=== PATIENT | female | born 1980 | race Caucasian/White ===

== ENCOUNTER → 2021-03-24 13:28 | Outpatient (BNVA) | payer OTHER, SELFPAY | PROVIDERS: PCP Hospitalist; Visit Provider Physician Assistant ==

== ENCOUNTER 2021-04-01 08:24 | Outpatient (REF) | payer OTHER, SELFPAY ==
--- NOTE | ~2021-04-01 | XR_ITS ---
EXAMINATION: XR CHEST 2 VIEWS CLINICAL INFORMATION: Obesity. COMPARISON: Prior chest radiographs as remote as 11/16/2009. TECHNIQUE: Frontal and lateral views of the chest were obtained. FINDINGS: The heart, great vessels, pulmonary vasculature and mediastinum are normal. The lungs show no focal infiltrate, effusion or pneumothorax. There is no acute osseous abnormality. There are upper abdominal surgical clips. XR/XR chest 2V IMPRESSION: No active cardiopulmonary disease.
--- NOTE | 2021-04-01 13:07 | ECG_ITS ---
Test Reason : E66.9 Blood Pressure : / mmHG Vent. Rate : 071 BPM Atrial Rate : 071 BPM P-R Int : 136 ms QRS Dur : 100 ms QT Int : 412 ms P-R-T Axes : 039 070 037 degrees QTc Int : 447 ms Normal sinus rhythm Normal ECG When compared with ECG of 22-JAN-2018 18:08, No significant change was found Referred By: Dirk Llamas Electronically Signed By:NIKKI DWYER
[2021-04-01 13:26] LABS: MANUAL DIFF FLAG NO
[2021-04-01 13:39] LABS: Estimated Average Glucose 217 mg/dL; Hemoglobin A1c % 9.2 %
[2021-04-01 13:40] LABS: Basophils Percent Auto 0.2 % (0-2); Eosinophils Absolute Auto 0.1 X10*3/uL (0.0-0.4); Eosinophils Percent Auto 1.6 % (0-4); Hematocrit 41.6 % (37-47); Hemoglobin 13.7 g/dl (12.0-16.0); Imm Gran Abs Auto 0.02 X10*3/uL (0.00-0.03); Imm Gran Pct Auto 0.2 % (0.0-0.4); Lymphocytes Absolute Auto 2.2 X10*3/uL (1.2-4.9); Lymphocytes Percent Auto 25.7 % (20-40); Mean Corpuscular HGB Conc 32.9 g/dl (31.0-35.0); Mean Corpuscular Hemoglobin 29.1 pg (27.0-33.0); Mean Corpuscular Volume 88.5 fL (80-98); Mean Platelet Volume 12.2 fL (9.4-12.3); Monocytes Absolute Auto 0.5 X10*3/uL (0.1-1.2); Monocytes Percent Auto 5.6 % (2-11); Neutrophils Absolute Auto 5.8 X10*3/uL (2.0-8.3); Neutrophils Percent Auto 66.7 % (45-73); Platelet Count 189 X10*3/uL (160-400); Red Cell Distribution Width 11.9 % (11.0-16.0); White Blood Count 8.6 X10*3/uL (4.8-10.8)
[2021-04-01 13:51] LABS: Alanine Aminotransferase 12 U/L (0-31); Albumin Level 4.2 g/dL (3.5-5.0); Alkaline Phosphatase 84 U/L (39-117); Anion Gap 11 (12-20); Aspartate Amino Transferase 11 U/L (5-31); Bilirubin Total 0.5 mg/dL (0.0-1.0); Blood Urea Nitrogen 12 mg/dL (9-16); C Reactive Protein 3.46 mg/dL (< or = 0.50); Calcium 9.1 mg/dL (8.4-10.2); Carbon Dioxide 26 mmol/L (22-29); Chloride 108 mmol/L (96-108); Cholesterol 238 mg/dL; Estimated Glomerular Filt Rate > 60; Glucose Random 165 mg/dL (60-115); HDL Cholesterol 62 mg/dL; Iron 42 mcg/dL (30-160); LDL Cholesterol Calculated 160 mg/dl; Percent Iron Saturation 14 % (15-50); Potassium 3.5 mmol/L (3.3-5.1); Sodium 141 mmol/L (135-145); Total Iron Binding Capacity 292 mcg/dL (228-428); Triglycerides 81 mg/dL; Unsaturated Iron Binding 250 ug/dL
[2021-04-01 14:14] LABS: Ferritin 128 ng/mL (10-250); Vitamin D 25-OH Total 35.2 ng/mL (>30)
[2021-04-01 14:34] LABS: Folate 13.3 ng/mL (> or = 4.0); Vitamin B12 486 pg/mL (200-900)
[2021-04-02 09:25] LABS: Insulin Level Total 4.4 uIU/mL
[2021-04-05 13:33] LABS: Calcium (PTHI) 9.1 mg/dL (8.6-10.2); PTHI 86 pg/mL (14-64)
[2021-04-05 20:47] LABS: Zinc 71 mcg/dL (60-130)
[2021-04-06 16:07] LABS: Vitamin B1 17 nmol/L (8-30)
[2021-04-06 19:17] LABS: Vitamin A 35 mcg/dL (38-98)
== END 2021-04-01 08:25 | disposition home or self-care (01) ==
LOC: HO.LAB 08:24
PROVIDERS: PCP Hospitalist; Visit Provider Surgery
DX: E66.9 Obesity, unspecified (principal); Z68.33 Body mass index [BMI] 33.0-33.9, adult; J45.909 Unspecified asthma, uncomplicated; E78.5 Hyperlipidemia, unspecified; I10 Essential (primary) hypertension
CPT/HCPCS: 36415; 71046; 80053; 80061; 82306; 82607; 82728; 82746; 83036; 83525; 83540; 83970; 84425; 84443; 84590; 84630; 85025; 86140; 93005

== ENCOUNTER 2021-04-14 09:02 | Day surgery (SDC) | payer OTHER, SELFPAY ==
[2021-04-08 14:13] VITALS: BMI 34.0
--- NOTE | 2021-04-13 10:27 | P.CONAN_ITS ---
Documented by User: Mihaela Melissa 04/13/21 10:28 HPI - Anesthesia Eval Consult details Narrative: 41yo F for Upper Endoscopy PMFSH Active Problems Active Problems: All Active Problems (Updated 04/01/21 @ 10:36 by Dirk Llamas MD) BMI 33.0-33.9,adult (Acute) DJD (degenerative joint disease) (Acute) Asthma (Acute) Hyperlipidemia (Acute) Hypertension (Acute) Depression (Acute) Insulin dependent diabetes mellitus (Acute) Obesity (Acute) Past Medical History Medical History Asthma Depression DJD (degenerative joint disease) Hyperlipidemia Hypertension Insulin dependent diabetes mellitus Kidney stones Obesity Family History Family History Mother Hypertension Tumor Eczema Heart murmur Father Hypertension Hyperlipidemia Heart attack Brother Eczema Asthma Migraine Brother Lung tumor Diabetes Sister Asthma Son No problems noted. Daughter No problems noted. Surgical History Surgical History Hx of breast surgery Hx of cholecystectomy Hx of laparoscopy Hx of tubal ligation Social History Social History (Updated 04/14/21 @ 10:06 by Samreen Lopez) Alcohol intake: never Patient Tobacco Use Status: Former Tobacco user Quit Date: December 2020 Smoked in Last 30 Days: No Use of substances other than those prescribed or required for medical reasons: No Are you DNR?: No Advance Directives: No Advance Directives Information Provided: Yes Patient : No FDLMP: 11/2002 Meds Allergies Allergy/AdvReac Type Severity Reaction Status Date / Time varicella virus vaccine live Allergy Severe difficulty Verified 04/14/21 09:43 [VARICELLA VIRUS VACCINE breathing/swelling/redness/itching LIVE] Home Medications Medication Instructions Recorded Confirmed Last Taken Type atorvastatin 40 mg tablet 40 mg PO DAILY 03/24/21 04/08/21 Unknown History blood sugar diagnostic #10 ea 03/24/21 04/01/21 Unknown History epinephrine 0.3 mg/0.3 mL IM 03/24/21 04/01/21 Unknown History injection, auto-injector insulin glargine 100 unit/mL (3 20 unit SUBCUT QAM 03/24/21 04/08/21 Unknown History mL) subcutaneous pen insulin glargine 100 unit/mL (3 unit SUBCUT 03/24/21 04/01/21 Unknown History mL) subcutaneous pen insulin lispro 100 unit/mL 5.5 unit SUBCUT BEDTIME 03/24/21 04/01/21 Unknown History subcutaneous half-unit pen insulin lispro 100 unit/mL unit SUBCUT DAILY 03/24/21 04/01/21 Unknown History subcutaneous pen lancets 28 gauge #100 ea 03/24/21 04/01/21 Unknown History lisinopril 40 mg tablet 40 mg PO DAILY 03/24/21 04/08/21 Unknown History metformin 1,000 mg tablet 1,000 mg PO BID 03/24/21 04/08/21 Unknown History omeprazole 40 mg capsule,delayed 40 mg PO DAILY 03/24/21 04/08/21 Unknown History release pen needle, diabetic 31 gauge x #50 03/24/21 04/01/21 Unknown History / sumatriptan succinate 50 mg tablet 50 mg PO 03/24/21 04/01/21 Unknown History albuterol sulfate 90 mcg/actuation 2 puff INHALATION Q6H PRN 04/01/21 04/01/21 Unknown History aerosol inhaler albuterol sulfate 90 mcg/actuation 2 puff INHALATION Q6H PRN 04/01/21 04/08/21 Unknown History aerosol inhaler Exam Exam Date and Time: April 13, 2021 1027 Height,Weight and Vital Signs: Height 4 ft 11.5 in Weight 77.564 kg Pertinent Lab Results Pertinent Lab Results: Laboratory Tests 04/01/21 04/01/21 12:52 12:52 WBC 8.6 Hgb 13.7 Hct 41.6 Plt Count 189 Sodium 141 Potassium 3.5 Chloride 108 Carbon Dioxide 26 BUN 12 Creatinine 0.73 Narrative Narrative: EKG 03/2021 Vent. Rate : 071 BPM Atrial Rate : 071 BPM P-R Int : 136 ms QRS Dur : 100 ms QT Int : 412 ms P-R-T Axes : 039 070 037 degrees QTc Int : 447 ms Normal sinus rhythm Normal ECG When compared with ECG of 22-JAN-2018 18:08, No significant change was found Assessment and Plan Assessment Anesthesia Assessment: Chart Reviewed Documented by User: Samreen Lopez 04/14/21 10:13 [facility] Past Medical History Medical History Asthma Depression DJD (degenerative joint disease) Hyperlipidemia Hypertension Insulin dependent diabetes mellitus Kidney stones Obesity Family History Family History Mother Hypertension Tumor Eczema Heart murmur Father Hypertension Hyperlipidemia Heart attack Brother Eczema Asthma Migraine Brother Lung tumor Diabetes Sister Asthma Son No problems noted. Daughter No problems noted. Family history of problems with anesthesia: No Surgical History Surgical History Hx of breast surgery Hx of cholecystectomy Hx of laparoscopy Hx of tubal ligation History of Problems with Anesthesia: No Social History Social History (Updated 04/14/21 @ 10:06 by Samreen Lopez) Alcohol intake: never Patient Tobacco Use Status: Former Tobacco user Quit Date: December 2020 Smoked in Last 30 Days: No Use of substances other than those prescribed or required for medical reasons: No Are you DNR?: No Advance Directives: No Advance Directives Information Provided: Yes Patient : No FDLMP: 11/2002 Meds Allergies Allergy/AdvReac Type Severity Reaction Status Date / Time varicella virus vaccine live Allergy Severe difficulty Verified 04/14/21 09:43 [VARICELLA VIRUS VACCINE breathing/swelling/redness/itching LIVE] Home Medications Medication Instructions Recorded Confirmed Last Taken Type atorvastatin 40 mg tablet 40 mg PO DAILY 03/24/21 04/08/21 Unknown History blood sugar diagnostic #10 ea 03/24/21 04/01/21 Unknown History epinephrine 0.3 mg/0.3 mL IM 03/24/21 04/01/21 Unknown History injection, auto-injector insulin glargine 100 unit/mL (3 20 unit SUBCUT QAM 03/24/21 04/08/21 Unknown History mL) subcutaneous pen insulin glargine 100 unit/mL (3 unit SUBCUT 03/24/21 04/01/21 Unknown History mL) subcutaneous pen insulin lispro 100 unit/mL 5.5 unit SUBCUT BEDTIME 03/24/21 04/01/21 Unknown History subcutaneous half-unit pen insulin lispro 100 unit/mL unit SUBCUT DAILY 03/24/21 04/01/21 Unknown History subcutaneous pen lancets 28 gauge #100 ea 03/24/21 04/01/21 Unknown History lisinopril 40 mg tablet 40 mg PO DAILY 03/24/21 04/08/21 Unknown History metformin 1,000 mg tablet 1,000 mg PO BID 03/24/21 04/08/21 Unknown History omeprazole 40 mg capsule,delayed 40 mg PO DAILY 03/24/21 04/08/21 Unknown History release pen needle, diabetic 31 gauge x #50 ea 03/24/21 04/01/21 Unknown History /16 sumatriptan succinate 50 mg tablet 50 mg PO 03/24/21 04/01/21 Unknown History albuterol sulfate 90 mcg/actuation 2 puff INHALATION Q6H PRN 04/01/21 04/01/21 Unknown History aerosol inhaler albuterol sulfate 90 mcg/actuation 2 puff INHALATION Q6H PRN 04/01/21 04/08/21 Unknown History aerosol inhaler Exam Height,Weight and Vital Signs: Vital Signs Temp Pulse Resp BP Pulse Ox 04/14/21 10:07 98.5 F 80 16 130/87 98 Pertinent Lab Results Pertinent Lab Results: Lab Results 04/14/21 04/14/21 Range/Units 09:10 09:45 POC Glucose 252 H (60-115) mg/dL COVID-19 ([facility]) Negative (Negative) COVID-19 Clin Com See Note Airway Mallampati Class: II TM Dist: >3cm Neck ROM: Full (But tense muscles) Loose/Missing/Broken Teeth: Yes (Extractions) Heart: RRR Lungs: CTAB Assessment and Plan Assessment Anesthesia Assessment: Anesthesia Plan Discussed and Chart Reviewed Final Anesthetic Review NPO: Yes ASA Class: II Final Preanesthetic Review: No Changes in Pt Med Stat, Meds/Allgs Chart Reviewed, Consent Obtained/Reviewed and Anes Risks/Benef Reviewed Patient Risk: Low Procedure Risk: Low Assessment/Block/Sedation in SS: Assess/Block/Sedation-SS Anesthetic Plan Anesthetic Plan: MAC: Disposition: Standard PACU
--- NOTE | 2021-04-13 16:37 | MHC.SHP ---
Pre-Procedural Eval Section A The patient is an INPATIENT: No The History & Physical has been completed within 30 days and I have reviewed it.: Yes Section B Chief Complaint: Hx of Peptic Ulcer Disease Details of Present Illness: GERD Relevant Family History (Specify if Yes): No Relevant Social History: None Present Medications: see Short Stay Collaborative assessment Medical History: No relevant PMH History of Previous Operations: No relevant previous surgery Allergies: Allergies Allergy/AdvReac Type Severity Reaction Status Date / Time varicella virus vaccine live Allergy Severe difficulty Unverified 04/08/21 14:04 [VARICELLA VIRUS VACCINE breathing/swelling/redness/itching LIVE] Review of Systems Sugical H&P ROS: Negative: Constitution, Cardiovascular, Respiratory, Neurological, Psychiatric, Hem-Onc, Allergic/Immunologic, Gastrointestinal, Genitourinary, Musculoskeletal, Integumentary, Endocrine and Eyes/Ears/Nose/Throat Exam Surgical H&P Exam: Normal: HEENT, Normal: Heart, Normal: Lungs, Normal: Extremities, Normal: Abdomen, Normal: Skin and Normal: Neurological Plan Diagnosis/Plan: Unchanged I have reviewed the history and physical and performed a pertinent physical examination on my patient. No changes have occurred unless specified.
[2021-04-14 09:16] VITALS: BMI 34.2
[2021-04-14] MEDS: Lactated Ringers 1,000 ML 100 ML IVCONT (09:43)
[2021-04-14 09:45] LABS: COVID-19 Test Negative (Negative)
[2021-04-14 09:50] LABS: Glucose, Whole Blood 252 mg/dL (60-115)
[2021-04-14 10:07] VITALS: BP 130/87; PULSE 80; RESP 16; TEMP 36.9; O2SAT 98
--- NOTE | 2021-04-14 10:25 | P.BOP_ITS ---
Brief Operative Note Date of Service: 04/14/21 Procedure: PROCEDURE DATE: 04/14/2021 PREOPERATIVE DIAGNOSIS: Peptic ulcer disease and obesity POSTOPERATIVE DIAGNOSIS: Same as above. 1) small hiatal hernia PROCEDURE: [id number] with biopsies Surgeon: Cesar Llamas M.D.. Ph.D. Turkish Line Attendant: None Anesthesia: IV sedation Estimated blood loss: Minimal FINDINGS AND PROCEDURE: OPERATIVE INDICATIONS: The patient is a 41 year old female known to dc who is evaluated for morbid obesity and bariatric surgery. She has a history of endoscopy-proven peptic ulcer disease. She presents for an endoscopy and a biopsy. Risks and complications of the surgery were discussed with the patient in advance particularly the possibility of perforation or bleeding that may require surgical intervention. The patient understood the risks and was in agreement with the plan. PROCEDURE: After informed consent was obtained by the patient, the patient was transferred to the Operating Room and was placed in the supine position. After successful induction of IV sedation, a mouth block was inserted and the patient was placed in the left lateral decubitus position. An upper endoscopy was performed next, the oropharynx and esophagus appeared within the normal limits. There was a small hiatal hernia. The z-line was smooth. Two biopsies were obtained from the distal esohagus 2-3 cm proximal to the GE junction and two additional biopsies from the GE junction. The stomach was entered and it appeared to be of normal size. There was no stricture or ulcer. Biopsies were obtained from the stomach. No significant bleeding was noted from any of the biopsy sites. Retroflexion of the scope showed no evidence of ulcers in the GEJ or fundus of the stomach. The scope was then advanced into the duodenum which appeared to be normal as well. At that point the duodenum and the stomach were decompressed and the scope was withdrawn from the patient's mouth. The patient extubated and was transferred in stable condition to the Recovery Room for further care. I was present and performed all steps of the procedure. There were no residents to assist with this case. Cesar Llamas M.D., Ph.D. Surgeon: Dirk Llamas MD Was an Turkish Line Attendant used for this Procedure?: No Estimated blood loss (mL): 0
[2021-04-14 10:49] VITALS: BP 115/73; PULSE 88; RESP 16; TEMP 36.7; O2SAT 93
[2021-04-14 11:04] VITALS: BP 128/81; PULSE 89; RESP 18; O2SAT 98
== END 2021-04-14 11:34 | disposition home or self-care (01) ==
PROVIDERS: PCP Hospitalist; Visit Provider Surgery
PROC: 0DJ08ZZ Inspection of Upper Intestinal Tract, Via Natural or Artificial Opening Endoscopic (ICD-10-PCS; CPT 43235; principal; 2021-04-14 10:10)
DX: K27.9 Peptic ulcer, site unspecified, unspecified as acute or chronic, without hemorrhage or perforation (principal); E66.9 Obesity, unspecified; Z68.33 Body mass index [BMI] 33.0-33.9, adult; K44.9 Diaphragmatic hernia without obstruction or gangrene; J45.909 Unspecified asthma, uncomplicated; E11.9 Type 2 diabetes mellitus without complications; I10 Essential (primary) hypertension; E78.5 Hyperlipidemia, unspecified; Z79.4 Long term (current) use of insulin; Z79.899 Other long term (current) drug therapy; Z87.891 Personal history of nicotine dependence
CPT/HCPCS: 43239; 36415; 82947; 87635; 88305; 88342

== ENCOUNTER 2021-04-19 10:10 | Outpatient (REF) | payer OTHER, SELFPAY ==
--- NOTE | ~2021-04-19 | FL_ITS ---
EXAMINATION: XR GI SERIES CLINICAL INFORMATION: Obesity COMPARISON: None TECHNIQUE: Upper GI was performed using thin and thick barium and effervescent granules. FINDINGS: Esophageal motility is normal. No hernia or reflux is seen. The stomach and duodenum are normal-appearing. No fold thickening, mass, ulcer or stricture is seen. FLUOROSCOPY TIME: 1.3 DOSE AREA PRODUCT: 13 wolf per centimeter squared. Total dose 36 mgy. 24 saved fluoroscopic images. FL/FL upper GI series IMPRESSION: Unremarkable examination.
== END 2021-04-19 10:11 | disposition home or self-care (01) ==
LOC: HO.US 10:10
PROVIDERS: PCP Hospitalist; Visit Provider Surgery
DX: Z01.818 Encounter for other preprocedural examination (principal); I10 Essential (primary) hypertension; E78.5 Hyperlipidemia, unspecified; J45.909 Unspecified asthma, uncomplicated; E66.01 Morbid (severe) obesity due to excess calories; K21.9 Gastro-esophageal reflux disease without esophagitis; Z68.33 Body mass index [BMI] 33.0-33.9, adult
CPT/HCPCS: 74240

== ENCOUNTER → 2021-04-22 06:46 | Outpatient (BNVA) | payer OTHER, SELFPAY | PROVIDERS: PCP Hospitalist; Visit Provider Surgery ==

== ENCOUNTER 2021-05-03 14:59 | Outpatient (REF) | payer OTHER, SELFPAY ==
--- NOTE | ~2021-05-03 | US_ITS ---
EXAMINATION: US COMPLETE ABDOMEN WITH LIVER ELASTOGRAPHY CLINICAL INFORMATION: Obesity COMPARISON: Previous CT of the abdomen and pelvis February 2016 TECHNIQUE: Real-time imaging of the abdominal viscera. Noninvasive ultrasound liver fibrosis assessment is performed using Kim ElastPQ point quantification shear wave elastography (pSWE) with a C5-2 MHz transducer. Multiple elastography samples are obtained. FINDINGS: PANCREAS: The visualized pancreatic head and body are normal in appearance. The remainder of the pancreas is obscured from visualization by the overlying bowel gas. ABDOMINAL AORTA: The proximal, middle, and distal aortic segments are normal in caliber. INFERIOR VENA CAVA: Visualized portions are normal. LIVER: Liver echotexture is increased. The liver demonstrates normal size and contour. No focal lesion or intrahepatic biliary duct dilatation. The right lobe measures 15.2 cm in length. The left lobe measures 9.7 cm in length. Portal flow is normal/hepatopedal Shear wave liver elastography median stiffness is 1.4 m/s (reference: normal median stiffness is 1.3 m/s or less). IQR/median stiffness to assess sampling precision is 0.04 (reference: good quality data set is IQR/median stiffness of 0.15 or less). GALLBLADDER: Surgically removed COMMON BILE DUCT: Normal in caliber measuring 0.3 cm in diameter. RIGHT KIDNEY: There is a 4 mm stone in the upper pole. No hydronephrosis. No focal parenchymal lesions. The kidney measures 11.6 cm in maximum dimension. LEFT KIDNEY: Normal. No hydronephrosis. No renal calculi or focal parenchymal lesions. The kidney measures 11 cm in maximum dimension. SPLEEN: Normal. The spleen measures 11 cm in maximum dimension. FREE FLUID: None. US/US abdomen comp w elastography IMPRESSION: 1. Impression: Echogenic liver probably representing fatty infiltration. Right renal stone. Limited visualization of the tail of the pancreas. 2. Liver elastography: Adequate liver sampling. In the absence of other known clinical signs, rules out compensated advanced chronic liver disease. REFERENCE: Society of Radiologists in Ultrasound Liver Stiffness Thresholds (2020): LIVER STIFFNESS THRESHOLDS: *Liver Stiffness equal or less than 1.3 m/s: High probability of being normal. *Liver Stiffness less than 1.7 m/s: In the absence of other known clinical signs, rules out compensated advanced chronic liver disease. *Liver Stiffness 1.7-2.1 m/s: Suggestive of compensated advanced chronic liver disease but need further test for confirmation. *Liver Stiffness over 2.1 m/s: Rules in compensated advanced chronic liver disease. *Liver Stiffness over 2.4 m/s: Suggestive of clinically significant portal hypertension. QUALITY OF DATA SET: *IQR/Median value equal or less than 0.15 implies a quality data set. *IQR/Median value over 0.15 implies a poor quality data set. SIGNIFICANT CHANGE FROM PRIOR EXAM: Significant change if liver stiffness measurement is 10% or greater from prior exam. OTHER CONSIDERATIONS: The stage of liver fibrosis may be overestimated in the setting of acute hepatitis, liver inflammation, elevated liver function tests, hepatic vascular congestion, obstructive cholestasis, non-fasting state, and infiltrative diseases such as amyloidosis and lymphoma. In some patients with NAFLD, the liver stiffness thresholds for compensated advanced chronic liver disease may be lower. In causes other than viral hepatitis and NAFLD, liver stiffness thresholds are not well established.
== END 2021-05-03 15:00 | disposition home or self-care (01) ==
LOC: HO.US 14:59
PROVIDERS: Visit Provider Surgery
DX: E66.9 Obesity, unspecified (principal); Z68.33 Body mass index [BMI] 33.0-33.9, adult; E78.5 Hyperlipidemia, unspecified; I10 Essential (primary) hypertension; J45.909 Unspecified asthma, uncomplicated
CPT/HCPCS: 76705; 76981

== ENCOUNTER → 2021-05-05 08:08 | Outpatient (BNVA) | payer OTHER, SELFPAY | PROVIDERS: PCP Hospitalist; Visit Provider Dietitian, Registered | DX: E66.9 Obesity, unspecified (principal); Z68.34 Body mass index [BMI] 34.0-34.9, adult | CPT/HCPCS: 97802 ==

== ENCOUNTER 2021-09-02 10:24 | Emergency (ER) | payer OTHER, MEDICAID, SELFPAY ==
--- NOTE | ~2021-09-02 | XR_ITS ---
EXAMINATION: XR CHEST CLINICAL INFORMATION: Hypertension COMPARISON: Previous chest x-ray March 2021 TECHNIQUE: 2 views of the chest were obtained. FINDINGS: The cardiac and mediastinal contours are stable. There is a new 6 mm nodular density projecting over the left upper lobe. This may be related to a chest lead. The lungs are otherwise clear. There is no pleural effusion or pneumothorax. Bony structures are unremarkable. XR/XR chest 2V IMPRESSION: New 6 mm nodular density projecting over the left upper lobe, question related to a left chest bleed. Otherwise unremarkable exam.
--- NOTE | ~2021-09-02 | CT_ITS ---
EXAMINATION: CT HEAD WITHOUT CONTRAST CLINICAL INFORMATION: Asymptomatic hypertension COMPARISON: None TECHNIQUE: Contiguous axial imaging was performed from the skull base to vertex without intravenous administration of contrast. This CT examination was performed using dose optimization techniques as appropriate, variously including the following: *Automated exposure control *Adjustment of mA and/or kV according to patient size (this includes techniques or standardized protocols for targeted exams where dose is matched to indication/reason for exam; i.e. extremities or head) *Use of iterative reconstruction technique DLP: 657 mGy-cm FINDINGS: There is no evidence of acute intracranial hemorrhage or territorial infarction. No abnormal mass effect or midline shift is seen. Powers to white matter differentiation is well preserved. No extra-axial fluid collections are identified. The ventricles are normal in size. There is no abnormal attenuation within the brain parenchyma. The osseous structures and soft tissues are normal. The mastoid air cells and visualized portions of the paranasal sinuses are well aerated. CT/CT head/brain wo con IMPRESSION: No acute intracranial pathology.
[2021-09-02 10:45] VITALS: BP 199/116; PULSE 104; RESP 18; TEMP 36.8; O2SAT 100; BMI 34.0
--- NOTE | 2021-09-02 11:05 | ECG_ITS ---
Test Reason : HIGH BP Blood Pressure : / mmHG Vent. Rate : 077 BPM Atrial Rate : 077 BPM P-R Int : 140 ms QRS Dur : 100 ms QT Int : 394 ms P-R-T Axes : 050 064 040 degrees QTc Int : 445 ms Normal sinus rhythm Normal ECG When compared with ECG of 01-APR-2021 13:10, No significant change was found Referred By: Georgette Dumont Electronically Signed By:CANDIE LINO MD
--- NOTE | 2021-09-02 11:07 | ED.HA ---
HPI - Headache General Chief Complaint: Dizziness Stated Complaint: hbp Time Seen by Provider: 09/02/21 10:52 Source: patient Mode of arrival: ambulatory Limitations: no limitations History of Present Illness HPI Narrative: 41-year-old female with a past medical history of asthma, high cholesterol, hypertension, depression, obesity, insulin-dependent diabetes here with complaints of generalized headache, blurry vision and numbness around her mouth for the last 2 days. Patient tells me that she has history of hypertension for greater than 4 years. She had been taking lisinopril but discontinued this this summer due to a change in primary care doctor. She restarted in July and has been checking her blood pressure daily since then. She tells me that she has been running high 180s over 100s consistently every day. Today she had a slight headache with some blurry vision and so she went to the school nurse and was told her blood pressure was 180/100. This concerned her and brought her into the emergency department today. She did notify her primary care doctor and they have added Norvasc 10 mg to her regimen. She is currently taking lisinopril 40 mg as well. No weakness, numbness, tingling, chest pain, shortness of breath, leg swelling or pain. Related Data Home Medications Medication Instructions Recorded Confirmed atorvastatin 40 mg tablet 40 mg PO DAILY 03/24/21 04/08/21 blood sugar diagnostic #10 ea 03/24/21 04/01/21 epinephrine 0.3 mg/0.3 mL IM 03/24/21 04/01/21 injection, auto-injector insulin glargine 100 unit/mL (3 unit SUBCUT 03/24/21 04/01/21 mL) subcutaneous pen insulin glargine 100 unit/mL (3 20 unit SUBCUT QAM 03/24/21 04/08/21 mL) subcutaneous pen (Basaglar KwikPen U-100 Insulin) insulin lispro 100 unit/mL 5.5 unit SUBCUT BEDTIME 03/24/21 04/01/21 subcutaneous half-unit pen (Humalog Emerson KwikPen (U-100)) insulin lispro 100 unit/mL unit SUBCUT DAILY 03/24/21 04/01/21 subcutaneous pen lancets 28 gauge #100 ea 03/24/21 04/01/21 lisinopril 40 mg tablet 40 mg PO DAILY 03/24/21 04/08/21 metformin 1,000 mg tablet 1,000 mg PO BID 03/24/21 04/08/21 omeprazole 40 mg capsule,delayed 40 mg PO DAILY 03/24/21 04/08/21 release pen needle, diabetic 31 gauge x #50 ea 03/24/21 04/01/2101/18 sumatriptan succinate 50 mg tablet 50 mg PO 03/24/21 04/01/21 albuterol sulfate 90 mcg/actuation 2 puff INHALATION Q6H PRN 04/01/21 04/01/21 aerosol inhaler albuterol sulfate 90 mcg/actuation 2 puff INHALATION Q6H PRN 04/01/21 04/08/21 aerosol inhaler (ProAir HFA) Previous Rx's Medication Instructions Recorded vitamin A palmitate 10,000 unit 10,000 unit PO .COMPLEX #30 cap 04/22/21 capsule Allergies Allergy/AdvReac Type Severity Reaction Status Date / Time varicella virus vaccine live Allergy Severe difficulty Verified 04/14/21 09:43 [VARICELLA VIRUS VACCINE breathing/swelling/redness/itching LIVE] Review of Systems Review of Systems: Yes all other systems are reviewed and are negative Constitutional: Constitutional: Reports no additional constitutional complaints, Denies body ache(s), Denies chills, Denies fever(s), Reports headache(s) and Denies weakness Eyes: Eyes: Reports no additional eye complaints, Reports blurry vision and Denies change in vision ENT: Reports system reviewed and no additional complaints, except as documented, Denies dizziness, Reports headache(s), Denies nasal congestion, Denies nasal discharge and Denies neck pain Cardiovascular: Cardiovascular: Reports no additional cardiovascular complaints, Denies chest pain, Denies leg edema and Denies dyspnea Respiratory: Respiratory: Reports no additional respiratory complaints, Denies cough and Denies dyspnea Gastrointestinal: Gastrointestinal: Reports no additional gastrointestinal complaints, Denies abdominal pain, Denies diarrhea, Denies nausea and Denies vomiting Genitourinary: Genitourinary: Reports no additional female genitourinary complaints and Denies urinary incontinence Musculoskeletal: Musculoskeletal: Reports no additional musculoskeletal complaints, Denies back pain, Denies arthralgias, Denies joint swelling, Denies neck pain, Reports numbness and Denies tingling Integumentary/Breasts: Skin/Breast: Reports system reviewed and no additional complaints, except as docu and Denies rash Neurologic: Reports system reviewed and no additional complaints, except as documented, Denies Abnormal speech present, Denies dizziness, Reports headache(s), Reports numbness, Denies tingling and Denies weakness PMFSH Past Medical History Attestation statement: The following information was validated with the patient. Source: old records reviewed and nursing notes reviewed Medical History Asthma Depression DJD (degenerative joint disease) Hyperlipidemia Hypertension Insulin dependent diabetes mellitus Kidney stones Obesity Surgical History Hx of breast surgery Hx of cholecystectomy Hx of laparoscopy Hx of tubal ligation Family History Family History Mother Hypertension Tumor Eczema Heart murmur Father Hypertension Hyperlipidemia Heart attack Brother Eczema Asthma Migraine Brother Lung tumor Diabetes Sister Asthma Son No problems noted. Daughter No problems noted. Social History Social History Alcohol intake: never Patient Tobacco Use Status: Current everyday Tobacco user Use of substances other than those prescribed or required for medical reasons: No Advance Directives: No Advance Directives Information Provided: Yes Physical Exam Vital Signs: Vital Signs: Last Vital Signs Temp 98.2 F 09/02/21 10:45 Pulse 71 09/02/21 12:27 Resp 18 09/02/21 12:27 BP 162/92 H 09/02/21 12:27 Pulse Ox 100 09/02/21 10:45 Body Mass Index 34.0 Const: General: cooperative, healthy appearing, comfortable and no acute distress Orientation/consciousness: patient oriented x3 Limitations: no limitations HENMT: Head: Yes normal to inspection Ears: hearing grossly normal bilaterally and TM's normal bilaterally General nose exam: Normal external nose present Face and sinus: Yes normal facial exam Mouth: Normal oral and palatal mucosa present Throat: Yes posterior oropharynx normal, Yes tonsils normal and Yes uvula midline Eyes: General: appearance normal, both eyes and all related structures Visual [place]: normal visual [place] by confrontation Alignment and Position: alignment normal Periorbital: periorbital findings normal Eyelids: Yes eyelids normal Conjunctivae: conjunctivae normal Sclerae: sclerae normal Corneas: corneas normal Pupils: Equal, round and reactive pupils present EOM: EOMs intact bilaterally Direct Ophthalmoscopy: normal light reflex and no photophobia Neck: Neck: Yes normal visual inspection Chest: Chest palpation & inspection: normal inspection of the chest Resp: Effort & Inspection: normal respiratory effort Auscultation: clear to auscultation bilaterally Cardio: Rate: regular rate Rhythm: regular rhythm Peripheral pulses: Peripheral pulses 2+ throughout GI: Inspection: Yes normal to inspection Palpation (GI): Soft to palpation and nontender Auscultation: normal bowel sounds Back/Spine/Pelvis: Thoracic/Lumbar Spine: thoracic and lumbar spine normal to inspection Skin: General skin exam: no rashes or lesions noted Neuro: General: patient oriented x3, no focal motor deficits and normal sensation to monofilament Cranial nerves: Yes CN's II-XII intact bilaterally, Yes Equal, round and reactive pupils present, Yes Bilaterally intact EOM present, Yes Nystagmus not present, Yes Normal facial strength present and Yes Midline tongue present Cognition (Neuro): normal cognition Speech: No Abnormal speech present Gait exam (Neuro): Normal gait present Motor exam (neuro): 5/5 motor strength present throughout Sensory Exam: Normal double simultaneous stimulation for sensation Deep tendon reflexes (DTR's): Right patellar reflex intensity grade: 2+ and Left patellar reflex intensity grade: 2+ Extrem: General: Yes normal to inspection, Yes no pedal edema and Yes no calf tenderness Course Course Course Narrative: Symptomatic hypertension unchanged with home lisinopril 40 mg. Normal neuro exam. Will check labs including UA, CT head, EKG and chest x-ray. Will give p.o. Norvasc and reassess blood pressure. Goal blood pressure is 160/90 1245-labs are unremarkable with the exception of mild hyperglycemia with no evidence of DKA. Patient is an insulin-dependent diabetic and plans on giving herself her noontime dose of insulin. Her EKG, chest x-ray and CT scan are normal. Her blood pressure is improved down to 162/92. I spoke to the patient and she is tearful at the bedside. She still tells me that she has a mild headache. I offered medications to treat her headache as a think that this is likely multifactorial and not necessarily from her high blood pressure. May be secondary to mild hyperglycemia or migraine. Patient declined medications and would like to go home. She has a prescription of amlodipine waiting at the pharmacy for her from her primary care. Reviewed worrisome signs and symptoms of when to return to the emergency department. Comfortable discharge home. MDM - Headache MDM Narrative Medical decision making narrative: Symptomatic hypertension ICH Migraine Medical Records Attestation: I reviewed the patient's medical records. Lab Data Attestation: I reviewed the patient's lab results. Result diagrams: 09/02/21 11:13 09/02/21 11:13 Labs: Lab Results 09/02/21 09/02/21 09/02/21 Range/Units 11:13 11:13 11:13 WBC 6.1 (4.8-10.8) X10*3/uL RBC 4.59 (4.20-5.50) X10*6/uL Hgb 13.6 (12.0-16.0) g/dl Hct 40.6 (37-47) % MCV 88.5 (80-98) fL MCH 29.6 (27.0-33.0) pg MCHC 33.5 (31.0-35.0) g/dl RDW 12.1 (11.0-16.0) % Plt Count 154 L (160-400) X10*3/uL MPV 12.6 H (9.4-12.3) fL Immature Gran % (Auto) 0.2 (0.0-0.4) % Neut % (Auto) 59.2 (45-73) % Lymph % (Auto) 32.3 (20-40) % [place] % (Auto) 6.2 (2-11) % Eos % (Auto) 1.8 (0-4) % Baso % (Auto) 0.3 (0-2) % Lymph # (Auto) 2.0 (1.2-4.9) X10*3/uL [place] # (Auto) 0.4 (0.1-1.2) X10*3/uL Eos # (Auto) 0.1 (0.0-0.4) X10*3/uL Baso # (Auto) 0.0 (0.0-0.2) X10*3/uL Abs Immat Gran (auto) 0.01 (0.00-0.03) X10*3/uL Absolute Neuts (auto) 3.6 (2.0-8.3) X10*3/uL Absolute Nucleated RBC 0.000 (0.0-0.012) X10*3/uL Nucleated RBC % (auto) 0.0 (0.0-0.2) /100WBC Sodium 137 (135-145) mmol/L Potassium 4.1 (3.3-5.1) mmol/L Chloride 104 (96-108) mmol/L Carbon Dioxide 25 (22-29) mmol/L Anion Gap 12 (12-20) BUN 8 L (9-16) mg/dL Creatinine 0.81 (0.5-1.4) mg/dL Estim Creat Clear Calc 84.1 Estimated GFR > 60 Random Glucose 322 H (60-115) mg/dL Calcium 8.8 (8.4-10.2) mg/dL Magnesium 1.7 (1.6-2.6) mg/dL Total Bilirubin 0.5 (0.0-1.0) mg/dL Direct Bilirubin 0.2 (0.0-0.5) mg/dL AST 11 (5-31) U/L ALT 13 (0-31) U/L Alkaline Phosphatase 80 (39-117) U/L Troponin I High Sens < 3.5 (<3.5-17.0) ng/L Total Protein 6.6 (6.5-8.0) g/dL Albumin 3.9 (3.5-5.0) g/dL Urine Color Urine Appearance Urine pH (5.0-8.0) Ur Specific [place] (1.005-1.025) Urine Protein (NEG-TRACE) MG/DL Urine Glucose (UA) (NEG) MG/DL Urine Ketones (NEG) MG/DL Urine Blood (NEG) Urine Nitrite (NEG) Ur Leukocyte Esterase (NEG) Urine RBC (0) /HPF Urine WBC (0-4) /HPF Ur Squamous Epith Cells /LPF Urine Bacteria /LPF 09/02/21 Range/Units 11:13 WBC (4.8-10.8) X10*3/uL RBC (4.20-5.50) X10*6/uL Hgb (12.0-16.0) g/dl Hct (37-47) % MCV (80-98) fL MCH (27.0-33.0) pg MCHC (31.0-35.0) g/dl RDW (11.0-16.0) % Plt Count (160-400) X10*3/uL MPV (9.4-12.3) fL Immature Gran % (Auto) (0.0-0.4) % Neut % (Auto) (45-73) % Lymph % (Auto) (20-40) % [place] % (Auto) (2-11) % Eos % (Auto) (0-4) % Baso % (Auto) (0-2) % Lymph # (Auto) (1.2-4.9) X10*3/uL [place] # (Auto) (0.1-1.2) X10*3/uL Eos # (Auto) (0.0-0.4) X10*3/uL Baso # (Auto) (0.0-0.2) X10*3/uL Abs Immat Gran (auto) (0.00-0.03) X10*3/uL Absolute Neuts (auto) (2.0-8.3) X10*3/uL Absolute Nucleated RBC (0.0-0.012) X10*3/uL Nucleated RBC % (auto) (0.0-0.2) /100WBC Sodium (135-145) mmol/L Potassium (3.3-5.1) mmol/L Chloride (96-108) mmol/L Carbon Dioxide (22-29) mmol/L Anion Gap (12-20) BUN (9-16) mg/dL Creatinine (0.5-1.4) mg/dL Estim Creat Clear Calc Estimated GFR Random Glucose (60-115) mg/dL Calcium (8.4-10.2) mg/dL Magnesium (1.6-2.6) mg/dL Total Bilirubin (0.0-1.0) mg/dL Direct Bilirubin (0.0-0.5) mg/dL AST (5-31) U/L ALT (0-31) U/L Alkaline Phosphatase (39-117) U/L Troponin I High Sens (<3.5-17.0) ng/L Total Protein (6.5-8.0) g/dL Albumin (3.5-5.0) g/dL Urine Color YELLOW Urine Appearance CLEAR Urine pH 6.5 (5.0-8.0) Ur Specific [place] 1.015 (1.005-1.025) Urine Protein NEG (NEG-TRACE) MG/DL Urine Glucose (UA) >=1000 H (NEG) MG/DL Urine Ketones NEG (NEG) MG/DL Urine Blood NEG (NEG) Urine Nitrite NEG (NEG) Ur Leukocyte Esterase NEG (NEG) Urine RBC 0-2 (0) /HPF Urine WBC 1-4 (0-4) /HPF Ur Squamous Epith Cells 1+ /LPF Urine Bacteria NONE /LPF Imaging Data CT scan - head: Attestation: I personally reviewed and interpreted this imaging study as follows: Radiologist's impression: FINDINGS: There is no evidence of acute intracranial hemorrhage or territorial infarction. No abnormal mass effect or midline shift is seen. Powers to white matter differentiation is well preserved. No extra-axial fluid collections are identified. The ventricles are normal in size. There is no abnormal attenuation within the brain parenchyma. The osseous structures and soft tissues are normal. The mastoid air cells and visualized portions of the paranasal sinuses are well aerated. ? CT/CT head/brain wo con IMPRESSION: No acute intracranial pathology. Chest x-ray: Attestation: I personally reviewed and interpreted this imaging study as follows: Radiologist's impression: FINDINGS: The cardiac and mediastinal contours are stable. There is a new 6 mm nodular density projecting over the left upper lobe. This may be related to a chest lead. The lungs are otherwise clear. There is no pleural effusion or pneumothorax. Bony structures are unremarkable. XR/XR chest 2V IMPRESSION: New 6 mm nodular density projecting over the left upper lobe, question related to a left chest bleed. Otherwise unremarkable exam. ECG Data Attestation: I personally reviewed and interpreted this ECG as follows: ECG interpretation date: 09/02/21 ECG interpretation time: 10:57 Interpretation: Normal sinus rhythm with a rate of 77, normal SD, normal QRS, normal QT Discharge Plan Discharge Clinical Impression: Hypertension Patient Disposition: Home, Self-Care Instructions: Heart Healthy Diet (ED), Chronic Hypertension (ED), DASH Eating Plan (ED) Additional Instructions: Avoid smoking and caffeine Fill the prescription that your provider called in for you. You received Norvasc 10 mg here in the emergency department. Your blood pressure improved to 160/90 on discharge Prescriptions: No Action albuterol sulfate [ProAir HFA] 90 mcg/actuation HFA aerosol inhaler 2 puff inhalation Q6H PRN (Reason: Shortness Of Breath) RF: 0 albuterol sulfate 90 mcg/actuation HFA aerosol inhaler 2 puff inhalation Q6H PRNRF: 0 vitamin A palmitate 10,000 unit capsule 10,000 unit PO .COMPLEX Qty: 30 RF: 1 sumatriptan succinate 50 mg tablet 50 mg PO RF: 0 (DME) lancets 28 gauge misc See Rx Instructions ea topical BID Qty: 100 RF: 0 Basaglar KwikPen U-100 Insulin 100 unit/mL (3 mL) insulin pen subcut RF: 0 (DME) pen needle, diabetic 31 gauge x 3/16 needle See Rx Instructions ea subcut BEDTIME Qty: 50 RF: 0 insulin lispro 100 unit/mL insulin pen subcut DAILY RF: 0 lisinopril 40 mg tablet 40 mg PO DAILY RF: 0 epinephrine 0.3 mg/0.3 mL auto-injector IM RF: 0 metformin 1,000 mg tablet 1,000 mg PO BID RF: 0 (DME) FreeStyle Precision [place] Strips Strip See Rx Instructions strip .ROUTE BID Qty: 10 RF: 0 omeprazole 40 mg capsule,delayed release(DR/EC) 40 mg PO DAILY RF: 0 atorvastatin 40 mg tablet 40 mg PO DAILY RF: 0 insulin lispro [Humalog Emerson KwikPen U-100] 100 unit/mL insulin pen, half-unit 5.5 unit subcut BEDTIME RF: 0 Basaglar KwikPen U-100 Insulin 100 unit/mL (3 mL) insulin pen 20 unit subcut QAM RF: 0 Referrals: Misael Rader [Primary Care Provider] - 2 days Stand Alone Forms: Work/School Release Interventions: ED Discharge Assessment Last Done: 09/02/21 13:00 Discharge Date/Time: 09/02/21 13:00
[2021-09-02 11:18] VITALS: BP 199/116; PULSE 82
[2021-09-02 11:18] LABS: MANUAL DIFF FLAG NO
[2021-09-02] MEDS: amLODIPine Besylate 10 MG TABLET PO (11:18)
[2021-09-02 11:20] LABS: Appearance Urine CLEAR; Basophils Percent Auto 0.3 % (0-2); Color Urine YELLOW; Eosinophils Absolute Auto 0.1 X10*3/uL (0.0-0.4); Eosinophils Percent Auto 1.8 % (0-4); Glucose Urine UA >=1000 MG/DL (NEG); Hematocrit 40.6 % (37-47); Hemoglobin 13.6 g/dl (12.0-16.0); Imm Gran Abs Auto 0.01 X10*3/uL (0.00-0.03); Imm Gran Pct Auto 0.2 % (0.0-0.4); Leukocyte Esterase Urine NEG (NEG); Lymphocytes Percent Auto 32.3 % (20-40); Mean Corpuscular HGB Conc 33.5 g/dl (31.0-35.0); Mean Corpuscular Hemoglobin 29.6 pg (27.0-33.0); Mean Corpuscular Volume 88.5 fL (80-98); Mean Platelet Volume 12.6 fL (9.4-12.3); Monocytes Absolute Auto 0.4 X10*3/uL (0.1-1.2); Monocytes Percent Auto 6.2 % (2-11); Neutrophils Absolute Auto 3.6 X10*3/uL (2.0-8.3); Neutrophils Percent Auto 59.2 % (45-73); Nitrite Urine NEG (NEG); PH 6.5 (5.0-8.0); Platelet Count 154 X10*3/uL (160-400); Red Blood Count 4.59 X10*6/uL (4.20-5.50); Red Cell Distribution Width 12.1 % (11.0-16.0); Specific Gravity - Urine 1.015 (1.005-1.025); Urine Blood NEG (NEG); Urine Ketones NEG (NEG); Urine Protein NEG (NEG-TRACE); White Blood Count 6.1 X10*3/uL (4.8-10.8)
[2021-09-02 11:30] LABS: RBC Urine 0-2 /HPF (0); Squamous Epithelial Cell Urine 1+ /LPF
[2021-09-02 11:37] LABS: Troponin-I High Sensitivity < 3.5 ng/L (<3.5-17.0)
[2021-09-02 11:38] LABS: Alanine Aminotransferase 13 U/L (0-31); Albumin Level 3.9 g/dL (3.5-5.0); Alkaline Phosphatase 80 U/L (39-117); Anion Gap 12 (12-20); Aspartate Amino Transferase 11 U/L (5-31); Bilirubin Direct 0.2 mg/dL (0.0-0.5); Bilirubin Total 0.5 mg/dL (0.0-1.0); Blood Urea Nitrogen 8 mg/dL (9-16); Calcium 8.8 mg/dL (8.4-10.2); Carbon Dioxide 25 mmol/L (22-29); Chloride 104 mmol/L (96-108); Creatinine Clr Calc Pharmacy 84.1; Estimated Glomerular Filt Rate > 60; Glucose Random 322 mg/dL (60-115); Magnesium 1.7 mg/dL (1.6-2.6); Potassium 4.1 mmol/L (3.3-5.1); Sodium 137 mmol/L (135-145); Total Protein 6.6 g/dL (6.5-8.0)
[2021-09-02 12:27] VITALS: BP 162/92; PULSE 71; RESP 18
== END 2021-09-02 13:00 | disposition home or self-care (01) ==
PROVIDERS: Nurse Practitioner Family; Emergency Provider Emergency Medicine; PCP Hospitalist
DX: I10 Essential (primary) hypertension (principal); E11.65 Type 2 diabetes mellitus with hyperglycemia; J45.909 Unspecified asthma, uncomplicated; Z79.4 Long term (current) use of insulin; Z79.899 Other long term (current) drug therapy
CPT/HCPCS: 36415; 70450; 71046; 80048; 80076; 81001; 83735; 84484; 85025; 93005; 99284; 99285

== ENCOUNTER 2024-04-28 09:23 | Inpatient (IN) | payer OTHER, MEDICAID, SELFPAY ==
--- NOTE | ~2024-04-28 | CT_ITS ---
EXAMINATION: CT ABDOMEN AND PELVIS WITH CONTRAST CLINICAL INFORMATION: Periumbilical pain and bilateral lower quadrant pain COMPARISON: Ultrasound abdomen 05/03/2021, CT abdomen pelvis 02/19/2016 TECHNIQUE: Multidetector volumetric images were obtained from the superior aspect of the liver through the pubic symphysis following administration 85 mL of Omnipaque 350 intravenous contrast. Sagittal and coronal reformatted images were obtained on the technologist's workstation. Oral contrast: No This CT examination was performed using dose optimization techniques as appropriate, variously including the following: *Automated exposure control *Adjustment of mA and/or kV according to patient size (this includes techniques or standardized protocols for targeted exams where dose is matched to indication/reason for exam; i.e. extremities or head) *Use of iterative reconstruction technique DLP: 405 mGy-cm FINDINGS: LUNG BASES: The visualized lung bases are unremarkable. LIVER, GALLBLADDER, AND BILIARY TREE: The liver is normal in size, shape, and attenuation. No focal hepatic lesion or biliary ductal dilatation is present. Status post cholecystectomy. PANCREAS: Unremarkable. SPLEEN: Unremarkable. ADRENAL GLANDS: Unremarkable. KIDNEYS AND URETERS: There is right-sided hydronephrosis with dilatation of the right ureter down to the level of the distal ureter where there is an obstructing 5 mm calculus. Despite its small size, it still measures 1023 Hounsfield units. A nonobstructing 3 mm calculus is present at the left lower pole. The kidneys otherwise appear normal without masses. BLADDER: Unremarkable. GASTROINTESTINAL TRACT: The small and large bowel are unremarkable. The appendix is unremarkable. ABDOMINAL WALL: No significant hernia is appreciated. LYMPH NODES: Normal. VASCULAR: Unremarkable PELVIC VISCERA: A retroflexed uterus is present.. There is a cyst present uterus near the cornu, unchanged from 2016. Small cysts, the largest 2 cm, and some calcifications are noted in the left ovary. OSSEOUS STRUCTURES: Unremarkable. CT/CT abdomen pelvis w IV con IMPRESSION: 1. Obstructing 5 mm distal right ureteral calculus with right-sided hydronephrosis. 2. Nonobstructing 3 mm left lower pole renal calculus. 3. Left ovarian cyst not fully characterized with some calcifications in the left ovary. Transabdominal and endovaginal pelvic ultrasound is recommended. 4. Other incidental findings as described above. Fleischner guidelines were followed.
--- NOTE | ~2024-04-28 | FL_ITS ---
EXAMINATION: XR FLUOROSCOPY WITH IMAGES CLINICAL INFORMATION: Retrograde urography. COMPARISON: None available. TECHNIQUE: Fluoroscopy supervised by: Dr. Ballard. Fluoroscopy time: 25.6 seconds. Cumulative Dose: 5.89 mGy. Images: 3. FINDINGS: The submitted image shows a cystoscope and injection catheter, with opacification of the distal right ureter. There is placement of a double pigtail right ureteric stent. FL/FL guidance in OR IMPRESSION: Intraoperative fluoroscopic guidance is provided during right retrograde urography and stent placement. Please see the patient's Operative Report for full procedural details.
[2024-04-28 09:39] VITALS: BP 150/89; PULSE 89; RESP 18; TEMP 36.7; O2SAT 100; BMI 25.8
[2024-04-28 11:39] LABS: MANUAL DIFF FLAG NO
[2024-04-28 11:40] LABS: Basophils Absolute Auto 0.1 X10*3/uL (0.0-0.2); Basophils Percent Auto 0.6 % (0-2); Eosinophils Absolute Auto 0.1 X10*3/uL (0.0-0.4); Eosinophils Percent Auto 0.6 % (0-4); Hematocrit 40.5 % (37.0-47.0); Hemoglobin 13.8 g/dl (12.0-16.0); Imm Gran Abs Auto 0.02 X10*3/uL (0.00-0.03); Imm Gran Pct Auto 0.2 % (0.0-0.4); Lymphocytes Absolute Auto 1.2 X10*3/uL (1.2-4.9); Lymphocytes Percent Auto 14.3 % (20-40); Mean Corpuscular HGB Conc 34.1 g/dl (31.0-35.0); Mean Corpuscular Hemoglobin 30.2 pg (27.0-33.0); Mean Corpuscular Volume 88.6 fL (80.0-98.0); Mean Platelet Volume 12.1 fL (9.4-12.3); Monocytes Absolute Auto 0.4 X10*3/uL (0.1-1.2); Monocytes Percent Auto 4.3 % (2-11); Neutrophils Absolute Auto 6.4 x10*3/uL (2.0-8.3); Platelet Count 190 X10*3/uL (160-400); Red Blood Count 4.57 X10*6/uL (4.20-5.50); Red Cell Distribution Width 12.5 % (11.0-16.0); White Blood Count 8.1 X10*3/uL (4.8-10.8)
[2024-04-28 12:01] LABS: Alanine Aminotransferase 7 U/L (0-31); Albumin Level 4.3 g/dL (3.5-5.0); Alkaline Phosphatase 61 U/L (39-117); Anion Gap 13 (12-20); Aspartate Amino Transferase 13 U/L (5-31); Bilirubin Total 0.6 mg/dL (0.0-1.0); Blood Urea Nitrogen 13 mg/dL (9-16); C Reactive Protein 0.38 mg/dL (< or = 0.50); Carbon Dioxide 21 mmol/L (22-29); Chloride 111 mmol/L (96-108); Creatinine Clr Calc Pharmacy 69.2; Estimated Glomerular Filt Rate > 60; Glucose Random 180 mg/dL (60-115); Lipase 33 U/L (8-78); Magnesium 1.9 mg/dL (1.6-2.6); Potassium 4.5 mmol/L (3.3-5.1); Sodium 140 mmol/L (135-145); Total Protein 7.4 g/dL (6.5-8.0)
[2024-04-28 12:09] LABS: HCG Quantitative < 2 mIU/mL
[2024-04-28 12:17] LABS: Erythrocyte Sedimentation Rate 14 MM/HR (0-20)
[2024-04-28 13:06] VITALS: BP 147/76; PULSE 70; RESP 16; O2SAT 100
--- NOTE | 2024-04-28 13:06 | ED.ABDPAIN ---
HPI - Abdominal Pain General Chief Complaint: Abdominal Pain Stated Complaint: Colitis flare up Time Seen by Provider: 04/28/24 12:54 Source: patient Mode of arrival: ambulatory Limitations: no limitations History of Present Illness ED Provider: Dr. Charleen Parker HPI narrative: Patient comes to the emergency room complaining of abdominal pain and constipation. Patient states a couple of weeks ago, patient was diagnosed with colitis. Patient took antibiotics for couple of weeks, last dose was 3 days ago. Patient states that after the 10th day of treatment, patient started having diffuse diarrhea. Patient states that for the last 2 days, she has not had any diarrhea at all, no having constipation. Patient states that now she has burning sensation throughout her abdomen worse in the bilateral lower quadrants. Patient states that for the last day, patient has been unable to tolerate any p.o., anything that she drinks she vomits it right away. Patient states that she has seen blood in the urine as well Related Data Home Medications ?Medication ?Instructions ?Recorded ?Confirmed atorvastatin 40 mg tablet 40 mg PO DAILY 03/24/21 04/08/21 blood sugar diagnostic #10 ea 03/24/21 04/01/21 epinephrine 0.3 mg/0.3 mL IM 03/24/21 04/01/21 injection, auto-injector insulin glargine 100 unit/mL (3 unit subcut 03/24/21 04/01/21 mL) subcutaneous pen insulin glargine 100 unit/mL (3 20 unit subcut QAM 03/24/21 04/08/21 mL) subcutaneous pen (Basaglar KwikPen U-100 Insulin) insulin lispro 100 unit/mL 5.5 unit subcut BEDTIME 03/24/21 04/01/21 subcutaneous half-unit pen (Humalog Emerson KwikPen (U-100)) insulin lispro 100 unit/mL unit subcut DAILY 03/24/21 04/01/21 subcutaneous pen lancets 28 gauge #100 ea 03/24/21 04/01/21 lisinopril 40 mg tablet 40 mg PO DAILY 03/24/21 04/08/21 metformin 1,000 mg tablet 1,000 mg PO BID 03/24/21 04/08/21 omeprazole 40 mg capsule,delayed 40 mg PO DAILY 03/24/21 04/08/21 release pen needle, diabetic 31 gauge x #50 christine 03/24/21 04/01/2101/18 sumatriptan succinate 50 mg tablet 50 mg PO 03/24/21 04/01/21 albuterol sulfate 90 mcg/actuation 2 puff inhalation Q6H PRN 04/01/21 04/01/21 aerosol inhaler albuterol sulfate 90 mcg/actuation 2 puff inhalation Q6H PRN 04/01/21 04/08/21 aerosol inhaler (ProAir HFA) Shortness Of Breath Previous Rx's ?Medication ?Instructions ?Recorded vitamin A palmitate 3,000 mcg 10,000 unit PO .COMPLEX #30 caps 04/22/21 (10,000 unit) capsule Allergies Allergy/AdvReac Type Severity Reaction Status Date / Time varicella virus vaccine live Allergy Severe difficulty Verified 04/14/21 09:43 [VARICELLA VIRUS VACCINE breathing/swelling/redness/itching LIVE] bee pollen [bee stings] Allergy Anaphylaxis Verified 04/28/24 09:45 shellfish derived Allergy Anaphylaxis Verified 04/28/24 09:45 tirzepatide [From Mounjaro] Allergy Unknown Verified 04/28/24 09:45 Review of Systems Review of Systems Constitutional : No Weight loss, No Fever, No Chills, No Night Sweats, No Fatigue, No Malaise ENT/Mouth : No Hearing loss, No Ear Pain, No Nasal Congestion, No Sinus Pain, No Hoarseness, No sore throat, No Rhinorrhea, No Swallowing Difficulty Eyes: No Eye Pain, No Swelling, No Redness, No Foreign Body, No Discharge, No Vision Changes Cardiovascular : No Chest Pain, No SOB, No Dyspnea on Exertion, No Orthopnea, No Edema, No Palpitations Respiratory : No Cough, No Sputum, No Wheezing, No Smoke Exposure, No Dyspnea Gastrointestinal : Complaining of nausea and vomiting, complaining of diffuse diarrhea which self resolved and now complaining of constipation, complaining of bilateral and periumbilical burning sensation in the abdomen, denies hematochezia Pain, No Hematochezia, No Melena Genitourinary : no irregular bleeding, No Dysuria, No Urinary Frequency, complaining of Hematuria, No Urinary Incontinence, No Urgency, No Flank Pain, No Urinary Flow Changes, No Hesitancy Musculoskeletal : No joint pain, No Myalgias, No Joint Swelling Skin : No Skin Lesions, No rash Neuro : No Weakness, No Numbness, No Paresthesias, No Loss of Consciousness, No Dizziness, No Headache Psych : No Anxiety/Panic, No Depression, No SI/HI/AH/VH, No Social Issues, Heme/Lymph: No Bruising, No Bleeding,No Lymphadenopathy Endocrine : No Polyuria, No Polydipsia, No Temperature Intolerance [facility] Past Medical History Medical History Kidney stones DJD (degenerative joint disease) Asthma Hyperlipidemia Hypertension Depression Insulin dependent diabetes mellitus Obesity Surgical History Hx of laparoscopy Hx of tubal ligation Hx of cholecystectomy Hx of breast surgery Family History Family History Mother Hypertension Tumor Eczema Heart murmur Father Hypertension Hyperlipidemia Heart attack Brother Eczema Asthma Migraine Brother Lung tumor Diabetes Sister Asthma Son No problems noted. Daughter No problems noted. Social History Social History Alcohol intake: never Patient Tobacco Use Status: Current everyday Tobacco user Smoked in Last 30 Days: No Use of substances other than those prescribed or required for medical reasons: No Advance Directives: No Advance Directives Information Provided: Yes Do you have a plan to hurt others: No Plan Physical Exam ED Vital Signs: Vital Signs - 24 hr 04/28/24 09:39 04/28/24 13:06 04/28/24 14:10 Temperature 98.1 F Pulse Rate 89 70 72 Respiratory Rate 18 16 15 Blood Pressure 150/89 H 147/76 H 101/64 Pulse Oximetry 100 100 100 Oxygen Delivery Method Room Air Room Air Room Air BMI result Body Mass Index 25.8 Const Other: Appearance: Alert. Oriented X3. Looks uncomfortable Eyes: Pupils equal, round and reactive to light. ENT: Pharynx normal. Neck: Normal inspection. Neck supple. No lymph nodes noted. No crepitus CVS: Normal heart rate and rhythm. Pulses normal. Normal S1 and S2 Respiratory: No respiratory distress. Breath sounds normal. No Wheezing. No rales Abdomen: Soft , pain to palpation in periumbilical area and bilateral lower quadrants, no rebound, no guarding Skin: Skin warm and dry. Normal skin color. Normal skin turgor. Extremities: No lower extremity edema. No Lacerations. No Rash Neuro: Oriented X 3. No motor deficit. No sensory deficit. Moving all extremities. No slurred speech. CN 2 through 12 grossly intact Psych: calm, cooperative, normal affect Course Course Course Narrative: -patient receiving IV fluids, Zofran and morphine -CT scan and labs pending Medical Decision Making Medical Decision Making [facility] Narrative: -my interpretation of labs, normal hematology, no significant abnormality in the chemistry, normal LFTs, normal lipase, hCG negative, urinalysis positive for UTI -my interpretation of CT scan, there is a calculus present in the right ureter -patient does not have any fever, patient has normal blood pressure, normal white blood cell count. Lactic and blood cultures pending. Sepsis is not suspected -radiology report, 5 mm obstructing calculus with hydronephrosis -despite patient receiving IV and p.o. medications, patient is still in pain, nauseous. -I discussed the patient with Dr. Garcia, who request to have the patient admitted by medicine team due to past medical history of diabetes and he will add the patient to the scheduled for the OR tomorrow -patient being admitted, discussed with the hospitalist team Differential Diagnosis Differential Diagnoses: The differential diagnosis associated with the presentation includes (Kidney stone, pyelonephritis, colitis) Admission/Observation Consideration of admission/observation: Escalation of care including admission/observation considered Consult Healthcare Provider Management of the patient was discussed with: Hospitalist and [employer] Lab Data [facility] Lab Attestation statement: I reviewed the patient's lab results. 04/28/24 11:29 04/28/24 11:29 Labs: Lab Results 04/28/24 04/28/24 Range/Units 11:29 12:36 WBC 8.1 (4.8-10.8) X10*3/uL RBC 4.57 (4.20-5.50) X10*6/uL Hgb 13.8 (12.0-16.0) g/dl Hct 40.5 (37.0-47.0) % MCV 88.6 (80.0-98.0) fL MCH 30.2 (27.0-33.0) pg MCHC 34.1 (31.0-35.0) g/dl RDW 12.5 (11.0-16.0) % Plt Count 190 (160-400) X10*3/uL MPV 12.1 (9.4-12.3) fL Immature Gran % (Auto) 0.2 (0.0-0.4) % Neut % (Auto) 80.0 H (45-73) % Lymph % (Auto) 14.3 L (20-40) % [place] % (Auto) 4.3 (2-11) % Eos % (Auto) 0.6 (0-4) % Baso % (Auto) 0.6 (0-2) % Lymph # (Auto) 1.2 (1.2-4.9) X10*3/uL [place] # (Auto) 0.4 (0.1-1.2) X10*3/uL Eos # (Auto) 0.1 (0.0-0.4) X10*3/uL Baso # (Auto) 0.1 (0.0-0.2) X10*3/uL Abs Immat Gran (auto) 0.02 (0.00-0.03) X10*3/uL Absolute Neuts (auto) 6.4 (2.0-8.3) x10*3/uL Absolute Nucleated RBC 0.000 (0.0-0.012) X10*3/uL Nucleated RBC % (auto) 0.0 (0.0-0.2) /100WBC ESR 14 (0-20) MM/HR Sodium 140 (135-145) mmol/L Potassium 4.5 (3.3-5.1) mmol/L Chloride 111 H (96-108) mmol/L Carbon Dioxide 21 L (22-29) mmol/L Anion Gap 13 (12-20) BUN 13 (9-16) mg/dL Creatinine 0.83 (0.5-1.4) mg/dL Estim Creat Clear Calc 69.2 Estimated GFR > 60 Random Glucose 180 H (60-115) mg/dL Calcium 10.0 D (8.4-10.2) mg/dL Magnesium 1.9 (1.6-2.6) mg/dL Total Bilirubin 0.6 (0.0-1.0) mg/dL AST 13 (5-31) U/L ALT 7 (0-31) U/L Alkaline Phosphatase 61 (39-117) U/L C-Reactive Protein 0.38 (< or = 0.50) mg/dL Total Protein 7.4 (6.5-8.0) g/dL Albumin 4.3 (3.5-5.0) g/dL Lipase 33 (8-78) U/L Beta HCG, Quant < 2 mIU/mL Urine Color [place] A Urine Appearance Turbid Urine pH 5.5 (5.0-9.0) Ur Specific [place] 1.025 (1.005-1.025) Urine Protein 100 (2+) H (Neg-Trace) mg/dL Urine Glucose (UA) Negative (Negative) mg/dL Urine Ketones 15 (Negative) mg/dL Urine Blood Large (3+) H (Negative) Urine Nitrite Negative (Negative) Ur Leukocyte Esterase Small (1+) H (Negative) Urine RBC >20 H (0-2) /HPF Urine WBC 11-20 H (0-5) /HPF Ur Squamous Epith Cells 3-5 (0-2) /HPF Urine Bacteria None Seen (None Seen) Hyaline Casts 0-2 (0-2) /LPF Independent Interpretation I performed an independent interpretation of an: CT Scan Radiology Impression Discussion of test interpretation with radiology: I have reviewed the radiologist's reading. Radiologist Impression: FINDINGS: LUNG BASES: The visualized lung bases are unremarkable. LIVER, GALLBLADDER, AND BILIARY TREE: The liver is normal in size, shape, and attenuation. No focal hepatic lesion or biliary ductal dilatation is present. Status post cholecystectomy. PANCREAS: Unremarkable. SPLEEN: Unremarkable. ADRENAL GLANDS: Unremarkable. KIDNEYS AND URETERS: There is right-sided hydronephrosis with dilatation of the right ureter down to the level of the distal ureter where there is an obstructing 5 mm calculus. Despite its small size, it still measures 1023 Hounsfield units. A nonobstructing 3 mm calculus is present at the left lower pole. The kidneys otherwise appear normal without masses. BLADDER: Unremarkable. GASTROINTESTINAL TRACT: The small and large bowel are unremarkable. The appendix is unremarkable. ABDOMINAL WALL: No significant hernia is appreciated. LYMPH NODES: Normal. VASCULAR: Unremarkable PELVIC VISCERA: A retroflexed uterus is present.. There is a cyst present uterus near the cornu, unchanged from 2016. Small cysts, the largest 2 cm, and some calcifications are noted in the left ovary. OSSEOUS STRUCTURES: Unremarkable. CT/CT abdomen pelvis w IV con IMPRESSION: 1. Obstructing 5 mm distal right ureteral calculus with right-sided hydronephrosis. 2. Nonobstructing 3 mm left lower pole renal calculus. 3. Left ovarian cyst not fully characterized with some calcifications in the left ovary. Transabdominal and endovaginal pelvic ultrasound is recommended. 4. Other incidental findings as described above. Medications Administered Discontinued Medications Generic Name Dose Route Start Last Admin Trade Name Freq PRN Reason Stop Dose Admin Sodium Chloride 1,000 mls @ 999 mls/hr 04/28/24 13:03 04/28/24 13:23 Ns IVCONT 04/28/24 14:03 999 mls/hr .Q1H1M ONE Administration Iohexol 100 ml 04/28/24 14:04 04/28/24 14:04 Iohexol 350 Mg/Ml 100 Ml Infus..Btl IV 04/28/24 14:05 85 ml ONCE ONE Administration Morphine Sulfate 4 mg 04/28/24 13:03 04/28/24 13:22 Morphine Sulfate 4 Mg/Ml Cartridge IVPUSH 04/28/24 13:04 4 mg ONCE ONE Administration Protocol Ondansetron HCl 4 mg 04/28/24 13:03 04/28/24 13:22 Ondansetron Hcl 4 Mg/2 Ml Vial IVPUSH 04/28/24 13:04 4 mg ONCE ONE Administration Critical Care Time Critical Care Time Critical Care Time: Yes Total Critical Care Time: 60 Attestation: I have personally provided critical care time. Time includes review of lab data, radiology results, discussion with consultants, and monitoring for potential decompensation. Intervention performed as documented. Discharge Plan Discharge Clinical Impression: Ureterolithiasis, UTI (urinary tract infection) Patient Disposition: Admitted As Inpatient Prescriptions: No Action albuterol sulfate [ProAir HFA] 90 mcg/actuation HFA aerosol inhaler 2 puff inhalation Q6H PRN (Reason: Shortness Of Breath) albuterol sulfate 90 mcg/actuation HFA aerosol inhaler 2 puff inhalation Q6H PRN vitamin A palmitate 10,000 unit capsule 10,000 unit PO .COMPLEX Qty: 30 1RF Rx Instructions: 10,000 units PO one per day; sumatriptan succinate 50 mg tablet 50 mg PO (DME) lancets 28 gauge misc See Rx Instructions topical BID Qty: 100 Rx Instructions: As directed Basaglar KwikPen U-100 Insulin 100 unit/mL (3 mL) insulin pen subcut (DME) pen needle, diabetic 31 gauge x 3/16 needle See Rx Instructions subcut BEDTIME Qty: 50 Rx Instructions: As directed insulin lispro 100 unit/mL insulin pen subcut DAILY lisinopril 40 mg tablet 40 mg PO DAILY epinephrine 0.3 mg/0.3 mL auto-injector IM metformin 1,000 mg tablet 1,000 mg PO BID (DME) FreeStyle Precision [place] Strips Strip See Rx Instructions .ROUTE BID Qty: 10 Rx Instructions: As directed omeprazole 40 mg capsule,delayed release(DR/EC) 40 mg PO DAILY atorvastatin 40 mg tablet 40 mg PO DAILY insulin lispro [Humalog Emerson KwikPen U-100] 100 unit/mL insulin pen, half-unit 5.5 unit subcut BEDTIME Basaglar KwikPen U-100 Insulin 100 unit/mL (3 mL) insulin pen 20 unit subcut QAM Print Language: Lithuanian
[2024-04-28 13:11] LABS: Appearance Urine Turbid; Color Urine Orange; Glucose Urine UA Negative (Negative); Leukocyte Esterase Urine Small (1+) (Negative); Nitrite Urine Negative (Negative); PH 5.5 (5.0-9.0); Specific Gravity - Urine 1.025 (1.005-1.025); UMIC TRIGGER UACC YES; Urine Blood Large (3+) (Negative); Urine Ketones 15 mg/dL (Negative); Urine Protein 100 (2+) mg/dL (Neg-Trace)
[2024-04-28 13:17] LABS: Bacteria Urine None Seen (None Seen); Hyaline Casts Urine 0-2 /LPF (0-2); RBC Urine >20 /HPF (0-2); UACC Culture Trigger YES
[2024-04-28] MEDS: Morphine Sulfate 4 MG/ML CARTRIDGE IVPUSH (13:22)
[2024-04-28] MEDS: ondansetron HCL 4 MG/2 ML VIAL IVPUSH ×2 (13:22→20:10)
[2024-04-28] MEDS: 0.9 % Sodium Chloride 1,000 ML 999 ML IVCONT (13:23)
[2024-04-28] MEDS: iohexoL 350 MG/ML 100 ML INFUS..BTL IV (14:04)
[2024-04-28 14:10] VITALS: BP 101/64; PULSE 72; RESP 15; O2SAT 100
--- NOTE | 2024-04-28 16:00 | PM.IMHP ---
History of Present Illness Date of Service: 04/28/24 Chief Complaint: Abdominal pain, right flank pain 44/F with hitory kidney stone over 10 years ago, insulin dependent diabetes, HLD, asthma, HTN here with right flank and abdominal pain. No fever or chills, + N/V. UA+ microscopic hematuria, +leuk esterase and urine WBC, no bacteria. WBC normal, CT shows 1. Obstructing 5 mm distal right ureteral calculus with right-sided hydronephrosis. 2. Nonobstructing 3 mm left lower pole renal calculus. Urology is aware and likely to perform Cysto+Stent. Of note she also report diarrhea following recent treatment for colitis with Cipro and Flagyl Review of Systems Review of Systems: Gen: no fever Resp: no sob, no cough CV: no chest, no [place], no leg edema GI: No n/v, no abd pain Neuro: No confusion Yes all other systems are reviewed and are negative [facility] Medical History Kidney stones DJD (degenerative joint disease) Asthma Hyperlipidemia Hypertension Depression Insulin dependent diabetes mellitus Obesity Family History Mother Hypertension Tumor Eczema Heart murmur Father Hypertension Hyperlipidemia Heart attack Brother Eczema Asthma Migraine Brother Lung tumor Diabetes Sister Asthma Son No problems noted. Daughter No problems noted. Surgical History Hx of laparoscopy Hx of tubal ligation Hx of cholecystectomy Hx of breast surgery Social History Alcohol intake: never Patient Tobacco Use Status: Current everyday Tobacco user Smoked in Last 30 Days: No Use of substances other than those prescribed or required for medical reasons: No Advance Directives: No Advance Directives Information Provided: Yes Do you have a plan to hurt others: No Plan Meds Allergies Allergy/AdvReac Type Severity Reaction Status Date / Time varicella virus vaccine live Allergy Severe difficulty Verified 04/14/21 09:43 [VARICELLA VIRUS VACCINE breathing/swelling/redness/itching LIVE] bee pollen [bee stings] Allergy Anaphylaxis Verified 04/28/24 09:45 shellfish derived Allergy Anaphylaxis Verified 04/28/24 09:45 tirzepatide [From Mounjaro] Allergy Unknown Verified 04/28/24 09:45 Active Medications: Current Medications Levofloxacin (Levaquin) 500 mg in 100 mls @ 100 mls/hr IV ONCE ONE Stop: 04/28/24 16:36 Home Medications ?Medication ?Instructions ?Recorded ?Confirmed ?Last Taken ?Type atorvastatin 40 mg tablet 40 mg PO DAILY 03/24/21 04/08/21 Unknown History blood sugar diagnostic #10 ea 03/24/21 04/01/21 Unknown History epinephrine 0.3 mg/0.3 mL IM 03/24/21 04/01/21 Unknown History injection, auto-injector insulin glargine 100 unit/mL (3 unit subcut 03/24/21 04/01/21 Unknown History mL) subcutaneous pen insulin glargine 100 unit/mL (3 20 unit subcut QAM 03/24/21 04/08/21 Unknown History mL) subcutaneous pen (Basaglar KwikPen U-100 Insulin) insulin lispro 100 unit/mL 5.5 unit subcut BEDTIME 03/24/21 04/01/21 Unknown History subcutaneous half-unit pen (Humalog Emerson KwikPen (U-100)) insulin lispro 100 unit/mL unit subcut DAILY 03/24/21 04/01/21 Unknown History subcutaneous pen lancets 28 gauge #100 ea 03/24/21 04/01/21 Unknown History lisinopril 40 mg tablet 40 mg PO DAILY 03/24/21 04/08/21 Unknown History metformin 1,000 mg tablet 1,000 mg PO BID 03/24/21 04/08/21 Unknown History omeprazole 40 mg capsule,delayed 40 mg PO DAILY 03/24/21 04/08/21 Unknown History release pen needle, diabetic 31 gauge x #50 ea 03/24/21 04/01/21 Unknown History 3/16 sumatriptan succinate 50 mg tablet 50 mg PO 03/24/21 04/01/21 Unknown History albuterol sulfate 90 mcg/actuation 2 puff inhalation Q6H PRN 04/01/21 04/01/21 Unknown History aerosol inhaler albuterol sulfate 90 mcg/actuation 2 puff inhalation Q6H PRN 04/01/21 04/08/21 Unknown History aerosol inhaler (ProAir HFA) Shortness Of Breath Physical Exam Vital Signs and Narrative: Vital Signs: Last Vital Signs Temp 98.1 F 04/28/24 09:39 Pulse 72 04/28/24 14:10 Resp 15 04/28/24 14:10 BP 101/64 04/28/24 14:10 Pulse Ox 100 04/28/24 14:10 O2 Del Method Room Air 04/28/24 14:10 BMI result Body Mass Index 25.8 Constitutional: Alert, in no distress, Mental Status: Oriented to person, place and time. Eyes: Pupils are equal, round and reactive to light. Ear, Nose and Throat: Oropharynx clear, mucous membranes moist. Ears and nose without deformities. Trachea midline. Respiratory: Clear to auscultation. No wheezing, rales or rhonchi. Cardiovascular: S1 S2 regular. No murmurs, rubs or gallops. Gastrointestinal: Abdomen soft, non-tender, non-distended. Normal bowel sounds.? Neurologic: Cranial nerves II-XII grossly intact. No focal neurological deficits. Moves all extremities spontaneously.? Skin: No rashes or lesions.? Musculoskeletal: No cyanosis or clubbing. Psychiatric: Normal mood and affect? Results Labs 04/28/24 11:29 04/28/24 11:29 Labs: Laboratory Results - last 24 hr 04/28/24 04/28/24 11:29 12:36 MCV 88.6 MCH 30.2 MCHC 34.1 RDW 12.5 Plt Count 190 MPV 12.1 Immature Gran % (Auto) 0.2 Neut % (Auto) 80.0 H Lymph % (Auto) 14.3 L [place] % (Auto) 4.3 Eos % (Auto) 0.6 Baso % (Auto) 0.6 Lymph # (Auto) 1.2 [place] # (Auto) 0.4 Eos # (Auto) 0.1 Baso # (Auto) 0.1 Abs Immat Gran (auto) 0.02 Absolute Neuts (auto) 6.4 Absolute Nucleated RBC 0.000 Nucleated RBC % (auto) 0.0 ESR 14 Anion Gap 13 Estim Creat Clear Calc 69.2 Estimated GFR > 60 Random Glucose 180 H Calcium 10.0 D Magnesium 1.9 Total Bilirubin 0.6 AST 13 ALT 7 Alkaline Phosphatase 61 C-Reactive Protein 0.38 Total Protein 7.4 Albumin 4.3 Lipase 33 Beta HCG, Quant < 2 Urine Color [place] A Urine Appearance Turbid Urine pH 5.5 Ur Specific [place] 1.025 Urine Protein 100 (2+) H Urine Glucose (UA) Negative Urine Ketones 15 Urine Blood Large (3+) H Urine Nitrite Negative Ur Leukocyte Esterase Small (1+) H Urine RBC >20 H Urine WBC 11-20 H Ur Squamous Epith Cells 3-5 Urine Bacteria None Seen Hyaline Casts 0-2 Imaging Radiologist's Impressions: Impressions Abdomen/Pelvis CT 04/28/24 14:07 IMPRESSION: 1. Obstructing 5 mm distal right ureteral calculus with right-sided hydronephrosis. 2. Nonobstructing 3 mm left lower pole renal calculus. 3. Left ovarian cyst not fully characterized with some calcifications in the left ovary. Transabdominal and endovaginal pelvic ultrasound is recommended. 4. Other incidental findings as described above. Fleischner guidelines were followed. Assessment and Plan (1) Ureterolithiasis: Status: Acute Plan 44/F with DM, HTN, kidney stone, recent colitis here with abdominal pain, right flank pain and found to have right sided kidney stone righ hydronephrosis Right sided kiendy stone -pain control with toradol and morphine -for cysyoscopy tomorrow -IVF -Urologu consult -NPO aftre midnight -empiric Abx (got levaquin) Diarrhea, possibly residual from recent colitis -get cdif and gi panel HTN--resume home meds Diabetes -give 1/2 of Lantus, SSI HLD--Lipitor moderate persistent asthma--no exacerbation -continue inhalers DVT prophylaxis--device given hematuria full code Admission for 2 midnights for management of kidney stone that will need intervention Quality Stroke Does the patient have a stroke diagnosis?: No VTE Prior VTE?: No VTE Risk Level:: Medical - low VTE Device Contraindication: N/A - Device Ordered VTE Drug Contraindication: Treatment Not Indicated
[2024-04-28 16:26] LABS: Lactic Acid 0.8 mmol/L (0.5-2.0)
[2024-04-28] MEDS: Tamsulosin HCL 0.4 MG CAPSULE PO (16:44)
[2024-04-28] MEDS: Ketorolac Tromethamine 30 MG/ML VIAL IVPUSH (16:44)
[2024-04-28] MEDS: predniSONE 20 MG TABLET PO (16:44)
--- NOTE | 2024-04-28 16:50 | PC.NURSE ---
abx delayed d/t patient tough stick/ second set of cultures needed, EDT Marsha attempting draw now.
[2024-04-28 17:40] LABS: Glucose, Whole Blood 89 mg/dL (60-115)
[2024-04-28] MEDS: levoFLOXacin/D5W 500 MG/100 ML PIGGYBACK 100 MG IV (17:49)
[2024-04-28] MEDS: 0.9 % Sodium Chloride 1,000 ML 100 ML IVCONT (17:50)
[2024-04-28 17:51] VITALS: BP 98/65; PULSE 65; RESP 16; TEMP 36.6; O2SAT 100
--- NOTE | 2024-04-28 18:19 | P.CNUR_ITS ---
History of Present Illness Consult details Consult date: 04/28/24 Narrative: CC: Distal right ureteric stone with obstruction 44-year-old female Presentation to hospital with burning sensation throughout abdomen was bilateral lower quadrant Unable to tolerate any p.o. Associated nausea with vomiting Had been treated for colitis proximally 3 weeks ago Had finished treatment and started having diffuse diarrhea Creatinine 0.8, calcium 10.0 Insulin-dependent diabetic Imaging CT - Obstructing 5 mm distal right ureteral calculus with right-sided hydronephrosis. Patient will be admitted for pain control and observation Will be added to operating list tomorrow for cystoscopy, right retrograde, ureteroscopy with laser lithotripsy and stent placement Review of Systems 2 Constitutional: Constitutional: Reports as per HPI and Reports no additional constitutional complaints Cardiovascular: Cardiovascular: Reports as per HPI and Reports no additional cardiovascular complaints Respiratory: Respiratory: Reports as per HPI and Reports no additional respiratory complaints Gastrointestinal: Gastrointestinal: Reports as per HPI and Reports no additional gastrointestinal complaints Genitourinary: Genitourinary: Reports as per HPI Musculoskeletal: Musculoskeletal: Reports no additional musculoskeletal complaints and Reports as per HPI Neurologic: Reports system reviewed and no additional complaints, except as documented and Reports as per HPI [facility] Past Medical History Medical History Kidney stones DJD (degenerative joint disease) Asthma Hyperlipidemia Hypertension Depression Insulin dependent diabetes mellitus Obesity Family History Family History Mother Hypertension Tumor Eczema Heart murmur Father Hypertension Hyperlipidemia Heart attack Brother Eczema Asthma Migraine Brother Lung tumor Diabetes Sister Asthma Son No problems noted. Daughter No problems noted. Surgical History Surgical History Hx of laparoscopy Hx of tubal ligation Hx of cholecystectomy Hx of breast surgery Social History Social History Alcohol intake: never Patient Tobacco Use Status: Never used Tobacco Smoked in Last 30 Days: No Use of substances other than those prescribed or required for medical reasons: No Advance Directives: No Advance Directives Information Provided: Yes Do you have a plan to hurt others: No Plan Nutrition Risks: No Nutritional Risk Meds Allergies Allergy/AdvReac Type Severity Reaction Status Date / Time varicella virus vaccine live Allergy Severe difficulty Verified 04/14/21 09:43 [VARICELLA VIRUS VACCINE breathing/swelling/redness/itching LIVE] bee pollen [bee stings] Allergy Anaphylaxis Verified 04/28/24 09:45 shellfish derived Allergy Anaphylaxis Verified 04/28/24 09:45 tirzepatide [From Mounjaro] Allergy Unknown Verified 04/28/24 09:45 Active Medications: Current Medications Acetaminophen (Acetaminophen 325 Mg Tablet) 650 mg PO Q6H PRN PRN Reason: Pain, Mild (Pain Scale 1-3), fever or headache Calcium Carbonate (Calcium Carbonate 750 Mg Tab.Chew) 750 mg PO Q4H PRN PRN Reason: Heartburn Glucose (Glucose Gel 15 Gm Gel..Gram.) 15 gm PO Q15M PRN; Protocol PRN Reason: per Hypoglycemia Standing Ord. Dextrose (D10) 250 mls @ 750 mls/hr IV Q15M PRN; Protocol PRN Reason: per Hypoglycemia Standing Ord. Sodium Chloride (Ns) 1,000 mls @ 100 mls/hr IVCONT .Q10H [facility] Last Admin: 04/28/24 17:50 Dose: 100 mls/hr Insulin Human Lispro (Insulin Lispro 100 Unit/Ml 3 Ml Vial) 0 unit SUBCUT QIDAS [facility]; Protocol Last Admin: 04/28/24 17:49 Dose: Not Given Ketorolac Tromethamine (Ketorolac Tromethamine 15 Mg/Ml Vial) 15 mg IVPUSH Q6H PRN PRN Reason: Pain, Moderate(Pain Scale 4-6) Magnesium Hydroxide (Milk Of Magnesia 30 Ml Oral.Susp) 30 ml PO DAILY PRN PRN Reason: Constipation Melatonin (Melatonin 3 Mg Tablet) 6 mg PO BEDTIME PRN PRN Reason: Insomnia Morphine Sulfate (Morphine Sulfate 2 Mg/Ml Cartridge) 2 mg IVPUSH Q6H PRN; Protocol PRN Reason: Pain, Severe (Pain Scale 7-10) Ondansetron HCl (Ondansetron Hcl 4 Mg/2 Ml Vial) 4 mg IVPUSH Q8H PRN PRN Reason: Nausea and Vomiting Sodium Chloride (0.9 % Sodium Chloride Flush 3 Ml Syringe) 3 ml IVFLUSH [facility] Home Medications ?Medication ?Instructions ?Recorded ?Confirmed ?Last Taken ?Type atorvastatin 40 mg tablet 40 mg PO DAILY 03/24/21 04/28/24 04/27/24 History blood sugar diagnostic #10 ea 03/24/21 04/01/21 Unknown History lancets 28 gauge #100 ea 03/24/21 04/01/21 Unknown History pen needle, diabetic 31 gauge x #50 ea 03/24/21 04/01/21 Unknown History / sumatriptan succinate 50 mg tablet 50 mg PO NEEDED PRN Headache 03/24/21 04/28/24 Unknown History albuterol sulfate 90 mcg/actuation 2 puff inhalation TID PRN 04/01/21 04/28/24 Unknown History aerosol inhaler (ProAir HFA) Shortness Of Breath insulin degludec 100 unit/mL (3 12 unit subcut DAILY 04/28/24 04/28/24 04/26/24 History mL) subcutaneous pen (Tresiba FlexTouch U-100 insulin) insulin lispro 100 unit/mL 2 - 5 sliding scale dose subcut 04/28/24 04/28/24 04/27/24 History subcutaneous pen (Humalog KwikPen DAILY (U-100) Insulin) lorazepam 0.5 mg tablet 0.5 mg PO BEDTIME PRN Sleep 04/28/24 04/28/24 Unknown History rimegepant 75 mg disintegrating 75 mg PO Q OTHER DAY 04/28/24 04/28/24 04/27/24 History tablet (Nurtec ODT) semaglutide 2 mg/dose (8 mg/3 mL) 2 mg subcut SA 04/28/24 04/28/24 04/26/24 History subcutaneous pen injector (Ozempic) Physical Exam 2 Vital Signs: Vital Signs: Last Vital Signs Temp 97.9 F 04/28/24 17:51 Pulse 65 04/28/24 17:51 Resp 16 04/28/24 17:51 BP 98/65 04/28/24 17:51 Pulse Ox 100 04/28/24 17:51 O2 Del Method Room Air 04/28/24 17:51 BMI result Body Mass Index 25.8 Const: General: cooperative, healthy appearing, comfortable and no acute distress Orientation/consciousness: patient oriented x3 HEENT: Face and sinus: Yes normal facial exam Mouth: moist mucous membranes Neck: Neck: Yes normal visual inspection, Yes full ROM and Yes trachea midline Chest: Chest palpation & inspection: normal inspection of the chest Resp: Effort & Inspection: normal respiratory effort, able to speak in complete sentences and no respiratory distress GI: Inspection: Yes normal to inspection Back/Spine/Pelvis: Cervical Spine: normal cervical lordosis Thoracic/Lumbar Spine: thoracic and lumbar spine normal to inspection Skin: General skin exam: no rashes or lesions noted Neuro: General: patient oriented x3, tone normal and moves all extremities Extrem: General: Yes normal to inspection and Yes capillary refill normal Results Labs 04/28/24 11:29 04/28/24 11:29 Labs: Abnormal lab results 04/28/24 04/28/24 Range/Units 11:29 12:36 Neut % (Auto) 80.0 H (45-73) % Lymph % (Auto) 14.3 L (20-40) % Chloride 111 H (96-108) mmol/L Carbon Dioxide 21 L (22-29) mmol/L Random Glucose 180 H (60-115) mg/dL Urine Color [place] A Urine Protein 100 (2+) H (Neg-Trace) mg/dL Urine Blood Large (3+) H (Negative) Ur Leukocyte Esterase Small (1+) H (Negative) Urine RBC >20 H (0-2) /HPF Urine WBC 11-20 H (0-5) /HPF Short CBC 04/28/24 Range/Units 11:29 WBC 8.1 (4.8-10.8) X10*3/uL Hgb 13.8 (12.0-16.0) g/dl Hct 40.5 (37.0-47.0) % Plt Count 190 (160-400) X10*3/uL BMP 04/28/24 11:29 Sodium 140 Potassium 4.5 Chloride 111 H Carbon Dioxide 21 L BUN 13 Creatinine 0.83 Calcium 10.0 D Liver Function 04/28/24 Range/Units 11:29 Total Bilirubin 0.6 (0.0-1.0) mg/dL AST 13 (5-31) U/L ALT 7 (0-31) U/L Alkaline Phosphatase 61 (39-117) U/L Albumin 4.3 (3.5-5.0) g/dL Urine 04/28/24 Range/Units 12:36 Urine Color [place] A Urine Appearance Turbid Urine pH 5.5 (5.0-9.0) Ur Specific [place] 1.025 (1.005-1.025) Urine Protein 100 (2+) H (Neg-Trace) mg/dL Urine Glucose (UA) Negative (Negative) mg/dL All other labs normal. Assessment and Plan (1) Ureterolithiasis: Status: Acute Plan Ureteroscopy We discussed the nature of the decision and reasonable alternatives for performing ureteroscopy. Options such as medical therapy were discussed. Interventions include chemical dissolution, ESWL, ureteroscopy with laser lithotripsy and stent placement, PCNL. The relative uncertainties and benefits related to each alternate procedure were adequately discussed. General surgical risks including, but not limited to - pain, bleeding, infection, myocardial infarction, pulmonary embolus, deep vein thrombosis and cerebrovascular accident which may result in further hospitalization were discussed. Full disclosure of the procedure as well as all major risks, benefits and complications were discussed including but not limited to damage to the urethra, bladder and kidney infection, damage to the ureter, stent migration or malposition, scarring to the renal pelvis, remnant stone fragments, subsequent stone passage with need for secondary procedures. The overall secondary procedure rate is approximately 10-15%. The overall clearance rate is approximately 90-95%. Success of the procedure in the short-term does not necessarily guarantee that long-term success will be maintained. Suitable follow up will need to be maintained. The patient showed understanding of discussion and wishes to proceed with - cystoscopy, retrograde, ureteroscopy, possible lithotripsy/stone basketing and stent on the right side Procedures Date of Service Date of Service: 04/28/24
--- NOTE | 2024-04-28 18:36 | PHA.MEDREC ---
Pharmacy Consult ? Medication Reconciliation Pharmacy has completed the medication reconciliation. Confirmed medications with patient. Per patient she was prescribed synjardy xr 12.5mg tab and when asked about that the patient stated her doctor had her stop for the time being due to stomach complications this past week. She is also on Humalog per sliding scale and Tresiba 12 units daily. Patient states she has not taken the tresiba since Sunday due to her sugars being low.
--- NOTE | 2024-04-28 19:06 | MHC.EDTECH ---
this tech took over care @ 1900, checked in on pt who had requested medication for nausea, ARIADNA copeland aware.
[2024-04-28 19:52] VITALS: BP 113/70; PULSE 65; RESP 18; TEMP 36; O2SAT 100
[2024-04-28 20:01] LABS: Glucose, Whole Blood 130 mg/dL (60-115)
[2024-04-28] MEDS: Ketorolac Tromethamine 15 MG/ML VIAL IVPUSH (22:43)
[2024-04-28 23:41] VITALS: BP 94/53; PULSE 61; RESP 16; TEMP 36.6; O2SAT 97
[2024-04-29] MEDS: 0.9 % Sodium Chloride 1,000 ML 100 ML IVCONT ×2 (01:02→11:17)
[2024-04-29 04:06] VITALS: BP 98/56; PULSE 58; RESP 18; TEMP 36.4; O2SAT 98
[2024-04-29] MEDS: Ketorolac Tromethamine 15 MG/ML VIAL IVPUSH ×2 (06:20→15:20)
[2024-04-29 07:15] VITALS: BP 109/61; PULSE 63; RESP 18; TEMP 36.6; O2SAT 98
[2024-04-29 07:19] LABS: Glucose, Whole Blood 131 mg/dL (60-115)
[2024-04-29] MEDS: 0.9 % Sodium Chloride Flush 3 ML SYRINGE IVFLUSH (08:04)
[2024-04-29] MEDS: Atorvastatin Calcium 40 MG TABLET PO ×2 (08:04→08:29)
[2024-04-29] MEDS: Milk of Magnesia 30 ML ORAL.SUSP PO (08:29)
[2024-04-29] MEDS: RIMEGEPANT 75 MG 75 EACH PO (08:29)
--- NOTE | 2024-04-29 09:03 | MHC.CM.PN ---
KI DELIVERED. PATIENT LIVES IN A HOME W/ FAMILY. FUNCTIONALLY INDEPENDENT. DENIES USE OF SERVICES OR DME. PCP APOLINAR COFFEY @ [facility]. NO HCP. CM PROVIDED EDUCATION AND OFFERED ASSISTANCE. PATIENT DECLINED. DP: GOAL IS HOME SELF CARE. DO NOT ANTICIPATE THE NEED FOR SERVICES. PATIENT HAS CAR IN LOT AND WILL SELF TRANSPORT IF SAFE TO DO SO. CAN TRANSPORT IF NEEDED. CM WILL CONTINUE TO FOLLOW.
--- NOTE | 2024-04-29 11:24 | HO.PM.IMPN ---
Subjective Subjective Date of Service: 04/29/24 Interval History: f/u on abdominal pain d/t kidney stone, presently without pain and she is now saying no diarrhea since that iss 4 days ago Physical Exam Vital Signs: Vital Signs: Last Vital Signs Temp 97.8 F 04/29/24 07:15 Pulse 63 04/29/24 07:15 Resp 18 04/29/24 07:15 BP 109/61 04/29/24 07:15 Pulse Ox 98 04/29/24 07:15 O2 Del Method Room Air 04/29/24 07:15 BMI result Body Mass Index 25.8 Const: Other: General: AO X 3, no acute distress Resp: CTA bilateral CVS: S1,S2,RRR GI: +BS, NT, no distention Skin: No rash Neuro: motor grossly intact Psych: appropriate affect Objective Data Active Medications Acetaminophen (Acetaminophen 325 Mg Tablet) 650 mg PO Q6H PRN PRN Reason: Pain, Mild (Pain Scale 1-3), fever or headache Albuterol Sulfate (Albuterol Sulfate 90 Mcg 8 Gm Inhaler) 2 puff INHALE TID PRN PRN Reason: Shortness Of Breath Atorvastatin Calcium (Atorvastatin Calcium 40 Mg Tablet) 40 mg PO DAILY [facility] Last Admin: 04/29/24 08:29 Dose: 40 mg Documented By: ALISON Calcium Carbonate (Calcium Carbonate 750 Mg Tab.Chew) 750 mg PO Q4H PRN PRN Reason: Heartburn Glucose (Glucose Gel 15 Gm Gel..Gram.) 15 gm PO Q15M PRN; Protocol PRN Reason: per Hypoglycemia Standing Ord. Dextrose (D10) 250 mls @ 750 mls/hr IV Q15M PRN; Protocol PRN Reason: per Hypoglycemia Standing Ord. Sodium Chloride (Ns) 1,000 mls @ 100 mls/hr IVCONT .Q10H [facility] Last Admin: 04/29/24 11:17 Dose: 100 mls/hr Documented By: ALISON Insulin Glargine (Insulin Glargine,Hum.Rec.Anlog 100 Unit/Ml 10 Ml Vial) 4 unit SUBCUT BEDTIME GENE Insulin Human Lispro (Insulin Lispro 100 Unit/Ml 3 Ml Vial) 0 unit SUBCUT QIDACHS [facility]; Protocol Last Admin: 04/29/24 07:30 Dose: Not Given Documented By: ALISON Non-Admin Reason: No Insulin Coverage Ketorolac Tromethamine (Ketorolac Tromethamine 15 Mg/Ml Vial) 15 mg IVPUSH Q6H PRN PRN Reason: Pain, Moderate(Pain Scale 4-6) Last Admin: 04/29/24 06:20 Dose: 15 mg Documented By: RAY Lorazepam (Lorazepam 0.5 Mg Tablet) 0.5 mg PO BEDTIME PRN PRN Reason: Sleep Magnesium Hydroxide (Milk Of Magnesia 30 Ml Oral.Susp) 30 ml PO DAILY PRN PRN Reason: Constipation Last Admin: 04/29/24 08:29 Dose: 30 ml Documented By: ALISON Melatonin (Melatonin 3 Mg Tablet) 6 mg PO BEDTIME PRN PRN Reason: Insomnia Morphine Sulfate (Morphine Sulfate 2 Mg/Ml Cartridge) 2 mg IVPUSH Q6H PRN; Protocol PRN Reason: Pain, Severe (Pain Scale 7-10) Pt Own (Rimegepant [ Nurtec Odt] 75 Mg Tablet, Disintegrating) 75 mg PO Q48H [facility] Last Admin: 04/29/24 08:30 Dose: Not Given Documented By: ALISON Non-Admin Reason: administerted under different order,pharmacy Ondansetron HCl (Ondansetron Hcl 4 Mg/2 Ml Vial) 4 mg IVPUSH Q6H PRN PRN Reason: Nausea and Vomiting Last Admin: 04/28/24 20:10 Dose: 4 mg Documented By: RAY Sodium Chloride (0.9 % Sodium Chloride Flush 3 Ml Syringe) 3 ml IVFLUSH [facility] Last Admin: 04/29/24 08:04 Dose: 3 ml Documented By: ALISON Sumatriptan Succinate (Sumatriptan Succinate 50 Mg Tablet) 50 mg PO DAILY PRN PRN Reason: Headache Labs 04/28/24 11:29 04/28/24 11:29 Labs: Laboratory Results - last 24 hr 04/28/24 04/28/24 04/28/24 11:29 12:36 16:05 MCV 88.6 MCH 30.2 MCHC 34.1 RDW 12.5 Plt Count 190 MPV 12.1 Immature Gran % (Auto) 0.2 Neut % (Auto) 80.0 H Lymph % (Auto) 14.3 L Garvin % (Auto) 4.3 Eos % (Auto) 0.6 Baso % (Auto) 0.6 Lymph # (Auto) 1.2 Garvin # (Auto) 0.4 Eos # (Auto) 0.1 Baso # (Auto) 0.1 Abs Immat Gran (auto) 0.02 Absolute Neuts (auto) 6.4 Absolute Nucleated RBC 0.000 Nucleated RBC % (auto) 0.0 ESR 14 Anion Gap 13 Estim Creat Clear Calc 69.2 Estimated GFR > 60 POC Glucose Random Glucose 180 H Lactic Acid 0.8 Calcium 10.0 D Magnesium 1.9 Total Bilirubin 0.6 AST 13 ALT 7 Alkaline Phosphatase 61 C-Reactive Protein 0.38 Total Protein 7.4 Albumin 4.3 Lipase 33 Beta HCG, Quant < 2 Urine Color [place] A Urine Appearance Turbid Urine pH 5.5 Ur Specific [place] 1.025 Urine Protein 100 (2+) H Urine Glucose (UA) Negative Urine Ketones 15 Urine Blood Large (3+) H Urine Nitrite Negative Ur Leukocyte Esterase Small (1+) H Urine RBC >20 H Urine WBC 11-20 H Ur Squamous Epith Cells 3-5 Urine Bacteria None Seen Hyaline Casts 0-2 04/28/24 04/28/24 04/29/24 16:46 19:56 07:14 MCV MCH MCHC RDW Plt Count MPV Immature Gran % (Auto) Neut % (Auto) Lymph % (Auto) Garvin % (Auto) Eos % (Auto) Baso % (Auto) Lymph # (Auto) Garvin # (Auto) Eos # (Auto) Baso # (Auto) Abs Immat Gran (auto) Absolute Neuts (auto) Absolute Nucleated RBC Nucleated RBC % (auto) ESR Anion Gap Estim Creat Clear Calc Estimated GFR POC Glucose 89 130 H 131 H Random Glucose Lactic Acid Calcium Magnesium Total Bilirubin AST ALT Alkaline Phosphatase C-Reactive Protein Total Protein Albumin Lipase Beta HCG, Quant Urine Color Urine Appearance Urine pH Ur Specific [place] Urine Protein Urine Glucose (UA) Urine Ketones Urine Blood Urine Nitrite Ur Leukocyte Esterase Urine RBC Urine WBC Ur Squamous Epith Cells Urine Bacteria Hyaline Casts Microbiology Microbiology Results: Microbiology 04/28/24 Unknown Urine Culture - Final Urine clean catch - Urine wolf top Assessment and Plan (1) UTI (urinary tract infection): Status: Acute (2) Ureterolithiasis: Status: Acute Plan 44/F with DM, HTN, kidney stone, recent colitis here with abdominal pain, right flank pain and found to have right sided kidney stone righ hydronephrosis Right sided kiendy stone -pain control with toradol and morphine -for cysyoscopy tomorrow -IVF -Urologu consult -NPO -empiric Abx (got levaquin in ED) -ceftriaxone Diarrhea, possibly residual from recent colitis -no diarhea in 4 days, cancel cdif and stool panel HTN--resume home meds Diabetes -given 1/2 of Lantus last night, -add glucose to fluid while NPO HLD--Lipitor moderate persistent asthma--no exacerbation -continue inhalers DVT prophylaxis--device given hematuria, and or ambulate full code need for inpatient: kidney that need intervention Quality Stroke Does the patient have a stroke diagnosis?: No VTE Prior VTE?: No VTE Risk Level:: Medical - low VTE Device Contraindication: N/A - Device Ordered VTE Drug Contraindication: Treatment Not Indicated
[2024-04-29 11:27] LABS: Glucose, Whole Blood 62 mg/dL (60-115)
[2024-04-29] MEDS: Dextrose 10 % 250 ML 750 ML IV (11:28)
[2024-04-29] MEDS: Dextrose 5 % and Lactated Ring 1,000 ML 125 ML IVCONT (11:53)
[2024-04-29 11:56] LABS: Glucose, Whole Blood 200 mg/dL (60-115)
--- NOTE | 2024-04-29 12:35 | PM.UROPN ---
Subjective Subjective Date of Service: 04/29/24 Interval history: Rochelle has h/o kidney stones, states has passed stones in the past. Recently treated for colitis, presently due to lower abdominal pain. CT imaging, Right hydronephrosis, 5 mm dilstal ureteral stone. Physical Exam Vital Signs: Vital Signs: Last Vital Signs Temp 97.8 F 04/29/24 07:15 Pulse 63 04/29/24 07:15 Resp 18 04/29/24 07:15 BP 109/61 04/29/24 07:15 Pulse Ox 98 04/29/24 07:15 O2 Del Method Room Air 04/29/24 07:15 BMI result Body Mass Index 25.8 Urology Results Labs 04/28/24 11:29 04/28/24 11:29 Labs: Laboratory Results - last 24 hr 04/28/24 04/28/24 04/28/24 12:36 16:05 16:46 POC Glucose 89 Lactic Acid 0.8 Urine Color [place] A Urine Appearance Turbid Urine pH 5.5 Ur Specific [place] 1.025 Urine Protein 100 (2+) H Urine Glucose (UA) Negative Urine Ketones 15 Urine Blood Large (3+) H Urine Nitrite Negative Ur Leukocyte Esterase Small (1+) H Urine RBC >20 H Urine WBC 11-20 H Ur Squamous Epith Cells 3-5 Urine Bacteria None Seen Hyaline Casts 0-2 04/28/24 04/29/24 04/29/24 19:56 07:14 11:19 POC Glucose 130 H 131 H 62 Lactic Acid Urine Color Urine Appearance Urine pH Ur Specific [place] Urine Protein Urine Glucose (UA) Urine Ketones Urine Blood Urine Nitrite Ur Leukocyte Esterase Urine RBC Urine WBC Ur Squamous Epith Cells Urine Bacteria Hyaline Casts 04/29/24 11:52 POC Glucose 200 H Lactic Acid Urine Color Urine Appearance Urine pH Ur Specific [place] Urine Protein Urine Glucose (UA) Urine Ketones Urine Blood Urine Nitrite Ur Leukocyte Esterase Urine RBC Urine WBC Ur Squamous Epith Cells Urine Bacteria Hyaline Casts Progress Note: A&P Assessment and plan (1) Ureterolithiasis: Status: Acute (2) Abdominal pain: Status: Acute (3) Renal colic on right side: Status: Acute (4) Insulin dependent diabetes mellitus: Status: Acute Plan Patient admitted requiring IV pain management for obstructing 5 mm ureteral stone with right hydronephrosis. Currently no fever. The patient took Ozempic on 04/26/24. Discussed continue with IV Fluids and pain management x 24 hours, to see if patient passes stone. Strain all urine. If patient does not pass stone, will Reassess in AM Clear liquid diet, NPO after MN. Time Spent With Patient Time: Total time managing care of this patient today ____ minutes. Progress Note: Quality Stroke Does the patient have a stroke diagnosis?: No
[2024-04-29] MEDS: 0.9 % Sodium Chloride 1,000 ML 150 ML IVCONT ×2 (13:22→21:39)
[2024-04-29] MEDS: cefTRIAXone sodium 1 GM in 0.9 % Sodium Chloride 50 ML IV (13:24)
--- NOTE | 2024-04-29 14:57 | PC.NURSE ---
Patient bladder scanned for 181 ml,urinated 150ml of chandler urine
[2024-04-29 15:11] VITALS: BP 136/72; PULSE 63; RESP 18; TEMP 36.1; O2SAT 96
[2024-04-29 15:50] LABS: Glucose, Whole Blood 93 mg/dL (60-115)
[2024-04-29] MEDS: Acetaminophen 325 MG TABLET 650 MG PO (16:29)
[2024-04-29] MEDS: Morphine Sulfate 2 MG/ML CARTRIDGE IVPUSH (17:01)
[2024-04-29] MEDS: ondansetron HCL 4 MG/2 ML VIAL IVPUSH (18:49)
[2024-04-29] MEDS: HYDROmorphone HCl 1 MG/ML SYRINGE IVPUSH (19:52)
[2024-04-29 20:07] LABS: Glucose, Whole Blood 82 mg/dL (60-115)
--- NOTE | 2024-04-29 22:46 | PC.NURSE ---
1944 pt crying in pain 8/10 right flank and back medicated with morphine and toradal earlier not due notified ordered Dilaudid 1mg iv now given at 1949 with good effect.
[2024-04-30] VITALS (10 sets, daily range): BP systolic 98–149; BP diastolic 55–100; PULSE 54–75; RESP 16–18; TEMP 36.1–36.9; O2SAT 99–100
[2024-04-30] MEDS: HYDROmorphone HCl 1 MG/ML SYRINGE IVPUSH ×2 (01:06→07:40)
[2024-04-30] MEDS: 0.9 % Sodium Chloride 1,000 ML 150 ML IVCONT ×3 (03:52→14:55)
[2024-04-30 07:31] LABS: Glucose, Whole Blood 91 mg/dL (60-115)
--- NOTE | 2024-04-30 09:59 | P.PNIM_ITS ---
Subjective Subjective Date of Service: 04/30/24 Interval History: still having abd pain, 03/14 this morning Physical Exam 2 Vital Signs: Vital Signs: Last Vital Signs Temp 97.3 F 04/30/24 07:23 Pulse 64 04/30/24 07:23 Resp 16 04/30/24 07:23 BP 130/76 04/30/24 07:23 Pulse Ox 99 04/30/24 07:23 O2 Del Method Room Air 04/30/24 07:23 BMI result Body Mass Index 25.8 General: AO X 3, no acute distress Resp: CTA bilateral CVS: S1,S2,RRR GI: +BS, NT, no distention Skin: No rash Neuro: motor grossly intact Psych: appropriate affect Objective Data Active Medications Acetaminophen (Acetaminophen 325 Mg Tablet) 650 mg PO Q6H PRN PRN Reason: Pain, Mild (Pain Scale 1-3), fever or headache Last Admin: 04/29/24 16:29 Dose: 650 mg Documented By: ALISON Albuterol Sulfate (Albuterol Sulfate 90 Mcg 8 Gm Inhaler) 2 puff INHALE TID PRN PRN Reason: Shortness Of Breath Atorvastatin Calcium (Atorvastatin Calcium 40 Mg Tablet) 40 mg PO DAILY [facility] Last Admin: 04/29/24 08:29 Dose: 40 mg Documented By: ALISON Calcium Carbonate (Calcium Carbonate 750 Mg Tab.Chew) 750 mg PO Q4H PRN PRN Reason: Heartburn Glucose (Glucose Gel 15 Gm Gel..Gram.) 15 gm PO Q15M PRN; Protocol PRN Reason: per Hypoglycemia Standing Ord. Hydromorphone HCl (Hydromorphone Hcl 1 Mg/Ml Syringe) 1 mg IVPUSH Q3H PRN; Protocol PRN Reason: Pain, Severe (Pain Scale 7-10) Last Admin: 04/30/24 07:40 Dose: 1 mg Documented By: JOSSE Dextrose (D10) 250 mls @ 750 mls/hr IV Q15M PRN; Protocol PRN Reason: per Hypoglycemia Standing Ord. Last Infusion: 04/29/24 11:51 Dose: Infused Documented By: ALISON Ceftriaxone Sodium 1 gm/ (Sodium Chloride) 50 mls @ 100 mls/hr IV Q24H [facility] Last Infusion: 04/29/24 14:13 Dose: Infused Documented By: ALISON Sodium Chloride (Ns) 1,000 mls @ 150 mls/hr IVCONT .Q6H40M [facility] Last Admin: 04/30/24 03:52 Dose: 150 mls/hr Documented By: EDWIN Insulin Glargine (Insulin Glargine,Hum.Rec.Anlog 100 Unit/Ml 10 Ml Vial) 4 unit SUBCUT BEDTIME [facility] Last Admin: 04/29/24 20:27 Dose: Not Given Documented By: EDWIN Non-Admin Reason: poc 82 npo p mn Insulin Human Lispro (Insulin Lispro 100 Unit/Ml 3 Ml Vial) 0 unit SUBCUT QIDACHS [facility]; Protocol Last Admin: 04/30/24 07:34 Dose: Not Given Documented By: JOSSE Non-Admin Reason: No Insulin Coverage Ketorolac Tromethamine (Ketorolac Tromethamine 15 Mg/Ml Vial) 15 mg IVPUSH Q6H PRN PRN Reason: Pain, Moderate(Pain Scale 4-6) Last Admin: 04/29/24 15:20 Dose: 15 mg Documented By: ALISON Lorazepam (Lorazepam 0.5 Mg Tablet) 0.5 mg PO BEDTIME PRN PRN Reason: Sleep Magnesium Hydroxide (Milk Of Magnesia 30 Ml Oral.Susp) 30 ml PO DAILY PRN PRN Reason: Constipation Last Admin: 04/29/24 08:29 Dose: 30 ml Documented By: ALISON Melatonin (Melatonin 3 Mg Tablet) 6 mg PO BEDTIME PRN PRN Reason: Insomnia Pt Own (Rimegepant [ Nurtec Odt] 75 Mg Tablet, Disintegrating) 75 mg PO Q48H [facility] Last Admin: 04/29/24 08:30 Dose: Not Given Documented By: ALISON Non-Admin Reason: administerted under different order,pharmacy Ondansetron HCl (Ondansetron Hcl 4 Mg/2 Ml Vial) 4 mg IVPUSH Q6H PRN PRN Reason: Nausea and Vomiting Last Admin: 04/29/24 18:49 Dose: 4 mg Documented By: ALISON Sodium Chloride (0.9 % Sodium Chloride Flush 3 Ml Syringe) 3 ml IVFLUSH QSHIFT [facility] Last Admin: 04/30/24 07:35 Dose: Not Given Documented By: JOSSE Non-Admin Reason: IV Running Sumatriptan Succinate (Sumatriptan Succinate 50 Mg Tablet) 50 mg PO DAILY PRN PRN Reason: Headache Labs 04/28/24 11:29 04/28/24 11:29 Labs: Laboratory Results - last 24 hr 04/29/24 04/29/24 04/29/24 11:19 11:52 15:45 POC Glucose 62 200 H 93 04/29/24 04/30/24 20:01 07:25 POC Glucose 82 91 Microbiology Microbiology Results: Microbiology 04/28/24 17:26 Blood Culture - Preliminary Blood - Venous No growth after 24 hours. 04/28/24 16:04 Blood Culture - Preliminary Blood - Venous No growth after 24 hours. 04/28/24 Unknown Urine Culture - Final Urine clean catch - Urine wolf top Assessment and Plan (1) UTI (urinary tract infection): Status: Acute (2) Ureterolithiasis: Status: Acute Plan 44/F with DM, HTN, kidney stone, recent colitis here with abdominal pain, right flank pain and found to have right sided kidney stone righ hydronephrosis Right sided kiendy stone - dilaudid and oxycodone -for cysyoscopy today -IVF -planned for cystoscopy today -empiric Abx (got levaquin in ED) -ceftriaxone Diarrhea, possibly residual from recent colitis -no diarhea in 4 days, canceled cdif and stool panel HTN--BP normal on no meds Diabetes -given 1/2 of Lantus last night, -add glucose to fluid while NPO HLD--Lipitor moderate persistent asthma--no exacerbation -continue inhalers DVT prophylaxis--device given hematuria, and or ambulate full code need for inpatient: kidney that need intervention possible dc later today Quality Stroke Does the patient have a stroke diagnosis?: No VTE Prior VTE?: No VTE Risk Level:: Medical - low VTE Device Contraindication: N/A - Device Ordered VTE Drug Contraindication: Treatment Not Indicated
--- NOTE | 2024-04-30 10:14 | P.CONAN_ITS ---
[facility] Active Problems Active Problems: All Active Problems Renal colic on right side (Acute) Abdominal pain (Acute) UTI (urinary tract infection) (Acute) Ureterolithiasis (Acute) Vitamin A deficiency (Acute) BMI 34.0-34.9,adult (Acute) BMI 33.0-33.9,adult (Acute) DJD (degenerative joint disease) (Acute) Asthma (Acute) Hyperlipidemia (Acute) Hypertension (Acute) Depression (Acute) Insulin dependent diabetes mellitus (Acute) Obesity (Acute) Past Medical History Medical History Kidney stones DJD (degenerative joint disease) Asthma Hyperlipidemia Hypertension Depression Insulin dependent diabetes mellitus Obesity Family History Family History Mother Hypertension Tumor Eczema Heart murmur Father Hypertension Hyperlipidemia Heart attack Brother Eczema Asthma Migraine Brother Lung tumor Diabetes Sister Asthma Son No problems noted. Daughter No problems noted. Family history of problems with anesthesia: No Surgical History Surgical History Hx of laparoscopy Hx of tubal ligation Hx of cholecystectomy Hx of breast surgery History of Problems with Anesthesia: No Social History Social History Alcohol intake: never Patient Tobacco Use Status: Former Tobacco user Smoked in Last 30 Days: No Use of substances other than those prescribed or required for medical reasons: No Currently Displaying Signs/Symptoms of Drug Intoxication Withdrawal: No Advance Directives: No Advance Directives Information Provided: Yes Do you have a plan to hurt others: No Plan Nutrition Risks: No Nutritional Risk service: No Meds Allergies Allergy/AdvReac Type Severity Reaction Status Date / Time varicella virus vaccine live Allergy Severe difficulty Verified 04/14/21 09:43 [VARICELLA VIRUS VACCINE breathing/swelling/redness/itching LIVE] bee pollen [bee stings] Allergy Anaphylaxis Verified 04/28/24 09:45 shellfish derived Allergy Anaphylaxis Verified 04/28/24 09:45 tirzepatide [From Mounjaro] Allergy Unknown Verified 04/28/24 09:45 Active Medications: Current Medications Acetaminophen (Acetaminophen 325 Mg Tablet) 650 mg PO Q6H PRN PRN Reason: Pain, Mild (Pain Scale 1-3), fever or headache Last Admin: 04/29/24 16:29 Dose: 650 mg Albuterol Sulfate (Albuterol Sulfate 90 Mcg 8 Gm Inhaler) 2 puff INHALE TID PRN PRN Reason: Shortness Of Breath Atorvastatin Calcium (Atorvastatin Calcium 40 Mg Tablet) 40 mg PO DAILY [facility] Last Admin: 04/29/24 08:29 Dose: 40 mg Calcium Carbonate (Calcium Carbonate 750 Mg Tab.Chew) 750 mg PO Q4H PRN PRN Reason: Heartburn Glucose (Glucose Gel 15 Gm Gel..Gram.) 15 gm PO Q15M PRN; Protocol PRN Reason: per Hypoglycemia Standing Ord. Hydromorphone HCl (Hydromorphone Hcl 1 Mg/Ml Syringe) 1 mg IVPUSH Q3H PRN; Protocol PRN Reason: Pain, Severe (Pain Scale 7-10) Last Admin: 04/30/24 07:40 Dose: 1 mg Dextrose (D10) 250 mls @ 750 mls/hr IV Q15M PRN; Protocol PRN Reason: per Hypoglycemia Standing Ord. Last Infusion: 04/29/24 11:51 Dose: Infused Ceftriaxone Sodium 1 gm/ (Sodium Chloride) 50 mls @ 100 mls/hr IV Q24H [facility] Last Infusion: 04/29/24 14:13 Dose: Infused Sodium Chloride (Ns) 1,000 mls @ 150 mls/hr IVCONT .Q6H40M [facility] Last Admin: 04/30/24 03:52 Dose: 150 mls/hr Insulin Glargine (Insulin Glargine,Hum.Rec.Anlog 100 Unit/Ml 10 Ml Vial) 4 unit SUBCUT BEDTIME [facility] Last Admin: 04/29/24 20:27 Dose: Not Given Insulin Human Lispro (Insulin Lispro 100 Unit/Ml 3 Ml Vial) 0 unit SUBCUT QIDACHS [facility]; Protocol Last Admin: 04/30/24 07:34 Dose: Not Given Ketorolac Tromethamine (Ketorolac Tromethamine 15 Mg/Ml Vial) 15 mg IVPUSH Q6H PRN PRN Reason: Pain, Moderate(Pain Scale 4-6) Last Admin: 04/29/24 15:20 Dose: 15 mg Lorazepam (Lorazepam 0.5 Mg Tablet) 0.5 mg PO BEDTIME PRN PRN Reason: Sleep Magnesium Hydroxide (Milk Of Magnesia 30 Ml Oral.Susp) 30 ml PO DAILY PRN PRN Reason: Constipation Last Admin: 04/29/24 08:29 Dose: 30 ml Melatonin (Melatonin 3 Mg Tablet) 6 mg PO BEDTIME PRN PRN Reason: Insomnia Pt Own (Rimegepant [ Nurtec Odt] 75 Mg Tablet, Disintegrating) 75 mg PO Q48H [facility] Last Admin: 04/29/24 08:30 Dose: Not Given Ondansetron HCl (Ondansetron Hcl 4 Mg/2 Ml Vial) 4 mg IVPUSH Q6H PRN PRN Reason: Nausea and Vomiting Last Admin: 04/29/24 18:49 Dose: 4 mg Oxycodone HCl (Oxycodone Hcl Immed Release 5 Mg Tablet) 5 mg PO Q6H PRN PRN Reason: Pain, Moderate(Pain Scale 4-6) Sodium Chloride (0.9 % Sodium Chloride Flush 3 Ml Syringe) [facility] Admin: 04/30/24 07:35 Dose: Not Given Sumatriptan Succinate (Sumatriptan Succinate 50 Mg Tablet) 50 mg PO DAILY PRN PRN Reason: Headache Home Medications ?Medication ?Instructions ?Recorded ?Confirmed ?Last Taken ?Type atorvastatin 40 mg tablet 40 mg PO DAILY 03/24/21 04/28/24 04/27/24 History blood sugar diagnostic #10 ea 03/24/21 04/01/21 Unknown History lancets 28 gauge #100 ea 03/24/21 04/01/21 Unknown History pen needle, diabetic 31 gauge x #50 ea 03/24/21 04/01/21 Unknown History / sumatriptan succinate 50 mg tablet 50 mg PO NEEDED PRN Headache 03/24/21 04/28/24 Unknown History albuterol sulfate 90 mcg/actuation 2 puff inhalation TID PRN 04/01/21 04/28/24 Unknown History aerosol inhaler (ProAir HFA) Shortness Of Breath insulin degludec 100 unit/mL (3 12 unit subcut DAILY 04/28/24 04/28/24 04/26/24 History mL) subcutaneous pen (Tresiba FlexTouch U-100 insulin) insulin lispro 100 unit/mL 2 - 5 sliding scale dose subcut 04/28/24 04/28/24 04/27/24 History subcutaneous pen (Humalog KwikPen DAILY (U-100) Insulin) lorazepam 0.5 mg tablet 0.5 mg PO BEDTIME PRN Sleep 04/28/24 04/28/24 Unknown History rimegepant 75 mg disintegrating 75 mg PO Q OTHER DAY 04/28/24 04/28/24 04/27/24 History tablet (Nurtec ODT) semaglutide 2 mg/dose (8 mg/3 mL) 2 mg subcut SA 04/28/24 04/28/24 04/26/24 History subcutaneous pen injector (Ozempic) Exam Height,Weight and Vital Signs: Height 5 ft Weight 59.9 kg Last Vital Signs Temp 97.3 F 04/30/24 07:23 Pulse 64 04/30/24 07:23 Resp 16 04/30/24 07:23 BP 130/76 04/30/24 07:23 Pulse Ox 99 04/30/24 07:23 O2 Del Method Room Air 04/30/24 07:23 Pertinent Lab Results Pertinent Lab Results: Laboratory Tests 04/28/24 04/28/24 04/28/24 11:29 12:36 16:05 WBC 8.1 RBC 4.57 Hgb 13.8 Hct 40.5 MCV 88.6 MCH 30.2 MCHC 34.1 RDW 12.5 Plt Count 190 MPV 12.1 Immature Gran % (Auto) 0.2 Neut % (Auto) 80.0 H Lymph % (Auto) 14.3 L [place] % (Auto) 4.3 Eos % (Auto) 0.6 Baso % (Auto) 0.6 Lymph # (Auto) 1.2 [place] # (Auto) 0.4 Eos # (Auto) 0.1 Baso # (Auto) 0.1 Abs Immat Gran (auto) 0.02 Absolute Neuts (auto) 6.4 Absolute Nucleated RBC 0.000 Nucleated RBC % (auto) 0.0 ESR 14 Sodium 140 Potassium 4.5 Chloride 111 H Carbon Dioxide 21 L Anion Gap 13 BUN 13 Creatinine 0.83 Estim Creat Clear Calc 69.2 Estimated GFR > 60 POC Glucose Random Glucose 180 H Lactic Acid 0.8 Calcium 10.0 D Magnesium 1.9 Total Bilirubin 0.6 AST 13 ALT 7 Alkaline Phosphatase 61 C-Reactive Protein 0.38 Total Protein 7.4 Albumin 4.3 Lipase 33 Beta HCG, Quant < 2 Urine Color [place] A Urine Appearance Turbid Urine pH 5.5 Ur Specific [place] 1.025 Urine Protein 100 (2+) H Urine Glucose (UA) Negative Urine Ketones 15 Urine Blood Large (3+) H Urine Nitrite Negative Ur Leukocyte Esterase Small (1+) H Urine RBC >20 H Urine WBC 11-20 H Ur Squamous Epith Cells 3-5 Urine Bacteria None Seen Hyaline Casts 0-2 04/28/24 04/28/24 04/29/24 16:46 19:56 07:14 WBC RBC Hgb Hct MCV MCH MCHC RDW Plt Count MPV Immature Gran % (Auto) Neut % (Auto) Lymph % (Auto) [place] % (Auto) Eos % (Auto) Baso % (Auto) Lymph # (Auto) [place] # (Auto) Eos # (Auto) Baso # (Auto) Abs Immat Gran (auto) Absolute Neuts (auto) Absolute Nucleated RBC Nucleated RBC % (auto) ESR Sodium Potassium Chloride Carbon Dioxide Anion Gap BUN Creatinine Estim Creat Clear Calc Estimated GFR POC Glucose 89 130 H 131 H Random Glucose Lactic Acid Calcium Magnesium Total Bilirubin AST ALT Alkaline Phosphatase C-Reactive Protein Total Protein Albumin Lipase Beta HCG, Quant Urine Color Urine Appearance Urine pH Ur Specific [place] Urine Protein Urine Glucose (UA) Urine Ketones Urine Blood Urine Nitrite Ur Leukocyte Esterase Urine RBC Urine WBC Ur Squamous Epith Cells Urine Bacteria Hyaline Casts 04/29/24 04/29/24 04/29/24 11:19 11:52 15:45 WBC RBC Hgb Hct MCV MCH MCHC RDW Plt Count MPV Immature Gran % (Auto) Neut % (Auto) Lymph % (Auto) [place] % (Auto) Eos % (Auto) Baso % (Auto) Lymph # (Auto) [place] # (Auto) Eos # (Auto) Baso # (Auto) Abs Immat Gran (auto) Absolute Neuts (auto) Absolute Nucleated RBC Nucleated RBC % (auto) ESR Sodium Potassium Chloride Carbon Dioxide Anion Gap BUN Creatinine Estim Creat Clear Calc Estimated GFR POC Glucose 62 200 H 93 Random Glucose Lactic Acid Calcium Magnesium Total Bilirubin AST ALT Alkaline Phosphatase C-Reactive Protein Total Protein Albumin Lipase Beta HCG, Quant Urine Color Urine Appearance Urine pH Ur Specific [place] Urine Protein Urine Glucose (UA) Urine Ketones Urine Blood Urine Nitrite Ur Leukocyte Esterase Urine RBC Urine WBC Ur Squamous Epith Cells Urine Bacteria Hyaline Casts 04/29/24 04/30/24 20:01 07:25 WBC RBC Hgb Hct MCV MCH MCHC RDW Plt Count MPV Immature Gran % (Auto) Neut % (Auto) Lymph % (Auto) [place] % (Auto) Eos % (Auto) Baso % (Auto) Lymph # (Auto) [place] # (Auto) Eos # (Auto) Baso # (Auto) Abs Immat Gran (auto) Absolute Neuts (auto) Absolute Nucleated RBC Nucleated RBC % (auto) ESR Sodium Potassium Chloride Carbon Dioxide Anion Gap BUN Creatinine Estim Creat Clear Calc Estimated GFR POC Glucose 82 91 Random Glucose Lactic Acid Calcium Magnesium Total Bilirubin AST ALT Alkaline Phosphatase C-Reactive Protein Total Protein Albumin Lipase Beta HCG, Quant Urine Color Urine Appearance Urine pH Ur Specific [place] Urine Protein Urine Glucose (UA) Urine Ketones Urine Blood Urine Nitrite Ur Leukocyte Esterase Urine RBC Urine WBC Ur Squamous Epith Cells Urine Bacteria Hyaline Casts Airway Mallampati Class: II TM Dist: >3cm Neck ROM: Full Loose/Missing/Broken Teeth: No Heart: RRR Lungs: CTA Assessment and Plan Assessment Anesthesia Assessment: Anesthesia Plan Discussed and Chart Reviewed Final Anesthetic Review Family History of Problems with Anesthesia: No History of Problems with Anesthesia: No NPO: Yes ASA Class: II and Emergency Final Preanesthetic Review: Meds/Allgs Chart Reviewed, Consent Obtained/Reviewed and Anes Risks/Benef Reviewed Patient Risk: Low Procedure Risk: Low Anesthetic Plan Anesthetic Plan: GA Disposition: Standard PACU
[2024-04-30] MEDS: oxyCODONE HCl Immed Release 5 MG TABLET PO (10:15)
--- NOTE | 2024-04-30 11:26 | MHC.CM.PN ---
Per MD rounds patient not medically cleared for dc at this time. No change to dc plan. CM will continue to follow.
[2024-04-30 11:31] LABS: Glucose, Whole Blood 99 mg/dL (60-115)
[2024-04-30] MEDS: cefTRIAXone sodium 1 GM in 0.9 % Sodium Chloride 50 ML IV (11:38)
--- NOTE | 2024-04-30 12:02 | MHC.SHP ---
Pre-Procedural Eval Section A - 24 Hr Update-Section A only Date of Service: 04/30/24 The patient is an INPATIENT: Yes The patient has been examined within 24 hours of the surgical procedure. The History & Physical has been completed within 30 days and I have reviewed it.: Yes Section B - Complete if H&P > 30 days Chief Complaint: Obstructive uropathy, right hydronephrosis Allergies: Allergies Allergy/AdvReac Type Severity Reaction Status Date / Time varicella virus vaccine live Allergy Severe difficulty Verified 04/14/21 09:43 [VARICELLA VIRUS VACCINE breathing/swelling/redness/itching LIVE] bee pollen [bee stings] Allergy Anaphylaxis Verified 04/28/24 09:45 shellfish derived Allergy Anaphylaxis Verified 04/28/24 09:45 tirzepatide [From Mounjaro] Allergy Unknown Verified 04/28/24 09:45 Plan Diagnosis/Plan: Unchanged I have reviewed the history and physical and performed a pertinent physical examination on my patient. No changes have occurred unless specified. The patient has an obstructing stone which has not passed with conservative management and requires emergent procedure due to obstucted kidney. The patient is advised that she last took ozempic on 04/26/24 and there is increased risk of aspiration. She is aware of risks and side effects from ureteroscopy stone manipulation including but not limited to bleeding, urgency, infection. Time Spent With Patient Time: Total time managing care of this patient today ____ minutes.
--- NOTE | 2024-04-30 13:30 | W.PM.OPN ---
Operative Note Operative Note Date of Service: 04/30/24 Narrative: PreOperative Diagnosis:?? right obstructing ureteral stone, right hydronephrosis Post Operative Diagnosis:?? right obstructing ureteral stone, right hydronephrosis Procedure: - cystoscopy, right retrograde, ureteroscopy laser lithotripsy stent insertion, 6 [place] by 24 cm Surgeon:?Dr Richard Ballard Anesthesia:? General Procedure: After informed consent was verified the patient was brought to the operating placed on the OR table in supine position.? General Anesthesia was administered per protocol.? The patient was placed in lithotomy position, prepped and draped in the usual sterile fashion.? Safety pause time-out and side of surgery confirmed.? Antibiotics confirmed. 2% lidocaine jelly 10 mL was passed transurethrally. A 22 Chadian cystoscope was inserted transurethrally. The bladder was visualized.? Both ureteric orifices were in normal position. An open-ended ureteral catheter was passed into the right ureteral orifice and a retrograde examination was performed. There was a filling defect in the distal ureter and dilatation of the proximal ureter and renal pelvis and calyces. A guidewire was passed through the ureteral catheter into the kidney. The balloon dilator size 12 fr was passed over the guide -wire the balloon was inflated to 10 mmHg and the intramural ureter was dilated for 45 seconds. The balloon was deflated and removed. After removing the balloon dilator a 2nd guidewire was then passed into the kidney to use as a safety. The cystoscope was removed, leaving both guidewires in place. One guidewire was used as the safety and was attached to the draping. The semi rigid ureteroscope was passed over one of the guidewires to the level of the stone in the ureter. One guidewire was then removed. Laser lithotripsy of the stone was done using the 365 fiber with alternating pulsating and dusting setting, There was good fragmentation of the stone. The 0 degree basket was passed through the ureteroscope, to remove fragments to send for analysis. The ureteroscope was removed. The cystoscope was passed over the safety guidewire. A? 6 [place] by 24 cm stent was placed into the ureter and renal pelvis under a combination of fluoroscopy and direct visualization. The bladder was emptied.? The rigid cystoscope was removed. ? The patient tolerated the procedure well and was brought to the recovery room in stable condition. Complications: None Drains: Ureteral stent as dictated above
--- NOTE | 2024-04-30 13:35 | PC.NURSE ---
Took over care for this patient now,patient is in OR,notified OR staff about hypoglycemic event patient had during a day yesterday
--- NOTE | 2024-04-30 15:03 | PM.DS ---
DS: Providers Provider Date of Service: 04/30/24 Date of admission: 04/29/24 10:37 Primary care physician: Leonela Wilson MD Consults: 04/28/24 16:04 Consult to Urology Routine Consulting Provider: Juve Garcia Reason for consultation: Right sided obstructive kidney stone Has provider been notified: No DS: Diagnosis Discharge Diagnosis (1) UTI (urinary tract infection): Status: Acute (2) Ureterolithiasis: Status: Acute DS: Summary Hospital Course Hospital Course: admission hpi Chief Complaint: Abdominal pain, right flank pain 44/F with hitory kidney stone over 10 years ago, insulin dependent diabetes, HLD, asthma, HTN here with right flank and abdominal pain. No fever or chills, + N/V. UA+ microscopic hematuria, +leuk esterase and urine WBC, no bacteria. WBC normal, CT shows 1. Obstructing 5 mm distal right ureteral calculus with right-sided hydronephrosis. 2. Nonobstructing 3 mm left lower pole renal calculus. Urology is aware and likely to perform Cysto+Stent. Of note she also report diarrhea following recent treatment for colitis with Cipro and Flagyl Hospital course: She was admitted and received IV pain medication, IV fluids, and empiric antibiotics (Ceftriaxone) for a suspected UTI. The following day, she underwent cystoscopy with stent placement. The urologist will follow up with her on an outpatient basis in approximately two weeks to remove the stent. Final diagnosis: UTI Kidney stone Hydronephrosis Time Attestation Discharge Coordination Time (in mins): 35 Quality: Safe Use of Opioids Does Pt have an Active Cancer Diagnosis on the Problem List?: No Quality: Stroke Does the patient have a stroke diagnosis?: No Physical Exam Vital Signs: Vital Signs: Last Vital Signs Temp 97.1 F 04/30/24 14:30 Pulse 69 04/30/24 14:30 Resp 17 04/30/24 14:30 BP 147/79 H 04/30/24 14:30 Pulse Ox 100 04/30/24 14:30 O2 Del Method Room Air 04/30/24 14:30 O2 Flow Rate 4 04/30/24 13:30 BMI result Body Mass Index 25.8 DS: Data Data Completed and Pending Pending studies at discharge: Pending at discharge 04/30/24 13:29 Surgical [PTH] Routine Labs on day of discharge: Laboratory Results - last 24 hr 04/29/24 04/29/24 04/30/24 15:45 20:01 07:25 POC Glucose 93 82 91 04/30/24 11:26 POC Glucose 99 Preliminary micro results at discharge 04/28/24 17:26 Blood Culture - Preliminary Blood - Venous No growth after 24 hours. 04/28/24 16:04 Blood Culture - Preliminary Blood - Venous No growth after 24 hours. Discharge Plan Discharge Anticipated Discharge Date/Time: 04/30/24 12:25 Patient Disposition: Home, Self-Care Discharge Diagnosis: Kidney stone Referrals: Leonela Wilson MD [Primary Care Provider] - 1 Week Discharge Medications: New cefuroxime axetil 250 mg tablet 250 mg PO BID Qty: 6 0RF oxycodone 5 mg Tablet 5 mg PO Q6H PRN (Reason: Pain, Moderate(Pain Scale 4-6)) Qty: 10 0RF Rx Instructions: Partial Fill upon patient request. Continued insulin lispro [Humalog KwikPen Insulin] 100 unit/mL insulin pen 2 - 5 sliding scale dose subcut DAILY insulin degludec [Tresiba FlexTouch U-100] 100 unit/mL (3 mL) insulin pen 12 unit subcut DAILY lorazepam 0.5 mg Tablet 0.5 mg PO BEDTIME PRN (Reason: Sleep) Nurtec ODT 75 mg Tablet,Disintegrating 75 mg PO Q OTHER DAY Ozempic 2 mg/dose (8 mg/3 mL) pen injector 2 mg subcut SA albuterol sulfate [ProAir HFA] 90 mcg/actuation HFA aerosol inhaler 2 puff inhalation TID PRN (Reason: Shortness Of Breath) sumatriptan succinate 50 mg tablet 50 mg PO NEEDED PRN (Reason: Headache) (DME) lancets 28 gauge misc See Rx Instructions topical BID Qty: 100 Rx Instructions: As directed (DME) pen needle, diabetic 31 gauge x 3/16 needle See Rx Instructions subcut BEDTIME Qty: 50 Rx Instructions: As directed (DME) blood sugar diagnostic Strip See Rx Instructions .ROUTE BID Qty: 10 Rx Instructions: As directed atorvastatin 40 mg tablet 40 mg PO DAILY Discharge Orders: Discharge Order (Routine); Ordered 04/30/24 Ordered By: Kavon Reed Diet: Diabetic diet Activity on Discharge: As tolerated Stand Alone Forms: Patient Portal Discharge page, Work/School Release Print Language: Belarusian Care Plan Goals: resolution of kidney stone and pain associated with kidney stone Health Concerns: kidney stone hydronephrosis uti Plan of Treatment: take cefuroxime 250 mg twice daily for [address] Zaragoza's office will contact you for follow up appointment Assessment: see above Discharge Date/Time: 04/30/24 18:13
--- NOTE | 2024-04-30 15:58 | MHC.CM.PN ---
Per MD patient medically cleared for dc. Patient initially stating she will self transport home (car in lot). CM and RN advised against this. Patient's will transport home at 1800. RN aware. Patient verbalized frustrations and reports she has questions about what to expect post-op. [place] Text sent to Urologist to follow up with patient. Patient aware.
[2024-04-30 16:00] LABS: Glucose, Whole Blood 130 mg/dL (60-115)
--- OUTSIDE RECORDS SUMMARY | 2024-05-01 07:46 | XMS_ITS | Continuity of Care Document ---
Author Organization [facility] Daquan Jose Luis lt Address [address] [place] [id number]- Care Team Providers Care Data Entry Manager Name Role Phone Nuria FLOREZ, Jing Russo Primary Care Physician [place] [facility] [place] [facility] Adult [address] [place] [address]- [place] Encounter Diagnosis Diabetes(Discharge Diagnosis) - 03/30/20 Depressive disorder(Discharge Diagnosis) - 03/30/20 Attending Physician: Jing Quiñones NP Allergies, Adverse Reactions, Alerts Substance Reaction Severity Status varicella virus vaccine redness swelling at site Active oxyCODONE Active Immunizations Given and Recorded Vaccine Date Status Refusal Reason Varicella Virus Vaccine 11/17/13 Given tetanus/diphtheria/pertussis, acel(Tdap) 11/17/13 Given Medications albuterol CFC free 90 mcg/inh inhalation aerosol 2, puffs, Inhalation, Every 4 hours, PRN, use with spacer chamber, # 1 each, Refills 3, Tot. Refills 3, Maintenance, 01/29/18 18:02:08 EDT, Aerosol, Route to Pharmacy Electronically, [id number], [facility]/pharmacy #[id number], Compound Start Date: 01/29/18 Stop Date: 05/29/18 Status: Ordered Ambien 10 mg oral tablet 1 tablet = 10 mg, By Mouth, Daily at bedtime, PRN as needed for insomnia, 0 Refills, Maintenance, 11/28/19 11:03:00 EST, Tablet Start Date: 11/28/19 Status: Ordered Cipro 500 mg oral tablet 1 tablet = 500 mg, By Mouth, Every 12 hours, # 14 tablet, 0 Refills, Maintenance, 11/28/19 11:04:00EST, Tablet Start Date: 11/28/19 Stop Date: 12/05/19 Status: Ordered Effexor XR 150 mg oral capsule, extended release 150 mg, 1, capsule, By Mouth, Daily, # 30 capsule, Refills 0, Maintenance, 11/28/19 11:03:00 EST Start Date: 11/28/19 Status: Ordered freestle juve sensor freestle juve sensor, See Instructions, # 2 each, Refills 7, Tot. Refills 7, Maintenance, please dispense 28 day supply, 09/23/19 18:02:25 EST, Compound Start Date: 09/23/19 Status: Ordered Freestyle Lite Lancets See Instructions, # 200 each, Refills 5, Tot. Refills 5, Maintenance, USE BID AND FOR LOW BLOOD SUGARS DM TYPE 2 E11.9, 08/14/19 11:03:45 EDT, Compound Start Date: 08/14/19 Stop Date: 09/13/19 Status: Ordered Freestyle Lite Monitor See Instructions, # 1 units, Maintenance, dx: DM check BG 2 to 3 times daily, 08/14/19 11:06:01 EDT, Compound Start Date: 08/14/19 Status: Ordered Freestyle Lite Test Strips See Instructions, # 200 each, Refills 5, Tot. Refills 5, Maintenance, USE BID AND FOR LOW BLOOD SUGARS DM TYPE 2 E11.9, 08/14/19 11:04:07 EDT, Compound Start Date: 08/14/19 Stop Date: 09/13/19 Status: Ordered Lantus Solostar Pen 100 units/mL subcutaneous solution = 10 units, Subcutaneous Injection, Daily, Take 10 units today, increase 3 units daily until fasting blood sugar is 140 with evening meal, # 10 mL, 0 Refills, Maintenance, 11/13/19 15:15:00 EST, Solution Start Date: 11/13/19 Status: Ordered Lantus Solostar Pen 100 units/mL subcutaneous solution See Instructions, 10 units daily with dinner: add 3 unis daily until fasting blood sugar is 140, # 15 mL, 3 Refills, Maintenance, 11/13/19 17:29:00 EST, [facility]/pharmacy #[id number], 152.5, cm, 11/13/19 13:49:00 EST, Height, 82.4, kg, 08/18/18 19:01:00 EDT, Dry... Start Date: 11/13/19 Status: Ordered Latuda 20 mg oral tablet 1 tablet = 20 mg, By Mouth, Daily, # 30 tablet, 0 Refills, Maintenance, 11/28/19 11:04:00 EST, Tablet Start Date: 11/28/19 Status: Ordered Lipitor 40 mg oral tablet 1 tablet = 40 mg, By Mouth, Daily, # 90 tablet, 3 Refills, Maintenance, 08/14/19 10:48:30 EDT, Tablet Start Date: 08/14/19 Status: Ordered lisinopril 40 mg oral tablet 1 tablet = 40 mg, By Mouth, Daily, # 30 tablet, 7 Refills, Maintenance, 11/13/19 14:35:00 EST, Tablet, [facility]/pharmacy #[id number], 152.5, cm, 11/13/19 13:49:00 EST, Height, 82.4, kg, 08/18/18 19:01:00 EDT, Dry Weight Start Date: 11/13/19 Stop Date: 07/10/20 Status: Ordered Melatonin Daily at bedtime, 0 Refills, Maintenance, 11/28/19 11:03:00 EST Start Date: 11/28/19 Status: Ordered metFORMIN 1000 mg oral tablet 1 tablet = 1,000 mg, By Mouth, 2 times a day, with meals, # 60 tablet, 5 Refills, Maintenance, 08/14/19 11:04:34 EDT, Tablet Start Date: 08/14/19 Stop Date: 02/10/20 Status: Ordered omeprazole 40 mg oral enteric coated capsule 1 capsule = 40 mg, By Mouth, Daily, # 90 capsule, 3 Refills, Maintenance, 08/14/19 11:05:02 EDT, ECCapsule Start Date: 08/14/19 Stop Date: 08/08/20 Status: Ordered Pen Beccaria, 29 G x 12.7 mm BD Ultra Fine See Instructions, # 100 each, Refills 5, Tot. Refills 5, Maintenance, use as directed for Type 1 Diabetes Mellitus, 11/13/19 17:27:00 EST, Compound, 152.5, cm, 11/13/19 13:49:00 EST, Height, 82.4, kg, 08/18/18 19:01:00 EDT, Dry Weight Start Date: 11/13/19 Stop Date: 05/11/20 Status: Ordered Pen Beccaria, 31 G x 5 mm BD Ultra Fine III See Instructions, # 100 each, Refills 11, Tot. 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 Start Date: 11/28/19 Status: Ordered SUMAtriptan 50 mg oral tablet 1 tablet = 50 mg, By Mouth, Daily, PRN for migraine headache, # 9 tablet, 5 Refills, Soft Stop, 03/25/20 10:06:00 EDT, Tablet, [facility][id number], 152.5, cm, 12/29/19 14:49:00 EST, Height, 82.4, kg, 08/18/18 19:01:00 EDT, Dry Weight Start Date: 03/25/20 Stop Date: 09/21/20 Status: Ordered Trulicity Pen 1.5 mg/0.5 mL subcutaneous solution 0.5 mL = 1.5 mg, Subcutaneous Injection, Every week, rotate injection sites, # 2 mL, 0 Refills, Maintenance, 11/28/19 11:02:00 EST, Solution Start Date: 11/28/19 Status: Ordered Problem List Condition Effective Dates Status Health Status Inform ant Anxiety(Confirmed) Active Asthma(Confirmed) Active Benign hypertension(Confirmed) Active Nipple discharge, bloody(Confirmed) Active Breast lump(Confirmed) Active Cyst of ovary(Confirmed) Active Depressive disorder(Confirmed) Active Diabetes(Confirmed) Active Inflammatory disease of left breast(Confirmed) Active Keloid scar(Confirmed) Active Abdominal pain, LLQ (left lo wer quadrant)(Confirmed) Active Obesity (BMI 30-39.9)(Confirmed) Active LAUREANO (obstructive sleep apnea)(Confirmed) Active Breast pain in female(Confirmed) Active Gastrocnemius strain, left(Confirmed) Active Viral URI with cough(Confirmed) Active Diagnosis Diagnosis Type Effective Dates Health Status Clinical Service Informant Diabetes Discharge Diagnosis 03/30/20 Depressive disorder Discharge Diagnosis 03/30/20 Social History Social History Type Response Smoking Status Smoker, current stat us unknown entered on: 10/30/19 Sex
--- OUTSIDE RECORDS SUMMARY | 2024-05-01 07:46 | XMS_ITS | Continuity of Care Document ---
Author Organization [facility] Daquan Jose Luis lt Address [address] [place] [address]- Care Team Providers Care Glass Grinder Name Role Phone Jane Melgar NP Primary Care Physician [place] [facility] [place] [facility] Adult [address] [place] [address]- [facility] Allergies, Adverse Reactions, Alerts Substance Reaction Severity [...] 18:02:08 EDT, Aerosol, Route to Pharmacy Electronically, [id number], [facility]/pharmacy #[id number], Compound Start Date: 01/29/18 Stop Date: [...] mL, 3 Refills, Maintenance, 11/13/19 17:29:00 EST, [facility]/pharmacy #[id number], 152.5, cm, 11/13/19 13:49:00 EST, Height, [...] 7 Refills, Maintenance, 11/13/19 14:35:00 EST, Tablet, [facility]/pharmacy #[id number], 152.5, cm, 11/13/19 13:49:00 EST, Height, [...] 08/14/19 Stop Date: 08/08/20 Status: Ordered Pen [place], 29 G x 12.7 mm BD Ultra Fine See Instructions, # 100 each, Refills 5, Tot. Refills 5, Maintenance, use as directed for Type 1 Diabetes Mellitus, 11/13/19 17:27:00 EST, Compound, 152.5, cm, 11/13/19 13:49:00 EST, Height, 82.4, kg, 08/18/18 19:01:00 EDT, Dry Weight Start Date: 11/13/19 Stop Date: 05/11/20 Status: Ordered Pen [place], 31 G x 5 mm BD Ultra Fine III See Instructions, # 100 each, Refills 11, Tot. 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
--- OUTSIDE RECORDS SUMMARY | 2024-05-01 07:46 | XMS_ITS | Continuity of Care Document ---
Author Organization [facility] Address [address] [place] [address]- Care Team Providers Care Technical Training Manager Name Role Phone Jane Melgar NP Primary Care Physician [place] [facility] [place]20 [facility] [address] [place] [address]- [facility] Allergies, Adverse Reactions, Alerts Substance Reaction Severity Status varicella virus vaccine redness swelling at site Active oxyCODONE Active Immunizations Given and Recorded Vaccine Date Status Refusal Reason Varicella Virus Vaccine 11/17/13 Given tetanus/diphtheria/pertussis, acel(Tdap) 11/17/13 Given Medications Admelog SoloStar 100 units/mL injectable solution See Instructions, Inject insulin via ISS 32x a day with meals. MAX DAILY DOSE 42 units, E11.65, # 30 mL, 6 Refills, Maintenance, 08/27/20 13:37:00 EDT, [id number], 152, cm, 08/26/20 9:48:00 EDT, Height, 78.4, kg, 07/13/20 9:29:00 EDT, Dry W... Start Date: 08/27/20 Status: Ordered albuterol CFC free 90 mcg/inh inhalation aerosol 2, puffs, Inhalation, Every 4 hours, PRN, use with spacer chamber, # 1 each, Refills 3, Tot. Refills 3, Maintenance, 07/26/20 7:40:00 EDT, Aerosol, Route to Pharmacy Electronically, [id number], [id number], 152, cm,... Start Date: 07/26/20 Stop Date: 11/23/20 Status: Ordered Ambien 10 mg oral tablet 1 tablet = 10 mg, By Mouth, Daily at bedtime, PRN as needed for insomnia, 0 Refills, Maintenance, 11/28/19 11:03:00 EST, Tablet Start Date: 11/28/19 Status: Ordered Basaglar KwikPen 100 units/mL subcutaneous solution See Instructions, inject 10units subcutaneously daily, increase 3units every 3days until fasting blood sugar less than 140, # 10 mL, 3 Refills, Maintenance, 08/02/20 7:28:00 EDT, [id number], 152, cm, 07/27/20 7:01:00 EDT, Height, 78.4, kg,... Start Date: 08/02/20 Status: Ordered Effexor XR 150 mg oral capsule, extended release 150 mg, 1, capsule, By Mouth, Daily, # 30 capsule, Refills 0, Maintenance, 11/28/19 11:03:00 EST Start Date: 11/28/19 Status: Ordered Flovent HFA 110 mcg/inh inhalation aerosol 2 puffs, Inhalation, 2 times a day, # 12 Gm, 0 Refills, Maintenance, 07/26/20 8:13:00 EDT, Aerosol,[id number], 152, cm, 07/26/20 7:17:00 EDT, Height, 78.4, kg, 07/13/20 9:29:00 EDT, Dry Weight Start Date: 07/26/20 Status: Ordered freestle francisco sensor freestle francisco sensor, See Instructions, # 2 each, Refills 7, Tot. Refills 7, Maintenance, please dispense 28 day supply, 09/23/19 18:02:25 EST, Compound Start Date: 09/23/19 Status: Ordered Freestyle Francisco 14 day reader Freestyle Francisco 14 day reader, See Instructions, # 1 each, Refills 0, Tot. Refills 0, Maintenance, Freestyle [place] 14 day reader T2DM E11.9, 07/27/20 10:07:00 EDT, Compound, 152, cm, 07/27/20 7:01:00EDT, Height, 78.4, kg, 07/13/20 9:29:00 EDT, Dry... Start Date: 07/27/20 Status: Ordered Freestyle Francisco 14 day sensors Freestyle Francisco 14 day sensors, See Instructions, # 2 each, Refills 11, Tot. Refills 11, Maintenance, sensors T2DM E11.9, 07/27/20 10:07:00 EDT, Compound, 152, cm, 07/27/20 7:01:00 EDT, Height, 78.4,kg, 07/13/20 9:29:00 EDT, Dry Weight Start Date: 07/27/20 Status: Ordered Freestyle Lite Lancets See Instructions, # 200 each, Refills 5, Tot. Refills 5, Maintenance, USE BID AND FOR LOW BLOOD SUGARS DM TYPE 2 E11.9, 07/26/20 7:41:00 EDT, Compound, 152, cm, 07/26/20 7:17:00 EDT, Height, 78.4, kg, 07/13/20 9:29:00 EDT, Dry Weight Start Date: 07/26/20 Stop Date: 01/22/21 Status: Ordered Freestyle Lite Monitor See Instructions, # 1 units, Maintenance, dx: DM check BG 2 to 3 times daily, 08/14/19 11:06:01 EDT, Compound Start Date: 08/14/19 Status: Ordered Freestyle Lite Test Strips See Instructions, # 200 each, Refills 5, Tot. Refills 5, Maintenance, USE BID AND FOR LOW BLOOD SUGARS DM TYPE 2 E11.9, 07/26/20 7:41:00 EDT, Compound, 152, cm, 07/26/20 7:17:00 EDT, Height, 78.4, kg, 07/13/20 9:29:00 EDT, Dry Weight Start Date: 07/26/20 Stop Date: 01/22/21 Status: Ordered FreeStyle Precision Lorne Test Strips FreeStyle Precision Lorne Test Strips, See Instructions, # 300 each, Refills 11, Tot. Refills 11, Maintenance, use to test BG twice daily and as needed with Freestyle glucometer. Dx E 10.9 T2DM, 08/05/20 9:45:00 EDT, Compound, 152, cm, 07/27/20 7:01:... Start Date: 08/05/20 Status: Ordered gabapentin 100 mg oral capsule 100 mg, 1, capsule, By Mouth, 3 times a day, # 90 capsule, Refills 0, Tot. Refills 0, Maintenance, 07/15/20 15:18:00 EDT, [id number], 152, cm, 07/15/20 14:57:00 EDT, Height, 78.4, kg, 07/13/20 9:29:00 EDT, Dry... Start Date: 07/15/20 Status: Ordered Insulin Lispro KwikPen 100 units/mL injectable solution See Instructions, Please follow sliding scale, three times a day with meals. Max daily dose: 42 units E11.9, # 15 mL, 6 Refills, Maintenance, 08/26/20 10:05:00 EDT, [id number], 152, cm, 08/26/20 9:48:00 EDT, Height, 78.4, kg, 07/13/20... Start Date: 08/26/20 Status: Ordered Lantus Solostar Pen 100 units/mL subcutaneous solution = 10 units, Subcutaneous Injection, Daily, Take 10 units today, increase 3 units daily until fasting blood sugar is 140 with evening meal, # 10 mL, 0 Refills, Maintenance, 07/26/20 7:41:00 EDT, Solution, [facility], 152, cm, 07/26/20 7:17... Start Date: 07/26/20 Status: Ordered Lantus Solostar Pen 100 units/mL subcutaneous solution See Instructions, 10 units daily with dinner: add 3 unis daily until fasting blood sugar is 140, # 15 mL, 3 Refills, Maintenance, 11/13/19 17:29:00 EST, [facility]/pharmacy #[id number], 152.5, cm, 11/13/19 13:49:00 EST, Height, 82.4, kg, 08/18/18 19:01:00 EDT, Dry... Start Date: 11/13/19 Status: Ordered Latuda 20 mg oral tablet 1 tablet = 20 mg, By Mouth, Daily, # 30 tablet, 0 Refills, Maintenance, 11/28/19 11:04:00 EST, Tablet Start Date: 11/28/19 Status: Ordered lidocaine 5% topical film 1 patch, Topically, Daily, PRN Pain , Mild, remove after 12 hours, # 13 each, 0 Refills, Maintenance, 08/08/20 14:33:00 EDT, Film, [facility], 1 patch Topically Daily,PRN:Pain , Mild,Instr:remove after 12 hours, 152, cm, 08/06/20 9:15:00 ED... Start Date: 08/08/20 Status: Ordered lidocaine-prilocaine 2.5%-2.5% topical cream 1 application, Topically, 3 times a day, Apply to sensitive area, # 30 Gm, 0 Refills, Soft Stop, 07/30/20 17:50:00 EDT, Cream, [facility], 1 application Topically 3 times a day,Instr:Applyto sensitive area, 152, cm, 07/27/20 7:01:00 EDT, H... Start Date: 07/30/20 Status: Ordered Lipitor 40 mg oral tablet 1 tablet = 40 mg, By Mouth, Daily, # 90 tablet, 3 Refills, Maintenance, 07/26/20 7:41:00 EDT, Tablet, [facility], 152, cm, 07/26/20 7:17:00 EDT, Height, 78.4, kg, 07/13/20 9:29:00 EDT, DryWeight Start Date: 07/26/20 Status: Ordered lisinopril 40 mg oral tablet 1 tablet = 40 mg, By Mouth, Daily, # 30 tablet, 7 Refills, Maintenance, 07/26/20 7:41:00 EDT, Tablet, [facility], 152, cm, 07/26/20 7:17:00 EDT, Height, 78.4, kg, 07/13/20 9:29:00 EDT, DryWeight Start Date: 07/26/20 Stop Date: 03/23/21 Status: Ordered Melatonin Daily at bedtime, 0 Refills, Maintenance, 11/28/19 11:03:00 EST Start Date: 11/28/19 Status: Ordered metFORMIN 1000 mg oral tablet 1 tablet = 1,000 mg, By Mouth, 2 times a day, with meals, # 60 tablet, 5 Refills, Maintenance, 07/26/20 7:42:00 EDT, Tablet, [facility], 152, cm, 07/26/20 7:17:00 EDT, Height, 78.4, kg, 07/13/20 9:29:00 EDT, Dry Weight Start Date: 07/26/20 Stop Date: 01/22/21 Status: Ordered omeprazole 40 mg oral enteric coated capsule 1 capsule = 40 mg, By Mouth, Daily, # 90 capsule, 3 Refills, Maintenance, 07/26/20 7:42:00 EDT, EC Capsule, [facility], 152, cm, 07/26/20 7:17:00 EDT, Height, 78.4, kg, 07/13/20 9:29:00 EDT, Dry Weight Start Date: 07/26/20 Stop Date: 07/21/21 Status: Ordered ondansetron 4 mg oral tablet, disintegrating 1 tablet = 4 mg, By Mouth, 2 times a day, # 21 tablet, 0 Refills, Maintenance, 07/26/20 7:42:00 EDT, [facility], 152, cm, 07/26/20 7:17:00 EDT, Height, 78.4, kg, 07/13/20 9:29:00 EDT, Dry Weight Start Date: 07/26/20 Status: Ordered Pen [place], 29 G x 12.7 mm BD Ultra Fine See Instructions, # 100 each, Refills 5, Tot. Refills 5, Maintenance, use as directed for Type 1 Diabetes Mellitus, 11/13/19 17:27:00 EST, Compound, 152.5, cm, 11/13/19 13:49:00 EST, Height, 82.4, kg, 08/18/18 19:01:00 EDT, Dry Weight Start Date: 11/13/19 Stop Date: 05/11/20 Status: Ordered Pen [place], 31 G x 5 mm BD Ultra Fine III See Instructions, # 100 each, Refills 11, Tot. 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 Start Date: 07/26/20 Status: Ordered ProAir HFA 90 mcg/inh inhalation aerosol 2 puffs, Inhalation, Every 4 hours, PRN as needed for wheezing, # 18 Gm, 2 Refills, Maintenance, 08/02/20 7:27:00 EDT, Aerosol, [facility], 2 puffs Inhalation Every 4 hours,PRN:as needed for wheezing, 152, cm, 07/27/20 7:01:00 EDT, Height,... Start Date: 08/02/20 Status: Ordered SUMAtriptan 50 mg oral tablet 1 tablet = 50 mg, By Mouth, Daily, PRN for migraine headache, # 9 tablet, 5 Refills, Soft Stop, 07/26/20 7:42:00 EDT, Tablet, [facility], 152, cm, 07/26/20 7:17:00 EDT, Height, 78.4, kg, 07/13/20 9:29:00 EDT, Dry Weight Start Date: 07/26/20 Stop Date: 01/22/21 Status: Ordered Problem List Condition Effective Dates [...] in female(Confirmed) Active Gastrocnemius strain, left(Confirmed) Active Tobacco use(Confirmed) Active Viral URI with cough(Confirmed) Active Social History Social History Type Response Smoking Status Smoker, current stat us unknown entered on: 10/30/19 Sex
--- OUTSIDE RECORDS SUMMARY | 2024-05-01 07:46 | XMS_ITS | Continuity of Care Document ---
Author Organization [facility] Address [address] [facility], [address] Floor, [address] [place] [address]- Care Team Providers Care Deckhand Shrimp Boat Name Role Phone Nuria FLOREZ, Jing Russo Primary Care Physician Encounter [facility] [place] Date(s): 11/28/19 - 12/05/19 [facility] [address], [address], [address] [place] [address]- [facility] Attending Physician: Joselito Caban NP Referring Physician: Jing Quiñones NP Allergies, Adverse Reactions, [...] 18:02:08 EDT, Aerosol, Route to Pharmacy Electronically, [id number], [facility]/pharmacy #[id number], Compound Start Date: 01/29/18 Stop Date: [...] mL, 3 Refills, Maintenance, 11/13/19 17:29:00 EST, [facility]/pharmacy #[id number], 152.5, cm, 11/13/19 13:49:00 EST, Height, [...] 7 Refills, Maintenance, 11/13/19 14:35:00 EST, Tablet, [facility]/pharmacy #[id number], 152.5, cm, 11/13/19 13:49:00 EST, Height, [...] 08/14/19 Stop Date: 08/08/20 Status: Ordered Pen [place], 29 G x 12.7 mm BD Ultra Fine See Instructions, # 100 each, Refills 5, Tot. Refills 5, Maintenance, use as directed for Type 1 Diabetes Mellitus, 11/13/19 17:27:00 EST, Compound, 152.5, cm, 11/13/19 13:49:00 EST, Height, 82.4, kg, 08/18/18 19:01:00 EDT, Dry Weight Start Date: 11/13/19 Stop Date: 05/11/20 Status: Ordered Pen [place], 31 G x 5 mm BD Ultra Fine III See Instructions, # 100 each, Refills 11, Tot. 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 Start Date: 11/28/19 Status: Ordered Trulicity Pen 1.5 mg/0.5 mL [...] Breast lump(Confirmed) Active Cyst of ovary(Confirmed) Active Diabetes(Confirmed) Active Inflammatory disease of left breast(Confirmed) Active Keloid scar(Confirmed) Active Abdominal pain, LLQ (left lo wer quadrant)(Confirmed) Active Obesity (BMI 30-39.9)(Confirmed) Active LAUREANO (obstructive sleep apnea)(Confirmed) Active Breast pain in female(Confirmed) Active Gastrocnemius strain, left(Confirmed) Active Viral URI with cough(Confirmed) Active Vital Signs Most recent to oldest [Reference Range]: 1 Height 152.5 cm (11/28/19 10:58 AM) Weight 83.1 kg (11/28/19 10:58 AM) Pulse Rate [55-90 bpm] 86 bpm (11/28/19 10:58 AM) Body Mass Index [18.5-24.99] 35.73 *>HHI* (11/28/19 10:58 AM) Blood Pressure [90-138/55-84 mm Hg] 142/ 94mm Hg *H* (11/28/19 10:58 AM) Blood pressure sites Arm, left (11/28/19 10:58 AM) Social History Social History Type Response Smoking Status Smoker, current stat us unknown entered on: 10/30/19 Sex
--- OUTSIDE RECORDS SUMMARY | 2024-05-01 07:46 | XMS_ITS | Continuity of Care Document ---
Author Organization [facility] lt Address [address] [place] [address]- Care Team Providers Care Resource Protection Specialist Name Role Phone Jane Melgar NP Primary Care Physician [phone] [place] [facility] 06/09[place]20 - 07/09/20 [facility] Adult [address] [place] [address]- [facility] Allergies, Adverse Reactions, Alerts Substance Reaction [...] 18:02:08 EDT, Aerosol, Route to Pharmacy Electronically, [id number], [facility]/pharmacy #[id number], Compound Start Date: 01/29/18 [...] mL, 3 Refills, Maintenance, 11/13/19 17:29:00 EST, [facility]/pharmacy #[id number], 152.5, cm, 11/13/19 13:49:00 [...] 7 Refills, Maintenance, 11/13/19 14:35:00 EST, Tablet, [facility]/pharmacy #[id number], 152.5, cm, 11/13/19 13:49:00 [...] 08/14/19 Stop Date: 08/08/20 Status: Ordered Pen [place], 29 G x 12.7 mm BD Ultra Fine See Instructions, # 100 each, Refills 5, Tot. Refills 5, Maintenance, use as directed for Type 1 Diabetes Mellitus, 11/13/19 17:27:00 EST, Compound, 152.5, cm, 11/13/19 13:49:00 EST, Height, 82.4, kg, 08/18/18 19:01:00 EDT, Dry Weight Start Date: 11/13/19 Stop Date: 05/11/20 Status: Ordered Pen [place], 31 G x 5 mm BD Ultra Fine III See Instructions, # 100 each, Refills 11, Tot. 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
--- OUTSIDE RECORDS SUMMARY | 2024-05-01 07:46 | XMS_ITS | Continuity of Care Document ---
Author Organization [facility] Jose Luis Address [address] [place] [address]- Care Team Providers Care Senior Business Objects Developer Name Role Phone Jane Melgar NP Primary Care Physician [place] [facility] [place] 07/16/20 - 08/15/20 [facility] Adult [address] [place] [address]- [facility] Allergies, Adverse Reactions, Alerts Substance Reaction [...] 7:40:00 EDT, Aerosol, Route to Pharmacy Electronically, [id number], [facility], 152, cm,... Start Date: [...] mL, 3 Refills, Maintenance, 08/02/20 7:28:00 EDT, [facility], 152, cm, 07/27/20 7:01:00 [...] Gm, 0 Refills, Maintenance, 07/26/20 8:13:00 EDT, Aerosol,[facility], 152, cm, 07/26/20 7:17:00 EDT, Height, 78.4, kg, 07/13/20 9:29:00 EDT, Dry Weight Start Date: 07/26/20 Status: Ordered freestle juve sensor freestle juve sensor, See Instructions, # 2 each, Refills 7, Tot. Refills 7, Maintenance, please dispense 28 day supply, 09/23/19 18:02:25 EST, Compound Start Date: 09/23/19 Status: Ordered Freestyle Juve 14 day reader Freestyle Juve 14 day reader, See Instructions, # 1 each, Refills 0, Tot. Refills 0, Maintenance, Freestyle Juve 14 day reader T2DM E11.9, 07/27/20 10:07:00 EDT, Compound, 152, cm, 07/27/20 7:01:00EDT, Height, 78.4, kg, 07/13/20 9:29:00 EDT, Dry... Start Date: 07/27/20 Status: Ordered Freestyle Juve 14 day sensors Freestyle Juve 14 day sensors, See Instructions, # 2 [...] 07/15/20 15:18:00 EDT, Route to Pharmacy Electronically, [facility]/pharmacy #[id number], 152, cm, 07/15/20 14:57:00 EDT, Height, 78.4, kg, 07/13/20 9:29:00 EDT, Dry... Start Date: 07/15/20 Status: Ordered Lantus Solostar Pen 100 units/mL subcutaneous solution = 10 units, Subcutaneous Injection, Daily, Take 10 units today, increase 3 units daily until fasting blood sugar is 140 with evening meal, # 10 mL, 0 Refills, Maintenance, 07/26/20 7:41:00 EDT, Solution, [facility], 152, cm, 07/26/20 7:17... Start Date: 07/26/20 Status: Ordered Lantus Solostar Pen 100 units/mL subcutaneous solution See Instructions, 10 units daily with dinner: add 3 unis daily until fasting blood sugar is 140, # 15 mL, 3 Refills, Maintenance, 11/13/19 17:29:00 EST, [facility]/pharmacy #[id number], 152.5, cm, 11/13/19 13:49:00 EST, [...] 0 Refills, Maintenance, 08/08/20 14:33:00 EDT, Film, [facility], 1 patch Topically Daily,PRN:Pain , Mild,Instr:remove after 12 hours, 152, cm, 08/06/20 9:15:00 ED... Start Date: 08/08/20 Status: Ordered lidocaine-prilocaine 2.5%-2.5% topical cream 1 application, Topically, 3 times a day, Apply to sensitive area, # 30 Gm, 0 Refills, Soft Stop, 07/30/20 17:50:00 EDT, Cream, [facility], 1 application Topically 3 times a day,Instr:Applyto sensitive area, 152, cm, 07/27/20 7:01:00 EDT, H... Start Date: 07/30/20 Status: Ordered Lipitor 40 mg oral tablet 1 tablet = 40 mg, By Mouth, Daily, # 90 tablet, 3 Refills, Maintenance, 07/26/20 7:41:00 EDT, Tablet, [facility], 152, cm, 07/26/20 7:17:00 EDT, Height, 78.4, kg, 07/13/20 9:29:00 EDT, DryWeight Start Date: 07/26/20 Status: Ordered lisinopril 40 mg oral tablet 1 tablet = 40 mg, By Mouth, Daily, # 30 tablet, 7 Refills, Maintenance, 07/26/20 7:41:00 EDT, Tablet, [facility], 152, cm, 07/26/20 7:17:00 [...] 5 Refills, Maintenance, 07/26/20 7:42:00 EDT, Tablet, [facility], 152, cm, 07/26/20 7:17:00 EDT, Height, 78.4, kg, 07/13/20 9:29:00 EDT, Dry Weight Start Date: 07/26/20 Stop Date: 01/22/21 Status: Ordered omeprazole 40 mg oral enteric coated capsule 1 capsule = 40 mg, By Mouth, Daily, # 90 capsule, 3 Refills, Maintenance, 07/26/20 7:42:00 EDT, EC Capsule, [facility], 152, cm, 07/26/20 7:17:00 EDT, Height, 78.4, kg, 07/13/20 9:29:00 EDT, Dry Weight Start Date: 07/26/20 Stop Date: 07/21/21 Status: Ordered ondansetron 4 mg oral tablet, disintegrating 1 tablet = 4 mg, By Mouth, 2 times a day, # 21 tablet, 0 Refills, Maintenance, 07/26/20 7:42:00 EDT, [facility], 152, cm, 07/26/20 7:17:00 EDT, Height, 78.4, kg, 07/13/20 9:29:00 EDT, Dry Weight Start Date: 07/26/20 Status: Ordered Pen [place], 29 G x 12.7 mm BD Ultra Fine See Instructions, # 100 each, Refills 5, Tot. Refills 5, Maintenance, use as directed for Type 1 Diabetes Mellitus, 11/13/19 17:27:00 EST, Compound, 152.5, cm, 11/13/19 13:49:00 EST, Height, 82.4, kg, 08/18/18 19:01:00 EDT, Dry Weight Start Date: 11/13/19 Stop Date: 05/11/20 Status: Ordered Pen [place], 31 G x 5 mm BD Ultra Fine III See Instructions, # 100 each, Refills 11, Tot. 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 Start Date: 07/26/20 Status: Ordered ProAir HFA 90 mcg/inh inhalation aerosol 2 puffs, Inhalation, Every 4 hours, PRN as needed for wheezing, # 18 Gm, 2 Refills, Maintenance, 08/02/20 7:27:00 EDT, Aerosol, [facility], 2 puffs Inhalation Every 4 hours,PRN:as needed for wheezing, 152, cm, 07/27/20 7:01:00 EDT, Height,... Start Date: 08/02/20 Status: Ordered SUMAtriptan 50 mg oral tablet 1 tablet = 50 mg, By Mouth, Daily, PRN for migraine headache, # 9 tablet, 5 Refills, Soft Stop, 07/26/20 7:42:00 EDT, Tablet, [facility], 152, cm, 07/26/20 7:17:00 [...]
--- OUTSIDE RECORDS SUMMARY | 2024-05-01 07:46 | XMS_ITS | Continuity of Care Document ---
Author Organization [facility] ter Address [address] [place] [address]- Care Team Providers Care Local Truck Driver Name Role Phone Peri Magdaleno NP Primary Care Physician [phone] Encounter [facility] [place] Date(s): 10/10/21 - 11/24/[address] [address] Attending Physician: Scarlett Allred RN Admitting Physician: Scarlett Allred RN Referring Physician: Scarlett Allred RN Allergies, Adverse Reactions, Alerts Substance Reaction Severity [...] E11.65, # 30 mL, 6 Refills, Maintenance, 09/06/21 8:32:00 EDT, [facility], 152, cm, 09/06/21 8:17:00EDT, Height, 78.4, kg, 07/13/20 9:29:00 EDT, Dry We... Start Date: 09/06/21 Status: Ordered Ambien 10 mg oral tablet 1 tablet = 10 mg, By Mouth, Daily at bedtime, PRN as needed for insomnia, 0 Refills, Maintenance, 11/28/19 11:03:00 EST, Tablet Start Date: 11/28/19 Status: Ordered amLODIPine 5 mg oral tablet 5 mg, 1, tablet, By Mouth, Daily, at bedtime, # 30 tablet, Refills 0, Tot. Refills 0, Maintenance, 09/02/21 9:17:00 EDT, Route to Pharmacy Electronically, [facility], Partial fill upon patient request if the prescription is for a schedule I... Start Date: 09/02/21 Status: Ordered Flovent HFA 110 mcg/inh inhalation aerosol 2 puffs, Inhalation, 2 times a day, # 12 Gm, 0 Refills, Maintenance, 07/26/20 8:13:00 EDT, Aerosol,[facility], 152, cm, 07/26/20 7:17:00 EDT, Height, 78.4, kg, 07/13/20 9:29:00 EDT, Dry Weight Start Date: 07/26/20 Status: Ordered Freestyle [place] 14 day reader [...] Date: 07/26/20 Stop Date: 01/22/21 Status: Ordered Lantus Solostar Pen 100 units/mL subcutaneous solution = 24 units, Subcutaneous Injection, Daily, Take 10 units today, increase 3 units daily until fasting blood sugar is 140 with evening meal, # 10 mL, 3 Refills, Maintenance, 07/12/21 13:36:00 EDT, Solution, [facility], 152, cm, 04/11/21 14:... Start Date: 07/12/21 Status: Ordered Lipitor 40 mg oral tablet 1 tablet = 40 mg, By Mouth, Daily, # 90 tablet, 3 Refills, Maintenance, 07/13/21 16:34:00 EDT, Tablet, [facility], 152, cm, 07/13/21 15:34:00 EDT, Height, 78.4, kg, 07/13/20 9:29:00 EDT, Dry Weight Start Date: 07/13/21 Status: Ordered lisinopril 40 mg oral tablet 1 tablet = 40 mg, By Mouth, Daily, # 30 tablet, 0 Refills, Maintenance, 07/13/21 16:34:00 EDT, Tablet, [facility], 152, cm, 07/13/21 15:34:00 EDT, Height, 78.4, kg, 07/13/20 9:29:00 EDT, Dry Weight Start Date: 07/13/21 Stop Date: 08/12/21 Status: Ordered Melatonin Daily at bedtime, 0 Refills, Maintenance, 11/28/19 11:03:00 EST Start Date: 11/28/19 Status: Ordered metFORMIN 1000 mg oral tablet 1 tablet = 1,000 mg, By Mouth, 2 times a day, with meals, # 60 tablet, 5 Refills, Maintenance, 07/12/21 13:36:00 EDT, Tablet, [facility], 152, cm, 04/11/21 14:02:00 EDT, Height, 78.4, kg, 07/13/20 9:29:00 EDT, Dry Weight Start Date: 07/12/21 Stop Date: 01/08/22 Status: Ordered omeprazole 40 mg oral enteric coated capsule 1 capsule = 40 mg, By Mouth, Daily, # 90 capsule, 3 Refills, Maintenance, 07/26/20 7:42:00 EDT, EC Capsule, [facility], 152, cm, 07/26/20 7:17:00 EDT, Height, 78.4, kg, 07/13/20 9:29:00 EDT, Dry Weight Start Date: 07/26/20 Stop Date: 07/21/21 Status: Ordered ondansetron 4 mg oral tablet, disintegrating 1 tablet = 4 mg, By Mouth, 2 times a day, # 21 tablet, 0 Refills, Maintenance, 07/26/20 7:42:00 EDT, [facility], 152, cm, 07/26/20 7:17:00 EDT, Height, 78.4, kg, 07/13/20 9:29:00 EDT, Dry Weight Start Date: 07/26/20 Status: Ordered Pen [place], 31 G x 5 mm BD Ultra Fine III See Instructions, # 100 each, Refills 11, Tot. 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 Start Date: 07/26/20 Status: Ordered ProAir HFA 90 mcg/inh inhalation aerosol 2 puffs, Inhalation, Every 4 hours, PRN as needed for wheezing, # 18 Gm, 2 Refills, Maintenance, 07/13/21 16:35:00 EDT, Aerosol, [facility], 2 puffs Inhalation Every 4 hours,PRN:as needed for wheezing, 152, cm, 07/13/21 15:34:00 EDT, Height... Start Date: 07/13/21 Status: Ordered SUMAtriptan 50 mg oral tablet 1 tablet = 50 mg, By Mouth, Daily, PRN for migraine headache, # 9 tablet, 5 Refills, Soft Stop, 07/26/20 7:42:00 EDT, Tablet, [facility], 152, cm, 07/26/20 7:17:00 EDT, Height, 78.4, kg, 07/13/20 9:29:00 EDT, Dry Weight Start Date: 07/26/20 Stop Date: 01/22/21 Status: Ordered Problem List Condition Effective Dates Status Health Status Inform ant Anxiety(Confirmed) Active Asthma(Confirmed) Active Benign hypertension(Confirmed) Active Cyst of ovary(Confirmed) Active Depressive disorder(Confirmed) Active Diabetes(Confirmed) Active Herpes labialis(Confirmed) Active Hyperlipidemia(Confirmed) Active Inflammatory disease of left breast(Confirmed) Active Keloid scar(Confirmed) Active Obesity (BMI 30-39.9)(Confirmed) Active LAUREANO (obstructive sleep apnea)(Confirmed) Active Gastrocnemius strain, left(Confirmed) Active Tobacco use(Confirmed) Active Social History Social History Type Response Smoking Status Smoker, current stat us unknown entered on: 10/30/19 Sex
--- OUTSIDE RECORDS SUMMARY | 2024-05-01 07:47 | XMS_ITS | Continuity of Care Document ---
Author Organization [facility] ter Address [address] [place] [address]- Care Team Providers Care Two Way Radio Installer Name Role Phone Jane Melgar NP Primary Care Physician Encounter [facility] Date(s): 07/22/20 - 08/22/[address] [address]- [facility] Attending Physician: Javi Hernandez MD Admitting Physician: Javi Hernandez MD Referring Physician: Javi Hernandez MD Allergies, Adverse Reactions, Alerts Substance Reaction Severity [...] 7:40:00 EDT, Aerosol, Route to Pharmacy Electronically, [id number], [facility], 152, cm,... Start Date: 07/26/20 [...] mL, 3 Refills, Maintenance, 08/02/20 7:28:00 EDT, [facility], 152, cm, 07/27/20 7:01:00 EDT, [...] Gm, 0 Refills, Maintenance, 07/26/20 8:13:00 EDT, Aerosol,[facility], 152, cm, 07/26/20 7:17:00 EDT, [...] 07/15/20 15:18:00 EDT, Route to Pharmacy Electronically, [facility]/pharmacy #[id number], 152, cm, 07/15/20 14:57:00 EDT, Height, 78.4, kg, 07/13/20 9:29:00 EDT, Dry... Start Date: 07/15/20 Status: Ordered Lantus Solostar Pen 100 units/mL subcutaneous solution = 10 units, Subcutaneous Injection, Daily, Take 10 units today, increase 3 units daily until fasting blood sugar is 140 with evening meal, # 10 mL, 0 Refills, Maintenance, 07/26/20 7:41:00 EDT, Solution, [facility], 152, cm, 07/26/20 7:17... Start Date: 07/26/20 Status: Ordered Lantus Solostar Pen 100 units/mL subcutaneous solution See Instructions, 10 units daily with dinner: add 3 unis daily until fasting blood sugar is 140, # 15 mL, 3 Refills, Maintenance, 11/13/19 17:29:00 EST, [facility]/pharmacy #[id number], 152.5, cm, 11/13/19 13:49:00 EST, Height, [...] 0 Refills, Maintenance, 08/08/20 14:33:00 EDT, Film, [facility], 1 patch Topically Daily,PRN:Pain , Mild,Instr:remove after 12 hours, 152, cm, 08/06/20 9:15:00 ED... Start Date: 08/08/20 Status: Ordered lidocaine-prilocaine 2.5%-2.5% topical cream 1 application, Topically, 3 times a day, Apply to sensitive area, # 30 Gm, 0 Refills, Soft Stop, 07/30/20 17:50:00 EDT, Cream, [facility], 1 application Topically 3 times a day,Instr:Applyto sensitive area, 152, cm, 07/27/20 7:01:00 EDT, H... Start Date: 07/30/20 Status: Ordered Lipitor 40 mg oral tablet 1 tablet = 40 mg, By Mouth, Daily, # 90 tablet, 3 Refills, Maintenance, 07/26/20 7:41:00 EDT, Tablet, [facility], 152, cm, 07/26/20 7:17:00 EDT, Height, 78.4, kg, 07/13/20 9:29:00 EDT, DryWeight Start Date: 07/26/20 Status: Ordered lisinopril 40 mg oral tablet 1 tablet = 40 mg, By Mouth, Daily, # 30 tablet, 7 Refills, Maintenance, 07/26/20 7:41:00 EDT, Tablet, [facility], 152, cm, 07/26/20 7:17:00 EDT, [...] 5 Refills, Maintenance, 07/26/20 7:42:00 EDT, Tablet, [facility], 152, cm, 07/26/20 7:17:00 EDT, Height, 78.4, kg, 07/13/20 9:29:00 EDT, Dry Weight Start Date: 07/26/20 Stop Date: 01/22/21 Status: Ordered omeprazole 40 mg oral enteric coated capsule 1 capsule = 40 mg, By Mouth, Daily, # 90 capsule, 3 Refills, Maintenance, 07/26/20 7:42:00 EDT, EC Capsule, [facility], 152, cm, 07/26/20 7:17:00 EDT, Height, 78.4, kg, 07/13/20 9:29:00 EDT, Dry Weight Start Date: 07/26/20 Stop Date: 07/21/21 Status: Ordered ondansetron 4 mg oral tablet, disintegrating 1 tablet = 4 mg, By Mouth, 2 times a day, # 21 tablet, 0 Refills, Maintenance, 07/26/20 7:42:00 EDT, [facility], 152, cm, 07/26/20 7:17:00 EDT, Height, 78.4, kg, 07/13/20 9:29:00 EDT, Dry Weight Start Date: 07/26/20 Status: Ordered Pen [place], 29 G x 12.7 mm BD Ultra Fine See Instructions, # 100 each, Refills 5, Tot. Refills 5, Maintenance, use as directed for Type 1 Diabetes Mellitus, 11/13/19 17:27:00 EST, Compound, 152.5, cm, 11/13/19 13:49:00 EST, Height, 82.4, kg, 08/18/18 19:01:00 EDT, Dry Weight Start Date: 11/13/19 Stop Date: 05/11/20 Status: Ordered Pen [place], 31 G x 5 mm BD Ultra Fine III See Instructions, # 100 each, Refills 11, Tot. 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 Start Date: 07/26/20 Status: Ordered ProAir HFA 90 mcg/inh inhalation aerosol 2 puffs, Inhalation, Every 4 hours, PRN as needed for wheezing, # 18 Gm, 2 Refills, Maintenance, 08/02/20 7:27:00 EDT, Aerosol, [facility], 2 puffs Inhalation Every 4 hours,PRN:as needed for wheezing, 152, cm, 07/27/20 7:01:00 EDT, Height,... Start Date: 08/02/20 Status: Ordered SUMAtriptan 50 mg oral tablet 1 tablet = 50 mg, By Mouth, Daily, PRN for migraine headache, # 9 tablet, 5 Refills, Soft Stop, 07/26/20 7:42:00 EDT, Tablet, [facility], 152, cm, 07/26/20 7:17:00 EDT, [...]
--- OUTSIDE RECORDS SUMMARY | 2024-05-01 07:47 | XMS_ITS | Continuity of Care Document ---
Author Organization [facility] lt Address [address] [place] [address]- Care Team Providers Care Silver Designer Name Role Phone Jane Melgar NP Primary Care Physician Encounter [facility] Date(s): 06/11/20 - 07/11/20 [facility] Adult [address] [place] [address]- [facility] Allergies, Adverse Reactions, Alerts Substance [...] 18:02:08 EDT, Aerosol, Route to Pharmacy Electronically, [id number], [facility]/pharmacy #[id number], Compound Start Date: 01/29/18 Stop [...] mL, 3 Refills, Maintenance, 11/13/19 17:29:00 EST, [facility]/pharmacy #[id number], 152.5, cm, 11/13/19 13:49:00 EST, [...] 7 Refills, Maintenance, 11/13/19 14:35:00 EST, Tablet, [facility]/pharmacy #[id number], 152.5, cm, 11/13/19 13:49:00 EST, [...] 08/14/19 Stop Date: 08/08/20 Status: Ordered Pen [place], 29 G x 12.7 mm BD Ultra Fine See Instructions, # 100 each, Refills 5, Tot. Refills 5, Maintenance, use as directed for Type 1 Diabetes Mellitus, 11/13/19 17:27:00 EST, Compound, 152.5, cm, 11/13/19 13:49:00 EST, Height, 82.4, kg, 08/18/18 19:01:00 EDT, Dry Weight Start Date: 11/13/19 Stop Date: 05/11/20 Status: Ordered Pen [place], 31 G x 5 mm BD Ultra Fine III See Instructions, # 100 each, Refills 11, Tot. 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
--- OUTSIDE RECORDS SUMMARY | 2024-05-01 07:47 | XMS_ITS | Continuity of Care Document ---
Author Organization [facility] Jose Luis lt Address [address] [place] [address]- Care Team Providers Care Loom Checker Name Role Phone Jane Melgar NP Primary Care Physician Encounter [facility] [place] Date(s): 03/09/21 - 04/09/21 [facility] Adult [address] [place] [address]- Attending Physician: Not on Staff, Attending MD Allergies, Adverse Reactions, Alerts Substance Reaction [...] mL, 6 Refills, Maintenance, 08/27/20 13:37:00 EDT, [facility], 152, cm, 08/26/20 9:48:00 EDT, Height, 78.4, kg, 07/13/20 9:29:00 EDT, Dry W... Start Date: 08/27/20 Status: Ordered albuterol CFC free 90 mcg/inh inhalation aerosol 2, puffs, Inhalation, Every 4 hours, PRN, use with spacer chamber, # 1 each, Refills 3, Tot. Refills 3, Maintenance, 07/26/20 7:40:00 EDT, Aerosol, Route to Pharmacy Electronically, [id number], [facility], 152, cm,... Start Date: 07/26/20 [...] mL, 3 Refills, Maintenance, 08/02/20 7:28:00 EDT, [facility], 152, cm, 07/27/20 7:01:00 EDT, [...] Gm, 0 Refills, Maintenance, 07/26/20 8:13:00 EDT, Aerosol,[facility], 152, cm, 07/26/20 7:17:00 EDT, [...] 07/15/20 15:18:00 EDT, [id number], 152, cm, 07/15/20 14:57:00 EDT, Height, 78.4, kg, 07/13/20 9:29:00 EDT, Dry... Start Date: 07/15/20 Status: Ordered Insulin Lispro KwikPen 100 units/mL injectable solution See Instructions, Please follow sliding scale, three times a day with meals. Max daily dose: 42 units E11.9, # 15 mL, 6 Refills, Maintenance, 08/26/20 10:05:00 EDT, [facility], 152, cm, 08/26/20 9:48:00 EDT, Height, 78.4, kg, 07/13/20... Start Date: 08/26/20 Status: Ordered Lantus Solostar Pen 100 units/mL subcutaneous solution = 10 units, Subcutaneous Injection, Daily, Take 10 units today, increase 3 units daily until fasting blood sugar is 140 with evening meal, # 10 mL, 0 Refills, Maintenance, 07/26/20 7:41:00 EDT, Solution, [facility], 152, cm, 07/26/20 7:17... Start Date: 07/26/20 Status: Ordered Lantus Solostar Pen 100 units/mL subcutaneous solution See Instructions, 10 units daily with dinner: add 3 unis daily until fasting blood sugar is 140, # 15 mL, 3 Refills, Maintenance, 11/13/19 17:29:00 EST, [facility]/pharmacy #[id number], 152.5, cm, 11/13/19 13:49:00 EST, Height, [...] 0 Refills, Maintenance, 08/08/20 14:33:00 EDT, Film, [facility], 1 patch Topically Daily,PRN:Pain , Mild,Instr:remove after 12 hours, 152, cm, 08/06/20 9:15:00 ED... Start Date: 08/08/20 Status: Ordered lidocaine-prilocaine 2.5%-2.5% topical cream 1 application, Topically, 3 times a day, Apply to sensitive area, # 30 Gm, 0 Refills, Soft Stop, 07/30/20 17:50:00 EDT, Cream, [facility], 1 application Topically 3 times a day,Instr:Applyto sensitive area, 152, cm, 07/27/20 7:01:00 EDT, H... Start Date: 07/30/20 Status: Ordered Lipitor 40 mg oral tablet 1 tablet = 40 mg, By Mouth, Daily, # 90 tablet, 3 Refills, Maintenance, 07/26/20 7:41:00 EDT, Tablet, [facility], 152, cm, 07/26/20 7:17:00 EDT, Height, 78.4, kg, 07/13/20 9:29:00 EDT, DryWeight Start Date: 07/26/20 Status: Ordered lisinopril 40 mg oral tablet 1 tablet = 40 mg, By Mouth, Daily, # 30 tablet, 7 Refills, Maintenance, 07/26/20 7:41:00 EDT, Tablet, [facility], 152, cm, 07/26/20 7:17:00 EDT, [...] 5 Refills, Maintenance, 07/26/20 7:42:00 EDT, Tablet, [facility], 152, cm, 07/26/20 7:17:00 EDT, Height, 78.4, kg, 07/13/20 9:29:00 EDT, Dry Weight Start Date: 07/26/20 Stop Date: 01/22/21 Status: Ordered omeprazole 40 mg oral enteric coated capsule 1 capsule = 40 mg, By Mouth, Daily, # 90 capsule, 3 Refills, Maintenance, 07/26/20 7:42:00 EDT, EC Capsule, [facility], 152, cm, 07/26/20 7:17:00 EDT, Height, 78.4, kg, 07/13/20 9:29:00 EDT, Dry Weight Start Date: 07/26/20 Stop Date: 07/21/21 Status: Ordered ondansetron 4 mg oral tablet, disintegrating 1 tablet = 4 mg, By Mouth, 2 times a day, # 21 tablet, 0 Refills, Maintenance, 07/26/20 7:42:00 EDT, [facility], 152, cm, 07/26/20 7:17:00 EDT, Height, 78.4, kg, 07/13/20 9:29:00 EDT, Dry Weight Start Date: 07/26/20 Status: Ordered Pen [place], 29 G x 12.7 mm BD Ultra Fine See Instructions, # 100 each, Refills 5, Tot. Refills 5, Maintenance, use as directed for Type 1 Diabetes Mellitus, 11/13/19 17:27:00 EST, Compound, 152.5, cm, 11/13/19 13:49:00 EST, Height, 82.4, kg, 08/18/18 19:01:00 EDT, Dry Weight Start Date: 11/13/19 Stop Date: 05/11/20 Status: Ordered Pen [place], 31 G x 5 mm BD Ultra Fine III See Instructions, # 100 each, Refills 11, Tot. Refills 11, Maintenance, Use once daily as directed with Lantus pen., 07/26/20 7:41:00 EDT, T2DM; E11.9 ; please let pt know when ready to fern picker., Compound, 152, cm, 07/26/20 7:17:00 EDT, Height, 78.4,... Start Date: 07/26/20 Status: Ordered ProAir HFA 90 mcg/inh inhalation aerosol 2 puffs, Inhalation, Every 4 hours, PRN as needed for wheezing, # 18 Gm, 2 Refills, Maintenance, 08/02/20 7:27:00 EDT, Aerosol, [facility], 2 puffs Inhalation Every 4 hours,PRN:as needed for wheezing, 152, cm, 07/27/20 7:01:00 EDT, Height,... Start Date: 08/02/20 Status: Ordered SUMAtriptan 50 mg oral tablet 1 tablet = 50 mg, By Mouth, Daily, PRN for migraine headache, # 9 tablet, 5 Refills, Soft Stop, 07/26/20 7:42:00 EDT, Tablet, [facility], 152, cm, 07/26/20 7:17:00 EDT, Height, 78.4, kg, 07/13/20 9:29:00 EDT, Dry Weight Start Date: 07/26/20 Stop Date: 01/22/21 Status: Ordered Problem List Condition Effective Dates Status Health Status Inform ant Anxiety(Confirmed) Active Asthma(Confirmed) Active Benign hypertension(Confirmed) Active Nipple discharge, bloody(Confirmed) Active Breast lump(Confirmed) Active Cyst of ovary(Confirmed) Active Depressive disorder(Confirmed) Active Diabetes(Confirmed) Active Herpes labialis(Confirmed) Active Inflammatory disease of left breast(Confirmed) Active [...]
--- OUTSIDE RECORDS SUMMARY | 2024-05-01 07:47 | XMS_ITS | Continuity of Care Document ---
Author Organization [facility] Jose Luis lt Address [address] [place] [address]- Care Team Providers Care Finnish Rubber Name Role Phone Peri Magdaleno NP Primary Care Physician [place] [facility] [place] 09/06[place]21 - 09/13/21 [facility] Adult [address] [place] [address]- Encounter Diagnosis Benign hypertension(Discharge Diagnosis) - 09/06/21 Tobacco use(Discharge Diagnosis) - 09/06/21 Attending Physician: Not on Staff, Attending MD Referring Physician: Peri Magdaleno NP Allergies, Adverse Reactions, Alerts Substance Reaction [...] mL, 6 Refills, Maintenance, 09/06/21 8:32:00 EDT, [facility], 152, cm, 09/06/21 8:17:00EDT, [...] 09/02/21 9:17:00 EDT, Route to Pharmacy Electronically, [facility], Partial fill upon patient request if the prescription is for a schedule I... Start Date: 09/02/21 Status: Ordered Flovent HFA 110 mcg/inh inhalation aerosol 2 puffs, Inhalation, 2 times a day, # 12 Gm, 0 Refills, Maintenance, 07/26/20 8:13:00 EDT, Aerosol,[facility], 152, cm, 07/26/20 7:17:00 [...] Date: 07/26/20 Stop Date: 01/22/21 Status: Ordered hydrochlorothiazide 25 mg oral tablet 25 mg, 1, tablet, By Mouth, Daily, for 30 days, # 30 tablet, Refills 0, Tot. Refills 0, Acute 10/06/21 8:39:00 EST, 09/06/21 8:39:00 EDT, Route to Pharmacy Electronically, [facility], 152,cm, 09/06/21 8:17:00 EDT, Height, 78.4, kg, ... Start Date: 09/06/21 Stop Date: 10/06/21 Status: Ordered Lantus Solostar Pen 100 units/mL subcutaneous solution = 24 units, Subcutaneous Injection, Daily, Take 10 units today, increase 3 units daily until fasting blood sugar is 140 with evening meal, # 10 mL, 3 Refills, Maintenance, 07/12/21 13:36:00 EDT, Solution, [facility], 152, cm, 04/11/21 14:... Start Date: 07/12/21 Status: Ordered Lipitor 40 mg oral tablet 1 tablet = 40 mg, By Mouth, Daily, # 90 tablet, 3 Refills, Maintenance, 07/13/21 16:34:00 EDT, Tablet, [facility], 152, cm, 07/13/21 15:34:00 EDT, Height, 78.4, kg, 07/13/20 9:29:00 EDT, Dry Weight Start Date: 07/13/21 Status: Ordered lisinopril 40 mg oral tablet 1 tablet = 40 mg, By Mouth, Daily, # 30 tablet, 0 Refills, Maintenance, 07/13/21 16:34:00 EDT, Tablet, [facility], 152, cm, 07/13/21 15:34:00 [...] 5 Refills, Maintenance, 07/12/21 13:36:00 EDT, Tablet, [facility], 152, cm, 04/11/21 14:02:00 EDT, Height, 78.4, kg, 07/13/20 9:29:00 EDT, Dry Weight Start Date: 07/12/21 Stop Date: 01/08/22 Status: Ordered omeprazole 40 mg oral enteric coated capsule 1 capsule = 40 mg, By Mouth, Daily, # 90 capsule, 3 Refills, Maintenance, 07/26/20 7:42:00 EDT, EC Capsule, [facility], 152, cm, 07/26/20 7:17:00 EDT, Height, 78.4, kg, 07/13/20 9:29:00 EDT, Dry Weight Start Date: 07/26/20 Stop Date: 07/21/21 Status: Ordered ondansetron 4 mg oral tablet, disintegrating 1 tablet = 4 mg, By Mouth, 2 times a day, # 21 tablet, 0 Refills, Maintenance, 07/26/20 7:42:00 EDT, [facility], 152, cm, 07/26/20 7:17:00 EDT, Height, 78.4, kg, 07/13/20 9:29:00 EDT, Dry Weight Start Date: 07/26/20 Status: Ordered Pen [place], 31 G x 5 mm BD Ultra Fine III See Instructions, # 100 each, Refills 11, Tot. Refills 11, Maintenance, Use once daily as directed with Lantus pen., 07/26/20 7:41:00 EDT, T2DM; E11.9 ; please let pt know when ready to belt picker., Compound, 152, cm, 07/26/20 7:17:00 EDT, Height, 78.4,... Start Date: 07/26/20 Status: Ordered ProAir HFA 90 mcg/inh inhalation aerosol 2 puffs, Inhalation, Every 4 hours, PRN as needed for wheezing, # 18 Gm, 2 Refills, Maintenance, 07/13/21 16:35:00 EDT, Aerosol, [facility], 2 puffs Inhalation Every 4 hours,PRN:as needed for wheezing, 152, cm, 07/13/21 15:34:00 EDT, Height... Start Date: 07/13/21 Status: Ordered SUMAtriptan 50 mg oral tablet 1 tablet = 50 mg, By Mouth, Daily, PRN for migraine headache, # 9 tablet, 5 Refills, Soft Stop, 07/26/20 7:42:00 EDT, Tablet, [facility], 152, cm, 07/26/20 7:17:00 [...] Keloid scar(Confirmed) Active Obesity (BMI 30-39.9)(Confirmed) Active LARUEANO (obstructive sleep apnea)(Confirmed) Active Gastrocnemius strain, left(Confirmed) Active Tobacco use(Confirmed) Active Diagnosis Diagnosis Type Effective Dates Health Status Clinical Service Informant Benign hypertension Discharge Diagnosis 09/06/21 Tobacco use Discharge Diagnosis 09/06/21 Vital Signs Most recent to oldest [Reference Range]: 1 2 3 Height 152 cm (09/06/21 8:43 AM) 152 cm (09/06/21 8:37 AM) 152 cm (09/06/21 8:17 AM) Weight 77.7 kg (09/06/21 8:17 AM) Oxygen Saturation [94-100 %] 98 % (09/06/21 8:17 AM) Pulse Rate [55-90 bpm] 105 bpm *H* (09/06/21 8:17 AM) Body Mass Index [18.5-24.99] 33.63 *>HHI* (09/06/21 8:17 AM) Blood Pressure [90-138/55-84 mm Hg] 142/98mm Hg *H* (09/06/21 8:43 AM) 134/92mm Hg (09/06/21 8:37 AM) 148/78mm Hg *H* (09/06/21 8:17 AM) Respiratory Rate [16-30 br/min] 18 br/min (09/06/21 8:17 AM) Temperature [96.8-100.4 DegF] 98.6 DegF (09/06/21 8:17 AM) Mode of Delivery (Oxygen) Room air (09/06/21 8:17 AM) Blood pressure sites Arm, left (09/06/21 8:43 AM) Arm, right (09/06/21 8:37 AM) Arm, right (09/06/21 8:17 AM) Temperature Route Oral (09/06/21 8:17 AM) Weight Obtained Via Standing scale (09/06/21 8:17 AM) Social History Social History Type Response Smoking Status Smoker, current stat us unknown entered on: 10/30/19 Sex
--- OUTSIDE RECORDS SUMMARY | 2024-05-01 07:47 | XMS_ITS | Continuity of Care Document ---
Author Organization [facility] Address [address] [facility], [address] Floor, [address] [place] [address]- Care Team Providers Care Environment Coordinator Name Role Phone Nuria FLOREZ, Jing Russo Primary Care Physician Encounter [facility] [place] Date(s): 11/28/19 - 01/18/20 [facility] [address], [address], [address] [place] [address]- [facility] Attending Physician: Andry Ruiz MD Referring Physician: Jing Quiñones NP Allergies, Adverse [...] 18:02:08 EDT, Aerosol, Route to Pharmacy Electronically, [id number], [facility]/pharmacy #[id number], Compound Start Date: 01/29/18 Stop Date: [...] 3 Refills, Maintenance, 11/13/19 17:29:00 EST, [facility]/pharmacy #[id number], 152.5, cm, 11/13/19 13:49:00 EST, Height, [...] 7 Refills, Maintenance, 11/13/19 14:35:00 EST, Tablet, [facility]/pharmacy #[id number], 152.5, cm, 11/13/19 13:49:00 EST, Height, [...] 08/14/19 Stop Date: 08/08/20 Status: Ordered Pen [place], 29 G x 12.7 mm BD Ultra Fine See Instructions, # 100 each, Refills 5, Tot. Refills 5, Maintenance, use as directed for Type 1 Diabetes Mellitus, 11/13/19 17:27:00 EST, Compound, 152.5, cm, 11/13/19 13:49:00 EST, Height, 82.4, kg, 08/18/18 19:01:00 EDT, Dry Weight Start Date: 11/13/19 Stop Date: 05/11/20 Status: Ordered Pen [place], 31 G x 5 mm BD Ultra Fine III See Instructions, # 100 each, Refills 11, Tot. Refills 11, Maintenance, Use once daily as directed with Lantus pen., 11/28/19 10:15:00 EST, T2DM; E11.9 ; please let pt know when ready to order picker/assembler., Compound, 152.5, cm, 11/13/19 13:49:00 EST, Height, [...]
--- OUTSIDE RECORDS SUMMARY | 2024-05-01 07:47 | XMS_ITS | Continuity of Care Document ---
Author Organization [facility] Address [address] [place] [address]- Care Team Providers Care Polyethylene Bag Machine Operator Name Role Phone Jane Melgar NP Primary Care Physician [phone] Encounter [facility] [place] Date(s): 06/22/20 - 07/29/[address] [address]- [facility] Attending Physician: Jane Melgar NP Admitting Physician: Jane Melgar NP Referring Physician: Jane Melgar NP Allergies, Adverse Reactions, Alerts Substance Reaction [...] 7:40:00 EDT, Aerosol, Route to Pharmacy Electronically, [id number], [facility], 152, cm,... Start Date: 07/26/20 Stop Date: 11/23/20 Status: Ordered Ambien 10 mg oral tablet 1 tablet = 10 mg, By Mouth, Daily at bedtime, PRN as needed for insomnia, 0 Refills, Maintenance, 11/28/19 11:03:00 EST, Tablet Start Date: 11/28/19 Status: Ordered Effexor XR 150 mg oral capsule, extended release 150 mg, 1, capsule, By Mouth, Daily, # 30 capsule, Refills 0, Maintenance, 11/28/19 11:03:00 EST Start Date: 11/28/19 Status: Ordered Flovent HFA 110 mcg/inh inhalation aerosol 2 puffs, Inhalation, 2 times a day, # 12 Gm, 0 Refills, Maintenance, 07/26/20 8:13:00 EDT, Aerosol,[facility], 152, cm, 07/26/20 7:17:00 EDT, [...] Date: 07/26/20 Stop Date: 01/22/21 Status: Ordered gabapentin 100 mg oral capsule 100 mg, 1, capsule, By Mouth, 3 times a day, # 90 capsule, Refills 0, Tot. Refills 0, Maintenance, 07/15/20 15:18:00 EDT, Route to Pharmacy Electronically, [facility]/pharmacy #[id number], 152, cm, 07/15/20 14:57:00 EDT, Height, 78.4, kg, 07/13/20 9:29:00 EDT, Dry... Start Date: 07/15/20 Status: Ordered Lantus Solostar Pen 100 units/mL subcutaneous solution = 10 units, Subcutaneous Injection, Daily, Take 10 units today, increase 3 units daily until fasting blood sugar is 140 with evening meal, # 10 mL, 0 Refills, Maintenance, 07/26/20 7:41:00 EDT, Solution, [facility], 152, cm, 07/26/20 7:17... Start Date: 07/26/20 Status: Ordered Lantus Solostar Pen 100 units/mL subcutaneous solution See Instructions, 10 units daily with dinner: add 3 unis daily until fasting blood sugar is 140, # 15 mL, 3 Refills, Maintenance, 11/13/19 17:29:00 EST, [facility]/pharmacy #[id number], 152.5, cm, 11/13/19 13:49:00 [...] 3 Refills, Maintenance, 07/26/20 7:41:00 EDT, Tablet, [facility], 152, cm, 07/26/20 7:17:00 EDT, Height, 78.4, kg, 07/13/20 9:29:00 EDT, DryWeight Start Date: 07/26/20 Status: Ordered lisinopril 40 mg oral tablet 1 tablet = 40 mg, By Mouth, Daily, # 30 tablet, 7 Refills, Maintenance, 07/26/20 7:41:00 EDT, Tablet, [facility], 152, cm, 07/26/20 7:17:00 EDT, Height, [...] 5 Refills, Maintenance, 07/26/20 7:42:00 EDT, Tablet, [facility], 152, cm, 07/26/20 7:17:00 EDT, Height, 78.4, kg, 07/13/20 9:29:00 EDT, Dry Weight Start Date: 07/26/20 Stop Date: 01/22/21 Status: Ordered omeprazole 40 mg oral enteric coated capsule 1 capsule = 40 mg, By Mouth, Daily, # 90 capsule, 3 Refills, Maintenance, 07/26/20 7:42:00 EDT, EC Capsule, [facility], 152, cm, 07/26/20 7:17:00 EDT, Height, 78.4, kg, 07/13/20 9:29:00 EDT, Dry Weight Start Date: 07/26/20 Stop Date: 07/21/21 Status: Ordered ondansetron 4 mg oral tablet, disintegrating 1 tablet = 4 mg, By Mouth, 2 times a day, # 21 tablet, 0 Refills, Maintenance, 07/26/20 7:42:00 EDT, [facility], 152, cm, 07/26/20 7:17:00 EDT, Height, 78.4, kg, 07/13/20 9:29:00 EDT, Dry Weight Start Date: 07/26/20 Status: Ordered Pen [place], 29 G x 12.7 mm BD Ultra Fine See Instructions, # 100 each, Refills 5, Tot. Refills 5, Maintenance, use as directed for Type 1 Diabetes Mellitus, 11/13/19 17:27:00 EST, Compound, 152.5, cm, 11/13/19 13:49:00 EST, Height, 82.4, kg, 08/18/18 19:01:00 EDT, Dry Weight Start Date: 11/13/19 Stop Date: 05/11/20 Status: Ordered Pen [place], 31 G x 5 mm BD Ultra Fine III See Instructions, # 100 each, Refills 11, Tot. Refills 11, Maintenance, Use once daily as directed with Lantus pen., 07/26/20 7:41:00 EDT, T2DM; E11.9 ; please let pt know when ready to pick up and delivery driver., Compound, 152, cm, 07/26/20 7:17:00 EDT, Height, 78.4,... Start Date: 07/26/20 Status: Ordered SUMAtriptan 50 mg oral tablet 1 tablet = 50 mg, By Mouth, Daily, PRN for migraine headache, # 9 tablet, 5 Refills, Soft Stop, 07/26/20 7:42:00 EDT, Tablet, [facility], 152, cm, 07/26/20 7:17:00 EDT, [...]
--- OUTSIDE RECORDS SUMMARY | 2024-05-01 07:47 | XMS_ITS | Continuity of Care Document ---
Author Organization [facility] Address [address] [facility], [address] Floor, [address] [place] [address]- Care Team Providers Care Senior Financial Reporting Accountant Name Role Phone Nuria FLOREZ, Jing Russo Primary Care Physician ( [phone] Encounter [facility] [place] Date(s): 03/25/20 - 04/01/20 [facility] [address], [address], [address] [place] [address]- [facility] Attending Physician: Andry Ruiz MD [...] 18:02:08 EDT, Aerosol, Route to Pharmacy Electronically, [id number], [facility]/pharmacy #[id number], Compound Start Date: 01/29/18 Stop [...] mL, 3 Refills, Maintenance, 11/13/19 17:29:00 EST, [facility]/pharmacy #[id number], 152.5, cm, 11/13/19 13:49:00 EST, Height, 82.4, kg, 10/14/18 19:01:00 EDT, Dry... Start Date: 11/13/19 Status: [...] 7 Refills, Maintenance, 11/13/19 14:35:00 EST, Tablet, [facility]/pharmacy #[id number], 152.5, cm, 11/13/19 13:49:00 EST, [...] 08/14/19 Stop Date: 08/08/20 Status: Ordered Pen [place], 29 G x 12.7 mm BD Ultra Fine See Instructions, # 100 each, Refills 5, Tot. Refills 5, Maintenance, use as directed for Type 1 Diabetes Mellitus, 11/13/19 17:27:00 EST, Compound, 152.5, cm, 11/13/19 13:49:00 EST, Height, 82.4, kg, 10/14/18 19:01:00 EDT, Dry Weight Start Date: 11/13/19 Stop Date: 05/11/20 Status: Ordered Pen [place], 31 G x 5 mm BD Ultra Fine III See Instructions, # 100 each, Refills 11, Tot. Refills 11, Maintenance, Use once daily as directed with Lantus pen., 11/28/19 10:15:00 EST, T2DM; E11.9 ; please let pt know when ready to picker / packer., Compound, 152.5, cm, 11/13/19 13:49:00 EST, Height, [...]
--- OUTSIDE RECORDS SUMMARY | 2024-05-01 07:47 | XMS_ITS | Continuity of Care Document ---
Author Organization [facility] Address [address] [facility], [address] Floor, [address] [place] [address]- Care Team Providers Care Grey Iron Molder Name Role Phone Jane Melgar NP Primary Care Physician Encounter [facility] [place] Date(s): 06/15/20 - 07/15/20 [facility] [address], [address], [address] [place] [address] [facility] Attending Physician: Suly Stephenson Admitting Physician: AdmtrSuly Referring Physician: Admtr, Ar8 Allergies, Adverse Reactions, Alerts Substance Reaction Severity [...] 18:02:08 EDT, Aerosol, Route to Pharmacy Electronically, [id number], [facility]/pharmacy #[id number], Compound Start Date: 01/29/18 Stop Date: [...] Date: 08/14/19 Stop Date: 09/13/19 Status: Ordered gabapentin 100 mg oral capsule 100 mg, 1, capsule, By Mouth, 3 times a day, # 90 capsule, Refills 0, Tot. Refills 0, Maintenance, 07/15/20 15:18:00 EDT, Route to Pharmacy Electronically, [facility]/pharmacy #[id number], 152, cm, 07/15/20 14:57:00 EDT, Height, [...] 3 Refills, Maintenance, 11/13/19 17:29:00 EST, [facility]/pharmacy #[id number], 152.5, cm, 11/13/19 13:49:00 EST, Height, [...] Refills, Maintenance, 11/13/19 14:35:00 EST, Tablet, [facility]/pharmacy #[id number], 152.5, cm, 11/13/19 13:49:00 EST, Height, [...] 08/14/19 Stop Date: 08/08/20 Status: Ordered Pen [place], 29 G x 12.7 mm BD Ultra Fine See Instructions, # 100 each, Refills 5, Tot. Refills 5, Maintenance, use as directed for Type 1 Diabetes Mellitus, 11/13/19 17:27:00 EST, Compound, 152.5, cm, 11/13/19 13:49:00 EST, Height, 82.4, kg, 08/18/18 19:01:00 EDT, Dry Weight Start Date: 11/13/19 Stop Date: 05/11/20 Status: Ordered Pen [place], 31 G x 5 mm BD Ultra Fine III See Instructions, # 100 each, Refills 11, Tot. Refills 11, Maintenance, Use once daily as directed with Lantus pen., 11/28/19 10:15:00 EST, T2DM; E11.9 ; please let pt know when ready to pick up operator., Compound, 152.5, cm, 11/13/19 13:49:00 EST, Height, 82... Start Date: 11/28/19 Status: Ordered SUMAtriptan 50 mg oral tablet 1 tablet = 50 mg, By Mouth, Daily, PRN for migraine headache, # 9 tablet, 5 Refills, Soft Stop, 03/25/20 10:06:00 EDT, Tablet, [facility]/pharmacy #[id number], 152.5, cm, 12/29/19 14:49:00 EST, Height, [...]
--- OUTSIDE RECORDS SUMMARY | 2024-05-01 07:47 | XMS_ITS | Continuity of Care Document ---
Author Organization [facility] Daquan Jose Luis lt Address [address] [place] [address]- Care Team Providers Care Terminal Gauger Name Role Phone Jane Melgar NP Primary Care Physician [phone] Encounter [facility] [place] Date(s): 03/09/21 - 03/16/21 [facility] Adult [address] [place] [address]- Encounter Diagnosis Herpes labialis(Discharge Diagnosis) - 03/09/21 Attending Physician: Misael Rader MD Referring Physician: Jane eMlgar NP Allergies, Adverse Reactions, Alerts Substance Reaction [...] mL, 6 Refills, Maintenance, 08/27/20 13:37:00 EDT, [facility], 152, cm, 08/26/20 9:48:00 EDT, Height, 78.4, kg, 07/13/20 9:29:00 EDT, Dry W... Start Date: 08/27/20 Status: Ordered albuterol CFC free 90 mcg/inh inhalation aerosol 2, puffs, Inhalation, Every 4 hours, PRN, use with spacer chamber, # 1 each, Refills 3, Tot. Refills 3, Maintenance, 07/26/20 7:40:00 EDT, Aerosol, Route to Pharmacy Electronically, [id number], [facility], 152, cm,... Start Date: [...] mL, 3 Refills, Maintenance, 08/02/20 7:28:00 EDT, [facility], 152, cm, 07/27/20 7:01:00 [...] Gm, 0 Refills, Maintenance, 07/26/20 8:13:00 EDT, Aerosol,[facility], 152, cm, 07/26/20 7:17:00 [...] 15:18:00 EDT, Route to Pharmacy Electronically, [facility]/pharmacy #[id number], 152, cm, 07/15/20 14:57:00 EDT, Height, 78.4, kg, 07/13/20 9:29:00 EDT, Dry... Start Date: 07/15/20 Status: Ordered Insulin Lispro KwikPen 100 units/mL injectable solution See Instructions, Please follow sliding scale, three times a day with meals. Max daily dose: 42 units E11.9, # 15 mL, 6 Refills, Maintenance, 08/26/20 10:05:00 EDT, [facility], 152, cm, 08/26/20 9:48:00 EDT, Height, 78.4, kg, 07/13/20... Start Date: 08/26/20 Status: Ordered Lantus Solostar Pen 100 units/mL subcutaneous solution = 10 units, Subcutaneous Injection, Daily, Take 10 units today, increase 3 units daily until fasting blood sugar is 140 with evening meal, # 10 mL, 0 Refills, Maintenance, 07/26/20 7:41:00 EDT, Solution, [facility], 152, cm, 07/26/20 7:17... Start Date: 07/26/20 Status: Ordered Lantus Solostar Pen 100 units/mL subcutaneous solution See Instructions, 10 units daily with dinner: add 3 unis daily until fasting blood sugar is 140, # 15 mL, 3 Refills, Maintenance, 11/13/19 17:29:00 EST, [facility]/pharmacy #[id number], 152.5, cm, 11/13/19 [...] 0 Refills, Maintenance, 08/08/20 14:33:00 EDT, Film, [facility], 1 patch Topically Daily,PRN:Pain , Mild,Instr:remove after 12 hours, 152, cm, 08/06/20 9:15:00 ED... Start Date: 08/08/20 Status: Ordered lidocaine-prilocaine 2.5%-2.5% topical cream 1 application, Topically, 3 times a day, Apply to sensitive area, # 30 Gm, 0 Refills, Soft Stop, 07/30/20 17:50:00 EDT, Cream, [facility], 1 application Topically 3 times a day,Instr:Applyto sensitive area, 152, cm, 07/27/20 7:01:00 EDT, H... Start Date: 07/30/20 Status: Ordered Lipitor 40 mg oral tablet 1 tablet = 40 mg, By Mouth, Daily, # 90 tablet, 3 Refills, Maintenance, 07/26/20 7:41:00 EDT, Tablet, [facility], 152, cm, 07/26/20 7:17:00 EDT, Height, 78.4, kg, 07/13/20 9:29:00 EDT, DryWeight Start Date: 07/26/20 Status: Ordered lisinopril 40 mg oral tablet 1 tablet = 40 mg, By Mouth, Daily, # 30 tablet, 7 Refills, Maintenance, 07/26/20 7:41:00 EDT, Tablet, [facility], 152, cm, 07/26/20 7:17:00 EDT, Height, [...] 5 Refills, Maintenance, 07/26/20 7:42:00 EDT, Tablet, [facility], 152, cm, 07/26/20 7:17:00 EDT, Height, 78.4, kg, 07/13/20 9:29:00 EDT, Dry Weight Start Date: 07/26/20 Stop Date: 01/22/21 Status: Ordered omeprazole 40 mg oral enteric coated capsule 1 capsule = 40 mg, By Mouth, Daily, # 90 capsule, 3 Refills, Maintenance, 07/26/20 7:42:00 EDT, EC Capsule, [facility], 152, cm, 07/26/20 7:17:00 EDT, Height, 78.4, kg, 07/13/20 9:29:00 EDT, Dry Weight Start Date: 07/26/20 Stop Date: 07/21/21 Status: Ordered ondansetron 4 mg oral tablet, disintegrating 1 tablet = 4 mg, By Mouth, 2 times a day, # 21 tablet, 0 Refills, Maintenance, 07/26/20 7:42:00 EDT, [facility], 152, cm, 07/26/20 7:17:00 EDT, Height, 78.4, kg, 07/13/20 9:29:00 EDT, Dry Weight Start Date: 07/26/20 Status: Ordered Pen [place], 29 G x 12.7 mm BD Ultra Fine See Instructions, # 100 each, Refills 5, Tot. Refills 5, Maintenance, use as directed for Type 1 Diabetes Mellitus, 11/13/19 17:27:00 EST, Compound, 152.5, cm, 11/13/19 13:49:00 EST, Height, 82.4, kg, 08/18/18 19:01:00 EDT, Dry Weight Start Date: 11/13/19 Stop Date: 05/11/20 Status: Ordered Pen [place], 31 G x 5 mm BD Ultra Fine III See Instructions, # 100 each, Refills 11, Tot. Refills 11, Maintenance, Use once daily as directed with Lantus pen., 07/26/20 7:41:00 EDT, T2DM; E11.9 ; please let pt know when ready to last picker., Compound, 152, cm, 07/26/20 7:17:00 EDT, Height, 78.4,... Start Date: 07/26/20 Status: Ordered ProAir HFA 90 mcg/inh inhalation aerosol 2 puffs, Inhalation, Every 4 hours, PRN as needed for wheezing, # 18 Gm, 2 Refills, Maintenance, 08/02/20 7:27:00 EDT, Aerosol, [facility], 2 puffs Inhalation Every 4 hours,PRN:as needed for wheezing, 152, cm, 07/27/20 7:01:00 EDT, Height,... Start Date: 08/02/20 Status: Ordered SUMAtriptan 50 mg oral tablet 1 tablet = 50 mg, By Mouth, Daily, PRN for migraine headache, # 9 tablet, 5 Refills, Soft Stop, 07/26/20 7:42:00 EDT, Tablet, [facility], 152, cm, 07/26/20 7:17:00 [...] use(Confirmed) Active Viral URI with cough(Confirmed) Active Diagnosis Diagnosis Type Effective Dates Health Status Cl inical Service Informant Herpes labialis Discharge Diagnosis 03/09/21 Vital Signs Most recent to oldest [Reference Range]: 1 Height 152 cm (03/09/21 12:35 PM) Social History Social History Type Response Smoking Status Smoker, current stat us unknown entered on: 10/30/19 Sex
--- OUTSIDE RECORDS SUMMARY | 2024-05-01 07:47 | XMS_ITS | Continuity of Care Document ---
Author Organization [facility] Daquan Jose Luis lt Address [address] [place] [address]- Care Team Providers Care Peer Health Promoter Name Role Phone Jane Melgar NP Primary Care Physician [phone] Encounter [facility] [place] Date(s): 06/04/20 - 06/11/20 [facility] Adult [address] [place] [address]- [facility] Encounter Diagnosis Breast lump(Discharge Diagnosis) - 06/04/20 Attending Physician: Not on Staff, Attending MD [...] 18:02:08 EDT, Aerosol, Route to Pharmacy Electronically, [id number], [facility]/pharmacy #[id number], Compound Start Date: 01/29/18 Stop [...] 3 Refills, Maintenance, 11/13/19 17:29:00 EST, [facility]/pharmacy #[id number], 152.5, cm, 11/13/19 13:49:00 EST, [...] Refills, Maintenance, 11/13/19 14:35:00 EST, Tablet, [facility]/pharmacy #[id number], 152.5, cm, 11/13/19 13:49:00 EST, [...] 08/14/19 Stop Date: 08/08/20 Status: Ordered Pen [place], 29 G x 12.7 mm BD Ultra Fine See Instructions, # 100 each, Refills 5, Tot. Refills 5, Maintenance, use as directed for Type 1 Diabetes Mellitus, 11/13/19 17:27:00 EST, [facility], 152.5, cm, 11/13/19 13:49:00 EST, Height, 82.4, kg, 08/18/18 19:01:00 EDT, Dry Weight Start Date: 11/13/19 Stop Date: 05/11/20 Status: Ordered Pen [place], 31 G x 5 mm BD Ultra Fine III See Instructions, # 100 each, Refills 11, Tot. Refills 11, Maintenance, Use once daily as directed with Lantus pen., 11/28/19 10:15:00 EST, T2DM; E11.9 ; please let pt know when ready to last picker., Compound, 152.5, cm, 11/13/19 13:49:00 EST, Height, 82... Start Date: 11/28/19 Status: Ordered SUMAtriptan 50 mg oral tablet 1 tablet = 50 mg, By Mouth, Daily, PRN for migraine headache, # 9 tablet, 5 Refills, Soft Stop, 03/25/20 10:06:00 EDT, Tablet, [facility]/pharmacy #[id number], 152.5, cm, 12/29/19 14:49:00 EST, Height, [...] Diagnosis Diagnosis Type Effective Dates Health Status Clini leatha Service Informant Breast lump Discharge Diagnosis 06/04/20 Vital Signs Most recent to oldest [Reference Range]: 1 Height 152.5 cm (06/04/20 7:21 AM) Weight 79.3 kg (06/04/20 7:21 AM) Oxygen Saturation [94-100 %] 98 % (06/04/20 7:21 AM) Pulse Rate [55-90 bpm] 90 bpm (06/04/20 7:21 AM) Body Mass Index [18.5-24.99] 34.1 *>HHI* (06/04/20 7:21 AM) Blood Pressure [90-138/55-84 mm Hg] 140/ 60mm Hg *H* (06/04/20 7:21 AM) Respiratory Rate [16-30 br/min] 18 br/mi n (06/04/20 7:21 AM) Temperature [96.8-100.4 DegF] 98.2 DegF (06/04/20 7:21 AM) Mode of Delivery (Oxygen) Room air (06/04/20 7:21 AM) Temperature Route Oral (06/04/20 7:21 AM) Weight Obtained Via Standing scale (06/04/20 7:21 AM) Social History Social History Type Response Smoking Status Smoker, current stat us unknown entered on: 10/30/19 Sex
--- OUTSIDE RECORDS SUMMARY | 2024-05-01 07:47 | XMS_ITS | Continuity of Care Document ---
Author Organization [facility] Eduardo Butt Jose Luis lt Address [address] [place] [address]- Care Team Providers Care Purchasing Analyst Name Role Phone Peri Magdaleno NP Primary Care Physician Encounter [facility] [place] Date(s): 07/12/21 - 08/11/21 [facility] Adult [address] [place] [address]- Allergies, Adverse Reactions, Alerts Substance Reaction Severity [...] mL, 6 Refills, Maintenance, 08/27/20 13:37:00 EDT, [facility], 152, cm, 08/26/20 9:48:00 EDT, Height, 78.4, kg, 07/13/20 9:29:00 EDT, Dry W... Start Date: 08/27/20 Status: Ordered albuterol CFC free 90 mcg/inh inhalation aerosol 2, puffs, Inhalation, Every 4 hours, PRN, use with spacer chamber, # 1 each, Refills 3, Tot. Refills 3, Maintenance, 07/26/20 7:40:00 EDT, Aerosol, Route to Pharmacy Electronically, [id number], [facility], 152, cm,... Start Date: [...] mL, 3 Refills, Maintenance, 08/02/20 7:28:00 EDT, [facility], 152, cm, 07/27/20 7:01:00 [...] Gm, 0 Refills, Maintenance, 07/26/20 8:13:00 EDT, Aerosol,[facility], 152, cm, 07/26/20 7:17:00 [...] 07/15/20 15:18:00 EDT, [id number], cm, 07/15/20 14:57:00 EDT, Height, 78.4, kg, 07/13/20 9:29:00 EDT, Dry... Start Date: 07/15/20 Status: Ordered Insulin Lispro KwikPen 100 units/mL injectable solution See Instructions, Please follow sliding scale, three times a day with meals. Max daily dose: 42 units E11.9, # 15 mL, 6 Refills, Maintenance, 08/26/20 10:05:00 EDT, [facility], 152, cm, 08/26/20 9:48:00 EDT, Height, 78.4, kg, 07/13/20... Start Date: 08/26/20 Status: Ordered Lantus Solostar Pen 100 units/mL subcutaneous solution = 10 units, Subcutaneous Injection, Daily, Take 10 units today, increase 3 units daily until fasting blood sugar is 140 with evening meal, # 10 mL, 3 Refills, Maintenance, 07/12/21 13:36:00 EDT, Solution, [facility], 152, cm, 04/11/21 14:... Start Date: 07/12/21 Status: Ordered Lantus Solostar Pen 100 units/mL subcutaneous solution See Instructions, 10 units daily with dinner: add 3 unis daily until fasting blood sugar is 140, # 15 mL, 3 Refills, Maintenance, 11/13/19 17:29:00 EST, [facility]/pharmacy #[id number], 152.5, cm, 11/13/19 13:49:00 [...] 0 Refills, Maintenance, 08/08/20 14:33:00 EDT, Film, [facility], 1 patch Topically Daily,PRN:Pain , Mild,Instr:remove after 12 hours, 152, cm, 08/06/20 9:15:00 ED... Start Date: 08/08/20 Status: Ordered lidocaine-prilocaine 2.5%-2.5% topical cream 1 application, Topically, 3 times a day, Apply to sensitive area, # 30 Gm, 0 Refills, Soft Stop, 07/30/20 17:50:00 EDT, Cream, [facility], 1 application Topically 3 times a day,Instr:Applyto sensitive area, 152, cm, 07/27/20 7:01:00 EDT, H... Start Date: 07/30/20 Status: Ordered Lipitor 40 mg oral tablet 1 tablet = 40 mg, By Mouth, Daily, # 90 tablet, 3 Refills, Maintenance, 07/13/21 16:34:00 EDT, Tablet, [facility], 152, cm, 07/13/21 15:34:00 EDT, Height, 78.4, kg, 07/13/20 9:29:00 EDT, Dry Weight Start Date: 07/13/21 Status: Ordered lisinopril 40 mg oral tablet 1 tablet = 40 mg, By Mouth, Daily, # 30 tablet, 0 Refills, Maintenance, 07/13/21 16:34:00 EDT, Tablet, [facility], 152, cm, 07/13/21 15:34:00 [...] 5 Refills, Maintenance, 07/12/21 13:36:00 EDT, Tablet, [facility], 152, cm, 04/11/21 14:02:00 EDT, Height, 78.4, kg, 07/13/20 9:29:00 EDT, Dry Weight Start Date: 07/12/21 Stop Date: 01/08/22 Status: Ordered omeprazole 40 mg oral enteric coated capsule 1 capsule = 40 mg, By Mouth, Daily, # 90 capsule, 3 Refills, Maintenance, 07/26/20 7:42:00 EDT, EC Capsule, [facility], 152, cm, 07/26/20 7:17:00 EDT, Height, 78.4, kg, 07/13/20 9:29:00 EDT, Dry Weight Start Date: 07/26/20 Stop Date: 07/21/21 Status: Ordered ondansetron 4 mg oral tablet, disintegrating 1 tablet = 4 mg, By Mouth, 2 times a day, # 21 tablet, 0 Refills, Maintenance, 07/26/20 7:42:00 EDT, [facility], 152, cm, 07/26/20 7:17:00 EDT, Height, 78.4, kg, 07/13/20 9:29:00 EDT, Dry Weight Start Date: 07/26/20 Status: Ordered Pen [place], 29 G x 12.7 mm BD Ultra Fine See Instructions, # 100 each, Refills 5, Tot. Refills 5, Maintenance, use as directed for Type 1 Diabetes Mellitus, 11/13/19 17:27:00 EST, Compound, 152.5, cm, 11/13/19 13:49:00 EST, Height, 82.4, kg, 08/18/18 19:01:00 EDT, Dry Weight Start Date: 11/13/19 Stop Date: 05/11/20 Status: Ordered Pen [place], 31 G x 5 mm BD Ultra Fine III See Instructions, # 100 each, Refills 11, Tot. Refills 11, Maintenance, Use once daily as directed with Lantus pen., 07/26/20 7:41:00 EDT, T2DM; E11.9 ; please let pt know when ready to mixing picker tender., Compound, 152, cm, 07/26/20 7:17:00 EDT, Height, 78.4,... Start Date: 07/26/20 Status: Ordered ProAir HFA 90 mcg/inh inhalation aerosol 2 puffs, Inhalation, Every 4 hours, PRN as needed for wheezing, # 18 Gm, 2 Refills, Maintenance, 07/13/21 16:35:00 EDT, Aerosol, [facility], 2 puffs Inhalation Every 4 hours,PRN:as needed for wheezing, 152, cm, 07/13/21 15:34:00 EDT, Height... Start Date: 07/13/21 Status: Ordered SUMAtriptan 50 mg oral tablet 1 tablet = 50 mg, By Mouth, Daily, PRN for migraine headache, # 9 tablet, 5 Refills, Soft Stop, 07/26/20 7:42:00 EDT, Tablet, [facility], 152, cm, 07/26/20 7:17:00 EDT, Height, 78.4, kg, 07/13/20 9:29:00 EDT, Dry Weight Start Date: 07/26/20 Stop Date: 01/22/21 Status: Ordered Problem List Condition Effective Dates Status Health Status Inform ant Anxiety(Confirmed) Active Asthma(Confirmed) Active Benign hypertension(Confirmed) Active Nipple discharge, bloody(Confirmed) Active Breast lump(Confirmed) Active Chest pain(Confirmed) Active Cyst of ovary(Confirmed) Active Depressive disorder(Confirmed) [...]
--- OUTSIDE RECORDS SUMMARY | 2024-05-01 07:47 | XMS_ITS | Continuity of Care Document ---
Author Organization [facility] Daquan Jose Luis lt Address [address] [place] [address]- Care Team Providers Care Applications Specialist Name Role Phone Jane Melgar NP Primary Care Physician Encounter [facility] [place] Date(s): 06/07/20 - 07/07/20 [facility] Adult [address] [place] [address]- [facility] Allergies, Adverse Reactions, Alerts Substance Reaction [...] 18:02:08 EDT, Aerosol, Route to Pharmacy Electronically, [id number], [facility]/pharmacy #[id number], Compound Start Date: 01/29/18 Stop Date: [...] mL, 3 Refills, Maintenance, 11/13/19 17:29:00 EST, [facility]/pharmacy #[id number], 152.5, cm, 11/13/19 13:49:00 EST, Height, [...] 7 Refills, Maintenance, 11/13/19 14:35:00 EST, Tablet, [facility]/pharmacy #[id number], 152.5, cm, 11/13/19 13:49:00 EST, Height, [...] 08/14/19 Stop Date: 08/08/20 Status: Ordered Pen [place], 29 G x 12.7 mm BD Ultra Fine See Instructions, # 100 each, Refills 5, Tot. Refills 5, Maintenance, use as directed for Type 1 Diabetes Mellitus, 11/13/19 17:27:00 EST, Compound, 152.5, cm, 11/13/19 13:49:00 EST, Height, 82.4, kg, 08/18/18 19:01:00 EDT, Dry Weight Start Date: 11/13/19 Stop Date: 05/11/20 Status: Ordered Pen [place], 31 G x 5 mm BD Ultra Fine III See Instructions, # 100 each, Refills 11, Tot. 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
--- OUTSIDE RECORDS SUMMARY | 2024-05-01 07:47 | XMS_ITS | Continuity of Care Document ---
Author Organization [facility] ter Address [address] [place] [address]- Care Team Providers Care Floriculture Professor Name Role Phone Jane Melgar NP Primary Care Physician [phone] Encounter [facility] [place] Date(s): 07/19/20 - 07/20/[address] [address]- [facility] Discharge Disposition: A-D/C Walkout Attending Physician: Not on Staff, Attending MD Admitting Physician: Not on Staff, Admitting MD Referring Physician: Not on Staff, Referring MD Allergies, Adverse Reactions, Alerts Substance Reaction [...] 18:02:08 EDT, Aerosol, Route to Pharmacy Electronically, [id number], [facility]/pharmacy #[id number], Compound Start Date: 01/29/18 Stop Date: [...] 07/15/20 15:18:00 EDT, Route to Pharmacy Electronically, [facility]/pharmacy #[id number], 152, cm, 07/15/20 14:57:00 EDT, Height, [...] mL, 3 Refills, Maintenance, 11/13/19 17:29:00 EST, [facility]/pharmacy #[id number], 152.5, cm, 11/13/19 13:49:00 EST, Height, [...] 7 Refills, Maintenance, 11/13/19 14:35:00 EST, Tablet, [facility]/pharmacy #[id number], 152.5, cm, 11/13/19 13:49:00 EST, Height, [...] 08/14/19 Stop Date: 08/08/20 Status: Ordered Pen [place], 29 G x 12.7 mm BD Ultra Fine See Instructions, # 100 each, Refills 5, Tot. Refills 5, Maintenance, use as directed for Type 1 Diabetes Mellitus, 11/13/19 17:27:00 EST, Compound, 152.5, cm, 11/13/19 13:49:00 EST, Height, 82.4, kg, 08/18/18 19:01:00 EDT, Dry Weight Start Date: 11/13/19 Stop Date: 05/11/20 Status: Ordered Pen [place], 31 G x 5 mm BD Ultra Fine III See Instructions, # 100 each, Refills 11, Tot. Refills 11, Maintenance, Use once daily as directed with Lantus pen., 11/28/19 10:15:00 EST, T2DM; E11.9 ; please let pt know when ready to diamond picker., Compound, 152.5, cm, 11/13/19 13:49:00 EST, Height, 82... Start Date: 11/28/19 Status: Ordered SUMAtriptan 50 mg oral tablet 1 tablet = 50 mg, By Mouth, Daily, PRN for migraine headache, # 9 tablet, 5 Refills, Soft Stop, 03/25/20 10:06:00 EDT, Tablet, [facility]/pharmacy #[id number], 152.5, cm, 12/29/19 14:49:00 EST, Height, [...] to oldest [Reference Range]: 1 2 3 Oxygen Saturation [94-100 %] 100 % (07/20/20 12:40 AM) 97 % (07/19/20 9:38 PM) 99 % (07/19/20 9:23 PM) Pulse Rate [55-90 bpm] 82 bpm (07/20/20 12:40 AM) 90 bpm (07/19/20 9:38 PM) 108 bpm *H* (07/19/20 9:23 PM) Blood Pressure [90-138/55-84 mm Hg] 118/72mm Hg (07/20/20 12:40 AM) 140/93mm Hg *H* (07/19/20 9:38 PM) Respiratory Rate [16-30 br/min] 16 br/min (07/20/20 12:40 AM) 18 br/min (07/19/20 9:38 PM) Temperature [96.8-100.4 DegF] 98.4 DegF (07/20/20 12:40 AM) 98.3 DegF (07/19/20 9:38 PM) Mode of Delivery (Oxygen) Room air (07/20/20 12:40 AM) Room air (07/19/20 9:38 PM) Room air (07/19/20 9:23 PM) Blood pressure sites Arm, right (07/20/20 12:40 AM) Arm, left (07/19/20 9:38 PM) Temperature Route Oral (07/20/20 12:40 AM) Social History Social History Type Response Smoking Status Smoker, current stat us unknown entered on: 10/30/19 Sex
--- OUTSIDE RECORDS SUMMARY | 2024-05-01 07:47 | XMS_ITS | Continuity of Care Document ---
Author Organization [facility] Eduardo Butt Jose Luis lt Address [address] [place] [address]- Care Team Providers Care Line Maintenance Technician Name Role Phone Rasta FLOREZ, Peri Primary Care Physician [phone] Encounter [facility] [place] Date(s): 09/06/21 - 10/21/21 [facility] Adult [address] [place] [address]- Attending Physician: Peri Magdaleno NP Referring Physician: Grant FOUNTAIN, Chivo Wang Allergies, Adverse Reactions, Alerts Substance Reaction Severity [...] mL, 6 Refills, Maintenance, 09/06/21 8:32:00 EDT, [facility], 152, cm, 09/06/21 8:17:00EDT, Height, [...] 09/02/21 9:17:00 EDT, Route to Pharmacy Electronically, [facility], Partial fill upon patient request if the prescription is for a schedule I... Start Date: 09/02/21 Status: Ordered Flovent HFA 110 mcg/inh inhalation aerosol 2 puffs, Inhalation, 2 times a day, # 12 Gm, 0 Refills, Maintenance, 07/26/20 8:13:00 EDT, Aerosol,[facility], 152, cm, 07/26/20 7:17:00 [...] 3 Refills, Maintenance, 07/12/21 13:36:00 EDT, Solution, [facility], 152, cm, 04/11/21 14:... Start Date: 07/12/21 Status: Ordered Lipitor 40 mg oral tablet 1 tablet = 40 mg, By Mouth, Daily, # 90 tablet, 3 Refills, Maintenance, 07/13/21 16:34:00 EDT, Tablet, [facility], 152, cm, 07/13/21 15:34:00 EDT, Height, 78.4, kg, 07/13/20 9:29:00 EDT, Dry Weight Start Date: 07/13/21 Status: Ordered lisinopril 40 mg oral tablet 1 tablet = 40 mg, By Mouth, Daily, # 30 tablet, 0 Refills, Maintenance, 07/13/21 16:34:00 EDT, Tablet, [facility], 152, cm, 07/13/21 15:34:00 EDT, [...] 5 Refills, Maintenance, 07/12/21 13:36:00 EDT, Tablet, [facility], 152, cm, 04/11/21 14:02:00 EDT, Height, 78.4, kg, 07/13/20 9:29:00 EDT, Dry Weight Start Date: 07/12/21 Stop Date: 01/08/22 Status: Ordered omeprazole 40 mg oral enteric coated capsule 1 capsule = 40 mg, By Mouth, Daily, # 90 capsule, 3 Refills, Maintenance, 07/26/20 7:42:00 EDT, EC Capsule, [facility], 152, cm, 07/26/20 7:17:00 EDT, Height, 78.4, kg, 07/13/20 9:29:00 EDT, Dry Weight Start Date: 07/26/20 Stop Date: 07/21/21 Status: Ordered ondansetron 4 mg oral tablet, disintegrating 1 tablet = 4 mg, By Mouth, 2 times a day, # 21 tablet, 0 Refills, Maintenance, 07/26/20 7:42:00 EDT, [facility], 152, cm, 07/26/20 7:17:00 EDT, Height, 78.4, kg, 07/13/20 9:29:00 EDT, Dry Weight Start Date: 07/26/20 Status: Ordered Pen [place], 31 G x 5 mm BD Ultra Fine III See Instructions, # 100 each, Refills 11, Tot. Refills 11, Maintenance, Use once daily as directed with Lantus pen., 07/26/20 7:41:00 EDT, T2DM; E11.9 ; please let pt know when ready to seed cone picker., Compound, 152, cm, 07/26/20 7:17:00 EDT, Height, 78.4,... Start Date: 07/26/20 Status: Ordered ProAir HFA 90 mcg/inh inhalation aerosol 2 puffs, Inhalation, Every 4 hours, PRN as needed for wheezing, # 18 Gm, 2 Refills, Maintenance, 07/13/21 16:35:00 EDT, Aerosol, [facility], 2 puffs Inhalation Every 4 hours,PRN:as needed for wheezing, 152, cm, 07/13/21 15:34:00 EDT, Height... Start Date: 07/13/21 Status: Ordered SUMAtriptan 50 mg oral tablet 1 tablet = 50 mg, By Mouth, Daily, PRN for migraine headache, # 9 tablet, 5 Refills, Soft Stop, 07/26/20 7:42:00 EDT, Tablet, [facility], 152, cm, 07/26/20 7:17:00 EDT, [...]
--- OUTSIDE RECORDS SUMMARY | 2024-05-01 07:47 | XMS_ITS | Continuity of Care Document ---
Author Organization [facility] Eduardo Butt Jose Luis lt Address [address] [place] [id number]- Care Team Providers Care Grain Distributor Name Role Phone Nuria FLOREZ, Jing Russo Primary Care Physician ( [phone] [place] [facility] [place](s): 12/29/19 - 01/05/20 [facility] Eduardo Shaneley Adult [address] [place] [address]- [facility] Attending Physician: Jing Quiñones NP Allergies, Adverse [...] 18:02:08 EDT, Aerosol, Route to Pharmacy Electronically, [id number], [facility]/pharmacy #[id number], Compound Start Date: 01/29/18 [...] mL, 3 Refills, Maintenance, 11/13/19 17:29:00 EST, [facility]/pharmacy #[id number], 152.5, cm, 11/13/19 13:49:00 [...] 7 Refills, Maintenance, 11/13/19 14:35:00 EST, Tablet, [facility]/pharmacy #[id number], 152.5, cm, 11/13/19 13:49:00 [...] 08/14/19 Stop Date: 08/08/20 Status: Ordered Pen [place], 29 G x 12.7 mm BD Ultra Fine See Instructions, # 100 each, Refills 5, Tot. Refills 5, Maintenance, use as directed for Type 1 Diabetes Mellitus, 11/13/19 17:27:00 EST, Compound, 152.5, cm, 11/13/19 13:49:00 EST, Height, 82.4, kg, 08/18/18 19:01:00 EDT, Dry Weight Start Date: 11/13/19 Stop Date: 05/11/20 Status: Ordered Pen [place], 31 G x 5 mm BD Ultra Fine III See Instructions, # 100 each, Refills 11, Tot. Refills 11, Maintenance, Use once daily as directed with Lantus pen., 11/28/19 10:15:00 EST, T2DM; E11.9 ; please let pt know when ready to picker operator., Compound, 152.5, cm, 11/13/19 13:49:00 EST, [...] oldest [Reference Range]: 1 Height 152.5 cm (12/29/19 2:49 PM) Weight 83.7 kg (12/29/19 2:49 PM) Pulse Rate [55-90 bpm] 68 bpm (12/29/19 2:49 PM) Body Mass Index [18.5-24.99] 35.99 *>HHI* (12/29/19 2:49 PM) Blood Pressure [90-138/55-84 mm Hg] 116/ 82mm Hg (12/29/19 2:49 PM) Respiratory Rate [16-30 br/min] 20 br/mi n (12/29/19 2:49 PM) Temperature [96.8-100.4 DegF] 98.1 DegF (12/29/19 2:49 PM) Blood pressure sites Arm, right (12/29/19 2:49 PM) Temperature Route Oral (12/29/19 2:49 PM) Weight Obtained Via Standing scale (12/29/19 2:49 PM) Social History Social History Type Response Smoking Status Smoker, current stat us unknown entered on: 10/30/19 Sex
--- OUTSIDE RECORDS SUMMARY | 2024-05-01 07:47 | XMS_ITS | Continuity of Care Document ---
Author Organization [facility] Eduardo Butt Jose Luis lt Address [address] [place] [address]- Care Team Providers Care Alberene Stone Setter Name Role Phone Jane Melgar NP Primary Care Physician [phone] Encounter [facility] [place] Date(s): 04/11/21 - 05/11/21 [facility] Adult [address] [place] [address]- Attending Physician: Admtr, Ar8 Admitting Physician: Admtr, Ar8 Referring Physician: Admtr, Ar8 Allergies, Adverse Reactions, [...] mL, 6 Refills, Maintenance, 08/27/20 13:37:00 EDT, [facility], 152, cm, 08/26/20 9:48:00 EDT, Height, 78.4, kg, 07/13/20 9:29:00 EDT, Dry W... Start Date: 08/27/20 Status: Ordered albuterol CFC free 90 mcg/inh inhalation aerosol 2, puffs, Inhalation, Every 4 hours, PRN, use with spacer chamber, # 1 each, Refills 3, Tot. Refills 3, Maintenance, 07/26/20 7:40:00 EDT, Aerosol, Route to Pharmacy Electronically, [id number], [facility], 152, cm,... Start Date: 07/26/20 [...] mL, 3 Refills, Maintenance, 08/02/20 7:28:00 EDT, [facility], 152, cm, 07/27/20 7:01:00 EDT, [...] Gm, 0 Refills, Maintenance, 07/26/20 8:13:00 EDT, Aerosol,[facility], 152, cm, 07/26/20 7:17:00 EDT, [...] [id number], cm, 07/15/20 14:57:00 EDT, Height, 78.4, kg, 07/13/20 9:29:00 EDT, Dry... Start Date: 07/15/20 Status: Ordered Insulin Lispro KwikPen 100 units/mL injectable solution See Instructions, Please follow sliding scale, three times a day with meals. Max daily dose: 42 units E11.9, # 15 mL, 6 Refills, Maintenance, 08/26/20 10:05:00 EDT, [facility], 152, cm, 08/26/20 9:48:00 EDT, Height, 78.4, kg, 07/13/20... Start Date: 08/26/20 Status: Ordered Lantus Solostar Pen 100 units/mL subcutaneous solution = 10 units, Subcutaneous Injection, Daily, Take 10 units today, increase 3 units daily until fasting blood sugar is 140 with evening meal, # 10 mL, 0 Refills, Maintenance, 07/26/20 7:41:00 EDT, Solution, [facility], 152, cm, 07/26/20 7:17... Start Date: 07/26/20 Status: Ordered Lantus Solostar Pen 100 units/mL subcutaneous solution See Instructions, 10 units daily with dinner: add 3 unis daily until fasting blood sugar is 140, # 15 mL, 3 Refills, Maintenance, 11/13/19 17:29:00 EST, [facility]/pharmacy #[id number], 152.5, cm, 11/13/19 13:49:00 EST, Height, [...] 0 Refills, Maintenance, 08/08/20 14:33:00 EDT, Film, [facility], 1 patch Topically Daily,PRN:Pain , Mild,Instr:remove after 12 hours, 152, cm, 08/06/20 9:15:00 ED... Start Date: 08/08/20 Status: Ordered lidocaine-prilocaine 2.5%-2.5% topical cream 1 application, Topically, 3 times a day, Apply to sensitive area, # 30 Gm, 0 Refills, Soft Stop, 07/30/20 17:50:00 EDT, Cream, [facility], 1 application Topically 3 times a day,Instr:Applyto sensitive area, 152, cm, 07/27/20 7:01:00 EDT, H... Start Date: 07/30/20 Status: Ordered Lipitor 40 mg oral tablet 1 tablet = 40 mg, By Mouth, Daily, # 90 tablet, 3 Refills, Maintenance, 07/26/20 7:41:00 EDT, Tablet, [facility], 152, cm, 07/26/20 7:17:00 EDT, Height, 78.4, kg, 07/13/20 9:29:00 EDT, DryWeight Start Date: 07/26/20 Status: Ordered lisinopril 40 mg oral tablet 1 tablet = 40 mg, By Mouth, Daily, # 30 tablet, 7 Refills, Maintenance, 07/26/20 7:41:00 EDT, Tablet, [facility], 152, cm, 07/26/20 7:17:00 EDT, [...] 5 Refills, Maintenance, 07/26/20 7:42:00 EDT, Tablet, [facility], 152, cm, 07/26/20 7:17:00 EDT, Height, 78.4, kg, 07/13/20 9:29:00 EDT, Dry Weight Start Date: 07/26/20 Stop Date: 01/22/21 Status: Ordered omeprazole 40 mg oral enteric coated capsule 1 capsule = 40 mg, By Mouth, Daily, # 90 capsule, 3 Refills, Maintenance, 07/26/20 7:42:00 EDT, EC Capsule, [facility], 152, cm, 07/26/20 7:17:00 EDT, Height, 78.4, kg, 07/13/20 9:29:00 EDT, Dry Weight Start Date: 07/26/20 Stop Date: 07/21/21 Status: Ordered ondansetron 4 mg oral tablet, disintegrating 1 tablet = 4 mg, By Mouth, 2 times a day, # 21 tablet, 0 Refills, Maintenance, 07/26/20 7:42:00 EDT, [facility], 152, cm, 07/26/20 7:17:00 EDT, Height, 78.4, kg, 07/13/20 9:29:00 EDT, Dry Weight Start Date: 07/26/20 Status: Ordered Pen [place], 29 G x 12.7 mm BD Ultra Fine See Instructions, # 100 each, Refills 5, Tot. Refills 5, Maintenance, use as directed for Type 1 Diabetes Mellitus, 11/13/19 17:27:00 EST, Compound, 152.5, cm, 11/13/19 13:49:00 EST, Height, 82.4, kg, 08/18/18 19:01:00 EDT, Dry Weight Start Date: 11/13/19 Stop Date: 05/11/20 Status: Ordered Pen [place], 31 G x 5 mm BD Ultra Fine III See Instructions, # 100 each, Refills 11, Tot. Refills 11, Maintenance, Use once daily as directed with Lantus pen., 07/26/20 7:41:00 EDT, T2DM; E11.9 ; please let pt know when ready to tow picker., Compound, 152, cm, 07/26/20 7:17:00 EDT, Height, 78.4,... Start Date: 07/26/20 Status: Ordered ProAir HFA 90 mcg/inh inhalation aerosol 2 puffs, Inhalation, Every 4 hours, PRN as needed for wheezing, # 18 Gm, 2 Refills, Maintenance, 08/02/20 7:27:00 EDT, Aerosol, [facility], 2 puffs Inhalation Every 4 hours,PRN:as needed for wheezing, 152, cm, 07/27/20 7:01:00 EDT, Height,... Start Date: 08/02/20 Status: Ordered SUMAtriptan 50 mg oral tablet 1 tablet = 50 mg, By Mouth, Daily, PRN for migraine headache, # 9 tablet, 5 Refills, Soft Stop, 07/26/20 7:42:00 EDT, Tablet, [facility], 152, cm, 07/26/20 7:17:00 EDT, [...]
--- OUTSIDE RECORDS SUMMARY | 2024-05-01 07:47 | XMS_ITS | Continuity of Care Document ---
Author Organization [facility] Address [address] [place] [address]- Care Team Providers Care Furniture Maker Name Role Phone Jane Melgar NP Primary Care Physician Encounter 06/24/20 - 07/01/20 [facility] [address], [address] [place] [address]- [phone] Attending Physician: Jane Melgar NP Admitting Physician: [...] 18:02:08 EDT, Aerosol, Route to Pharmacy Electronically, [id number], [facility]/pharmacy #[id number], Compound Start Date: 01/29/18 Stop [...] mL, 3 Refills, Maintenance, 11/13/19 17:29:00 EST, [facility]/pharmacy #[id number], 152.5, cm, 11/13/19 13:49:00 EST, [...] 7 Refills, Maintenance, 11/13/19 14:35:00 EST, Tablet, [facility]/pharmacy #[id number], 152.5, cm, 11/13/19 13:49:00 EST, [...] 08/14/19 Stop Date: 08/08/20 Status: Ordered Pen [place], 29 G x 12.7 mm BD Ultra Fine See Instructions, # 100 each, Refills 5, Tot. Refills 5, Maintenance, use as directed for Type 1 Diabetes Mellitus, 11/13/19 17:27:00 EST, Compound, 152.5, cm, 11/13/19 13:49:00 EST, Height, 82.4, kg, 08/18/18 19:01:00 EDT, Dry Weight Start Date: 11/13/19 Stop Date: 05/11/20 Status: Ordered Pen [place], 31 G x 5 mm BD Ultra Fine III See Instructions, # 100 each, Refills 11, Tot. Refills 11, Maintenance, Use once daily as directed with Lantus pen., 11/28/19 10:15:00 EST, T2DM; E11.9 ; please let pt know when ready to picker and packer., Compound, 152.5, cm, 11/13/19 13:49:00 EST, Height, 82... Start Date: 11/28/19 Status: Ordered SUMAtriptan 50 mg oral tablet 1 tablet = 50 mg, By Mouth, Daily, PRN for migraine headache, # 9 tablet, 5 Refills, Soft Stop, 03/25/20 10:06:00 EDT, Tablet, [facility]/pharmacy #[id number], 152.5, cm, 12/29/19 14:49:00 EST, [...]
--- OUTSIDE RECORDS SUMMARY | 2024-05-01 07:47 | XMS_ITS | Continuity of Care Document ---
Author Organization [facility] Daquan Jose Luis lt Address [address] [place] [address]- Care Team Providers Care Atomic Welder Name Role Phone Jane Melgar NP Primary Care Physician [phone] Encounter [facility] [place] Date(s): 06/09/20 - 07/09/20 [facility] [place] Adult [address] [place] [address]- [facility] Allergies, Adverse Reactions, Alerts Substance Reaction Severity [...] 18:02:08 EDT, Aerosol, Route to Pharmacy Electronically, [id number], [facility]/pharmacy #[id number], Compound Start Date: [...] 08/14/19 Stop Date: 08/08/20 Status: Ordered Pen [place], 29 G x 12.7 mm BD Ultra Fine See Instructions, # 100 each, Refills 5, Tot. Refills 5, Maintenance, use as directed for Type 1 Diabetes Mellitus, 11/13/19 17:27:00 EST, Compound, 152.5, cm, 11/13/19 13:49:00 EST, Height, 82.4, kg, 08/18/18 19:01:00 EDT, Dry Weight Start Date: 11/13/19 Stop Date: 05/11/20 Status: Ordered Pen [place], 31 G x 5 mm BD Ultra Fine III See Instructions, # 100 each, Refills 11, Tot. Refills 11, Maintenance, Use once daily as directed with Lantus pen., 11/28/19 10:15:00 EST, T2DM; E11.9 ; please let pt know when ready to sisal picker., Compound, 152.5, cm, 11/13/19 13:49:00 EST, [...]
--- OUTSIDE RECORDS SUMMARY | 2024-05-01 07:47 | XMS_ITS | Continuity of Care Document ---
Author Organization [facility] Eduardo Butt Jose Luis lt Address [address] [place] [address]- Care Team Providers Care Sound Engineering Technician Name Role Phone Jane Melgar NP Primary Care Physician Encounter [facility] [place] Date(s): 02/21/21 - 03/23/21 [facility] Adult [address] [place] [address]- Allergies, Adverse Reactions, Alerts Substance Reaction Severity [...] mL, 6 Refills, Maintenance, 08/27/20 13:37:00 EDT, [facility], 152, cm, 08/26/20 9:48:00 EDT, Height, 78.4, kg, 07/13/20 9:29:00 EDT, Dry W... Start Date: 08/27/20 Status: Ordered albuterol CFC free 90 mcg/inh inhalation aerosol 2, puffs, Inhalation, Every 4 hours, PRN, use with spacer chamber, # 1 each, Refills 3, Tot. Refills 3, Maintenance, 07/26/20 7:40:00 EDT, Aerosol, Route to Pharmacy Electronically, [id number], [facility], 152, [...] Dry... Start Date: 07/27/20 Status: Ordered Freestyle [place] 14 day sensors Freestyle [place] 14 day [...] 07/15/20 15:18:00 EDT, [id number], cm, 07/15/20 14:57:00 EDT, Height, 78.4, kg, 07/13/20 9:29:00 EDT, Dry... Start Date: 07/15/20 Status: Ordered Insulin Lispro KwikPen 100 units/mL injectable solution See Instructions, Please follow sliding scale, three times a day with meals. Max daily dose: 42 units E11.9, # 15 mL, 6 Refills, Maintenance, 08/26/20 10:05:00 EDT, [facility], 152, cm, 08/26/20 9:48:00 EDT, [...] Refills, Maintenance, 11/13/19 17:29:00 EST, [facility]/pharmacy #[id number], 152.5, cm, 11/13/19 13:49:00 [...] Refills, Soft Stop, 07/30/20 17:50:00 EDT, Cream, [facility]278, 1 application Topically 3 times a day,Instr:Applyto sensitive area, 152, cm, 07/27/20 7:01:00 EDT, H... Start Date: 07/30/20 Status: Ordered Lipitor 40 mg oral tablet 1 tablet = 40 mg, By Mouth, Daily, # 90 tablet, 3 Refills, Maintenance, 07/26/20 7:41:00 EDT, Tablet, [facility], 152, cm, 07/26/20 7:17:00 EDT, Height, 78.4, kg, 07/13/20 9:29:00 EDT, DryWeight Start Date: 07/26/20 Status: Ordered lisinopril 40 mg oral tablet 1 tablet = 40 mg, By Mouth, Daily, # 30 tablet, 7 Refills, Maintenance, 07/26/20 7:41:00 EDT, Tablet, [facility], 152, cm, 07/26/20 7:17:00 EDT, [...] 5 Refills, Maintenance, 07/26/20 7:42:00 EDT, Tablet, [facility], 152, cm, 07/26/20 7:17:00 EDT, [...] Weight Start Date: 07/26/20 Status: Ordered Pen [place], 29 G x 12.7 mm BD Ultra Fine See Instructions, # 100 each, Refills 5, Tot. Refills 5, Maintenance, use as directed for Type 1 Diabetes Mellitus, 11/13/19 17:27:00 EST, Compound, 152.5, cm, 11/13/19 13:49:00 EST, Height, 82.4, kg, 08/18/18 19:01:00 EDT, Dry Weight Start Date: 11/13/19 Stop Date: 05/11/20 Status: Ordered Pen [place], 31 G x 5 mm BD Ultra Fine III See Instructions, # 100 each, Refills 11, Tot. Refills 11, Maintenance, Use once daily as directed with Lantus pen., 07/26/20 7:41:00 EDT, T2DM; E11.9 ; please let pt know when ready to picker and sorter load and unload., Compound, 152, cm, 07/26/20 7:17:00 EDT, Height, [...]
--- OUTSIDE RECORDS SUMMARY | 2024-05-01 07:47 | XMS_ITS | Continuity of Care Document ---
Author Organization [facility] Eduardo Butt Jose Luis lt Address [address] [place] [address]- Care Team Providers Care Washer Cutter Name Role Phone Jane Melgar NP Primary Care Physician [phone] Encounter [facility] [place] Date(s): 03/31/21 - 04/30/21 [facility] Adult [address] [place] [address]- Allergies, Adverse Reactions, Alerts Substance Reaction Severity [...] mL, 6 Refills, Maintenance, 08/27/20 13:37:00 EDT, [facility], 152, cm, 08/26/20 9:48:00 EDT, Height, 78.4, kg, 07/13/20 9:29:00 EDT, Dry W... Start Date: 08/27/20 Status: Ordered albuterol CFC free 90 mcg/inh inhalation aerosol 2, puffs, Inhalation, Every 4 hours, PRN, use with spacer chamber, # 1 each, Refills 3, Tot. Refills 3, Maintenance, 07/26/20 7:40:00 EDT, Aerosol, Route to Pharmacy Electronically, [id number], [facility], 152, cm,... Start Date: [...] mL, 3 Refills, Maintenance, 08/02/20 7:28:00 EDT, [facility], 152, cm, 07/27/20 7:01:00 [...] Gm, 0 Refills, Maintenance, 07/26/20 8:13:00 EDT, Aerosol,[facility], 152, cm, 07/26/20 7:17:00 [...] 07/15/20 15:18:00 EDT, [id number] 152, cm, 07/15/20 14:57:00 EDT, Height, 78.4, kg, 07/13/20 9:29:00 EDT, Dry... Start Date: 07/15/20 Status: Ordered Insulin Lispro KwikPen 100 units/mL injectable solution See Instructions, Please follow sliding scale, three times a day with meals. Max daily dose: 42 units E11.9, # 15 mL, 6 Refills, Maintenance, 08/26/20 10:05:00 EDT, [facility], 152, cm, 08/26/20 9:48:00 EDT, Height, 78.4, kg, 07/13/20... Start Date: 08/26/20 Status: Ordered Lantus Solostar Pen 100 units/mL subcutaneous solution = 10 units, Subcutaneous Injection, Daily, Take 10 units today, increase 3 units daily until fasting blood sugar is 140 with evening meal, # 10 mL, 0 Refills, Maintenance, 07/26/20 7:41:00 EDT, Solution, [facility], 152, cm, 07/26/20 7:17... Start Date: 07/26/20 Status: Ordered Lantus Solostar Pen 100 units/mL subcutaneous solution See Instructions, 10 units daily with dinner: add 3 unis daily until fasting blood sugar is 140, # 15 mL, 3 Refills, Maintenance, 11/13/19 17:29:00 EST, [facility]/pharmacy #[id number], 152.5, cm, 11/13/19 13:49:00 EST, [...] 0 Refills, Maintenance, 08/08/20 14:33:00 EDT, Film, [facility], 1 patch Topically Daily,PRN:Pain , Mild,Instr:remove after 12 hours, 152, cm, 08/06/20 9:15:00 ED... Start Date: 08/08/20 Status: Ordered lidocaine-prilocaine 2.5%-2.5% topical cream 1 application, Topically, 3 times a day, Apply to sensitive area, # 30 Gm, 0 Refills, Soft Stop, 07/30/20 17:50:00 EDT, Cream, [facility], 1 application Topically 3 times a day,Instr:Applyto sensitive area, 152, cm, 07/27/20 7:01:00 EDT, H... Start Date: 07/30/20 Status: Ordered Lipitor 40 mg oral tablet 1 tablet = 40 mg, By Mouth, Daily, # 90 tablet, 3 Refills, Maintenance, 07/26/20 7:41:00 EDT, Tablet, [facility], 152, cm, 07/26/20 7:17:00 EDT, Height, 78.4, kg, 07/13/20 9:29:00 EDT, DryWeight Start Date: 07/26/20 Status: Ordered lisinopril 40 mg oral tablet 1 tablet = 40 mg, By Mouth, Daily, # 30 tablet, 7 Refills, Maintenance, 07/26/20 7:41:00 EDT, Tablet, [facility], 152, cm, 07/26/20 7:17:00 EDT, [...] 5 Refills, Maintenance, 07/26/20 7:42:00 EDT, Tablet, [facility], 152, cm, 07/26/20 7:17:00 EDT, Height, 78.4, kg, 07/13/20 9:29:00 EDT, Dry Weight Start Date: 07/26/20 Stop Date: 01/22/21 Status: Ordered omeprazole 40 mg oral enteric coated capsule 1 capsule = 40 mg, By Mouth, Daily, # 90 capsule, 3 Refills, Maintenance, 07/26/20 7:42:00 EDT, EC Capsule, [facility], 152, cm, 07/26/20 7:17:00 EDT, Height, 78.4, kg, 07/13/20 9:29:00 EDT, Dry Weight Start Date: 07/26/20 Stop Date: 07/21/21 Status: Ordered ondansetron 4 mg oral tablet, disintegrating 1 tablet = 4 mg, By Mouth, 2 times a day, # 21 tablet, 0 Refills, Maintenance, 07/26/20 7:42:00 EDT, [facility], 152, cm, 07/26/20 7:17:00 EDT, Height, 78.4, kg, 07/13/20 9:29:00 EDT, Dry Weight Start Date: 07/26/20 Status: Ordered Pen [place], 29 G x 12.7 mm BD Ultra Fine See Instructions, # 100 each, Refills 5, Tot. Refills 5, Maintenance, use as directed for Type 1 Diabetes Mellitus, 11/13/19 17:27:00 EST, Compound, 152.5, cm, 11/13/19 13:49:00 EST, Height, 82.4, kg, 08/18/18 19:01:00 EDT, Dry Weight Start Date: 11/13/19 Stop Date: 05/11/20 Status: Ordered Pen [place], 31 G x 5 mm BD Ultra Fine III See Instructions, # 100 each, Refills 11, Tot. Refills 11, Maintenance, Use once daily as directed with Lantus pen., 07/26/20 7:41:00 EDT, T2DM; E11.9 ; please let pt know when ready to poultry picker., Compound, 152, cm, 07/26/20 7:17:00 EDT, Height, 78.4,... Start Date: 07/26/20 Status: Ordered ProAir HFA 90 mcg/inh inhalation aerosol 2 puffs, Inhalation, Every 4 hours, PRN as needed for wheezing, # 18 Gm, 2 Refills, Maintenance, 08/02/20 7:27:00 EDT, Aerosol, [facility], 2 puffs Inhalation Every 4 hours,PRN:as needed for wheezing, 152, cm, 07/27/20 7:01:00 EDT, Height,... Start Date: 08/02/20 Status: Ordered SUMAtriptan 50 mg oral tablet 1 tablet = 50 mg, By Mouth, Daily, PRN for migraine headache, # 9 tablet, 5 Refills, Soft Stop, 07/26/20 7:42:00 EDT, Tablet, [facility], 152, cm, 07/26/20 7:17:00 EDT, Height, 78.4, kg, 07/13/20 9:29:00 EDT, Dry Weight Start Date: 07/26/20 Stop Date: 01/22/21 Status: Ordered triamcinolone 0.1% topical cream 1 application, Topically, 2 times a day, for 14 days, APPLY TOPICALLY TO AFFECTED AREA(S) TWICE DAILY FOR 14 DAYS Avoid use on face, # 60 Gm, 1 Refills, Acute 05/09/21 20:07:00 EDT, 04/11/21 20:07:00EDT, Cream, [facility], Partial fill up... Start Date: 04/11/21 Stop Date: 05/09/21 Status: Ordered Problem List Condition Effective Dates [...]
--- OUTSIDE RECORDS SUMMARY | 2024-05-01 07:47 | XMS_ITS | Continuity of Care Document ---
Author Organization [facility] Jose Luis lt Address [address] [place] [address]- Care Team Providers Care Service Electrician Name Role Phone Peri Magdaleno NP Primary Care Physician [phone] Encounter [facility] [place] Date(s): 07/13/21 - 07/20/21 [facility] Adult [address] [place] [address]- Encounter Diagnosis Chest pain(Discharge Diagnosis) - 07/13/21 Diabetes(Discharge Diagnosis) - 07/13/21 Asthma(Discharge Diagnosis) - 07/13/21 Hyperlipidemia(Discharge Diagnosis) - 07/13/21 LAUREANO (obstructive sleep apnea)(Discharge Diagnosis) - 07/13/21 Benign hypertension(Discharge Diagnosis) - 07/13/21 Attending Physician: Peri Magdaleno NP Allergies, Adverse Reactions, [...] mL, 6 Refills, Maintenance, 08/27/20 13:37:00 EDT, [facility], 152, cm, 08/26/20 9:48:00 EDT, Height, 78.4, kg, 07/13/20 9:29:00 EDT, Dry W... Start Date: 08/27/20 Status: Ordered albuterol CFC free 90 mcg/inh inhalation aerosol 2, puffs, Inhalation, Every 4 hours, PRN, use with spacer chamber, # 1 each, Refills 3, Tot. Refills 3, Maintenance, 07/26/20 7:40:00 EDT, Aerosol, Route to Pharmacy Electronically, [id number], [facility], 152, cm,... Start Date: [...] mL, 3 Refills, Maintenance, 08/02/20 7:28:00 EDT, [facility], 152, cm, 07/27/20 7:01:00 [...] Gm, 0 Refills, Maintenance, 07/26/20 8:13:00 EDT, Aerosol,[facility], 152, cm, 07/26/20 [...] 07/15/20 15:18:00 EDT, Route to Pharmacy Electronically, [facility]acy #[id number], 152, cm, 07/15/20 14:57:00 EDT, Height, 78.4, kg, 07/13/20 9:29:00 EDT, Dry... Start Date: 07/15/20 Status: Ordered Insulin Lispro KwikPen 100 units/mL injectable solution See Instructions, Please follow sliding scale, three times a day with meals. Max daily dose: 42 units E11.9, # 15 mL, 6 Refills, Maintenance, 08/26/20 10:05:00 EDT, [facility], 152, cm, 08/26/20 9:48:00 EDT, Height, 78.4, kg, 07/13/20... Start Date: 08/26/20 Status: Ordered Lantus Solostar Pen 100 units/mL subcutaneous solution = 10 units, Subcutaneous Injection, Daily, Take 10 units today, increase 3 units daily until fasting blood sugar is 140 with evening meal, # 10 mL, 3 Refills, Maintenance, 07/12/21 13:36:00 EDT, Solution, [facility], 152, cm, 04/11/21 14:... Start Date: 07/12/21 Status: Ordered Lantus Solostar Pen 100 units/mL subcutaneous solution See Instructions, 10 units daily with dinner: add 3 unis daily until fasting blood sugar is 140, # 15 mL, 3 Refills, Maintenance, 11/13/19 17:29:00 EST, [facility]/pharmacy #[id number], 152.5, cm, 11/13/19 13:49:00 EST, [...] 0 Refills, Maintenance, 08/08/20 14:33:00 EDT, Film, [facility], 1 patch Topically Daily,PRN:Pain , Mild,Instr:remove after 12 hours, 152, cm, 08/06/20 9:15:00 ED... Start Date: 08/08/20 Status: Ordered lidocaine-prilocaine 2.5%-2.5% topical cream 1 application, Topically, 3 times a day, Apply to sensitive area, # 30 Gm, 0 Refills, Soft Stop, 07/30/20 17:50:00 EDT, Cream, [facility], 1 application Topically 3 times a day,Instr:Applyto sensitive area, 152, cm, 07/27/20 7:01:00 EDT, H... Start Date: 07/30/20 Status: Ordered Lipitor 40 mg oral tablet 1 tablet = 40 mg, By Mouth, Daily, # 90 tablet, 3 Refills, Maintenance, 07/13/21 16:34:00 EDT, Tablet, [facility], 152, cm, 07/13/21 15:34:00 EDT, Height, 78.4, kg, 07/13/20 9:29:00 EDT, Dry Weight Start Date: 07/13/21 Status: Ordered lisinopril 40 mg oral tablet 1 tablet = 40 mg, By Mouth, Daily, # 30 tablet, 0 Refills, Maintenance, 07/13/21 16:34:00 EDT, Tablet, [facility], 152, cm, 07/13/21 15:34:00 EDT, [...] 5 Refills, Maintenance, 07/12/21 13:36:00 EDT, Tablet, [facility], 152, cm, 04/11/21 14:02:00 EDT, Height, 78.4, kg, 07/13/20 9:29:00 EDT, Dry Weight Start Date: 07/12/21 Stop Date: 01/08/22 Status: Ordered omeprazole 40 mg oral enteric coated capsule 1 capsule = 40 mg, By Mouth, Daily, # 90 capsule, 3 Refills, Maintenance, 07/26/20 7:42:00 EDT, EC Capsule, [facility], 152, cm, 07/26/20 7:17:00 EDT, Height, 78.4, kg, 07/13/20 9:29:00 EDT, Dry Weight Start Date: 07/26/20 Stop Date: 07/21/21 Status: Ordered ondansetron 4 mg oral tablet, disintegrating 1 tablet = 4 mg, By Mouth, 2 times a day, # 21 tablet, 0 Refills, Maintenance, 07/26/20 7:42:00 EDT, [facility], 152, cm, 07/26/20 7:17:00 EDT, Height, 78.4, kg, 07/13/20 9:29:00 EDT, Dry Weight Start Date: 07/26/20 Status: Ordered Pen [place], 29 G x 12.7 mm BD Ultra Fine See Instructions, # 100 each, Refills 5, Tot. Refills 5, Maintenance, use as directed for Type 1 Diabetes Mellitus, 11/13/19 17:27:00 EST, Compound, 152.5, cm, 11/13/19 13:49:00 EST, Height, 82.4, kg, 08/18/18 19:01:00 EDT, Dry Weight Start Date: 11/13/19 Stop Date: 05/11/20 Status: Ordered Pen [place], 31 G x 5 mm BD Ultra Fine III See Instructions, # 100 each, Refills 11, Tot. Refills 11, Maintenance, Use once daily as directed with Lantus pen., 07/26/20 7:41:00 EDT, T2DM; E11.9 ; please let pt know when ready to package pick up., Compound, 152, cm, 07/26/20 7:17:00 EDT, Height, 78.4,... Start Date: 07/26/20 Status: Ordered ProAir HFA 90 mcg/inh inhalation aerosol 2 puffs, Inhalation, Every 4 hours, PRN as needed for wheezing, # 18 Gm, 2 Refills, Maintenance, 07/13/21 16:35:00 EDT, Aerosol, [facility], 2 puffs Inhalation Every 4 hours,PRN:as needed for wheezing, 152, cm, 07/13/21 15:34:00 EDT, Height... Start Date: 07/13/21 Status: Ordered SUMAtriptan 50 mg oral tablet 1 tablet = 50 mg, By Mouth, Daily, PRN for migraine headache, # 9 tablet, 5 Refills, Soft Stop, 07/26/20 7:42:00 EDT, Tablet, [facility], 152, cm, 07/26/20 [...] Effective Dates Health Status Clinical Service Informant Chest pain Discharge Diagnosis 07/13/21 Diabetes Discharge Diagnosis 07/13/21 Asthma Discharge Diagnosis 07/13/21 Hyperlipidemia Discharge Diagnosis 07/13/21 LAUREANO (obstructive sleep apnea) Discharge Diagnosis 07/13/21 Benign hypertension Discharge Diagnosis 07/13/21 Vital Signs Most recent to oldest [Reference Range]: 1 Height 152 cm (07/13/21 3:34 PM) Weight 79.2 kg (07/13/21 3:34 PM) Oxygen Saturation [94-100 %] 98 % (07/13/21 3:34 PM) Pulse Rate [55-90 bpm] 100 bpm *H* (07/13/21 3:34 PM) Body Mass Index [18.5-24.99] 34.28 *>HHI* (07/13/21 3:34 PM) Blood Pressure [90-138/55-84 mm Hg] 148/ 90mm Hg *H* (07/13/21 3:34 PM) Temperature [96.8-100.4 DegF] 98.0 DegF (07/13/21 3:34 PM) Blood pressure sites Arm, left (07/13/21 3:34 PM) Social History Social History Type Response Smoking Status Smoker, current stat us unknown entered on: 10/30/19 Sex
--- OUTSIDE RECORDS SUMMARY | 2024-05-01 07:47 | XMS_ITS | Continuity of Care Document ---
Author Organization [facility] Jose Luis Address [address] [place] [address]- Care Team Providers Care Loan Processing Supervisor Name Role Phone Jane Melgar NP Primary Care Physician [place] [facility] [place] 07/29/20 [facility] Adult [address] [place] [address]- [facility] Attending Physician: Javi Hernandez MD Allergies, Adverse Reactions, [...] 7:40:00 EDT, Aerosol, Route to Pharmacy Electronically, [id number], [facility], 152, cm,... Start Date: [...] Gm, 0 Refills, Maintenance, 07/26/20 8:13:00 EDT, Aerosol,[facility], 152, cm, 07/26/20 7:17:00 EDT, [...] 0 Refills, Maintenance, 07/26/20 7:41:00 EDT, Solution, [facility], 152, cm, 07/26/20 7:17... [...] 3 Refills, Maintenance, 07/26/20 7:41:00 EDT, Tablet, [facility], 152, cm, 07/26/20 7:17:00 EDT, Height, 78.4, kg, 07/13/20 9:29:00 EDT, DryWeight Start Date: 07/26/20 Status: Ordered lisinopril 40 mg oral tablet 1 tablet = 40 mg, By Mouth, Daily, # 30 tablet, 7 Refills, Maintenance, 07/26/20 7:41:00 EDT, Tablet, [facility], 152, cm, 07/26/20 7:17:00 [...] 5 Refills, Maintenance, 07/26/20 7:42:00 EDT, Tablet, [facility], 152, cm, 07/26/20 7:17:00 EDT, Height, 78.4, kg, 07/13/20 9:29:00 EDT, Dry Weight Start Date: 07/26/20 Stop Date: 01/22/21 Status: Ordered omeprazole 40 mg oral enteric coated capsule 1 capsule = 40 mg, By Mouth, Daily, # 90 capsule, 3 Refills, Maintenance, 07/26/20 7:42:00 EDT, EC Capsule, [facility], 152, cm, 07/26/20 7:17:00 EDT, Height, 78.4, kg, 07/13/20 9:29:00 EDT, Dry Weight Start Date: 07/26/20 Stop Date: 07/21/21 Status: Ordered ondansetron 4 mg oral tablet, disintegrating 1 tablet = 4 mg, By Mouth, 2 times a day, # 21 tablet, 0 Refills, Maintenance, 07/26/20 7:42:00 EDT, [facility], 152, cm, 07/26/20 7:17:00 EDT, Height, 78.4, kg, 07/13/20 9:29:00 EDT, Dry Weight Start Date: 07/26/20 Status: Ordered Pen [place], 29 G x 12.7 mm BD Ultra Fine See Instructions, # 100 each, Refills 5, Tot. Refills 5, Maintenance, use as directed for Type 1 Diabetes Mellitus, 11/13/19 17:27:00 EST, Compound, 152.5, cm, 11/13/19 13:49:00 EST, Height, 82.4, kg, 08/18/18 19:01:00 EDT, Dry Weight Start Date: 11/13/19 Stop Date: 05/11/20 Status: Ordered Pen [place], 31 G x 5 mm BD Ultra Fine III See Instructions, # 100 each, Refills 11, Tot. 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 Start Date: 07/26/20 Status: Ordered SUMAtriptan 50 mg oral tablet 1 tablet = 50 mg, By Mouth, Daily, PRN for migraine headache, # 9 tablet, 5 Refills, Soft Stop, 07/26/20 7:42:00 EDT, Tablet, [facility], 152, cm, 07/26/20 7:17:00 [...] use(Confirmed) Active Viral URI with cough(Confirmed) Active Vital Signs Most recent to oldest [Reference Range]: 1 Height 152 cm (07/22/20 9:33 AM) Social History Social History Type Response Smoking Status Smoker, current stat us unknown entered on: 10/30/19 Sex
--- OUTSIDE RECORDS SUMMARY | 2024-05-01 07:47 | XMS_ITS | Continuity of Care Document ---
Author Organization [facility] [place] Jose Luis Address [address] [place] [address]- Care Team Providers Care Waiter/Waitress Tourist Class Name Role Phone Jane Melgar NP Primary Care Physician [place] [facility] [place] Date(s): 08/02/20 - 09/01/20 [facility] [place] Adult [address] [place] [address]- [facility] Allergies, Adverse Reactions, Alerts Substance Reaction Severity [...] 7:40:00 EDT, Aerosol, Route to Pharmacy Electronically, [id number], [facility], 152, cm,... Start Date: 07/26/20 Stop Date: 1/19/21 Status: Ordered Ambien 10 mg oral tablet [...] 07/15/20 15:18:00 EDT, [id number], cm, 07/15/20 14:57:00 EDT, [...] mL, 3 Refills, Maintenance, 11/13/19 17:29:00 EST, [facility]acy #[id number], 152.5, cm, 11/13/19 13:49:00 [...] 0 Refills, Maintenance, 08/08/20 14:33:00 EDT, Film, [facility], 1 patch Topically Daily,PRN:Pain [...] 3 Refills, Maintenance, 07/26/20 7:41:00 EDT, Tablet, [facility], 152, cm, 07/26/20 7:17:00 EDT, Height, 78.4, kg, 07/13/20 9:29:00 EDT, DryWeight Start Date: 07/26/20 Status: Ordered lisinopril 40 mg oral tablet 1 tablet = 40 mg, By Mouth, Daily, # 30 tablet, 7 Refills, Maintenance, 07/26/20 7:41:00 EDT, Tablet, [facility], 152, cm, 07/26/20 7:17:00 EDT, [...] Weight Start Date: 07/26/20 Status: Ordered Pen [place], 29 G x 12.7 mm BD Ultra Fine See Instructions, # 100 each, Refills 5, Tot. Refills 5, Maintenance, use as directed for Type 1 Diabetes Mellitus, 11/13/19 17:27:00 EST, Compound, 152.5, cm, 11/13/19 13:49:00 EST, Height, 82.4, kg, 08/18/18 19:01:00 EDT, Dry Weight Start Date: 11/13/19 Stop Date: 05/11/20 Status: Ordered Pen [place], 31 G x 5 mm BD Ultra Fine III See Instructions, # 100 each, Refills 11, Tot. Refills 11, Maintenance, Use once daily as directed with Lantus pen., 07/26/20 7:41:00 EDT, T2DM; E11.9 ; please let pt know when ready to pick up man., Compound, 152, cm, 07/26/20 7:17:00 EDT, Height, [...]
--- OUTSIDE RECORDS SUMMARY | 2024-05-01 07:47 | XMS_ITS | Continuity of Care Document ---
Author Organization [facility] Jose Luis lt Address [address] [place] [address]- Care Team Providers Care Assistant Nurse Manager Name Role Phone Jane Melgar NP Primary Care Physician Encounter [facility] [place] Date(s): 03/30/21 - 04/29/21 [facility] [address] [place] [address]- Allergies, Adverse Reactions, Alerts Substance Reaction Severity [...] mL, 6 Refills, Maintenance, 08/27/20 13:37:00 EDT, [facility], 152, cm, 08/26/20 9:48:00 EDT, Height, 78.4, kg, 07/13/20 9:29:00 EDT, Dry W... Start Date: 08/27/20 Status: Ordered albuterol CFC free 90 mcg/inh inhalation aerosol 2, puffs, Inhalation, Every 4 hours, PRN, use with spacer chamber, # 1 each, Refills 3, Tot. Refills 3, Maintenance, 07/26/20 7:40:00 EDT, Aerosol, Route to Pharmacy Electronically, [id number], [facility], 152, cm,... Start [...] mL, 3 Refills, Maintenance, 08/02/20 7:28:00 EDT, [facility], 152, cm, 07/27/20 [...] Gm, 0 Refills, Maintenance, 07/26/20 8:13:00 EDT, Aerosol,[facility], 152, cm, 07/26/20 [...] 07/15/20 15:18:00 EDT, [id number], cm, 07/15/20 14:57:00 EDT, Height, 78.4, kg, 07/13/20 9:29:00 EDT, Dry... Start Date: 07/15/20 Status: Ordered Insulin Lispro KwikPen 100 units/mL injectable solution See Instructions, Please follow sliding scale, three times a day with meals. Max daily dose: 42 units E11.9, # 15 mL, 6 Refills, Maintenance, 08/26/20 10:05:00 EDT, [facility], 152, cm, 08/26/20 9:48:00 EDT, Height, 78.4, kg, 07/13/20... Start Date: 08/26/20 Status: Ordered Lantus Solostar Pen 100 units/mL subcutaneous solution = 10 units, Subcutaneous Injection, Daily, Take 10 units today, increase 3 units daily until fasting blood sugar is 140 with evening meal, # 10 mL, 0 Refills, Maintenance, 07/26/20 7:41:00 EDT, Solution, [facility], 152, cm, 07/26/20 7:17... [...] 0 Refills, Maintenance, 08/08/20 14:33:00 EDT, Film, [facility], 1 patch Topically Daily,PRN:Pain , Mild,Instr:remove after 12 hours, 152, cm, 08/06/20 9:15:00 ED... Start Date: 08/08/20 Status: Ordered lidocaine-prilocaine 2.5%-2.5% topical cream 1 application, Topically, 3 times a day, Apply to sensitive area, # 30 Gm, 0 Refills, Soft Stop, 07/30/20 17:50:00 EDT, Cream, [facility]278, 1 application Topically 3 times a day,Instr:Applyto sensitive area, 152, cm, 07/27/20 7:01:00 EDT, H... Start Date: 07/30/20 Status: Ordered Lipitor 40 mg oral tablet 1 tablet = 40 mg, By Mouth, Daily, # 90 tablet, 3 Refills, Maintenance, 07/26/20 7:41:00 EDT, Tablet, [facility], 152, cm, 07/26/20 7:17:00 EDT, Height, 78.4, kg, 07/13/20 9:29:00 EDT, DryWeight Start Date: 07/26/20 Status: Ordered lisinopril 40 mg oral tablet 1 tablet = 40 mg, By Mouth, Daily, # 30 tablet, 7 Refills, Maintenance, 07/26/20 7:41:00 EDT, Tablet, [facility], 152, cm, 07/26/20 7:17:00 EDT, [...] 5 Refills, Maintenance, 07/26/20 7:42:00 EDT, Tablet, [facility], 152, cm, 07/26/20 7:17:00 EDT, Height, 78.4, kg, 07/13/20 9:29:00 EDT, Dry Weight Start Date: 07/26/20 Stop Date: 01/22/21 Status: Ordered omeprazole 40 mg oral enteric coated capsule 1 capsule = 40 mg, By Mouth, Daily, # 90 capsule, 3 Refills, Maintenance, 07/26/20 7:42:00 EDT, EC Capsule, [facility], 152, cm, 07/26/20 7:17:00 EDT, Height, 78.4, kg, 07/13/20 9:29:00 EDT, Dry Weight Start Date: 07/26/20 Stop Date: 07/21/21 Status: Ordered ondansetron 4 mg oral tablet, disintegrating 1 tablet = 4 mg, By Mouth, 2 times a day, # 21 tablet, 0 Refills, Maintenance, 07/26/20 7:42:00 EDT, [facility], 152, cm, 07/26/20 7:17:00 EDT, Height, 78.4, kg, 07/13/20 9:29:00 EDT, Dry Weight Start Date: 07/26/20 Status: Ordered Pen [place], 29 G x 12.7 mm BD Ultra Fine See Instructions, # 100 each, Refills 5, Tot. Refills 5, Maintenance, use as directed for Type 1 Diabetes Mellitus, 11/13/19 17:27:00 EST, Compound, 152.5, cm, 11/13/19 13:49:00 EST, Height, 82.4, kg, 08/18/18 19:01:00 EDT, Dry Weight Start Date: 11/13/19 Stop Date: 05/11/20 Status: Ordered Pen [place], 31 G x 5 mm BD Ultra Fine III See Instructions, # 100 each, Refills 11, Tot. 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 Start Date: 07/26/20 Status: Ordered ProAir HFA 90 mcg/inh inhalation aerosol 2 puffs, Inhalation, Every 4 hours, PRN as needed for wheezing, # 18 Gm, 2 Refills, Maintenance, 08/02/20 7:27:00 EDT, Aerosol, [facility], 2 puffs Inhalation Every 4 hours,PRN:as needed for wheezing, 152, cm, 07/27/20 7:01:00 EDT, Height,... Start Date: 08/02/20 Status: Ordered SUMAtriptan 50 mg oral tablet 1 tablet = 50 mg, By Mouth, Daily, PRN for migraine headache, # 9 tablet, 5 Refills, Soft Stop, 07/26/20 7:42:00 EDT, Tablet, [facility], 152, cm, 07/26/20 7:17:00 EDT, Height, 78.4, kg, 07/13/20 9:29:00 EDT, Dry Weight Start Date: 07/26/20 Stop Date: 01/22/21 Status: Ordered triamcinolone 0.1% topical cream 1 application, Topically, 2 times a day, for 14 days, APPLY TOPICALLY TO AFFECTED AREA(S) TWICE DAILY FOR 14 DAYS Avoid use on face, # 60 Gm, 1 Refills, Acute 05/09/21 20:07:00 EDT, 04/11/21 20:07:00EDT, Cream, [facility], Partial fill up... Start Date: [...]
--- OUTSIDE RECORDS SUMMARY | 2024-05-01 07:47 | XMS_ITS | Continuity of Care Document ---
Author Organization [facility] Address [address] [place] [id number]- Care Team Providers Care Manager Story Name Role Phone Jane Melgar NP Primary Care Physician Encounter [facility] [place] Date(s): 10/16/20 - 12/29/20 [facility] [address] [place] [id number] Attending Physician: Joyce Sutton MD Admitting Physician: Joyce Sutton MD Referring Physician: Jane Melgar NP Allergies, Adverse [...] mL, 6 Refills, Maintenance, 08/27/20 13:37:00 EDT, [facility], 152, cm, 08/26/20 9:48:00 EDT, Height, 78.4, kg, 07/13/20 9:29:00 EDT, Dry W... Start Date: 08/27/20 Status: Ordered albuterol CFC free 90 mcg/inh inhalation aerosol 2, puffs, Inhalation, Every 4 hours, PRN, use with spacer chamber, # 1 each, Refills 3, Tot. Refills 3, Maintenance, 07/26/20 7:40:00 EDT, Aerosol, Route to Pharmacy Electronically, [id number], [facility], 152, cm,... Start Date: 07/26/20 [...] mL, 3 Refills, Maintenance, 08/02/20 7:28:00 EDT, [facility], 152, cm, 07/27/20 7:01:00 EDT, [...] Gm, 0 Refills, Maintenance, 07/26/20 8:13:00 EDT, Aerosol,[facility], 152, cm, 07/26/20 7:17:00 EDT, [...] 07/15/20 15:18:00 EDT, [id number], cm, 07/15/20 14:57:00 EDT, Height, 78.4, kg, 07/13/20 9:29:00 EDT, Dry... Start Date: 07/15/20 Status: Ordered Insulin Lispro KwikPen 100 units/mL injectable solution See Instructions, Please follow sliding scale, three times a day with meals. Max daily dose: 42 units E11.9, # 15 mL, 6 Refills, Maintenance, 08/26/20 10:05:00 EDT, [facility], 152, cm, 08/26/20 9:48:00 EDT, Height, 78.4, kg, 07/13/20... Start Date: 08/26/20 Status: Ordered Lantus Solostar Pen 100 units/mL subcutaneous solution = 10 units, Subcutaneous Injection, Daily, Take 10 units today, increase 3 units daily until fasting blood sugar is 140 with evening meal, # 10 mL, 0 Refills, Maintenance, 07/26/20 7:41:00 EDT, Solution, [facility], 152, cm, 07/26/20 7:17... Start [...] 0 Refills, Maintenance, 08/08/20 14:33:00 EDT, Film, [facility], 1 patch Topically Daily,PRN:Pain , Mild,Instr:remove after 12 hours, 152, cm, 08/06/20 9:15:00 ED... Start Date: 08/08/20 Status: Ordered lidocaine-prilocaine 2.5%-2.5% topical cream 1 application, Topically, 3 times a day, Apply to sensitive area, # 30 Gm, 0 Refills, Soft Stop, 07/30/20 17:50:00 EDT, Cream, [facility]278, 1 application Topically 3 times a day,Instr:Applyto sensitive area, 152, cm, 07/27/20 7:01:00 EDT, H... Start Date: 07/30/20 Status: Ordered Lipitor 40 mg oral tablet 1 tablet = 40 mg, By Mouth, Daily, # 90 tablet, 3 Refills, Maintenance, 07/26/20 7:41:00 EDT, Tablet, [facility], 152, cm, 07/26/20 7:17:00 EDT, Height, 78.4, kg, 07/13/20 9:29:00 EDT, DryWeight Start Date: 07/26/20 Status: Ordered lisinopril 40 mg oral tablet 1 tablet = 40 mg, By Mouth, Daily, # 30 tablet, 7 Refills, Maintenance, 07/26/20 7:41:00 EDT, Tablet, [facility], 152, cm, 07/26/20 7:17:00 [...] 5 Refills, Maintenance, 07/26/20 7:42:00 EDT, Tablet, [facility], 152, cm, 07/26/20 7:17:00 EDT, Height, 78.4, kg, 07/13/20 9:29:00 EDT, Dry Weight Start Date: 07/26/20 Stop Date: 01/22/21 Status: Ordered omeprazole 40 mg oral enteric coated capsule 1 capsule = 40 mg, By Mouth, Daily, # 90 capsule, 3 Refills, Maintenance, 07/26/20 7:42:00 EDT, EC Capsule, [facility], 152, cm, 07/26/20 7:17:00 EDT, Height, 78.4, kg, 07/13/20 9:29:00 EDT, Dry Weight Start Date: 07/26/20 Stop Date: 07/21/21 Status: Ordered ondansetron 4 mg oral tablet, disintegrating 1 tablet = 4 mg, By Mouth, 2 times a day, # 21 tablet, 0 Refills, Maintenance, 07/26/20 7:42:00 EDT, [facility], 152, cm, 07/26/20 7:17:00 EDT, Height, 78.4, kg, 07/13/20 9:29:00 EDT, Dry Weight Start Date: 07/26/20 Status: Ordered Pen [place], 29 G x 12.7 mm BD Ultra Fine See Instructions, # 100 each, Refills 5, Tot. Refills 5, Maintenance, use as directed for Type 1 Diabetes Mellitus, 11/13/19 17:27:00 EST, Compound, 152.5, cm, 11/13/19 13:49:00 EST, Height, 82.4, kg, 08/18/18 19:01:00 EDT, Dry Weight Start Date: 11/13/19 Stop Date: 05/11/20 Status: Ordered Pen [place], 31 G x 5 mm BD Ultra Fine III See Instructions, # 100 each, Refills 11, Tot. 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 Start Date: 07/26/20 Status: Ordered ProAir HFA 90 mcg/inh inhalation aerosol 2 puffs, Inhalation, Every 4 hours, PRN as needed for wheezing, # 18 Gm, 2 Refills, Maintenance, 08/02/20 7:27:00 EDT, Aerosol, [facility], 2 puffs Inhalation Every 4 hours,PRN:as needed for wheezing, 152, cm, 07/27/20 7:01:00 EDT, Height,... Start Date: 08/02/20 Status: Ordered SUMAtriptan 50 mg oral tablet 1 tablet = 50 mg, By Mouth, Daily, PRN for migraine headache, # 9 tablet, 5 Refills, Soft Stop, 07/26/20 7:42:00 EDT, Tablet, [facility], 152, cm, 07/26/20 7:17:00 EDT, [...]
--- OUTSIDE RECORDS SUMMARY | 2024-05-01 07:47 | XMS_ITS | Continuity of Care Document ---
Author Organization [facility] Jose Luis Address [address] [place] [address]- Care Team Providers Care Wire Temperer Name Role Phone Jane Melgar NP Primary Care Physician Encounter [facility] [place] Date(s): 07/30/20 - 08/29/20 [facility] Adult [address] [place] [address]- [facility] Allergies, Adverse Reactions, Alerts Substance Reaction Severity [...] mL, 6 Refills, Maintenance, 08/27/20 13:37:00 EDT, [facility], 152, cm, 08/26/20 9:48:00 EDT, Height, 78.4, kg, 07/13/20 9:29:00 EDT, Dry W... Start Date: 08/27/20 Status: Ordered albuterol CFC free 90 mcg/inh inhalation aerosol 2, puffs, Inhalation, Every 4 hours, PRN, use with spacer chamber, # 1 each, Refills 3, Tot. Refills 3, Maintenance, 07/26/20 7:40:00 EDT, Aerosol, Route to Pharmacy Electronically, [id number], [facility], 152, cm,... Start Date: [...] mL, 3 Refills, Maintenance, 08/02/20 7:28:00 EDT, [facility], 152, cm, 07/27/20 7:01:00 [...] Gm, 0 Refills, Maintenance, 07/26/20 8:13:00 EDT, Aerosol,[facility], 152, cm, 07/26/20 7:17:00 [...] 07/15/20 15:18:00 EDT, [id number], [facility], cm, 07/15/20 14:57:00 EDT, Height, 78.4, kg, 07/13/20 9:29:00 EDT, Dry... Start Date: 07/15/20 Status: Ordered Insulin Lispro KwikPen 100 units/mL injectable solution See Instructions, Please follow sliding scale, three times a day with meals. Max daily dose: 42 units E11.9, # 15 mL, 6 Refills, Maintenance, 08/26/20 10:05:00 EDT, [facility], 152, cm, 08/26/20 9:48:00 EDT, Height, 78.4, kg, 07/13/20... Start Date: 08/26/20 Status: Ordered Lantus Solostar Pen 100 units/mL subcutaneous solution = 10 units, Subcutaneous Injection, Daily, Take 10 units today, increase 3 units daily until fasting blood sugar is 140 with evening meal, # 10 mL, 0 Refills, Maintenance, 07/26/20 7:41:00 EDT, Solution, [facility], 152, cm, 07/26/20 7:17... Start Date: 07/26/20 Status: Ordered Lantus Solostar Pen 100 units/mL subcutaneous solution See Instructions, 10 units daily with dinner: add 3 unis daily until fasting blood sugar is 140, # 15 mL, 3 Refills, Maintenance, 11/13/19 17:29:00 EST, [facility]/pharmacy #[id number], 152.5, cm, 11/13/19 13:49:00 EST, [...] 0 Refills, Maintenance, 08/08/20 14:33:00 EDT, Film, [facility], 1 patch Topically Daily,PRN:Pain , Mild,Instr:remove after 12 hours, 152, cm, 08/06/20 9:15:00 ED... Start Date: 08/08/20 Status: Ordered lidocaine-prilocaine 2.5%-2.5% topical cream 1 application, Topically, 3 times a day, Apply to sensitive area, # 30 Gm, 0 Refills, Soft Stop, 07/30/20 17:50:00 EDT, Cream, [facility], 1 application Topically 3 [...] 5 Refills, Maintenance, 07/26/20 7:42:00 EDT, Tablet, [facility], 152, cm, 07/26/20 7:17:00 EDT, Height, 78.4, kg, 07/13/20 9:29:00 EDT, Dry Weight Start Date: 07/26/20 Stop Date: 01/22/21 Status: Ordered omeprazole 40 mg oral enteric coated capsule 1 capsule = 40 mg, By Mouth, Daily, # 90 capsule, 3 Refills, Maintenance, 07/26/20 7:42:00 EDT, EC Capsule, [facility], 152, cm, 07/26/20 7:17:00 EDT, Height, 78.4, kg, 07/13/20 9:29:00 EDT, Dry Weight Start Date: 07/26/20 Stop Date: 07/21/21 Status: Ordered ondansetron 4 mg oral tablet, disintegrating 1 tablet = 4 mg, By Mouth, 2 times a day, # 21 tablet, 0 Refills, Maintenance, 07/26/20 7:42:00 EDT, [facility], 152, cm, 07/26/20 7:17:00 EDT, Height, 78.4, kg, 07/13/20 9:29:00 EDT, Dry Weight Start Date: 07/26/20 Status: Ordered Pen [place], 29 G x 12.7 mm BD Ultra Fine See Instructions, # 100 each, Refills 5, Tot. Refills 5, Maintenance, use as directed for Type 1 Diabetes Mellitus, 11/13/19 17:27:00 EST, Compound, 152.5, cm, 11/13/19 13:49:00 EST, Height, 82.4, kg, 08/18/18 19:01:00 EDT, Dry Weight Start Date: 11/13/19 Stop Date: 05/11/20 Status: Ordered Pen [place], 31 G x 5 mm BD Ultra Fine III See Instructions, # 100 each, Refills 11, Tot. Refills 11, Maintenance, Use once daily as directed with Lantus pen., 07/26/20 7:41:00 EDT, T2DM; E11.9 ; please let pt know when ready to product picker., Compound, 152, cm, 07/26/20 7:17:00 EDT, Height, 78.4,... Start Date: 07/26/20 Status: Ordered ProAir HFA 90 mcg/inh inhalation aerosol 2 puffs, Inhalation, Every 4 hours, PRN as needed for wheezing, # 18 Gm, 2 Refills, Maintenance, 08/02/20 7:27:00 EDT, Aerosol, [facility], 2 puffs Inhalation Every 4 hours,PRN:as needed for wheezing, 152, cm, 07/27/20 7:01:00 EDT, Height,... Start Date: 08/02/20 Status: Ordered SUMAtriptan 50 mg oral tablet 1 tablet = 50 mg, By Mouth, Daily, PRN for migraine headache, # 9 tablet, 5 Refills, Soft Stop, 07/26/20 7:42:00 EDT, Tablet, [facility], 152, cm, 07/26/20 7:17:00 [...]
--- OUTSIDE RECORDS SUMMARY | 2024-05-01 07:47 | XMS_ITS | Continuity of Care Document ---
Author Organization [facility] ter Address [address] [place] [address]- Care Team Providers Care Event Marketing Assistant Name Role Phone Nuria REEL WORKER, Jing Russo Primary Care Physician [place] [facility] [place] - 11/06/[address] [address]- [facility] Encounter Diagnosis Hyperglycemia(Final) - 11/06/19 Discharge Disposition: A-D/C Home Attending Physician: Estefany Wynn MD Admitting Physician: Estefany Wynn MD Referring Physician: Not on Staff, Referring [...] 18:02:08 EDT, Aerosol, Route to Pharmacy Electronically, [id number], [facility]/pharmacy #[id number], Compound Start Date: 01/29/18 Stop Date: 05/29/18 Status: Ordered freestle juve sensor freestle juve [...] Date: 08/14/19 Stop Date: 09/13/19 Status: Ordered Lipitor 40 mg oral tablet 1 tablet = 40 mg, By Mouth, Daily, # 90 tablet, 3 Refills, Maintenance, 08/14/19 10:48:30 EDT, Tablet Start Date: 08/14/19 Status: Ordered lisinopril 40 mg oral tablet 1 tablet = 40 mg, By Mouth, Daily, 0 Refills, Maintenance, 10/30/19 11:10:00 EST Start Date: 10/30/19 Status: Ordered metFORMIN 1000 mg oral tablet [...] Date: 08/14/19 Stop Date: 08/08/20 Status: Ordered SEROquel 50 mg oral tablet See Instructions, 1 tablet By Mouth Daily at bedtime for 5 days then 2 bedtime, # 30 tablet, 0 Refills, Maintenance, 10/30/19 13:20:00 EST, Tablet, [facility]278, 152.5, cm, 10/30/19 10:21:00EST, Height, 82.4, kg, 08/18/18 19:01:00 EDT, Dry W... Start Date: 10/30/19 Status: Ordered Trulicity Pen 1.5 mg/0.5 mL subcutaneous solution 0.5 mL = 1.5 mg, Subcutaneous Injection, Every week, # 2.5 mL, 6 Refills, Maintenance, 08/14/19 11:02:55 EDT, Solution, Dose increase Start Date: 08/14/19 Stop Date: 03/11/20 Status: Ordered Problem List Condition Effective Dates [...] left(Confirmed) Active Viral URI with cough(Confirmed) Active Results Radiology Reports * Exam Date Time Procedure Performing Provider Status 11/06/19 3:39 PM Chest 2 Views Frontal and Lat Camron , Sofía; Auth (Verified) Notes: (Chest 2 Views Frontal and Lat) Reason For Exam: DKA;Other: RESULT: Chest 2 Views Frontal and Lat Chest 2 Views Frontal and Lat CLINICAL INDICATION: DKA. COMPARISON: Chest x-ray, 08/18/2018. FINDINGS: The cardiac silhouette is within normal limits. Hilar and mediastinal contours are normal. The lungs are clear. There is no pleural effusion, pneumothorax, or evidence of CHF. Right upper quadrant surgical clips noted. No acute osseous abnormality is noted. IMPRESSION: No acute cardiopulmonary process WSN: [id number] Dictated By: Virginia Yeboah MD Dictated Date/Time: 11/06/19 3:41 pm Reviewed By: Virginia Yeboah MD Signed By: Virginia Yeboah MD Signed Date/Time: 11/06/19 3:41 pm Transcribed By: IRVING Transcribed Date/Time: 11/06/19 3:40 pm Vital Signs Most recent to oldest [Reference Range]: 1 2 3 Oxygen Saturation [94-100 %] 99 % (11/06/19 6:13 PM) 100 % (11/06/19 4:15 PM) 100 % (11/06/19 2:27 PM) Pulse Rate [55-90 bpm] 98 bpm *H* (11/06/19 6:13 PM) 101 bpm *H* (11/06/19 4:15 PM) 109 bpm *H* (11/06/19 2:27 PM) Blood Pressure [90-138/55-84 mm Hg] 126/74mm Hg (11/06/19 6:13 PM) 119/76mm Hg (11/06/19 4:15 PM) 122/81mm Hg (11/06/19 2:27 PM) Respiratory Rate [16-30 br/min] 18 br/min (11/06/19 6:13 PM) 18 br/min (11/06/19 4:15 PM) 19 br/min (11/06/19 2:27 PM) Temperature [96.8-100.4 DegF] 97.9 DegF (11/06/19 2:27 PM) Mode of Delivery (Oxygen) Room air (11/06/19 6:13 PM) Room air (11/06/19 4:15 PM) Room air (11/06/19 2:27 PM) Blood pressure sites Arm, right (11/06/19 6:13 PM) Arm, right (11/06/19 4:15 PM) Arm, left (11/06/19 2:27 PM) Temperature Route Oral (11/06/19 2:27 PM) Social History Social History Type Response Smoking Status Smoker, current stat us unknown entered on: 10/30/19 Sex
--- OUTSIDE RECORDS SUMMARY | 2024-05-01 07:47 | XMS_ITS | Continuity of Care Document ---
Author Organization [facility] Eduardo Butt Jose Luis lt Address [address] [place] [address]- Care Team Providers Care Integrated Marketing Intern Name Role Phone Jane Melgar NP Primary Care Physician Encounter [facility] [place] Date(s): 04/13/21 - 05/13/21 [facility] Adult [address] [place] [address]- Allergies, Adverse Reactions, Alerts Substance Reaction Severity [...] mL, 6 Refills, Maintenance, 08/27/20 13:37:00 EDT, [facility], 152, cm, 08/26/20 9:48:00 EDT, Height, 78.4, kg, 07/13/20 9:29:00 EDT, Dry W... Start Date: 08/27/20 Status: Ordered albuterol CFC free 90 mcg/inh inhalation aerosol 2, puffs, Inhalation, Every 4 hours, PRN, use with spacer chamber, # 1 each, Refills 3, Tot. Refills 3, Maintenance, 07/26/20 7:40:00 EDT, Aerosol, Route to Pharmacy Electronically, [id number], [facility], 152, cm,... Start Date: [...] mL, 3 Refills, Maintenance, 08/02/20 7:28:00 EDT, [facility], 152, cm, 07/27/20 7:01:00 [...] Gm, 0 Refills, Maintenance, 07/26/20 8:13:00 EDT, Aerosol,[facility], 152, cm, 07/26/20 7:17:00 [...] Stop Date: 01/22/21 Status: Ordered FreeStyle Precision [place] Test Strips FreeStyle Precision [place] Test Strips, [...] 07/15/20 15:18:00 EDT, [id number], cm, 07/15/20 14:57:00 EDT, Height, 78.4, kg, 07/13/20 9:29:00 EDT, Dry... Start Date: 07/15/20 Status: Ordered Insulin Lispro KwikPen 100 units/mL injectable solution See Instructions, Please follow sliding scale, three times a day with meals. Max daily dose: 42 units E11.9, # 15 mL, 6 Refills, Maintenance, 08/26/20 10:05:00 EDT, [facility], 152, cm, 08/26/20 9:48:00 EDT, Height, 78.4, kg, 07/13/20... Start Date: 08/26/20 Status: Ordered Lantus Solostar Pen 100 units/mL subcutaneous solution = 10 units, Subcutaneous Injection, Daily, Take 10 units today, increase 3 units daily until fasting blood sugar is 140 with evening meal, # 10 mL, 0 Refills, Maintenance, 07/26/20 7:41:00 EDT, Solution, [facility], 152, cm, 07/26/20 7:17... Start Date: 07/26/20 Status: Ordered Lantus Solostar Pen 100 units/mL subcutaneous solution See Instructions, 10 units daily with dinner: add 3 unis daily until fasting blood sugar is 140, # 15 mL, 3 Refills, Maintenance, 11/13/19 17:29:00 EST, [facility]/pharmacy #[id number], 152.5, cm, 11/13/19 13:49:00 EST, Height, [...] 0 Refills, Maintenance, 08/08/20 14:33:00 EDT, Film, [facility], 1 patch Topically Daily,PRN:Pain , Mild,Instr:remove after 12 hours, 152, cm, 08/06/20 9:15:00 ED... Start Date: 08/08/20 Status: Ordered lidocaine-prilocaine 2.5%-2.5% topical cream 1 application, Topically, 3 times a day, Apply to sensitive area, # 30 Gm, 0 Refills, Soft Stop, 07/30/20 17:50:00 EDT, Cream, [facility]278, 1 application Topically 3 times a day,Instr:Applyto sensitive area, 152, cm, 07/27/20 7:01:00 EDT, H... Start Date: 07/30/20 Status: Ordered Lipitor 40 mg oral tablet 1 tablet = 40 mg, By Mouth, Daily, # 90 tablet, 3 Refills, Maintenance, 07/26/20 7:41:00 EDT, Tablet, [facility], 152, cm, 07/26/20 7:17:00 EDT, Height, 78.4, kg, 07/13/20 9:29:00 EDT, DryWeight Start Date: 07/26/20 Status: Ordered lisinopril 40 mg oral tablet 1 tablet = 40 mg, By Mouth, Daily, # 30 tablet, 7 Refills, Maintenance, 07/26/20 7:41:00 EDT, Tablet, [facility]278, 152, cm, 07/26/20 7:17:00 EDT, Height, [...] 5 Refills, Maintenance, 07/26/20 7:42:00 EDT, Tablet, [facility], 152, cm, 07/26/20 7:17:00 EDT, Height, 78.4, kg, 07/13/20 9:29:00 EDT, Dry Weight Start Date: 07/26/20 Stop Date: 01/22/21 Status: Ordered omeprazole 40 mg oral enteric coated capsule 1 capsule = 40 mg, By Mouth, Daily, # 90 capsule, 3 Refills, Maintenance, 07/26/20 7:42:00 EDT, EC Capsule, [facility], 152, cm, 07/26/20 7:17:00 EDT, Height, 78.4, kg, 07/13/20 9:29:00 EDT, Dry Weight Start Date: 07/26/20 Stop Date: 07/21/21 Status: Ordered ondansetron 4 mg oral tablet, disintegrating 1 tablet = 4 mg, By Mouth, 2 times a day, # 21 tablet, 0 Refills, Maintenance, 07/26/20 7:42:00 EDT, [facility], 152, cm, 07/26/20 7:17:00 EDT, Height, 78.4, kg, 07/13/20 9:29:00 EDT, Dry Weight Start Date: 07/26/20 Status: Ordered Pen [place], 29 G x 12.7 mm BD Ultra Fine See Instructions, # 100 each, Refills 5, Tot. Refills 5, Maintenance, use as directed for Type 1 Diabetes Mellitus, 11/13/19 17:27:00 EST, Compound, 152.5, cm, 11/13/19 13:49:00 EST, Height, 82.4, kg, 08/18/18 19:01:00 EDT, Dry Weight Start Date: 11/13/19 Stop Date: 05/11/20 Status: Ordered Pen [place], 31 G x 5 mm BD Ultra Fine III See Instructions, # 100 each, Refills 11, Tot. Refills 11, Maintenance, Use once daily as directed with Lantus pen., 07/26/20 7:41:00 EDT, T2DM; E11.9 ; please let pt know when ready to sweet pickle maker., Compound, 152, cm, 07/26/20 7:17:00 EDT, Height, 78.4,... Start Date: 07/26/20 Status: Ordered ProAir HFA 90 mcg/inh inhalation aerosol 2 puffs, Inhalation, Every 4 hours, PRN as needed for wheezing, # 18 Gm, 2 Refills, Maintenance, 08/02/20 7:27:00 EDT, Aerosol, [facility], 2 puffs Inhalation Every 4 hours,PRN:as needed for wheezing, 152, cm, 07/27/20 7:01:00 EDT, Height,... Start Date: 08/02/20 Status: Ordered SUMAtriptan 50 mg oral tablet 1 tablet = 50 mg, By Mouth, Daily, PRN for migraine headache, # 9 tablet, 5 Refills, Soft Stop, 07/26/20 7:42:00 EDT, Tablet, [facility], 152, cm, 07/26/20 7:17:00 [...]
--- OUTSIDE RECORDS SUMMARY | 2024-05-01 07:47 | XMS_ITS | Continuity of Care Document ---
Author Organization [facility] Address [address] [place] [id number]- Care Team Providers Care Certified Professional Midwife Name Role Phone Jane Melgar NP Primary Care Physician Encounter [facility] Date(s): 11/29/20 - 12/29/20 [facility] [address] [place] [address] Attending Physician: Suly Stephenson Admitting Physician: AdmtrSuly [...] mL, 6 Refills, Maintenance, 08/27/20 13:37:00 EDT, [facility], 152, cm, 08/26/20 9:48:00 EDT, Height, 78.4, kg, 07/13/20 9:29:00 EDT, Dry W... Start Date: 08/27/20 Status: Ordered albuterol CFC free 90 mcg/inh inhalation aerosol 2, puffs, Inhalation, Every 4 hours, PRN, use with spacer chamber, # 1 each, Refills 3, Tot. Refills 3, Maintenance, 07/26/20 7:40:00 EDT, Aerosol, Route to Pharmacy Electronically, [id number], [facility], 152, cm,... Start Date: 07/26/20 [...] mL, 3 Refills, Maintenance, 08/02/20 7:28:00 EDT, [facility], 152, cm, 07/27/20 7:01:00 EDT, [...] Gm, 0 Refills, Maintenance, 07/26/20 8:13:00 EDT, Aerosol,[facility], 152, cm, 07/26/20 7:17:00 EDT, [...] 07/15/20 15:18:00 EDT, [id number], cm, 07/15/20 14:57:00 EDT, Height, 78.4, kg, 07/13/20 9:29:00 EDT, Dry... Start Date: 07/15/20 Status: Ordered Insulin Lispro KwikPen 100 units/mL injectable solution See Instructions, Please follow sliding scale, three times a day with meals. Max daily dose: 42 units E11.9, # 15 mL, 6 Refills, Maintenance, 08/26/20 10:05:00 EDT, [facility], 152, cm, 08/26/20 9:48:00 EDT, Height, 78.4, kg, 07/13/20... Start Date: 08/26/20 Status: Ordered Lantus Solostar Pen 100 units/mL subcutaneous solution = 10 units, Subcutaneous Injection, Daily, Take 10 units today, increase 3 units daily until fasting blood sugar is 140 with evening meal, # 10 mL, 0 Refills, Maintenance, 07/26/20 7:41:00 EDT, Solution, [facility], 152, cm, 07/26/20 7:17... Start [...] 0 Refills, Maintenance, 08/08/20 14:33:00 EDT, Film, [facility], 1 patch Topically Daily,PRN:Pain , Mild,Instr:remove after 12 hours, 152, cm, 08/06/20 9:15:00 ED... Start Date: 08/08/20 Status: Ordered lidocaine-prilocaine 2.5%-2.5% topical cream 1 application, Topically, 3 times a day, Apply to sensitive area, # 30 Gm, 0 Refills, Soft Stop, 07/30/20 17:50:00 EDT, Cream, [place] [id number], 1 application Topically 3 times a day,Instr:Applyto sensitive area, 152, cm, 07/27/20 7:01:00 EDT, H... Start Date: 07/30/20 Status: Ordered Lipitor 40 mg oral tablet 1 tablet = 40 mg, By Mouth, Daily, # 90 tablet, 3 Refills, Maintenance, 07/26/20 7:41:00 EDT, Tablet, [facility], 152, cm, 07/26/20 7:17:00 EDT, Height, 78.4, kg, 07/13/20 9:29:00 EDT, DryWeight Start Date: 07/26/20 Status: Ordered lisinopril 40 mg oral tablet 1 tablet = 40 mg, By Mouth, Daily, # 30 tablet, 7 Refills, Maintenance, 07/26/20 7:41:00 EDT, Tablet, [place] [id number], 152, cm, 07/26/20 7:17:00 EDT, Height, 78.4, kg, 07/13/20 9:29:00 EDT, DryWeight Start Date: 07/26/20 Stop Date: 03/23/21 Status: Ordered Melatonin Daily at bedtime, 0 Refills, Maintenance, 11/28/19 11:03:00 EST Start Date: 11/28/19 Status: Ordered metFORMIN 1000 mg oral tablet 1 tablet = 1,000 mg, By Mouth, 2 times a day, with meals, # 60 tablet, 5 Refills, Maintenance, 07/26/20 7:42:00 EDT, Tablet, [facility], 152, cm, 07/26/20 7:17:00 EDT, Height, 78.4, kg, 07/13/20 9:29:00 EDT, Dry Weight Start Date: 07/26/20 Stop Date: 01/22/21 Status: Ordered omeprazole 40 mg oral enteric coated capsule 1 capsule = 40 mg, By Mouth, Daily, # 90 capsule, 3 Refills, Maintenance, 07/26/20 7:42:00 EDT, EC Capsule, [facility], 152, cm, 07/26/20 7:17:00 EDT, Height, 78.4, kg, 07/13/20 9:29:00 EDT, Dry Weight Start Date: 07/26/20 Stop Date: 07/21/21 Status: Ordered ondansetron 4 mg oral tablet, disintegrating 1 tablet = 4 mg, By Mouth, 2 times a day, # 21 tablet, 0 Refills, Maintenance, 07/26/20 7:42:00 EDT, [facility], 152, cm, 07/26/20 7:17:00 EDT, Height, 78.4, kg, 07/13/20 9:29:00 EDT, Dry Weight Start Date: 07/26/20 Status: Ordered Pen [place], 29 G x 12.7 mm BD Ultra Fine See Instructions, # 100 each, Refills 5, Tot. Refills 5, Maintenance, use as directed for Type 1 Diabetes Mellitus, 11/13/19 17:27:00 EST, Compound, 152.5, cm, 11/13/19 13:49:00 EST, Height, 82.4, kg, 08/18/18 19:01:00 EDT, Dry Weight Start Date: 11/13/19 Stop Date: 05/11/20 Status: Ordered Pen [place], 31 G x 5 mm BD Ultra Fine III See Instructions, # 100 each, Refills 11, Tot. Refills 11, Maintenance, Use once daily as directed with Lantus pen., 07/26/20 7:41:00 EDT, T2DM; E11.9 ; please let pt know when ready to crop picker., Compound, 152, cm, 07/26/20 7:17:00 EDT, Height, 78.4,... Start Date: 07/26/20 Status: Ordered ProAir HFA 90 mcg/inh inhalation aerosol 2 puffs, Inhalation, Every 4 hours, PRN as needed for wheezing, # 18 Gm, 2 Refills, Maintenance, 08/02/20 7:27:00 EDT, Aerosol, [facility], 2 puffs Inhalation Every 4 hours,PRN:as needed for wheezing, 152, cm, 07/27/20 7:01:00 EDT, Height,... Start Date: 08/02/20 Status: Ordered SUMAtriptan 50 mg oral tablet 1 tablet = 50 mg, By Mouth, Daily, PRN for migraine headache, # 9 tablet, 5 Refills, Soft Stop, 07/26/20 7:42:00 EDT, Tablet, [facility], 152, cm, 07/26/20 7:17:00 EDT, [...]
--- OUTSIDE RECORDS SUMMARY | 2024-05-01 07:48 | XMS_ITS | Continuity of Care Document ---
Author Organization [facility] Address [address] [place] [address]- Care Team Providers Care Damper Maker Name Role Phone Jane Melgar NP Primary Care Physician Encounter [facility] Date(s): 07/22/20 - 08/21/20 [facility] [address] [place] [address] Attending Physician: AdmSuly mcdowell Admitting Physician: Admtr, Ar8 Referring Physician: Admtr, [...] 7:40:00 EDT, Aerosol, Route to Pharmacy Electronically, [id number], [facility], 152, cm,... Start Date: [...] mL, 3 Refills, Maintenance, 08/02/20 7:28:00 EDT, [facility], 152, cm, 07/27/20 7:01:00 [...] Gm, 0 Refills, Maintenance, 07/26/20 8:13:00 EDT, Aerosol,[facility], 152, cm, 07/26/20 7:17:00 [...] 15:18:00 EDT, Route to Pharmacy Electronically, [facility]acy #[id number], 152, cm, 07/15/20 14:57:00 EDT, Height, 78.4, kg, 07/13/20 9:29:00 EDT, Dry... Start Date: 07/15/20 Status: Ordered Lantus Solostar Pen 100 units/mL subcutaneous solution = 10 units, Subcutaneous Injection, Daily, Take 10 units today, increase 3 units daily until fasting blood sugar is 140 with evening meal, # 10 mL, 0 Refills, Maintenance, 07/26/20 7:41:00 EDT, Solution, [facility], 152, cm, 07/26/20 7:17... Start Date: 07/26/20 Status: Ordered Lantus Solostar Pen 100 units/mL subcutaneous solution See Instructions, 10 units daily with dinner: add 3 unis daily until fasting blood sugar is 140, # 15 mL, 3 Refills, Maintenance, 11/13/19 17:29:00 EST, [facility]/pharmacy #[id number], 152.5, cm, 11/13/19 13:49:00 EST, Height, [...] 0 Refills, Maintenance, 08/08/20 14:33:00 EDT, Film, [facility], 1 patch Topically Daily,PRN:Pain , Mild,Instr:remove after 12 hours, 152, cm, 08/06/20 9:15:00 ED... Start Date: 08/08/20 Status: Ordered lidocaine-prilocaine 2.5%-2.5% topical cream 1 application, Topically, 3 times a day, Apply to sensitive area, # 30 Gm, 0 Refills, Soft Stop, 07/30/20 17:50:00 EDT, Cream, [facility], 1 application Topically 3 times a day,Instr:Applyto sensitive area, 152, cm, 07/27/20 7:01:00 EDT, H... Start Date: 07/30/20 Status: Ordered Lipitor 40 mg oral tablet 1 tablet = 40 mg, By Mouth, Daily, # 90 tablet, 3 Refills, Maintenance, 07/26/20 7:41:00 EDT, Tablet, [facility], 152, cm, 07/26/20 7:17:00 EDT, Height, 78.4, kg, 07/13/20 9:29:00 EDT, DryWeight Start Date: 07/26/20 Status: Ordered lisinopril 40 mg oral tablet 1 tablet = 40 mg, By Mouth, Daily, # 30 tablet, 7 Refills, Maintenance, 07/26/20 7:41:00 EDT, Tablet, [facility], 152, cm, 07/26/20 7:17:00 [...] 5 Refills, Maintenance, 07/26/20 7:42:00 EDT, Tablet, [facility], 152, cm, 07/26/20 7:17:00 EDT, Height, 78.4, kg, 07/13/20 9:29:00 EDT, Dry Weight Start Date: 07/26/20 Stop Date: 01/22/21 Status: Ordered omeprazole 40 mg oral enteric coated capsule 1 capsule = 40 mg, By Mouth, Daily, # 90 capsule, 3 Refills, Maintenance, 07/26/20 7:42:00 EDT, EC Capsule, [facility], 152, cm, 07/26/20 7:17:00 EDT, Height, 78.4, kg, 07/13/20 9:29:00 EDT, Dry Weight Start Date: 07/26/20 Stop Date: 07/21/21 Status: Ordered ondansetron 4 mg oral tablet, disintegrating 1 tablet = 4 mg, By Mouth, 2 times a day, # 21 tablet, 0 Refills, Maintenance, 07/26/20 7:42:00 EDT, [facility], 152, cm, 07/26/20 7:17:00 EDT, Height, 78.4, kg, 07/13/20 9:29:00 EDT, Dry Weight Start Date: 07/26/20 Status: Ordered Pen [place], 29 G x 12.7 mm BD Ultra Fine See Instructions, # 100 each, Refills 5, Tot. Refills 5, Maintenance, use as directed for Type 1 Diabetes Mellitus, 11/13/19 17:27:00 EST, Compound, 152.5, cm, 11/13/19 13:49:00 EST, Height, 82.4, kg, 08/18/18 19:01:00 EDT, Dry Weight Start Date: 11/13/19 Stop Date: 05/11/20 Status: Ordered Pen [place], 31 G x 5 mm BD Ultra Fine III See Instructions, # 100 each, Refills 11, Tot. Refills 11, Maintenance, Use once daily as directed with Lantus pen., 07/26/20 7:41:00 EDT, T2DM; E11.9 ; please let pt know when ready to roller picker., Compound, 152, cm, 07/26/20 7:17:00 EDT, Height, 78.4,... Start Date: 07/26/20 Status: Ordered ProAir HFA 90 mcg/inh inhalation aerosol 2 puffs, Inhalation, Every 4 hours, PRN as needed for wheezing, # 18 Gm, 2 Refills, Maintenance, 08/02/20 7:27:00 EDT, Aerosol, [facility], 2 puffs Inhalation Every 4 hours,PRN:as needed for wheezing, 152, cm, 07/27/20 7:01:00 EDT, Height,... Start Date: 08/02/20 Status: Ordered SUMAtriptan 50 mg oral tablet 1 tablet = 50 mg, By Mouth, Daily, PRN for migraine headache, # 9 tablet, 5 Refills, Soft Stop, 07/26/20 7:42:00 EDT, Tablet, [facility], 152, cm, 07/26/20 7:17:00 [...]
--- OUTSIDE RECORDS SUMMARY | 2024-05-01 07:48 | XMS_ITS | Continuity of Care Document ---
Author Organization [facility] Address [address] [place] [address]- Care Team Providers Care Stump Shooter Name Role Phone Jane Melgar NP Primary Care Physician Encounter [facility] Date(s): 07/26/20 - 08/25/20 [facility] [address] [place] [address]- [facility] Allergies, Adverse Reactions, Alerts Substance Reaction Severity [...] 7:40:00 EDT, Aerosol, Route to Pharmacy Electronically, [id number], [facility], 152, cm,... Start Date: [...] mL, 3 Refills, Maintenance, 08/02/20 7:28:00 EDT, [facility], 152, cm, 07/27/20 7:01:00 [...] Gm, 0 Refills, Maintenance, 07/26/20 8:13:00 EDT, Aerosol,[facility], 152, cm, 07/26/20 7:17:00 [...] 07/15/20 15:18:00 EDT, Route to Pharmacy Electronically, [facility]/pharmacy #[id number], 152, cm, 07/15/20 14:57:00 EDT, Height, 78.4, kg, 07/13/20 9:29:00 EDT, Dry... Start Date: 07/15/20 Status: Ordered Lantus Solostar Pen 100 units/mL subcutaneous solution = 10 units, Subcutaneous Injection, Daily, Take 10 units today, increase 3 units daily until fasting blood sugar is 140 with evening meal, # 10 mL, 0 Refills, Maintenance, 07/26/20 7:41:00 EDT, Solution, [facility], 152, cm, 07/26/20 7:17... Start Date: 07/26/20 Status: Ordered Lantus Solostar Pen 100 units/mL subcutaneous solution See Instructions, 10 units daily with dinner: add 3 unis daily until fasting blood sugar is 140, # 15 mL, 3 Refills, Maintenance, 11/13/19 17:29:00 EST, [facility]/pharmacy #[id number], 152.5, cm, 11/13/19 13:49:00 EST, [...] 0 Refills, Maintenance, 08/08/20 14:33:00 EDT, Film, [facility], 1 patch Topically Daily,PRN:Pain , Mild,Instr:remove after 12 hours, 152, cm, 08/06/20 9:15:00 ED... Start Date: 08/08/20 Status: Ordered lidocaine-prilocaine 2.5%-2.5% topical cream 1 application, Topically, 3 times a day, Apply to sensitive area, # 30 Gm, 0 Refills, Soft Stop, 07/30/20 17:50:00 EDT, Cream, [facility], 1 application Topically 3 times a day,Instr:Applyto sensitive area, 152, cm, 07/27/20 7:01:00 EDT, H... Start Date: 07/30/20 Status: Ordered Lipitor 40 mg oral tablet 1 tablet = 40 mg, By Mouth, Daily, # 90 tablet, 3 Refills, Maintenance, 07/26/20 7:41:00 EDT, Tablet, [facility], 152, cm, 07/26/20 7:17:00 EDT, Height, 78.4, kg, 07/13/20 9:29:00 EDT, DryWeight Start Date: 07/26/20 Status: Ordered lisinopril 40 mg oral tablet 1 tablet = 40 mg, By Mouth, Daily, # 30 tablet, 7 Refills, Maintenance, 07/26/20 7:41:00 EDT, Tablet, [facility], 152, cm, 07/26/20 7:17:00 [...] 5 Refills, Maintenance, 07/26/20 7:42:00 EDT, Tablet, [facility], 152, cm, 07/26/20 7:17:00 EDT, Height, 78.4, kg, 07/13/20 9:29:00 EDT, Dry Weight Start Date: 07/26/20 Stop Date: 01/22/21 Status: Ordered omeprazole 40 mg oral enteric coated capsule 1 capsule = 40 mg, By Mouth, Daily, # 90 capsule, 3 Refills, Maintenance, 07/26/20 7:42:00 EDT, EC Capsule, [facility], 152, cm, 07/26/20 7:17:00 EDT, Height, 78.4, kg, 07/13/20 9:29:00 EDT, Dry Weight Start Date: 07/26/20 Stop Date: 07/21/21 Status: Ordered ondansetron 4 mg oral tablet, disintegrating 1 tablet = 4 mg, By Mouth, 2 times a day, # 21 tablet, 0 Refills, Maintenance, 07/26/20 7:42:00 EDT, [facility], 152, cm, 07/26/20 7:17:00 EDT, Height, 78.4, kg, 07/13/20 9:29:00 EDT, Dry Weight Start Date: 07/26/20 Status: Ordered Pen [place], 29 G x 12.7 mm BD Ultra Fine See Instructions, # 100 each, Refills 5, Tot. Refills 5, Maintenance, use as directed for Type 1 Diabetes Mellitus, 11/13/19 17:27:00 EST, Compound, 152.5, cm, 11/13/19 13:49:00 EST, Height, 82.4, kg, 08/18/18 19:01:00 EDT, Dry Weight Start Date: 11/13/19 Stop Date: 05/11/20 Status: Ordered Pen [place], 31 G x 5 mm BD Ultra Fine III See Instructions, # 100 each, Refills 11, Tot. 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 Start Date: 07/26/20 Status: Ordered ProAir HFA 90 mcg/inh inhalation aerosol 2 puffs, Inhalation, Every 4 hours, PRN as needed for wheezing, # 18 Gm, 2 Refills, Maintenance, 08/02/20 7:27:00 EDT, Aerosol, [facility], 2 puffs Inhalation Every 4 hours,PRN:as needed for wheezing, 152, cm, 07/27/20 7:01:00 EDT, Height,... Start Date: 08/02/20 Status: Ordered SUMAtriptan 50 mg oral tablet 1 tablet = 50 mg, By Mouth, Daily, PRN for migraine headache, # 9 tablet, 5 Refills, Soft Stop, 07/26/20 7:42:00 EDT, Tablet, [facility], 152, cm, 07/26/20 7:17:00 [...]
--- OUTSIDE RECORDS SUMMARY | 2024-05-01 07:48 | XMS_ITS | Continuity of Care Document ---
Author Organization [facility] Address [address] [place] [address]- Care Team Providers Care Marketing Research Analyst Name Role Phone Jane Melgar NP Primary Care Physician Encounter [facility] Date(s): 02/14/21 - 02/21/21 [facility] [address] [place] [address]- Encounter Diagnosis Lower extremity pain, left(Discharge Diagnosis) - 02/14/21 Neck pain(Discharge Diagnosis) - 02/14/21 Benign hypertension(Discharge Diagnosis) - 02/16/21 Diabetes(Discharge Diagnosis) - 02/16/21 Attending Physician: Not on Staff, Attending MD [...] Refills, Maintenance, 08/27/20 13:37:00 EDT, [facility], 152, cm, 08/26/20 9:48:00 EDT, Height, 78.4, kg, 07/13/20 9:29:00 EDT, Dry W... Start Date: 08/27/20 Status: Ordered albuterol CFC free 90 mcg/inh inhalation aerosol 2, puffs, Inhalation, Every 4 hours, PRN, use with spacer chamber, # 1 each, Refills 3, Tot. Refills 3, Maintenance, 07/26/20 7:40:00 EDT, Aerosol, Route to Pharmacy Electronically, [id number], [facility], 152, cm,... Start Date: [...] Refills, Maintenance, 08/02/20 7:28:00 EDT, [facility], 152, cm, 07/27/20 7:01:00 [...] Refills, Maintenance, 07/26/20 8:13:00 EDT, Aerosol,[facility], 152, cm, 07/26/20 7:17:00 [...] 07/15/20 15:18:00 EDT, Route to Pharmacy Electronically, [facility]/pharmacy #[id number], 152, cm, 07/15/20 14:57:00 EDT, Height, 78.4, kg, 07/13/20 9:29:00 EDT, Dry... Start Date: 07/15/20 Status: Ordered Insulin Lispro KwikPen 100 units/mL injectable solution See Instructions, Please follow sliding scale, three times a day with meals. Max daily dose: 42 units E11.9, # 15 mL, 6 Refills, Maintenance, 08/26/20 10:05:00 EDT, [facility], 152, cm, 08/26/20 9:48:00 EDT, Height, 78.4, kg, 07/13/20... Start Date: 08/26/20 Status: Ordered Lantus Solostar Pen 100 units/mL subcutaneous solution = 10 units, Subcutaneous Injection, Daily, Take 10 units today, increase 3 units daily until fasting blood sugar is 140 with evening meal, # 10 mL, 0 Refills, Maintenance, 07/26/20 7:41:00 EDT, Solution, [facility], 152, cm, 07/26/20 7:17... Start Date: 07/26/20 Status: Ordered Lantus Solostar Pen 100 units/mL subcutaneous solution See Instructions, 10 units daily with dinner: add 3 unis daily until fasting blood sugar is 140, # 15 mL, 3 Refills, Maintenance, 11/13/19 17:29:00 EST, [facility]/pharmacy #[id number], 152.5, cm, 11/13/19 13:49:00 [...] Maintenance, 08/08/20 14:33:00 EDT, Film, [facility], 1 patch Topically Daily,PRN:Pain , Mild,Instr:remove after 12 hours, 152, cm, 08/06/20 9:15:00 ED... Start Date: 08/08/20 Status: Ordered lidocaine-prilocaine 2.5%-2.5% topical cream 1 application, Topically, 3 times a day, Apply to sensitive area, # 30 Gm, 0 Refills, Soft Stop, 07/30/20 17:50:00 EDT, Cream, [facility]278, 1 application Topically 3 times a day,Instr:Applyto sensitive area, 152, cm, 07/27/20 7:01:00 EDT, H... Start Date: 07/30/20 Status: Ordered Lipitor 40 mg oral tablet 1 tablet = 40 mg, By Mouth, Daily, # 90 tablet, 3 Refills, Maintenance, 07/26/20 7:41:00 EDT, Tablet, [facility]278, 152, cm, 07/26/20 7:17:00 EDT, Height, 78.4, kg, 07/13/20 9:29:00 EDT, DryWeight Start Date: 07/26/20 Status: Ordered lisinopril 40 mg oral tablet 1 tablet = 40 mg, By Mouth, Daily, # 30 tablet, 7 Refills, Maintenance, 07/26/20 7:41:00 EDT, Tablet, [facility]278, 152, cm, 07/26/20 7:17:00 EDT, [...] Maintenance, 07/26/20 7:42:00 EDT, Tablet, [facility], 152, cm, 07/26/20 7:17:00 EDT, Height, 78.4, kg, 07/13/20 9:29:00 EDT, Dry Weight Start Date: 07/26/20 Stop Date: 01/22/21 Status: Ordered omeprazole 40 mg oral enteric coated capsule 1 capsule = 40 mg, By Mouth, Daily, # 90 capsule, 3 Refills, Maintenance, 07/26/20 7:42:00 EDT, EC Capsule, [facility], 152, cm, 07/26/20 7:17:00 EDT, Height, 78.4, kg, 07/13/20 9:29:00 EDT, Dry Weight Start Date: 07/26/20 Stop Date: 07/21/21 Status: Ordered ondansetron 4 mg oral tablet, disintegrating 1 tablet = 4 mg, By Mouth, 2 times a day, # 21 tablet, 0 Refills, Maintenance, 07/26/20 7:42:00 EDT, [facility], 152, cm, 07/26/20 7:17:00 EDT, Height, 78.4, kg, 07/13/20 9:29:00 EDT, Dry Weight Start Date: 07/26/20 Status: Ordered Pen [place], 29 G x 12.7 mm BD Ultra Fine See Instructions, # 100 each, Refills 5, Tot. Refills 5, Maintenance, use as directed for Type 1 Diabetes Mellitus, 11/13/19 17:27:00 EST, Compound, 152.5, cm, 11/13/19 13:49:00 EST, Height, 82.4, kg, 08/18/18 19:01:00 EDT, Dry Weight Start Date: 11/13/19 Stop Date: 05/11/20 Status: Ordered Pen [place], 31 G x 5 mm BD Ultra Fine III See Instructions, # 100 each, Refills 11, Tot. 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 Start Date: 07/26/20 Status: Ordered ProAir HFA 90 mcg/inh inhalation aerosol 2 puffs, Inhalation, Every 4 hours, PRN as needed for wheezing, # 18 Gm, 2 Refills, Maintenance, 08/02/20 7:27:00 EDT, Aerosol, [facility], 2 puffs Inhalation Every 4 hours,PRN:as needed for wheezing, 152, cm, 07/27/20 7:01:00 EDT, Height,... Start Date: 08/02/20 Status: Ordered SUMAtriptan 50 mg oral tablet 1 tablet = 50 mg, By Mouth, Daily, PRN for migraine headache, # 9 tablet, 5 Refills, Soft Stop, 07/26/20 7:42:00 EDT, Tablet, [facility], 152, cm, 07/26/20 7:17:00 EDT, [...] Effective Dates Health Status Clinical Service Informant Lower extremity pain, left Discharge Diagnosis 02/14/21 Neck pain Discharge Diagnosis 02/14/21 Benign hypertension Discharge Diagnosis 02/16/21 Diabetes Discharge Diagnosis 02/16/21 Vital Signs Most recent to oldest [Reference Range]: 1 2 Height 152 cm (02/14/21 1:22 PM) 152 cm (02/14/21 1:00 PM) Weight 77.6 kg (02/14/21 1:00 PM) Oxygen Saturation [94-100 %] 98 % (02/14/21 1:00 PM) Pulse Rate [55-90 bpm] 76 bpm (02/14/21 1:00 PM) Body Mass Index [18.5-24.99] 33.59 *>HHI* (02/14/21 1:00 PM) Blood Pressure [90-138/55-84 mm Hg] 148/ 88mm Hg *H* (02/14/21 1:22 PM) 148/82mm Hg *H* (02/14/21 1:00 PM) Respiratory Rate [16-30 br/min] 20 br/mi n (02/14/21 1:00 PM) Temperature [96.8-100.4 DegF] 98.5 DegF (02/14/21 1:00 PM) Blood pressure sites Arm, right (02/14/21 1:22 PM) Arm, right (02/14/21 1:00 PM) Temperature Route Oral (02/14/21 1:00 PM) Weight Obtained Via Standing scale (02/14/21 1:00 PM) Social History Social History Type Response Smoking Status Smoker, current stat us unknown entered on: 10/30/19 Sex
--- OUTSIDE RECORDS SUMMARY | 2024-05-01 07:48 | XMS_ITS | Continuity of Care Document ---
Author Organization [facility] Luis lt Address [address] [place] [address]- Care Team Providers Care Curriculum Coordinator Name Role Phone Jane Melgar NP Primary Care Physician [phone] [facility] Date(s): 04/11/21 - 04/18/21 [facility] [place] [facility] [address] [place] [address]- Encounter Diagnosis Obesity (BMI 30-39.9)(Discharge Diagnosis) - 04/11/21 Bug bites(Discharge Diagnosis) - 04/11/21 Herpes labialis(Discharge Diagnosis) - 04/11/21 Attending Physician: Jane Melgar NP Referring Physician: Misael Rader MD Allergies, Adverse Reactions, Alerts Substance Reaction [...] mL, 6 Refills, Maintenance, 08/27/20 13:37:00 EDT, [facility], 152, cm, 08/26/20 9:48:00 EDT, Height, 78.4, kg, 07/13/20 9:29:00 EDT, Dry W... Start Date: 08/27/20 Status: Ordered albuterol CFC free 90 mcg/inh inhalation aerosol 2, puffs, Inhalation, Every 4 hours, PRN, use with spacer chamber, # 1 each, Refills 3, Tot. Refills 3, Maintenance, 07/26/20 7:40:00 EDT, Aerosol, Route to Pharmacy Electronically, [id number], [facility], 152, cm,... Start [...] mL, 3 Refills, Maintenance, 08/02/20 7:28:00 EDT, [facility], 152, cm, 07/27/20 [...] Gm, 0 Refills, Maintenance, 07/26/20 8:13:00 EDT, Aerosol,[facility], 152, cm, 07/26/20 [...] EDT, Route to Pharmacy Electronically, [facility]/pharmacy #[id number], 152, cm, 07/15/20 14:57:00 EDT, Height, 78.4, kg, 07/13/20 9:29:00 EDT, Dry... Start Date: 07/15/20 Status: Ordered Insulin Lispro KwikPen 100 units/mL injectable solution See Instructions, Please follow sliding scale, three times a day with meals. Max daily dose: 42 units E11.9, # 15 mL, 6 Refills, Maintenance, 08/26/20 10:05:00 EDT, [facility], 152, cm, 08/26/20 9:48:00 EDT, Height, 78.4, kg, 07/13/20... Start Date: 08/26/20 Status: Ordered Lantus Solostar Pen 100 units/mL subcutaneous solution = 10 units, Subcutaneous Injection, Daily, Take 10 units today, increase 3 units daily until fasting blood sugar is 140 with evening meal, # 10 mL, 0 Refills, Maintenance, 07/26/20 7:41:00 EDT, Solution, [facility], 152, cm, 07/26/20 7:17... Start Date: 07/26/20 Status: Ordered Lantus Solostar Pen 100 units/mL subcutaneous solution See Instructions, 10 units daily with dinner: add 3 unis daily until fasting blood sugar is 140, # 15 mL, 3 Refills, Maintenance, 11/13/19 17:29:00 EST, [facility]/pharmacy #[id number], 152.5, cm, 11/13/19 13:49:00 EST, [...] Refills, Maintenance, 08/08/20 14:33:00 EDT, Film, [facility], 1 patch Topically Daily,PRN:Pain , Mild,Instr:remove after 12 hours, 152, cm, 08/06/20 9:15:00 ED... Start Date: 08/08/20 Status: Ordered lidocaine-prilocaine 2.5%-2.5% topical cream 1 application, Topically, 3 times a day, Apply to sensitive area, # 30 Gm, 0 Refills, Soft Stop, 07/30/20 17:50:00 EDT, Cream, [facility], 1 application Topically 3 times a day,Instr:Applyto sensitive area, 152, cm, 07/27/20 7:01:00 EDT, H... Start Date: 07/30/20 Status: Ordered Lipitor 40 mg oral tablet 1 tablet = 40 mg, By Mouth, Daily, # 90 tablet, 3 Refills, Maintenance, 07/26/20 7:41:00 EDT, Tablet, [facility], 152, cm, 07/26/20 7:17:00 EDT, Height, 78.4, kg, 07/13/20 9:29:00 EDT, DryWeight Start Date: 07/26/20 Status: Ordered lisinopril 40 mg oral tablet 1 tablet = 40 mg, By Mouth, Daily, # 30 tablet, 7 Refills, Maintenance, 07/26/20 7:41:00 EDT, Tablet, [facility], 152, cm, 07/26/20 7:17:00 EDT, [...] 5 Refills, Maintenance, 07/26/20 7:42:00 EDT, Tablet, [facility], 152, cm, 07/26/20 7:17:00 EDT, Height, 78.4, kg, 07/13/20 9:29:00 EDT, Dry Weight Start Date: 07/26/20 Stop Date: 01/22/21 Status: Ordered omeprazole 40 mg oral enteric coated capsule 1 capsule = 40 mg, By Mouth, Daily, # 90 capsule, 3 Refills, Maintenance, 07/26/20 7:42:00 EDT, EC Capsule, [facility], 152, cm, 07/26/20 7:17:00 EDT, Height, 78.4, kg, 07/13/20 9:29:00 EDT, Dry Weight Start Date: 07/26/20 Stop Date: 07/21/21 Status: Ordered ondansetron 4 mg oral tablet, disintegrating 1 tablet = 4 mg, By Mouth, 2 times a day, # 21 tablet, 0 Refills, Maintenance, 07/26/20 7:42:00 EDT, [facility], 152, cm, 07/26/20 7:17:00 EDT, Height, 78.4, kg, 07/13/20 9:29:00 EDT, Dry Weight Start Date: 07/26/20 Status: Ordered Pen [place], 29 G x 12.7 mm BD Ultra Fine See Instructions, # 100 each, Refills 5, Tot. Refills 5, Maintenance, use as directed for Type 1 Diabetes Mellitus, 11/13/19 17:27:00 EST, Compound, 152.5, cm, 11/13/19 13:49:00 EST, Height, 82.4, kg, 08/18/18 19:01:00 EDT, Dry Weight Start Date: 11/13/19 Stop Date: 05/11/20 Status: Ordered Pen [place], 31 G x 5 mm BD Ultra Fine III See Instructions, # 100 each, Refills 11, Tot. 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 Start Date: 07/26/20 Status: Ordered ProAir HFA 90 mcg/inh inhalation aerosol 2 puffs, Inhalation, Every 4 hours, PRN as needed for wheezing, # 18 Gm, 2 Refills, Maintenance, 08/02/20 7:27:00 EDT, [facility]ol, [facility], 2 puffs Inhalation Every 4 hours,PRN:as needed for wheezing, 152, cm, 07/27/20 7:01:00 EDT, Height,... Start Date: 08/02/20 Status: Ordered SUMAtriptan 50 mg oral tablet 1 tablet = 50 mg, By Mouth, Daily, PRN for migraine headache, # 9 tablet, 5 Refills, Soft Stop, 07/26/20 7:42:00 EDT, Tablet, [facility], 152, cm, 07/26/20 7:17:00 EDT, Height, 78.4, kg, 07/13/20 9:29:00 EDT, Dry Weight Start Date: 07/26/20 Stop Date: 01/22/21 Status: Ordered triamcinolone 0.1% topical cream 1 application, Topically, 2 times a day, for 14 days, APPLY TOPICALLY TO AFFECTED AREA(S) TWICE DAILY FOR 14 DAYS Avoid use on face, # 60 Gm, 1 Refills, Acute 05/09/21 20:07:00 EDT, 04/11/21 20:07:00EDT, Cream, [facility], Partial fill up... Start Date: [...] Dates Health Status Cl inical Service Informant Obesity (BMI 30-39.9) Discharge Diagnosis 04/11/21 Bug bites Discharge Diagnosis 04/11/21 Herpes labialis Discharge Diagnosis 04/11/21 Vital Signs Most recent to oldest [Reference Range]: 1 Height 152 cm (04/11/21 2:02 PM) Weight 78.8 kg (04/11/21 2:02 PM) Oxygen Saturation [94-100 %] 98 % (04/11/21 2:02 PM) Pulse Rate [55-90 bpm] 91 bpm *H* (04/11/21 2:02 PM) Body Mass Index [18.5-24.99] 34.11 *>HHI* (04/11/21 2:02 PM) Blood Pressure [90-138/55-84 mm Hg] 130/ 84mm Hg (04/11/21 2:02 PM) Temperature [96.8-100.4 DegF] 97.1 DegF (04/11/21 2:02 PM) Blood pressure sites Arm, right (04/11/21 2:02 PM) Temperature Route Oral (04/11/21 2:02 PM) Weight Obtained Via Standing scale (04/11/21 2:02 PM) Social History Social History Type Response Smoking Status Smoker, current stat us unknown entered on: 10/30/19 Sex
--- OUTSIDE RECORDS SUMMARY | 2024-05-01 07:48 | XMS_ITS | Continuity of Care Document ---
Author Organization [facility] lt Address [address] [place] [address]- Care Team Providers Care Burner Operator Name Role Phone Peri Magdaleno NP Primary Care Physician Encounter [facility] [place] Date(s): 09/21/21 - 10/21/21 [facility] Adult [address] [place] [address]- Attending Physician: Admtr, Suly Admitting Physician: Admtr, Suly Referring Physician: Admtr, Ar8 Allergies, Adverse Reactions, [...] mL, 6 Refills, Maintenance, 09/06/21 8:32:00 EDT, [facility], 152, cm, 09/06/21 8:17:00EDT, [...] 09/02/21 9:17:00 EDT, Route to Pharmacy Electronically, [facility], Partial fill upon patient request if the prescription is for a schedule I... Start Date: 09/02/21 Status: Ordered Flovent HFA 110 mcg/inh inhalation aerosol 2 puffs, Inhalation, 2 times a day, # 12 Gm, 0 Refills, Maintenance, 07/26/20 8:13:00 EDT, Aerosol,[facility], 152, cm, 07/26/20 7:17:00 [...] 3 Refills, Maintenance, 07/12/21 13:36:00 EDT, Solution, [facility], 152, cm, 04/11/21 14:... Start Date: 07/12/21 Status: Ordered Lipitor 40 mg oral tablet 1 tablet = 40 mg, By Mouth, Daily, # 90 tablet, 3 Refills, Maintenance, 07/13/21 16:34:00 EDT, Tablet, [facility], 152, cm, 07/13/21 15:34:00 EDT, Height, 78.4, kg, 07/13/20 9:29:00 EDT, Dry Weight Start Date: 07/13/21 Status: Ordered lisinopril 40 mg oral tablet 1 tablet = 40 mg, By Mouth, Daily, # 30 tablet, 0 Refills, Maintenance, 07/13/21 16:34:00 EDT, Tablet, [facility], 152, cm, 07/13/21 15:34:00 [...] 5 Refills, Maintenance, 07/12/21 13:36:00 EDT, Tablet, [facility], 152, cm, 04/11/21 14:02:00 EDT, Height, 78.4, kg, 07/13/20 9:29:00 EDT, Dry Weight Start Date: 07/12/21 Stop Date: 01/08/22 Status: Ordered omeprazole 40 mg oral enteric coated capsule 1 capsule = 40 mg, By Mouth, Daily, # 90 capsule, 3 Refills, Maintenance, 07/26/20 7:42:00 EDT, EC Capsule, [facility], 152, cm, 07/26/20 7:17:00 EDT, Height, 78.4, kg, 07/13/20 9:29:00 EDT, Dry Weight Start Date: 07/26/20 Stop Date: 07/21/21 Status: Ordered ondansetron 4 mg oral tablet, disintegrating 1 tablet = 4 mg, By Mouth, 2 times a day, # 21 tablet, 0 Refills, Maintenance, 07/26/20 7:42:00 EDT, [facility], 152, cm, 07/26/20 7:17:00 EDT, Height, 78.4, kg, 07/13/20 9:29:00 EDT, Dry Weight Start Date: 07/26/20 Status: Ordered Pen [place], 31 G x 5 mm BD Ultra Fine III See Instructions, # 100 each, Refills 11, Tot. 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 Start Date: 07/26/20 Status: Ordered ProAir HFA 90 mcg/inh inhalation aerosol 2 puffs, Inhalation, Every 4 hours, PRN as needed for wheezing, # 18 Gm, 2 Refills, Maintenance, 07/13/21 16:35:00 EDT, Aerosol, [facility], 2 puffs Inhalation Every 4 hours,PRN:as needed for wheezing, 152, cm, 07/13/21 15:34:00 EDT, Height... Start Date: 07/13/21 Status: Ordered SUMAtriptan 50 mg oral tablet 1 tablet = 50 mg, By Mouth, Daily, PRN for migraine headache, # 9 tablet, 5 Refills, Soft Stop, 07/26/20 7:42:00 EDT, Tablet, [facility], 152, cm, 07/26/20 7:17:00 [...]
--- OUTSIDE RECORDS SUMMARY | 2024-05-01 07:48 | XMS_ITS | Continuity of Care Document ---
Author Organization [facility] lt Address [address] [place] [address]- Care Team Providers Care Photofinishing Laboratory Worker Name Role Phone Jane Melgar NP Primary Care Physician [phone] Encounter [facility] [place] Date(s): 02/14/21 - 03/16/21 [facility] [address] [place] [address]- Allergies, Adverse Reactions, Alerts Substance Reaction Severity [...] mL, 6 Refills, Maintenance, 08/27/20 13:37:00 EDT, [facility], 152, cm, 08/26/20 9:48:00 EDT, Height, 78.4, kg, 07/13/20 9:29:00 EDT, Dry W... Start Date: 08/27/20 Status: Ordered albuterol CFC free 90 mcg/inh inhalation aerosol 2, puffs, Inhalation, Every 4 hours, PRN, use with spacer chamber, # 1 each, Refills 3, Tot. Refills 3, Maintenance, 07/26/20 7:40:00 EDT, Aerosol, Route to Pharmacy Electronically, [id number], [facility], 152, cm,... Start [...] mL, 3 Refills, Maintenance, 08/02/20 7:28:00 EDT, [facility], 152, cm, 07/27/20 [...] Gm, 0 Refills, Maintenance, 07/26/20 8:13:00 EDT, Aerosol,[facility], 152, cm, 07/26/20 [...] EDT, [id number], cm, 07/15/20 14:57:00 EDT, Height, 78.4, kg, 07/13/20 9:29:00 EDT, Dry... Start Date: 07/15/20 Status: Ordered Insulin Lispro KwikPen 100 units/mL injectable solution See Instructions, Please follow sliding scale, three times a day with meals. Max daily dose: 42 units E11.9, # 15 mL, 6 Refills, Maintenance, 08/26/20 10:05:00 EDT, [facility], 152, cm, 08/26/20 9:48:00 EDT, Height, 78.4, kg, 07/13/20... Start Date: 08/26/20 Status: Ordered Lantus Solostar Pen 100 units/mL subcutaneous solution = 10 units, Subcutaneous Injection, Daily, Take 10 units today, increase 3 units daily until fasting blood sugar is 140 with evening meal, # 10 mL, 0 Refills, Maintenance, 07/26/20 7:41:00 EDT, Solution, [facility], 152, cm, 07/26/20 7:17... Start Date: 07/26/20 Status: Ordered Lantus Solostar Pen 100 units/mL subcutaneous solution See Instructions, 10 units daily with dinner: add 3 unis daily until fasting blood sugar is 140, # 15 mL, 3 Refills, Maintenance, 11/13/19 17:29:00 EST, [facility]/pharmacy #[id number], 152.5, cm, 11/13/19 13:49:00 EST, [...] 0 Refills, Maintenance, 08/08/20 14:33:00 EDT, Film, [facility], 1 patch Topically Daily,PRN:Pain , Mild,Instr:remove after 12 hours, 152, cm, 08/06/20 9:15:00 ED... Start Date: 08/08/20 Status: Ordered lidocaine-prilocaine 2.5%-2.5% topical cream 1 application, Topically, 3 times a day, Apply to sensitive area, # 30 Gm, 0 Refills, Soft Stop, 07/30/20 17:50:00 EDT, Cream, [facility], 1 application Topically 3 times a day,Instr:Applyto sensitive area, 152, cm, 07/27/20 7:01:00 EDT, H... Start Date: 07/30/20 Status: Ordered Lipitor 40 mg oral tablet 1 tablet = 40 mg, By Mouth, Daily, # 90 tablet, 3 Refills, Maintenance, 07/26/20 7:41:00 EDT, Tablet, [facility], 152, cm, 07/26/20 7:17:00 EDT, Height, 78.4, kg, 07/13/20 9:29:00 EDT, DryWeight Start Date: 07/26/20 Status: Ordered lisinopril 40 mg oral tablet 1 tablet = 40 mg, By Mouth, Daily, # 30 tablet, 7 Refills, Maintenance, 07/26/20 7:41:00 EDT, Tablet, [facility], 152, cm, 07/26/20 7:17:00 EDT, Height, [...] 5 Refills, Maintenance, 07/26/20 7:42:00 EDT, Tablet, [facility], 152, cm, 07/26/20 7:17:00 EDT, Height, 78.4, kg, 07/13/20 9:29:00 EDT, Dry Weight Start Date: 07/26/20 Stop Date: 01/22/21 Status: Ordered omeprazole 40 mg oral enteric coated capsule 1 capsule = 40 mg, By Mouth, Daily, # 90 capsule, 3 Refills, Maintenance, 07/26/20 7:42:00 EDT, EC Capsule, [facility], 152, cm, 07/26/20 7:17:00 EDT, Height, 78.4, kg, 07/13/20 9:29:00 EDT, Dry Weight Start Date: 07/26/20 Stop Date: 07/21/21 Status: Ordered ondansetron 4 mg oral tablet, disintegrating 1 tablet = 4 mg, By Mouth, 2 times a day, # 21 tablet, 0 Refills, Maintenance, 07/26/20 7:42:00 EDT, [facility], 152, cm, 07/26/20 7:17:00 EDT, Height, 78.4, kg, 07/13/20 9:29:00 EDT, Dry Weight Start Date: 07/26/20 Status: Ordered Pen [place], 29 G x 12.7 mm BD Ultra Fine See Instructions, # 100 each, Refills 5, Tot. Refills 5, Maintenance, use as directed for Type 1 Diabetes Mellitus, 11/13/19 17:27:00 EST, Compound, 152.5, cm, 11/13/19 13:49:00 EST, Height, 82.4, kg, 08/18/18 19:01:00 EDT, Dry Weight Start Date: 11/13/19 Stop Date: 05/11/20 Status: Ordered Pen [place], 31 G x 5 mm BD Ultra Fine III See Instructions, # 100 each, Refills 11, Tot. Refills 11, Maintenance, Use once daily as directed with Lantus pen., 07/26/20 7:41:00 EDT, T2DM; E11.9 ; please let pt know when ready to worm picker., Compound, 152, cm, 07/26/20 7:17:00 EDT, Height, 78.4,... Start Date: 07/26/20 Status: Ordered ProAir HFA 90 mcg/inh inhalation aerosol 2 puffs, Inhalation, Every 4 hours, PRN as needed for wheezing, # 18 Gm, 2 Refills, Maintenance, 08/02/20 7:27:00 EDT, Aerosol, [facility], 2 puffs Inhalation Every 4 hours,PRN:as needed for wheezing, 152, cm, 07/27/20 7:01:00 EDT, Height,... Start Date: 08/02/20 Status: Ordered SUMAtriptan 50 mg oral tablet 1 tablet = 50 mg, By Mouth, Daily, PRN for migraine headache, # 9 tablet, 5 Refills, Soft Stop, 07/26/20 7:42:00 EDT, Tablet, [facility], 152, cm, 07/26/20 [...]
--- OUTSIDE RECORDS SUMMARY | 2024-05-01 07:48 | XMS_ITS | Continuity of Care Document ---
Author Organization [facility] Jose Luis lt Address [address] [place] [address]- Care Team Providers Care Refractory Furnace Designer Name Role Phone Jane Melgar NP Primary Care Physician [place] [facility] [id number] Date(s): 07/26/20 - 08/02/20 [facility] [address] [place] [address]- [facility] Encounter Diagnosis Well adult exam(Discharge Diagnosis) - 07/26/20 Benign hypertension(Discharge Diagnosis) - 07/26/20 Anxiety(Discharge Diagnosis) - 07/26/20 Asthma(Discharge Diagnosis) - 07/26/20 Diabetes(Discharge Diagnosis) - 07/26/20 Breast lump(Discharge Diagnosis) - 07/26/20 LAUREANO (obstructive sleep apnea)(Discharge Diagnosis) - 07/26/20 Tobacco use(Discharge Diagnosis) - 07/26/20 Rib pain on left side(Discharge Diagnosis) - 07/26/20 Attending Physician: Not on Staff, Attending MD [...] 7:40:00 EDT, Aerosol, Route to Pharmacy Electronically, [id number], [facility], 152, cm,... Start Date: [...] mL, 3 Refills, Maintenance, 08/02/20 7:28:00 EDT, [facility], 152, cm, 07/27/20 7:01:00 [...] Gm, 0 Refills, Maintenance, 07/26/20 8:13:00 EDT, Aerosol,[facility], 152, cm, 07/26/20 7:17:00 [...] 07/15/20 15:18:00 EDT, Route to Pharmacy Electronically, [facility]/pharmacy #[id number], 152, cm, 07/15/20 14:57:00 EDT, Height, 78.4, kg, 07/13/20 9:29:00 EDT, Dry... Start Date: 07/15/20 Status: Ordered Lantus Solostar Pen 100 units/mL subcutaneous solution = 10 units, Subcutaneous Injection, Daily, Take 10 units today, increase 3 units daily until fasting blood sugar is 140 with evening meal, # 10 mL, 0 Refills, Maintenance, 07/26/20 7:41:00 EDT, Solution, [facility], 152, cm, 07/26/20 7:17... Start Date: 07/26/20 Status: Ordered Lantus Solostar Pen 100 units/mL subcutaneous solution See Instructions, 10 units daily with dinner: add 3 unis daily until fasting blood sugar is 140, # 15 mL, 3 Refills, Maintenance, 11/13/19 17:29:00 EST, [facility]/pharmacy #[id number], 152.5, cm, 11/13/19 13:49:00 EST, Height, 82.4, kg, 08/18/18 19:01:00 EDT, Dry... Start Date: 11/13/19 Status: Ordered Latuda 20 mg oral tablet 1 tablet = 20 mg, By Mouth, Daily, # 30 tablet, 0 Refills, Maintenance, 11/28/19 11:04:00 EST, Tablet Start Date: 11/28/19 Status: Ordered lidocaine 4% topical film 1 patch, Topically, 2 times a day, # 6 each, 1 Refills, Acute 08/07/20 17:50:00 EDT, 07/30/20 17:50:00 EDT, Film, [facility], 1 patch Topically 2 times a day, 152, cm, 07/27/20 7:01:00 EDT, Height, 78.4, kg, 07/13/20 9:29:00 EDT, Dry Weight Start Date: 07/30/20 Stop Date: 08/07/20 Status: Ordered lidocaine 5% topical cream 1 application, Topically, 3 times a day, # 15 Gm, 0 Refills, Acute 08/14/20 11:15:00 EDT, 07/30/20 11:14:00 EDT, Cream, [facility], 1 application Topically 3 times a day, 152, cm, :01:00 EDT, Height, 78.4, kg, 07/13/20 9:29:00 EDT... Start Date: 07/30/20 Stop Date: 08/14/20 Status: Ordered lidocaine-menthol 4.5%-5% topical film 1 patch, Topically, 2 times a day, PRN as needed for pain, leave on up to 12 hours, # 15 each, 0 Refills, Acute 08/13/20 11:15:00 EDT, 07/30/20 11:15:00 EDT, Film, [facility], 1 patch Topically 2 times a day,PRN:as needed for pain,Instr:nicholas... Start Date: 07/30/20 Stop Date: 08/13/20 Status: Ordered lidocaine-prilocaine 2.5%-2.5% topical cream 1 application, Topically, 3 times a day, Apply to sensitive area, # 30 Gm, 0 Refills, Soft Stop, 07/30/20 17:50:00 EDT, Cream, [facility], 1 application Topically 3 times a day,Instr:Applyto sensitive area, 152, cm, 07/27/20 7:01:00 EDT, H... Start Date: 07/30/20 Status: Ordered Lipitor 40 mg oral tablet 1 tablet = 40 mg, By Mouth, Daily, # 90 tablet, 3 Refills, Maintenance, 07/26/20 7:41:00 EDT, Tablet, [facility], 152, cm, 07/26/20 7:17:00 EDT, Height, 78.4, kg, 07/13/20 9:29:00 EDT, DryWeight Start Date: 07/26/20 Status: Ordered lisinopril 40 mg oral tablet 1 tablet = 40 mg, By Mouth, Daily, # 30 tablet, 7 Refills, Maintenance, 07/26/20 7:41:00 EDT, Tablet, [facility], 152, cm, 07/26/20 7:17:00 [...] 5 Refills, Maintenance, 07/26/20 7:42:00 EDT, Tablet, [facility], 152, cm, 07/26/20 7:17:00 EDT, Height, 78.4, kg, 07/13/20 9:29:00 EDT, Dry Weight Start Date: 07/26/20 Stop Date: 01/22/21 Status: Ordered omeprazole 40 mg oral enteric coated capsule 1 capsule = 40 mg, By Mouth, Daily, # 90 capsule, 3 Refills, Maintenance, 07/26/20 7:42:00 EDT, EC Capsule, [facility], 152, cm, 07/26/20 7:17:00 EDT, Height, 78.4, kg, 07/13/20 9:29:00 EDT, Dry Weight Start Date: 07/26/20 Stop Date: 07/21/21 Status: Ordered ondansetron 4 mg oral tablet, disintegrating 1 tablet = 4 mg, By Mouth, 2 times a day, # 21 tablet, 0 Refills, Maintenance, 07/26/20 7:42:00 EDT, [facility], 152, cm, 07/26/20 7:17:00 EDT, Height, 78.4, kg, 07/13/20 9:29:00 EDT, Dry Weight Start Date: 07/26/20 Status: Ordered Pen [place], 29 G x 12.7 mm BD Ultra Fine See Instructions, # 100 each, Refills 5, Tot. Refills 5, Maintenance, use as directed for Type 1 Diabetes Mellitus, 11/13/19 17:27:00 EST, Compound, 152.5, cm, 11/13/19 13:49:00 EST, Height, 82.4, kg, 08/18/18 19:01:00 EDT, Dry Weight Start Date: 11/13/19 Stop Date: 05/11/20 Status: Ordered Pen [place], 31 G x 5 mm BD Ultra [...] 2 Refills, Maintenance, 08/02/20 7:27:00 EDT, Aerosol, [facility], 2 puffs Inhalation Every 4 hours,PRN:as needed for wheezing, 152, cm, 07/27/20 7:01:00 EDT, Height,... Start Date: 08/02/20 Status: Ordered SUMAtriptan 50 mg oral tablet 1 tablet = 50 mg, By Mouth, Daily, PRN for migraine headache, # 9 tablet, 5 Refills, Soft Stop, 07/26/20 7:42:00 EDT, Tablet, [facility], 152, cm, 07/26/20 7:17:00 [...] Effective Dates Health Status Clinical Service Informant Well adult exam Discharge Diagnosis 07/26/20 Benign hypertension Discharge Diagnosis 07/26/20 Anxiety Discharge Diagnosis 07/26/20 Asthma Discharge Diagnosis 07/26/20 Diabetes Discharge Diagnosis 07/26/20 Breast lump Discharge Diagnosis 07/26/20 LAUREANO (obstructive sleep apnea) Discharge Diagnosis 07/26/20 Tobacco use Discharge Diagnosis 07/26/20 Rib pain on left side Discharge Diagnosis 07/26/20 Procedures Procedure Date Related Diagnosis Body Site Status Cholecystectomy 2008 Completed Vital Signs Most recent to oldest [Reference Range]: 1 2 Height 152 cm (07/27/20 7:01 AM) 152 cm (07/26/20 7:17 AM) Weight 78.1 kg (07/27/20 7:01 AM) 78.1 kg (07/26/20 7:17 AM) Oxygen Saturation [94-100 %] 98 % (07/26/20 7:17 AM) Pulse Rate [55-90 bpm] 90 bpm (07/26/20 7:17 AM) Body Mass Index [18.5-24.99] 33.8 *>HHI* (07/26/20 7:17 AM) Blood Pressure [90-138/55-84 mm Hg] 128/ 60mm Hg (07/26/20 7:17 AM) Respiratory Rate [16-30 br/min] 18 br/mi n (07/26/20 7:17 AM) Temperature [96.8-100.4 DegF] 98.0 DegF (07/26/20 7:17 AM) Mode of Delivery (Oxygen) Room air (07/26/20 7:17 AM) Temperature Route Oral (07/26/20 7:17 AM) Weight Obtained Via Standing scale (07/26/20 7:17 AM) Social History Social History Type Response Smoking Status Smoker, current stat us unknown entered on: 10/30/19 Sex
--- OUTSIDE RECORDS SUMMARY | 2024-05-01 07:48 | XMS_ITS | Continuity of Care Document ---
Author Organization [facility] Jose Luis lt Address [address] [place] [address]- Care Team Providers Care Electronic Communications Technician Name Role Phone Jane Melgar NP Primary Care Physician Encounter [facility] [place] Date(s): 03/08/21 - 04/07/21 [facility] [place], [facility] [address] [place] [address]- Attending Physician: Not on Staff, Attending MD [...] mL, 6 Refills, Maintenance, 08/27/20 13:37:00 EDT, [facility], 152, cm, 08/26/20 9:48:00 EDT, Height, 78.4, kg, 07/13/20 9:29:00 EDT, Dry W... Start Date: 08/27/20 Status: Ordered albuterol CFC free 90 mcg/inh inhalation aerosol 2, puffs, Inhalation, Every 4 hours, PRN, use with spacer chamber, # 1 each, Refills 3, Tot. Refills 3, Maintenance, 07/26/20 7:40:00 EDT, Aerosol, Route to Pharmacy Electronically, [id number], [facility], 152, cm,... Start Date: [...] mL, 3 Refills, Maintenance, 08/02/20 7:28:00 EDT, [facility], 152, cm, 07/27/20 7:01:00 [...] Gm, 0 Refills, Maintenance, 07/26/20 8:13:00 EDT, Aerosol,[facility], 152, cm, 07/26/20 7:17:00 [...] 07/15/20 15:18:00 EDT, [id number], 152, cm, 07/15/20 14:57:00 EDT, Height, 78.4, kg, 07/13/20 9:29:00 EDT, Dry... Start Date: 07/15/20 Status: Ordered Insulin Lispro KwikPen 100 units/mL injectable solution See Instructions, Please follow sliding scale, three times a day with meals. Max daily dose: 42 units E11.9, # 15 mL, 6 Refills, Maintenance, 08/26/20 10:05:00 EDT, [facility], 152, cm, 08/26/20 9:48:00 EDT, Height, 78.4, kg, 07/13/20... Start Date: 08/26/20 Status: Ordered Lantus Solostar Pen 100 units/mL subcutaneous solution = 10 units, Subcutaneous Injection, Daily, Take 10 units today, increase 3 units daily until fasting blood sugar is 140 with evening meal, # 10 mL, 0 Refills, Maintenance, 07/26/20 7:41:00 EDT, Solution, [facility], 152, cm, 07/26/20 7:17... Start Date: 07/26/20 Status: Ordered Lantus Solostar Pen 100 units/mL subcutaneous solution See Instructions, 10 units daily with dinner: add 3 unis daily until fasting blood sugar is 140, # 15 mL, 3 Refills, Maintenance, 11/13/19 17:29:00 EST, [facility]/pharmacy #[id number], 152.5, cm, 11/13/19 13:49:00 EST, [...] 0 Refills, Maintenance, 08/08/20 14:33:00 EDT, Film, [facility], 1 patch Topically Daily,PRN:Pain , Mild,Instr:remove after 12 hours, 152, cm, 08/06/20 9:15:00 ED... Start Date: 08/08/20 Status: Ordered lidocaine-prilocaine 2.5%-2.5% topical cream 1 application, Topically, 3 times a day, Apply to sensitive area, # 30 Gm, 0 Refills, Soft Stop, 07/30/20 17:50:00 EDT, Cream, [facility], 1 application Topically 3 times a day,Instr:Applyto sensitive area, 152, cm, 07/27/20 7:01:00 EDT, H... Start Date: 07/30/20 Status: Ordered Lipitor 40 mg oral tablet 1 tablet = 40 mg, By Mouth, Daily, # 90 tablet, 3 Refills, Maintenance, 07/26/20 7:41:00 EDT, Tablet, [facility], 152, cm, 07/26/20 7:17:00 EDT, Height, 78.4, kg, 07/13/20 9:29:00 EDT, DryWeight Start Date: 07/26/20 Status: Ordered lisinopril 40 mg oral tablet 1 tablet = 40 mg, By Mouth, Daily, # 30 tablet, 7 Refills, Maintenance, 07/26/20 7:41:00 EDT, Tablet, [facility], 152, cm, 07/26/20 7:17:00 EDT, [...] 5 Refills, Maintenance, 07/26/20 7:42:00 EDT, Tablet, [facility], 152, cm, 07/26/20 7:17:00 EDT, Height, 78.4, kg, 07/13/20 9:29:00 EDT, Dry Weight Start Date: 07/26/20 Stop Date: 01/22/21 Status: Ordered omeprazole 40 mg oral enteric coated capsule 1 capsule = 40 mg, By Mouth, Daily, # 90 capsule, 3 Refills, Maintenance, 07/26/20 7:42:00 EDT, EC Capsule, [facility], 152, cm, 07/26/20 7:17:00 EDT, Height, 78.4, kg, 07/13/20 9:29:00 EDT, Dry Weight Start Date: 07/26/20 Stop Date: 07/21/21 Status: Ordered ondansetron 4 mg oral tablet, disintegrating 1 tablet = 4 mg, By Mouth, 2 times a day, # 21 tablet, 0 Refills, Maintenance, 07/26/20 7:42:00 EDT, [facility], 152, cm, 07/26/20 7:17:00 EDT, Height, 78.4, kg, 07/13/20 9:29:00 EDT, Dry Weight Start Date: 07/26/20 Status: Ordered Pen [place], 29 G x 12.7 mm BD Ultra Fine See Instructions, # 100 each, Refills 5, Tot. Refills 5, Maintenance, use as directed for Type 1 Diabetes Mellitus, 11/13/19 17:27:00 EST, Compound, 152.5, cm, 11/13/19 13:49:00 EST, Height, 82.4, kg, 08/18/18 19:01:00 EDT, Dry Weight Start Date: 11/13/19 Stop Date: 05/11/20 Status: Ordered Pen [place], 31 G x 5 mm BD Ultra Fine III See Instructions, # 100 each, Refills 11, Tot. Refills 11, Maintenance, Use once daily as directed with Lantus pen., 07/26/20 7:41:00 EDT, T2DM; E11.9 ; please let pt know when ready to black pickler., Compound, 152, cm, 07/26/20 7:17:00 EDT, Height, 78.4,... Start Date: 07/26/20 Status: Ordered ProAir HFA 90 mcg/inh inhalation aerosol 2 puffs, Inhalation, Every 4 hours, PRN as needed for wheezing, # 18 Gm, 2 Refills, Maintenance, 08/02/20 7:27:00 EDT, Aerosol, [facility], 2 puffs Inhalation Every 4 hours,PRN:as needed for wheezing, 152, cm, 07/27/20 7:01:00 EDT, Height,... Start Date: 08/02/20 Status: Ordered SUMAtriptan 50 mg oral tablet 1 tablet = 50 mg, By Mouth, Daily, PRN for migraine headache, # 9 tablet, 5 Refills, Soft Stop, 07/26/20 7:42:00 EDT, Tablet, [facility], 152, cm, 07/26/20 7:17:00 [...]
--- OUTSIDE RECORDS SUMMARY | 2024-05-01 07:48 | XMS_ITS | Continuity of Care Document ---
Author Organization [facility] ter Address [address] [place] [address]- Care Team Providers Care Java Designer Name Role Phone Jane Melgar NP Primary Care Physician [phone] [place] [facility] [place] - 03/23/[address] [address] Attending Physician: Jane Melgar NP Admitting Physician: [...] mL, 6 Refills, Maintenance, 08/27/20 13:37:00 EDT, [facility], 152, cm, 08/26/20 9:48:00 EDT, Height, 78.4, kg, 07/13/20 9:29:00 EDT, Dry W... Start Date: 08/27/20 Status: Ordered albuterol CFC free 90 mcg/inh inhalation aerosol 2, puffs, Inhalation, Every 4 hours, PRN, use with spacer chamber, # 1 each, Refills 3, Tot. Refills 3, Maintenance, 07/26/20 7:40:00 EDT, Aerosol, Route to Pharmacy Electronically, [id number], [facility], 152, cm,... Start [...] mL, 3 Refills, Maintenance, 08/02/20 7:28:00 EDT, [facility], 152, cm, 07/27/20 7:01:00 [...] Gm, 0 Refills, Maintenance, 07/26/20 8:13:00 EDT, Aerosol,[facility], 152, cm, 07/26/20 [...] 15:18:00 EDT, [id number], cm, 07/15/20 14:57:00 EDT, Height, 78.4, kg, 07/13/20 9:29:00 EDT, Dry... Start Date: 07/15/20 Status: Ordered Insulin Lispro KwikPen 100 units/mL injectable solution See Instructions, Please follow sliding scale, three times a day with meals. Max daily dose: 42 units E11.9, # 15 mL, 6 Refills, Maintenance, 08/26/20 10:05:00 EDT, [facility], 152, cm, 08/26/20 9:48:00 EDT, Height, 78.4, kg, 07/13/20... Start Date: 08/26/20 Status: Ordered Lantus Solostar Pen 100 units/mL subcutaneous solution = 10 units, Subcutaneous Injection, Daily, Take 10 units today, increase 3 units daily until fasting blood sugar is 140 with evening meal, # 10 mL, 0 Refills, Maintenance, 07/26/20 7:41:00 EDT, Solution, [facility], 152, cm, 07/26/20 7:17... Start Date: 07/26/20 Status: Ordered Lantus Solostar Pen 100 units/mL subcutaneous solution See Instructions, 10 units daily with dinner: add 3 unis daily until fasting blood sugar is 140, # 15 mL, 3 Refills, Maintenance, 11/13/19 17:29:00 EST, [facility]/pharmacy #[id number], 152.5, cm, 11/13/19 13:49:00 EST, [...] Refills, Maintenance, 08/08/20 14:33:00 EDT, Film, [facility], 1 patch Topically Daily,PRN:Pain , Mild,Instr:remove after 12 hours, 152, cm, 08/06/20 9:15:00 ED... Start Date: 08/08/20 Status: Ordered lidocaine-prilocaine 2.5%-2.5% topical cream 1 application, Topically, 3 times a day, Apply to sensitive area, # 30 Gm, 0 Refills, Soft Stop, 07/30/20 17:50:00 EDT, Cream, [facility], 1 application Topically 3 times a day,Instr:Applyto sensitive area, 152, cm, 07/27/20 7:01:00 EDT, H... Start Date: 07/30/20 Status: Ordered Lipitor 40 mg oral tablet 1 tablet = 40 mg, By Mouth, Daily, # 90 tablet, 3 Refills, Maintenance, 07/26/20 7:41:00 EDT, Tablet, [facility], 152, cm, 07/26/20 7:17:00 EDT, Height, 78.4, kg, 07/13/20 9:29:00 EDT, DryWeight Start Date: 07/26/20 Status: Ordered lisinopril 40 mg oral tablet 1 tablet = 40 mg, By Mouth, Daily, # 30 tablet, 7 Refills, Maintenance, 07/26/20 7:41:00 EDT, Tablet, [facility], 152, cm, 07/26/20 7:17:00 EDT, Height, [...] 5 Refills, Maintenance, 07/26/20 7:42:00 EDT, Tablet, [facility], 152, cm, 07/26/20 7:17:00 EDT, Height, 78.4, kg, 07/13/20 9:29:00 EDT, Dry Weight Start Date: 07/26/20 Stop Date: 01/22/21 Status: Ordered omeprazole 40 mg oral enteric coated capsule 1 capsule = 40 mg, By Mouth, Daily, # 90 capsule, 3 Refills, Maintenance, 07/26/20 7:42:00 EDT, EC Capsule, [facility], 152, cm, 07/26/20 7:17:00 EDT, Height, 78.4, kg, 07/13/20 9:29:00 EDT, Dry Weight Start Date: 07/26/20 Stop Date: 07/21/21 Status: Ordered ondansetron 4 mg oral tablet, disintegrating 1 tablet = 4 mg, By Mouth, 2 times a day, # 21 tablet, 0 Refills, Maintenance, 07/26/20 7:42:00 EDT, [facility], 152, cm, 07/26/20 7:17:00 EDT, Height, 78.4, kg, 07/13/20 9:29:00 EDT, Dry Weight Start Date: 07/26/20 Status: Ordered Pen [place], 29 G x 12.7 mm BD Ultra Fine See Instructions, # 100 each, Refills 5, Tot. Refills 5, Maintenance, use as directed for Type 1 Diabetes Mellitus, 11/13/19 17:27:00 EST, Compound, 152.5, cm, 11/13/19 13:49:00 EST, Height, 82.4, kg, 08/18/18 19:01:00 EDT, Dry Weight Start Date: 11/13/19 Stop Date: 05/11/20 Status: Ordered Pen [place], 31 G x 5 mm BD Ultra Fine III See Instructions, # 100 each, Refills 11, Tot. Refills 11, Maintenance, Use once daily as directed with Lantus pen., 07/26/20 7:41:00 EDT, T2DM; E11.9 ; please let pt know when ready to warehouse picker., Compound, 152, cm, 07/26/20 7:17:00 EDT, Height, 78.4,... Start Date: 07/26/20 Status: Ordered ProAir HFA 90 mcg/inh inhalation aerosol 2 puffs, Inhalation, Every 4 hours, PRN as needed for wheezing, # 18 Gm, 2 Refills, Maintenance, 08/02/20 7:27:00 EDT, Aerosol, [facility], 2 puffs Inhalation Every 4 hours,PRN:as needed for wheezing, 152, cm, 07/27/20 7:01:00 EDT, Height,... Start Date: 08/02/20 Status: Ordered SUMAtriptan 50 mg oral tablet 1 tablet = 50 mg, By Mouth, Daily, PRN for migraine headache, # 9 tablet, 5 Refills, Soft Stop, 07/26/20 7:42:00 EDT, Tablet, [facility], 152, cm, 07/26/20 [...]
--- OUTSIDE RECORDS SUMMARY | 2024-05-01 07:48 | XMS_ITS | Continuity of Care Document ---
Author Organization [facility] Address [address] [place] [address]- Care Team Providers Care Swedish Masseuse Name Role Phone Jane Melgar NP Primary Care Physician Encounter [facility] Date(s): 07/15/20 - 08/14/20 [facility] [address] [place] [address]- [facility] Allergies, Adverse Reactions, Alerts Substance [...] 7:40:00 EDT, Aerosol, Route to Pharmacy Electronically, [id number], [facility], 152, cm,... Start [...] mL, 3 Refills, Maintenance, 08/02/20 7:28:00 EDT, [facility], 152, cm, 07/27/20 [...] Gm, 0 Refills, Maintenance, 07/26/20 8:13:00 EDT, Aerosol,[facility], 152, cm, 07/26/20 [...] 07/15/20 15:18:00 EDT, Route to Pharmacy Electronically, [facility]/pharmacy #[id number], 152, cm, 07/15/20 14:57:00 EDT, Height, 78.4, kg, 07/13/20 9:29:00 EDT, Dry... Start Date: 07/15/20 Status: Ordered Lantus Solostar Pen 100 units/mL subcutaneous solution = 10 units, Subcutaneous Injection, Daily, Take 10 units today, increase 3 units daily until fasting blood sugar is 140 with evening meal, # 10 mL, 0 Refills, Maintenance, 07/26/20 7:41:00 EDT, Solution, [facility], 152, cm, 07/26/20 7:17... Start Date: 07/26/20 Status: Ordered Lantus Solostar Pen 100 units/mL subcutaneous solution See Instructions, 10 units daily with dinner: add 3 unis daily until fasting blood sugar is 140, # 15 mL, 3 Refills, Maintenance, 11/13/19 17:29:00 EST, [facility]/pharmacy #[id number], 152.5, cm, 11/13/19 13:49:00 [...] 0 Refills, Maintenance, 08/08/20 14:33:00 EDT, Film, [facility], 1 patch Topically Daily,PRN:Pain , Mild,Instr:remove after 12 hours, 152, cm, 08/06/20 9:15:00 ED... Start Date: 08/08/20 Status: Ordered lidocaine-prilocaine 2.5%-2.5% topical cream 1 application, Topically, 3 times a day, Apply to sensitive area, # 30 Gm, 0 Refills, Soft Stop, 07/30/20 17:50:00 EDT, Cream, [facility], 1 application Topically 3 times a day,Instr:Applyto sensitive area, 152, cm, 07/27/20 7:01:00 EDT, H... Start Date: 07/30/20 Status: Ordered Lipitor 40 mg oral tablet 1 tablet = 40 mg, By Mouth, Daily, # 90 tablet, 3 Refills, Maintenance, 07/26/20 7:41:00 EDT, Tablet, [facility], 152, cm, 07/26/20 7:17:00 EDT, Height, 78.4, kg, 07/13/20 9:29:00 EDT, DryWeight Start Date: 07/26/20 Status: Ordered lisinopril 40 mg oral tablet 1 tablet = 40 mg, By Mouth, Daily, # 30 tablet, 7 Refills, Maintenance, 07/26/20 7:41:00 EDT, Tablet, [facility], 152, cm, 07/26/20 [...] 5 Refills, Maintenance, 07/26/20 7:42:00 EDT, Tablet, [facility], 152, cm, 07/26/20 7:17:00 EDT, Height, 78.4, kg, 07/13/20 9:29:00 EDT, Dry Weight Start Date: 07/26/20 Stop Date: 01/22/21 Status: Ordered omeprazole 40 mg oral enteric coated capsule 1 capsule = 40 mg, By Mouth, Daily, # 90 capsule, 3 Refills, Maintenance, 07/26/20 7:42:00 EDT, EC Capsule, [facility], 152, cm, 07/26/20 7:17:00 EDT, Height, 78.4, kg, 07/13/20 9:29:00 EDT, Dry Weight Start Date: 07/26/20 Stop Date: 07/21/21 Status: Ordered ondansetron 4 mg oral tablet, disintegrating 1 tablet = 4 mg, By Mouth, 2 times a day, # 21 tablet, 0 Refills, Maintenance, 07/26/20 7:42:00 EDT, [facility], 152, cm, 07/26/20 7:17:00 EDT, Height, 78.4, kg, 07/13/20 9:29:00 EDT, Dry Weight Start Date: 07/26/20 Status: Ordered Pen [place], 29 G x 12.7 mm BD Ultra Fine See Instructions, # 100 each, Refills 5, Tot. Refills 5, Maintenance, use as directed for Type 1 Diabetes Mellitus, 11/13/19 17:27:00 EST, Compound, 152.5, cm, 11/13/19 13:49:00 EST, Height, 82.4, kg, 08/18/18 19:01:00 EDT, Dry Weight Start Date: 11/13/19 Stop Date: 05/11/20 Status: Ordered Pen [place], 31 G x 5 mm BD Ultra Fine III See Instructions, # 100 each, Refills 11, Tot. 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 Start Date: 07/26/20 Status: Ordered ProAir HFA 90 mcg/inh inhalation aerosol 2 puffs, Inhalation, Every 4 hours, PRN as needed for wheezing, # 18 Gm, 2 Refills, Maintenance, 08/02/20 7:27:00 EDT, Aerosol, [facility], 2 puffs Inhalation Every 4 hours,PRN:as needed for wheezing, 152, cm, 07/27/20 7:01:00 EDT, Height,... Start Date: 08/02/20 Status: Ordered SUMAtriptan 50 mg oral tablet 1 tablet = 50 mg, By Mouth, Daily, PRN for migraine headache, # 9 tablet, 5 Refills, Soft Stop, 07/26/20 7:42:00 EDT, Tablet, [facility], 152, cm, 07/26/20 [...]
--- OUTSIDE RECORDS SUMMARY | 2024-05-01 07:48 | XMS_ITS | Continuity of Care Document ---
Author Organization [facility] Address [address] [facility], [address] Floor, [address] [place] [id number]- Care Team Providers Care Turbine Blade Assembler Name Role Phone Ramón FLOREZ, Jane Primary Care Physician Encounter [facility] [place] Date(s): 03/25/20 - 07/15/20 [facility] [address], [address], [address] [place] [id number]- [facility] Attending Physician: Joseph FOUNTAIN, Andry Lovett Referring Physician: Nuria FLOREZ, Jing Russo Allergies, Adverse Reactions, Alerts Substance Reaction Severity [...] 18:02:08 EDT, Aerosol, Route to Pharmacy Electronically, [id number], [facility]/pharmacy #[id number], Compound Start Date: 01/29/18 Stop [...] 07/15/20 15:18:00 EDT, Route to Pharmacy Electronically, [facility]/pharmacy #[id number], 152, cm, 07/15/20 14:57:00 [...] 7 Refills, Maintenance, 11/13/19 14:35:00 EST, Tablet, [facility]/pharmacy #[id number], 152.5, cm, 11/13/19 [...] 08/14/19 Stop Date: 08/08/20 Status: Ordered Pen [place], 29 G x 12.7 mm BD Ultra Fine See Instructions, # 100 each, Refills 5, Tot. Refills 5, Maintenance, use as directed for Type 1 Diabetes Mellitus, 11/13/19 17:27:00 EST, Compound, 152.5, cm, 11/13/19 13:49:00 EST, Height, 82.4, kg, 08/18/18 19:01:00 EDT, Dry Weight Start Date: 11/13/19 Stop Date: 05/11/20 Status: Ordered Pen [place], 31 G x 5 mm BD Ultra [...] Refills, Soft Stop, 03/25/20 10:06:00 EDT, Tablet, [facility]/pharmacy #[id number], 152.5, cm, 12/29/19 14:49:00 EST, Height, [...]
--- OUTSIDE RECORDS SUMMARY | 2024-05-01 07:48 | XMS_ITS | Continuity of Care Document ---
Author Organization [facility] Eduardo Butt Jose Luis lt Address [address] [place] [address]- Care Team Providers Care Gluing Pressman Name Role Phone Jane Melgar NP Primary Care Physician Encounter [facility] [place] Date(s): 03/09/21 - 04/08/21 [facility] Adult [address] [place] [address]- Allergies, Adverse Reactions, Alerts Substance Reaction Severity [...] mL, 6 Refills, Maintenance, 08/27/20 13:37:00 EDT, [facility], 152, cm, 08/26/20 9:48:00 EDT, Height, 78.4, kg, 07/13/20 9:29:00 EDT, Dry W... Start Date: 08/27/20 Status: Ordered albuterol CFC free 90 mcg/inh inhalation aerosol 2, puffs, Inhalation, Every 4 hours, PRN, use with spacer chamber, # 1 each, Refills 3, Tot. Refills 3, Maintenance, 07/26/20 7:40:00 EDT, Aerosol, Route to Pharmacy Electronically, [id number], [facility], 152, cm,... Start Date: [...] mL, 3 Refills, Maintenance, 08/02/20 7:28:00 EDT, [facility], 152, cm, 07/27/20 7:01:00 [...] Gm, 0 Refills, Maintenance, 07/26/20 8:13:00 EDT, Aerosol,[facility], 152, cm, 07/26/20 7:17:00 [...] 07/15/20 15:18:00 EDT, [facility], [id number], 152, cm, 07/15/20 14:57:00 EDT, Height, 78.4, kg, 07/13/20 9:29:00 EDT, Dry... Start Date: 07/15/20 Status: Ordered Insulin Lispro KwikPen 100 units/mL injectable solution See Instructions, Please follow sliding scale, three times a day with meals. Max daily dose: 42 units E11.9, # 15 mL, 6 Refills, Maintenance, 08/26/20 10:05:00 EDT, [facility], 152, cm, 08/26/20 9:48:00 EDT, Height, 78.4, kg, 07/13/20... Start Date: 08/26/20 Status: Ordered Lantus Solostar Pen 100 units/mL subcutaneous solution = 10 units, Subcutaneous Injection, Daily, Take 10 units today, increase 3 units daily until fasting blood sugar is 140 with evening meal, # 10 mL, 0 Refills, Maintenance, 07/26/20 7:41:00 EDT, Solution, [facility], 152, cm, 07/26/20 7:17... Start Date: 07/26/20 Status: Ordered Lantus Solostar Pen 100 units/mL subcutaneous solution See Instructions, 10 units daily with dinner: add 3 unis daily until fasting blood sugar is 140, # 15 mL, 3 Refills, Maintenance, 11/13/19 17:29:00 EST, [facility]/pharmacy #[id number], 152.5, cm, 11/13/19 13:49:00 [...] 0 Refills, Maintenance, 08/08/20 14:33:00 EDT, Film, [facility], 1 patch Topically Daily,PRN:Pain , Mild,Instr:remove after 12 hours, 152, cm, 08/06/20 9:15:00 ED... Start Date: 08/08/20 Status: Ordered lidocaine-prilocaine 2.5%-2.5% topical cream 1 application, Topically, 3 times a day, Apply to sensitive area, # 30 Gm, 0 Refills, Soft Stop, 07/30/20 17:50:00 EDT, Cream, [facility], 1 application Topically 3 times a day,Instr:Applyto sensitive area, 152, cm, 07/27/20 7:01:00 EDT, H... Start Date: 07/30/20 Status: Ordered Lipitor 40 mg oral tablet 1 tablet = 40 mg, By Mouth, Daily, # 90 tablet, 3 Refills, Maintenance, 07/26/20 7:41:00 EDT, Tablet, [facility], 152, cm, 07/26/20 7:17:00 EDT, Height, 78.4, kg, 07/13/20 9:29:00 EDT, DryWeight Start Date: 07/26/20 Status: Ordered lisinopril 40 mg oral tablet 1 tablet = 40 mg, By Mouth, Daily, # 30 tablet, 7 Refills, Maintenance, 07/26/20 7:41:00 EDT, Tablet, [facility], 152, cm, 07/26/20 7:17:00 [...] 5 Refills, Maintenance, 07/26/20 7:42:00 EDT, Tablet, [facility], 152, cm, 07/26/20 7:17:00 EDT, Height, 78.4, kg, 07/13/20 9:29:00 EDT, Dry Weight Start Date: 07/26/20 Stop Date: 01/22/21 Status: Ordered omeprazole 40 mg oral enteric coated capsule 1 capsule = 40 mg, By Mouth, Daily, # 90 capsule, 3 Refills, Maintenance, 07/26/20 7:42:00 EDT, EC Capsule, [facility], 152, cm, 07/26/20 7:17:00 EDT, Height, 78.4, kg, 07/13/20 9:29:00 EDT, Dry Weight Start Date: 07/26/20 Stop Date: 07/21/21 Status: Ordered ondansetron 4 mg oral tablet, disintegrating 1 tablet = 4 mg, By Mouth, 2 times a day, # 21 tablet, 0 Refills, Maintenance, 07/26/20 7:42:00 EDT, [facility], 152, cm, 07/26/20 7:17:00 EDT, Height, 78.4, kg, 07/13/20 9:29:00 EDT, Dry Weight Start Date: 07/26/20 Status: Ordered Pen [place], 29 G x 12.7 mm BD Ultra Fine See Instructions, # 100 each, Refills 5, Tot. Refills 5, Maintenance, use as directed for Type 1 Diabetes Mellitus, 11/13/19 17:27:00 EST, Compound, 152.5, cm, 11/13/19 13:49:00 EST, Height, 82.4, kg, 08/18/18 19:01:00 EDT, Dry Weight Start Date: 11/13/19 Stop Date: 05/11/20 Status: Ordered Pen [place], 31 G x 5 mm BD Ultra Fine III See Instructions, # 100 each, Refills 11, Tot. 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 Start Date: 07/26/20 Status: Ordered ProAir HFA 90 mcg/inh inhalation aerosol 2 puffs, Inhalation, Every 4 hours, PRN as needed for wheezing, # 18 Gm, 2 Refills, Maintenance, 08/02/20 7:27:00 EDT, Aerosol, [facility], 2 puffs Inhalation Every 4 hours,PRN:as needed for wheezing, 152, cm, 07/27/20 7:01:00 EDT, Height,... Start Date: 08/02/20 Status: Ordered SUMAtriptan 50 mg oral tablet 1 tablet = 50 mg, By Mouth, Daily, PRN for migraine headache, # 9 tablet, 5 Refills, Soft Stop, 07/26/20 7:42:00 EDT, Tablet, [facility], 152, cm, 07/26/20 7:17:00 [...]
--- OUTSIDE RECORDS SUMMARY | 2024-05-01 07:48 | XMS_ITS | Continuity of Care Document ---
Author Organization [facility] Eduardo Butt Jose Luis lt Address [address] [place] [address]- Care Team Providers Care Business Analyst Sales Operations Name Role Phone Jane Melgar NP Primary Care Physician Encounter [facility] Date(s): 03/30/21 - 04/29/21 [facility] [address] [place] [address]- Allergies, Adverse Reactions, Alerts Substance Reaction Severity [...] 7:40:00 EDT, Aerosol, Route to Pharmacy Electronically, [id number], [facility], 152, [...] [id number], 152, cm, 07/15/20 14:57:00 EDT, Height, [...] Refills, Maintenance, 11/13/19 17:29:00 EST, [facility]/pharmacy #[id number], 152.5, cm, 11/13/19 [...] 0 Refills, Maintenance, 08/08/20 14:33:00 EDT, Film, [facility], 1 patch Topically Daily,PRN:Pain , Mild,Instr:remove after 12 hours, 152, cm, 08/06/20 9:15:00 ED... Start Date: 08/08/20 Status: Ordered lidocaine-prilocaine 2.5%-2.5% topical cream 1 application, Topically, 3 times a day, Apply to sensitive area, # 30 Gm, 0 Refills, Soft Stop, 07/30/20 17:50:00 EDT, Cream, [facility], 1 application Topically 3 times a day,Instr:Applyto sensitive area, 152, cm, 07/27/20 7:01:00 EDT, H... Start Date: 07/30/20 Status: Ordered Lipitor 40 mg oral tablet 1 tablet = 40 mg, By Mouth, Daily, # 90 tablet, 3 Refills, Maintenance, 07/26/20 7:41:00 EDT, Tablet, [facility], 152, cm, 07/26/20 7:17:00 EDT, Height, 78.4, kg, 07/13/20 9:29:00 EDT, DryWeight Start Date: 07/26/20 Status: Ordered lisinopril 40 mg oral tablet 1 tablet = 40 mg, By Mouth, Daily, # 30 tablet, 7 Refills, Maintenance, 07/26/20 7:41:00 EDT, Tablet, [facility], 152, cm, 07/26/20 7:17:00 EDT, [...] 5 Refills, Maintenance, 07/26/20 7:42:00 EDT, Tablet, [facility], 152, cm, 07/26/20 7:17:00 EDT, [...] Weight Start Date: 07/26/20 Status: Ordered Pen [place], 29 G x 12.7 mm BD Ultra Fine See Instructions, # 100 each, Refills 5, Tot. Refills 5, Maintenance, use as directed for Type 1 Diabetes Mellitus, 11/13/19 17:27:00 EST, Compound, 152.5, cm, 11/13/19 13:49:00 EST, Height, 82.4, kg, 08/18/18 19:01:00 EDT, Dry Weight Start Date: 11/13/19 Stop Date: 05/11/20 Status: Ordered Pen [place], 31 G x 5 mm BD Ultra Fine III See Instructions, # 100 each, Refills 11, Tot. 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 Start Date: 07/26/20 Status: Ordered ProAir HFA 90 mcg/inh inhalation aerosol 2 puffs, Inhalation, Every 4 hours, PRN as needed for wheezing, # 18 Gm, 2 Refills, Maintenance, 08/02/20 7:27:00 EDT, Aerosol, [facility], 2 puffs Inhalation Every 4 hours,PRN:as needed for wheezing, 152, cm, 07/27/20 7:01:00 EDT, Height,... Start Date: 08/02/20 Status: Ordered SUMAtriptan 50 mg oral tablet 1 tablet = 50 mg, By Mouth, Daily, PRN for migraine headache, # 9 tablet, 5 Refills, Soft Stop, 07/26/20 7:42:00 EDT, Tablet, [facility], 152, cm, 07/26/20 7:17:00 EDT, Height, 78.4, kg, 07/13/20 9:29:00 EDT, Dry Weight Start Date: 07/26/20 Stop Date: 01/22/21 Status: Ordered triamcinolone 0.1% topical cream 1 application, Topically, 2 times a day, for 14 days, APPLY TOPICALLY TO AFFECTED AREA(S) TWICE DAILY FOR 14 DAYS Avoid use on face, # 60 Gm, 1 Refills, Acute 05/09/21 20:07:00 EDT, 04/11/21 20:07:00EDT, Cream, [facility], Partial fill up... Start Date: [...]
--- OUTSIDE RECORDS SUMMARY | 2024-05-01 07:48 | XMS_ITS | Continuity of Care Document ---
Author Organization [facility] Address [address] [place] [address]- Care Team Providers Care Supervisor Vegetable Farming Name Role Phone Jane Melgar NP Primary Care Physician Encounter [facility] Date(s): 08/06/20 - 09/05/20 [facility] [address] [place] [address]- [facility] Attending Physician: Admtr, [id number] Admitting Physician: Admtr, [id number] Referring Physician: Admtr, [...] mL, 6 Refills, Maintenance, 08/27/20 13:37:00 EDT, [facility], 152, cm, 08/26/20 9:48:00 EDT, Height, 78.4, kg, 07/13/20 9:29:00 EDT, Dry W... Start Date: 08/27/20 Status: Ordered albuterol CFC free 90 mcg/inh inhalation aerosol 2, puffs, Inhalation, Every 4 hours, PRN, use with spacer chamber, # 1 each, Refills 3, Tot. Refills 3, Maintenance, 07/26/20 7:40:00 EDT, Aerosol, Route to Pharmacy Electronically, [id number], [facility], 152, cm,... Start Date: 07/26/20 [...] mL, 3 Refills, Maintenance, 08/02/20 7:28:00 EDT, [facility], 152, cm, 07/27/20 7:01:00 EDT, [...] Gm, 0 Refills, Maintenance, 07/26/20 8:13:00 EDT, Aerosol,[facility], 152, cm, 07/26/20 7:17:00 EDT, [...] EDT, Route to Pharmacy Electronically, [facility]/pharmacy #[id number], 152, cm, 07/15/20 14:57:00 EDT, Height, 78.4, kg, 07/13/20 9:29:00 EDT, Dry... Start Date: 07/15/20 Status: Ordered Insulin Lispro KwikPen 100 units/mL injectable solution See Instructions, Please follow sliding scale, three times a day with meals. Max daily dose: 42 units E11.9, # 15 mL, 6 Refills, Maintenance, 08/26/20 10:05:00 EDT, [facility], 152, cm, 08/26/20 9:48:00 EDT, Height, 78.4, kg, 07/13/20... Start Date: 08/26/20 Status: Ordered Lantus Solostar Pen 100 units/mL subcutaneous solution = 10 units, Subcutaneous Injection, Daily, Take 10 units today, increase 3 units daily until fasting blood sugar is 140 with evening meal, # 10 mL, 0 Refills, Maintenance, 07/26/20 7:41:00 EDT, Solution, [facility], 152, cm, 07/26/20 7:17... Start [...] Refills, Maintenance, 08/08/20 14:33:00 EDT, Film, [facility], 1 patch Topically Daily,PRN:Pain , Mild,Instr:remove after 12 hours, 152, cm, 08/06/20 9:15:00 ED... Start Date: 08/08/20 Status: Ordered lidocaine-prilocaine 2.5%-2.5% topical cream 1 application, Topically, 3 times a day, Apply to sensitive area, # 30 Gm, 0 Refills, Soft Stop, 07/30/20 17:50:00 EDT, Cream, [facility], 1 application Topically 3 times a day,Instr:Applyto sensitive area, 152, cm, 07/27/20 7:01:00 EDT, H... Start Date: 07/30/20 Status: Ordered Lipitor 40 mg oral tablet 1 tablet = 40 mg, By Mouth, Daily, # 90 tablet, 3 Refills, Maintenance, 07/26/20 7:41:00 EDT, Tablet, [facility], 152, cm, 07/26/20 7:17:00 EDT, Height, 78.4, kg, 07/13/20 9:29:00 EDT, DryWeight Start Date: 07/26/20 Status: Ordered lisinopril 40 mg oral tablet 1 tablet = 40 mg, By Mouth, Daily, # 30 tablet, 7 Refills, Maintenance, 07/26/20 7:41:00 EDT, Tablet, [facility], 152, cm, 07/26/20 7:17:00 EDT, [...] 5 Refills, Maintenance, 07/26/20 7:42:00 EDT, Tablet, [facility], 152, cm, 07/26/20 7:17:00 EDT, Height, 78.4, kg, 07/13/20 9:29:00 EDT, Dry Weight Start Date: 07/26/20 Stop Date: 01/22/21 Status: Ordered omeprazole 40 mg oral enteric coated capsule 1 capsule = 40 mg, By Mouth, Daily, # 90 capsule, 3 Refills, Maintenance, 07/26/20 7:42:00 EDT, EC Capsule, [facility], 152, cm, 07/26/20 7:17:00 EDT, Height, 78.4, kg, 07/13/20 9:29:00 EDT, Dry Weight Start Date: 07/26/20 Stop Date: 07/21/21 Status: Ordered ondansetron 4 mg oral tablet, disintegrating 1 tablet = 4 mg, By Mouth, 2 times a day, # 21 tablet, 0 Refills, Maintenance, 07/26/20 7:42:00 EDT, [facility], 152, cm, 07/26/20 7:17:00 EDT, Height, 78.4, kg, 07/13/20 9:29:00 EDT, Dry Weight Start Date: 07/26/20 Status: Ordered Pen [place], 29 G x 12.7 mm BD Ultra Fine See Instructions, # 100 each, Refills 5, Tot. Refills 5, Maintenance, use as directed for Type 1 Diabetes Mellitus, 11/13/19 17:27:00 EST, Compound, 152.5, cm, 11/13/19 13:49:00 EST, Height, 82.4, kg, 08/18/18 19:01:00 EDT, Dry Weight Start Date: 11/13/19 Stop Date: 05/11/20 Status: Ordered Pen [place], 31 G x 5 mm BD Ultra [...] 2 Refills, Maintenance, 08/02/20 7:27:00 EDT, Aerosol, [facility], 2 puffs Inhalation Every 4 hours,PRN:as needed for wheezing, 152, cm, 07/27/20 7:01:00 EDT, Height,... Start Date: 08/02/20 Status: Ordered SUMAtriptan 50 mg oral tablet 1 tablet = 50 mg, By Mouth, Daily, PRN for migraine headache, # 9 tablet, 5 Refills, Soft Stop, 07/26/20 7:42:00 EDT, Tablet, [facility], 152, cm, 07/26/20 7:17:00 EDT, [...]
--- OUTSIDE RECORDS SUMMARY | 2024-05-01 07:48 | XMS_ITS | Continuity of Care Document ---
Author Organization [facility] Address [address] [place] [address]- Care Team Providers Care Artificial Flowers Starcher Name Role Phone Jane Melgar NP Primary Care Physician [place] [facility] [place]20 [facility] [address] [place] [address]- [facility] Attending Physician: Maxime Hernandez DO Admitting Physician: Maxime Hernandez DO Referring Physician: Not on Staff, Referring MD [...] 7:40:00 EDT, Aerosol, Route to Pharmacy Electronically, [id number], [facility], 152, cm,... Start [...] mL, 3 Refills, Maintenance, 08/02/20 7:28:00 EDT, [facility], 152, cm, 07/27/20 [...] 0 Refills, Maintenance, 07/26/20 8:13:00 EDT, Aerosol,[facility], 152, cm, 07/26/20 [...] 07/15/20 15:18:00 EDT, Route to Pharmacy Electronically, [facility]/pharmacy #[id number], 152, cm, 07/15/20 14:57:00 EDT, Height, 78.4, kg, 07/13/20 9:29:00 EDT, Dry... Start Date: 07/15/20 Status: Ordered Lantus Solostar Pen 100 units/mL subcutaneous solution = 10 units, Subcutaneous Injection, Daily, Take 10 units today, increase 3 units daily until fasting blood sugar is 140 with evening meal, # 10 mL, 0 Refills, Maintenance, 07/26/20 7:41:00 EDT, Solution, [facility], 152, cm, 07/26/20 7:17... Start Date: 07/26/20 Status: Ordered Lantus Solostar Pen 100 units/mL subcutaneous solution See Instructions, 10 units daily with dinner: add 3 unis daily until fasting blood sugar is 140, # 15 mL, 3 Refills, Maintenance, 11/13/19 17:29:00 EST, [facility]/pharmacy #[id number], 152.5, cm, 11/13/19 13:49:00 EST, Height, 82.4, kg, 08/18/18 19:01:00 EDT, Dry... Start Date: 11/13/19 Status: Ordered Latuda 20 mg oral tablet 1 tablet = 20 mg, By Mouth, Daily, # 30 tablet, 0 Refills, Maintenance, 11/28/19 11:04:00 EST, Tablet Start Date: 11/28/19 Status: Ordered lidocaine 5% topical cream 1 application, Topically, 3 times a day, # 15 Gm, 0 Refills, Acute 08/14/20 11:15:00 EDT, 07/30/20 11:14:00 EDT, Cream, [facility], 1 application Topically 3 times a day, 152, cm, :01:00 EDT, Height, 78.4, kg, 07/13/20 9:29:00 EDT... Start Date: 07/30/20 Stop Date: 08/14/20 Status: Ordered lidocaine 5% topical film 1 patch, Topically, Daily, PRN Pain , Mild, remove after 12 hours, # 13 each, 0 Refills, Maintenance, 08/08/20 14:33:00 EDT, Film, [facility], 1 patch Topically Daily,PRN:Pain , Mild,Instr:remove after 12 hours, 152, cm, 08/06/20 9:15:00 ED... Start Date: 08/08/20 Status: Ordered lidocaine-prilocaine 2.5%-2.5% topical cream 1 application, Topically, 3 times a day, Apply to sensitive area, # 30 Gm, 0 Refills, Soft Stop, 07/30/20 17:50:00 EDT, Cream, [facility], 1 application Topically 3 times a day,Instr:Applyto sensitive area, 152, cm, 07/27/20 7:01:00 EDT, H... Start Date: 07/30/20 Status: Ordered Lipitor 40 mg oral tablet 1 tablet = 40 mg, By Mouth, Daily, # 90 tablet, 3 Refills, Maintenance, 07/26/20 7:41:00 EDT, Tablet, [facility], 152, cm, 07/26/20 7:17:00 EDT, Height, 78.4, kg, 07/13/20 9:29:00 EDT, DryWeight Start Date: 07/26/20 Status: Ordered lisinopril 40 mg oral tablet 1 tablet = 40 mg, By Mouth, Daily, # 30 tablet, 7 Refills, Maintenance, 07/26/20 7:41:00 EDT, Tablet, [facility], 152, cm, 07/26/20 [...] 5 Refills, Maintenance, 07/26/20 7:42:00 EDT, Tablet, [facility], 152, cm, 07/26/20 7:17:00 EDT, Height, 78.4, kg, 07/13/20 9:29:00 EDT, Dry Weight Start Date: 07/26/20 Stop Date: 01/22/21 Status: Ordered omeprazole 40 mg oral enteric coated capsule 1 capsule = 40 mg, By Mouth, Daily, # 90 capsule, 3 Refills, Maintenance, 07/26/20 7:42:00 EDT, EC Capsule, [facility], 152, cm, 07/26/20 7:17:00 EDT, Height, 78.4, kg, 07/13/20 9:29:00 EDT, Dry Weight Start Date: 07/26/20 Stop Date: 07/21/21 Status: Ordered ondansetron 4 mg oral tablet, disintegrating 1 tablet = 4 mg, By Mouth, 2 times a day, # 21 tablet, 0 Refills, Maintenance, 07/26/20 7:42:00 EDT, [facility], 152, cm, 07/26/20 7:17:00 EDT, Height, 78.4, kg, 07/13/20 9:29:00 EDT, Dry Weight Start Date: 07/26/20 Status: Ordered Pen [place], 29 G x 12.7 mm BD Ultra Fine See Instructions, # 100 each, Refills 5, Tot. Refills 5, Maintenance, use as directed for Type 1 Diabetes Mellitus, 11/13/19 17:27:00 EST, Compound, 152.5, cm, 11/13/19 13:49:00 EST, Height, 82.4, kg, 08/18/18 19:01:00 EDT, Dry Weight Start Date: 11/13/19 Stop Date: 05/11/20 Status: Ordered Pen [place], 31 G x 5 mm BD Ultra Fine III See Instructions, # 100 each, Refills 11, Tot. 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 Start Date: 07/26/20 Status: Ordered ProAir HFA 90 mcg/inh inhalation aerosol 2 puffs, Inhalation, Every 4 hours, PRN as needed for wheezing, # 18 Gm, 2 Refills, Maintenance, 08/02/20 7:27:00 EDT, Aerosol, [facility], 2 puffs Inhalation Every 4 hours,PRN:as needed for wheezing, 152, cm, 07/27/20 7:01:00 EDT, Height,... Start Date: 08/02/20 Status: Ordered SUMAtriptan 50 mg oral tablet 1 tablet = 50 mg, By Mouth, Daily, PRN for migraine headache, # 9 tablet, 5 Refills, Soft Stop, 07/26/20 7:42:00 EDT, Tablet, [facility], 152, cm, 07/26/20 7:17:00 EDT, [...] oldest [Reference Range]: 1 Height 152 cm (08/06/20 9:15 AM) Oxygen Saturation [94-100 %] 97 % (08/06/20 9:15 AM) Pulse Rate [55-90 bpm] 102 bpm *H* (08/06/20 9:15 AM) Respiratory Rate [16-30 br/min] 16 br/mi n (08/06/20 9:15 AM) Temperature [96.8-100.4 DegF] 97.9 DegF (08/06/20 9:15 AM) Temperature Route Oral (08/06/20 9:15 AM) Social History Social History Type Response Smoking Status Smoker, current stat us unknown entered on: 10/30/19 Sex
--- OUTSIDE RECORDS SUMMARY | 2024-05-01 07:48 | XMS_ITS | Continuity of Care Document ---
Author Organization [facility] [place] Jose Luis lt Address [address] [place] [address]- Care Team Providers Care Hospice Coordinator Name Role Phone Jane Melgar NP Primary Care Physician [place] [facility] [place] 07/26[place]20 - 08/25/20 [facility] [place] Adult [address] [place] [address]- [facility] Attending Physician: Admtr, Ar8 Admitting Physician: Admtr, [...] 7:40:00 EDT, Aerosol, Route to Pharmacy Electronically, [id number], [facility], 152, cm,... Start [...] mL, 3 Refills, Maintenance, 08/02/20 7:28:00 EDT, [facility], 152, cm, 07/27/20 [...] Gm, 0 Refills, Maintenance, 07/26/20 8:13:00 EDT, Aerosol,[facility], 152, cm, 07/26/20 [...] 15:18:00 EDT, Route to Pharmacy Electronically, [facility]/pharmacy #[id number], 152, cm, 07/15/20 14:57:00 EDT, Height, 78.4, kg, 07/13/20 9:29:00 EDT, Dry... Start Date: 07/15/20 Status: Ordered Lantus Solostar Pen 100 units/mL subcutaneous solution = 10 units, Subcutaneous Injection, Daily, Take 10 units today, increase 3 units daily until fasting blood sugar is 140 with evening meal, # 10 mL, 0 Refills, Maintenance, 07/26/20 7:41:00 EDT, Solution, [facility], 152, cm, 07/26/20 [...] 0 Refills, Maintenance, 08/08/20 14:33:00 EDT, Film, [facility], 1 patch Topically Daily,PRN:Pain , Mild,Instr:remove after 12 hours, 152, cm, 08/06/20 9:15:00 ED... Start Date: 08/08/20 Status: Ordered lidocaine-prilocaine 2.5%-2.5% topical cream 1 application, Topically, 3 times a day, Apply to sensitive area, # 30 Gm, 0 Refills, Soft Stop, 07/30/20 17:50:00 EDT, Cream, [facility], 1 application Topically 3 times a day,Instr:Applyto sensitive area, 152, cm, 07/27/20 7:01:00 EDT, H... Start Date: 07/30/20 Status: Ordered Lipitor 40 mg oral tablet 1 tablet = 40 mg, By Mouth, Daily, # 90 tablet, 3 Refills, Maintenance, 07/26/20 7:41:00 EDT, Tablet, [facility], 152, cm, 07/26/20 7:17:00 EDT, Height, 78.4, kg, 07/13/20 9:29:00 EDT, DryWeight Start Date: 07/26/20 Status: Ordered lisinopril 40 mg oral tablet 1 tablet = 40 mg, By Mouth, Daily, # 30 tablet, 7 Refills, Maintenance, 07/26/20 7:41:00 EDT, Tablet, [facility], 152, cm, 07/26/20 [...] 5 Refills, Maintenance, 07/26/20 7:42:00 EDT, Tablet, [facility], 152, cm, 07/26/20 7:17:00 EDT, Height, 78.4, kg, 07/13/20 9:29:00 EDT, Dry Weight Start Date: 07/26/20 Stop Date: 01/22/21 Status: Ordered omeprazole 40 mg oral enteric coated capsule 1 capsule = 40 mg, By Mouth, Daily, # 90 capsule, 3 Refills, Maintenance, 07/26/20 7:42:00 EDT, EC Capsule, [facility], 152, cm, 07/26/20 7:17:00 EDT, Height, 78.4, kg, 07/13/20 9:29:00 EDT, Dry Weight Start Date: 07/26/20 Stop Date: 07/21/21 Status: Ordered ondansetron 4 mg oral tablet, disintegrating 1 tablet = 4 mg, By Mouth, 2 times a day, # 21 tablet, 0 Refills, Maintenance, 07/26/20 7:42:00 EDT, [facility], 152, cm, 07/26/20 7:17:00 EDT, Height, 78.4, kg, 07/13/20 9:29:00 EDT, Dry Weight Start Date: 07/26/20 Status: Ordered Pen [place], 29 G x 12.7 mm BD Ultra Fine See Instructions, # 100 each, Refills 5, Tot. Refills 5, Maintenance, use as directed for Type 1 Diabetes Mellitus, 11/13/19 17:27:00 EST, Compound, 152.5, cm, 11/13/19 13:49:00 EST, Height, 82.4, kg, 08/18/18 19:01:00 EDT, Dry Weight Start Date: 11/13/19 Stop Date: 05/11/20 Status: Ordered Pen [place], 31 G x 5 mm BD Ultra Fine III See Instructions, # 100 each, Refills 11, Tot. 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 Start Date: 07/26/20 Status: Ordered ProAir HFA 90 mcg/inh inhalation aerosol 2 puffs, Inhalation, Every 4 hours, PRN as needed for wheezing, # 18 Gm, 2 Refills, Maintenance, 08/02/20 7:27:00 EDT, Aerosol, [facility], 2 puffs Inhalation Every 4 hours,PRN:as needed for wheezing, 152, cm, 07/27/20 7:01:00 EDT, Height,... Start Date: 08/02/20 Status: Ordered SUMAtriptan 50 mg oral tablet 1 tablet = 50 mg, By Mouth, Daily, PRN for migraine headache, # 9 tablet, 5 Refills, Soft Stop, 07/26/20 7:42:00 EDT, Tablet, [facility], 152, cm, 07/26/20 [...]
--- OUTSIDE RECORDS SUMMARY | 2024-05-01 07:48 | XMS_ITS | Continuity of Care Document ---
Author Organization [facility] Eduardo Butt Jose Luis lt Address [address] [place] [address]- Care Team Providers Care Engagement Lead Name Role Phone Peri Magdaleno NP Primary Care Physician [phone] [place] [facility] [place] 09/02/21 - 10/06/21 [facility] [place] [address] [place] [address]- Attending Physician: Not on Staff, Attending MD [...] mL, 6 Refills, Maintenance, 09/06/21 8:32:00 EDT, [facility], 152, cm, 09/06/21 8:17:00EDT, Height, [...] 09/02/21 9:17:00 EDT, Route to Pharmacy Electronically, [facility], Partial fill upon patient request if the prescription is for a schedule I... Start Date: 09/02/21 Status: Ordered Flovent HFA 110 mcg/inh inhalation aerosol 2 puffs, Inhalation, 2 times a day, # 12 Gm, 0 Refills, Maintenance, 07/26/20 8:13:00 EDT, Aerosol,[facility], 152, cm, 07/26/20 [...] 3 Refills, Maintenance, 07/12/21 13:36:00 EDT, Solution, [facility], 152, cm, 04/11/21 14:... Start Date: 07/12/21 Status: Ordered Lipitor 40 mg oral tablet 1 tablet = 40 mg, By Mouth, Daily, # 90 tablet, 3 Refills, Maintenance, 07/13/21 16:34:00 EDT, Tablet, [facility], 152, cm, 07/13/21 15:34:00 EDT, Height, 78.4, kg, 07/13/20 9:29:00 EDT, Dry Weight Start Date: 07/13/21 Status: Ordered lisinopril 40 mg oral tablet 1 tablet = 40 mg, By Mouth, Daily, # 30 tablet, 0 Refills, Maintenance, 07/13/21 16:34:00 EDT, Tablet, [facility], 152, cm, 07/13/21 15:34:00 EDT, [...] 5 Refills, Maintenance, 07/12/21 13:36:00 EDT, Tablet, [facility], 152, cm, 04/11/21 14:02:00 EDT, Height, 78.4, kg, 07/13/20 9:29:00 EDT, Dry Weight Start Date: 07/12/21 Stop Date: 01/08/22 Status: Ordered omeprazole 40 mg oral enteric coated capsule 1 capsule = 40 mg, By Mouth, Daily, # 90 capsule, 3 Refills, Maintenance, 07/26/20 7:42:00 EDT, EC Capsule, [facility], 152, cm, 07/26/20 7:17:00 EDT, Height, 78.4, kg, 07/13/20 9:29:00 EDT, Dry Weight Start Date: 07/26/20 Stop Date: 07/21/21 Status: Ordered ondansetron 4 mg oral tablet, disintegrating 1 tablet = 4 mg, By Mouth, 2 times a day, # 21 tablet, 0 Refills, Maintenance, 07/26/20 7:42:00 EDT, [facility], 152, cm, 07/26/20 7:17:00 EDT, Height, 78.4, kg, 07/13/20 9:29:00 EDT, Dry Weight Start Date: 07/26/20 Status: Ordered Pen [place], 31 G x 5 mm BD Ultra Fine III See Instructions, # 100 each, Refills 11, Tot. 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 Start Date: 07/26/20 Status: Ordered ProAir HFA 90 mcg/inh inhalation aerosol 2 puffs, Inhalation, Every 4 hours, PRN as needed for wheezing, # 18 Gm, 2 Refills, Maintenance, 07/13/21 16:35:00 EDT, Aerosol, [facility], 2 puffs Inhalation Every 4 hours,PRN:as needed for wheezing, 152, cm, 07/13/21 15:34:00 EDT, Height... Start Date: 07/13/21 Status: Ordered SUMAtriptan 50 mg oral tablet 1 tablet = 50 mg, By Mouth, Daily, PRN for migraine headache, # 9 tablet, 5 Refills, Soft Stop, 07/26/20 7:42:00 EDT, Tablet, [facility], 152, cm, 07/26/20 7:17:00 EDT, [...]
--- OUTSIDE RECORDS SUMMARY | 2024-05-01 07:48 | XMS_ITS | Continuity of Care Document ---
Author Organization [facility] Address [address] [place] [address]- Care Team Providers Care Stock Sorter Name Role Phone Nuria CANDLE MOLDER HAND, Jing Russo Primary Care Physician [place] [facility] [place] 01/12/[address] [address]- [facility] Attending Physician: Admtr, Suly Admitting Physician: Admtr, Ar8 Referring Physician: Admtr, [...] 18:02:08 EDT, Aerosol, Route to Pharmacy Electronically, [id number], [facility]/pharmacy #[id number], Compound Start Date: 01/29/18 [...] Refills, Maintenance, 11/13/19 17:29:00 EST, [facility]/pharmacy #[id number], 152.5, cm, 11/13/19 13:49:00 [...] Maintenance, 11/13/19 14:35:00 EST, Tablet, [facility]/pharmacy #[id number], 152.5, cm, 11/13/19 13:49:00 [...] 08/14/19 Stop Date: 08/08/20 Status: Ordered Pen [place], 29 G x 12.7 mm BD Ultra Fine See Instructions, # 100 each, Refills 5, Tot. Refills 5, Maintenance, use as directed for Type 1 Diabetes Mellitus, 11/13/19 17:27:00 EST, Compound, 152.5, cm, 11/13/19 13:49:00 EST, Height, 82.4, kg, 10/14/18 19:01:00 EDT, Dry Weight Start Date: 11/13/19 Stop Date: 05/11/20 Status: Ordered Pen [place], 31 G x 5 mm BD Ultra Fine III See Instructions, # 100 each, Refills 11, Tot. 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
--- OUTSIDE RECORDS SUMMARY | 2024-05-01 07:48 | XMS_ITS | Continuity of Care Document ---
Author Organization [facility] Eduardo Butt Jose Luis lt Address [address] [place] [address]- Care Team Providers Care Infectious Disease Physician Name Role Phone Nuria FLOREZ, Jing Russo Primary Care Physician [place] [facility] [place] 11/13/19 - 11/20/19 [facility] Eduardo Butt Adult [address] [place] [address]- [place] Encounter Diagnosis Benign hypertension(Discharge Diagnosis) - 11/13/19 Asthma(Discharge Diagnosis) - 11/13/19 Diabetes(Discharge Diagnosis) - 11/13/19 Attending Physician: Jing Quiñones NP Allergies, Adverse [...] 18:02:08 EDT, Aerosol, Route to Pharmacy Electronically, [id number], [facility]/pharmacy #[id number], Compound Start Date: 01/29/18 Stop Date: [...] mL, 3 Refills, Maintenance, 11/13/19 17:29:00 EST, [facility]/pharmacy #[id number], 152.5, cm, 11/13/19 13:49:00 EST, Height, 82.4, kg, 08/18/18 19:01:00 EDT, Dry... Start Date: 11/13/19 Status: Ordered Lipitor 40 mg oral tablet 1 tablet = 40 mg, By Mouth, Daily, # 90 tablet, 3 Refills, Maintenance, 08/14/19 10:48:30 EDT, Tablet Start Date: 08/14/19 Status: Ordered lisinopril 40 mg oral tablet 1 tablet = 40 mg, By Mouth, Daily, # 30 tablet, 7 Refills, Maintenance, 11/13/19 14:35:00 EST, Tablet, [facility]/pharmacy #[id number], 152.5, cm, 11/13/19 13:49:00 EST, Height, 82.4, kg, 08/18/18 19:01:00 EDT, Dry Weight Start Date: 11/13/19 Stop Date: 07/10/20 Status: Ordered metFORMIN 1000 mg oral tablet [...] 08/14/19 Stop Date: 08/08/20 Status: Ordered Pen [place], 29 G x 12.7 mm BD Ultra Fine See Instructions, # 100 each, Refills 5, Tot. Refills 5, Maintenance, use as directed for Type 1 Diabetes Mellitus, 11/13/19 17:27:00 EST, Compound, 152.5, cm, 11/13/19 13:49:00 EST, Height, 82.4, kg, 08/18/18 19:01:00 EDT, Dry Weight Start Date: 11/13/19 Stop Date: 05/11/20 Status: Ordered Problem List Condition Effective Dates [...] Clinical Service Informant Benign hypertension Discharge Diagnosis 11/13/19 Asthma Discharge Diagnosis 11/13/19 Diabetes Discharge Diagnosis 11/13/19 Vital Signs Most recent to oldest [Reference Range]: 1 Height 152.5 cm (11/13/19 1:49 PM) Weight 84.3 kg (11/13/19 1:49 PM) Oxygen Saturation [94-100 %] 98 % (11/13/19 1:49 PM) Pulse Rate [55-90 bpm] 68 bpm (11/13/19 1:49 PM) Body Mass Index [18.5-24.99] 36.25 *>HHI* (11/13/19 1:49 PM) Blood Pressure [90-138/55-84 mm Hg] 110/ 78mm Hg (11/13/19 1:49 PM) Respiratory Rate [16-30 br/min] 12 br/mi n *L* (11/13/19 1:49 PM) Temperature [96.8-100.4 DegF] 97.8 DegF (11/13/19 1:49 PM) Mode of Delivery (Oxygen) Room air (11/13/19 1:49 PM) Blood pressure sites Arm, left (11/13/19 1:49 PM) Temperature Route Oral (11/13/19 1:49 PM) Weight Obtained Via Standing scale (11/13/19 1:49 PM) Social History Social History Type Response Smoking Status Smoker, current stat us unknown entered on: 10/30/19 Sex
--- OUTSIDE RECORDS SUMMARY | 2024-05-01 07:48 | XMS_ITS | Continuity of Care Document ---
Author Organization [facility] Jose Luis lt Address [address] [place] [address]- Care Team Providers Care Operation Specialist Name Role Phone Jane Melgar NP Primary Care Physician [place] [facility] [place]20 [facility] Adult [address] [place] [address]- Allergies, Adverse Reactions, Alerts Substance Reaction Severity [...] mL, 6 Refills, Maintenance, 08/27/20 13:37:00 EDT, [facility], 152, cm, 08/26/20 9:48:00 EDT, Height, 78.4, kg, 07/13/20 9:29:00 EDT, Dry W... Start Date: 08/27/20 Status: Ordered albuterol CFC free 90 mcg/inh inhalation aerosol 2, puffs, Inhalation, Every 4 hours, PRN, use with spacer chamber, # 1 each, Refills 3, Tot. Refills 3, Maintenance, 07/26/20 7:40:00 EDT, Aerosol, Route to Pharmacy Electronically, [id number], [facility], 152, cm,... Start Date: [...] mL, 3 Refills, Maintenance, 08/02/20 7:28:00 EDT, [facility], 152, cm, 07/27/20 7:01:00 EDT, [...] Gm, 0 Refills, Maintenance, 07/26/20 8:13:00 EDT, Aerosol,[facility], 152, cm, 07/26/20 7:17:00 [...] 07/15/20 15:18:00 EDT, [id number], cm, 07/15/20 14:57:00 EDT, Height, 78.4, kg, 07/13/20 9:29:00 EDT, Dry... Start Date: 07/15/20 Status: Ordered Insulin Lispro KwikPen 100 units/mL injectable solution See Instructions, Please follow sliding scale, three times a day with meals. Max daily dose: 42 units E11.9, # 15 mL, 6 Refills, Maintenance, 08/26/20 10:05:00 EDT, [facility], 152, cm, 08/26/20 9:48:00 EDT, Height, 78.4, kg, 07/13/20... Start Date: 08/26/20 Status: Ordered Lantus Solostar Pen 100 units/mL subcutaneous solution = 10 units, Subcutaneous Injection, Daily, Take 10 units today, increase 3 units daily until fasting blood sugar is 140 with evening meal, # 10 mL, 0 Refills, Maintenance, 07/26/20 7:41:00 EDT, Solution, [facility], 152, cm, 07/26/20 7:17... Start Date: 07/26/20 Status: Ordered Lantus Solostar Pen 100 units/mL subcutaneous solution See Instructions, 10 units daily with dinner: add 3 unis daily until fasting blood sugar is 140, # 15 mL, 3 Refills, Maintenance, 11/13/19 17:29:00 EST, [facility]/pharmacy #[id number], 152.5, cm, 11/13/19 13:49:00 [...] 0 Refills, Maintenance, 08/08/20 14:33:00 EDT, Film, [facility], 1 patch Topically Daily,PRN:Pain , Mild,Instr:remove after 12 hours, 152, cm, 08/06/20 9:15:00 ED... Start Date: 08/08/20 Status: Ordered lidocaine-prilocaine 2.5%-2.5% topical cream 1 application, Topically, 3 times a day, Apply to sensitive area, # 30 Gm, 0 Refills, Soft Stop, 07/30/20 17:50:00 EDT, Cream, [facility], 1 application Topically 3 times a day,Instr:Applyto sensitive area, 152, cm, 07/27/20 7:01:00 EDT, H... Start Date: 07/30/20 Status: Ordered Lipitor 40 mg oral tablet 1 tablet = 40 mg, By Mouth, Daily, # 90 tablet, 3 Refills, Maintenance, 07/26/20 7:41:00 EDT, Tablet, [facility], 152, cm, 07/26/20 7:17:00 EDT, Height, 78.4, kg, 07/13/20 9:29:00 EDT, DryWeight Start Date: 07/26/20 Status: Ordered lisinopril 40 mg oral tablet 1 tablet = 40 mg, By Mouth, Daily, # 30 tablet, 7 Refills, Maintenance, 07/26/20 7:41:00 EDT, Tablet, [facility], 152, cm, 07/26/20 [...] 5 Refills, Maintenance, 07/26/20 7:42:00 EDT, Tablet, [facility], 152, cm, 07/26/20 7:17:00 EDT, Height, 78.4, kg, 07/13/20 9:29:00 EDT, Dry Weight Start Date: 07/26/20 Stop Date: 01/22/21 Status: Ordered omeprazole 40 mg oral enteric coated capsule 1 capsule = 40 mg, By Mouth, Daily, # 90 capsule, 3 Refills, Maintenance, 07/26/20 7:42:00 EDT, EC Capsule, [facility], 152, cm, 07/26/20 7:17:00 EDT, Height, 78.4, kg, 07/13/20 9:29:00 EDT, Dry Weight Start Date: 07/26/20 Stop Date: 07/21/21 Status: Ordered ondansetron 4 mg oral tablet, disintegrating 1 tablet = 4 mg, By Mouth, 2 times a day, # 21 tablet, 0 Refills, Maintenance, 07/26/20 7:42:00 EDT, [facility], 152, cm, 07/26/20 7:17:00 EDT, Height, 78.4, kg, 07/13/20 9:29:00 EDT, Dry Weight Start Date: 07/26/20 Status: Ordered Pen [place], 29 G x 12.7 mm BD Ultra Fine See Instructions, # 100 each, Refills 5, Tot. Refills 5, Maintenance, use as directed for Type 1 Diabetes Mellitus, 11/13/19 17:27:00 EST, [facility], 152.5, cm, 11/13/19 13:49:00 EST, Height, 82.4, kg, 08/18/18 19:01:00 EDT, Dry Weight Start Date: 11/13/19 Stop Date: 05/11/20 Status: Ordered Pen [place], 31 G x 5 mm BD Ultra Fine III See Instructions, # 100 each, Refills 11, Tot. 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 Start Date: 07/26/20 Status: Ordered ProAir HFA 90 mcg/inh inhalation aerosol 2 puffs, Inhalation, Every 4 hours, PRN as needed for wheezing, # 18 Gm, 2 Refills, Maintenance, 08/02/20 7:27:00 EDT, Aerosol, [facility], 2 puffs Inhalation Every 4 hours,PRN:as needed for wheezing, 152, cm, 07/27/20 7:01:00 EDT, Height,... Start Date: 08/02/20 Status: Ordered SUMAtriptan 50 mg oral tablet 1 tablet = 50 mg, By Mouth, Daily, PRN for migraine headache, # 9 tablet, 5 Refills, Soft Stop, 07/26/20 7:42:00 EDT, Tablet, [facility], 152, cm, 07/26/20 7:17:00 [...]
--- OUTSIDE RECORDS SUMMARY | 2024-05-01 07:48 | XMS_ITS | Continuity of Care Document ---
Author Organization [facility] Address [address] [place] [address]- Care Team Providers Care Scanning Clerk Name Role Phone Nuria FLOREZ, Jing Russo Primary Care Physician Encounter [facility] [place] Date(s): 12/09/19 - 01/30/[address] [address]- [facility] Discharge Disposition: A-D/C Home Attending Physician: Joselito Caban NP Admitting Physician: Joselito Caban NP Referring Physician: Joselito Caban NP Allergies, Adverse Reactions, Alerts Substance Reaction [...] 18:02:08 EDT, Aerosol, Route to Pharmacy Electronically, [id number], [facility] #[id number], Compound Start Date: 01/29/18 Stop Date: [...] 7 Refills, Maintenance, 11/13/19 14:35:00 EST, Tablet, [facility]/pharmacy #[id number], 152.5, cm, 11/13/19 13:49:00 [...] 08/14/19 Stop Date: 08/08/20 Status: Ordered Pen [place], 29 G x 12.7 mm BD Ultra Fine See Instructions, # 100 each, Refills 5, Tot. Refills 5, Maintenance, use as directed for Type 1 Diabetes Mellitus, 11/13/19 17:27:00 EST, [facility], 152.5, cm, 11/13/19 13:49:00 EST, Height, 82.4, kg, 08/18/18 19:01:00 EDT, Dry Weight Start Date: 11/13/19 Stop Date: 05/11/20 Status: Ordered Pen [place], 31 G x 5 mm BD Ultra Fine III See Instructions, # 100 each, Refills 11, Tot. 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
--- OUTSIDE RECORDS SUMMARY | 2024-05-01 07:48 | XMS_ITS | Continuity of Care Document ---
Author Organization [facility] Daquan Jose Luis lt Address [address] [place] [address]- Care Team Providers Care Pharmacy Scheduler Name Role Phone Jane Melgar NP Primary Care Physician [place] [facility] [place] - 07/03/20 [facility] Adult [address] [place] [address]- [facility] Allergies, Adverse Reactions, Alerts Substance [...] 18:02:08 EDT, Aerosol, Route to Pharmacy Electronically, [id number], [facility]/pharmacy #[id number], Compound Start Date: 01/29/18 Stop [...] mL, 3 Refills, Maintenance, 11/13/19 17:29:00 EST, [facility]/pharmacy #[id number], 152.5, cm, 11/13/19 13:49:00 EST, [...] 7 Refills, Maintenance, 11/13/19 14:35:00 EST, Tablet, [facility]/pharmacy #[id number], 152.5, cm, 11/13/19 13:49:00 EST, [...] 08/14/19 Stop Date: 08/08/20 Status: Ordered Pen [place], 29 G x 12.7 mm BD Ultra Fine See Instructions, # 100 each, Refills 5, Tot. Refills 5, Maintenance, use as directed for Type 1 Diabetes Mellitus, 11/13/19 17:27:00 EST, [facility], 152.5, cm, 11/13/19 13:49:00 EST, Height, 82.4, kg, 08/18/18 19:01:00 EDT, Dry Weight Start Date: 11/13/19 Stop Date: 05/11/20 Status: Ordered Pen [place], 31 G x 5 mm BD Ultra Fine III See Instructions, # 100 each, Refills 11, Tot. 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
--- OUTSIDE RECORDS SUMMARY | 2024-05-01 07:48 | XMS_ITS | Continuity of Care Document ---
Author Organization [facility] Butt Jose Luis lt Address [address] [place] [address]- Care Team Providers Care Career Representative Name Role Phone Peri Magdaleno NP Primary Care Physician [phone] [place] [facility] [place] 07/13/21 - 08/12/21 [facility] Adult [address] [place] [address]- Attending Physician: Admtr, Ar8 Admitting Physician: Admtr, [...] mL, 6 Refills, Maintenance, 08/27/20 13:37:00 EDT, [facility], 152, cm, 08/26/20 9:48:00 EDT, Height, 78.4, kg, 07/13/20 9:29:00 EDT, Dry W... Start Date: 08/27/20 Status: Ordered albuterol CFC free 90 mcg/inh inhalation aerosol 2, puffs, Inhalation, Every 4 hours, PRN, use with spacer chamber, # 1 each, Refills 3, Tot. Refills 3, Maintenance, 07/26/20 7:40:00 EDT, Aerosol, Route to Pharmacy Electronically, [id number], [facility], 152, cm,... Start Date: [...] mL, 3 Refills, Maintenance, 08/02/20 7:28:00 EDT, [facility], 152, cm, 07/27/20 7:01:00 [...] Refills, Maintenance, 07/26/20 8:13:00 EDT, Aerosol,[facility], 152, cm, 07/26/20 7:17:00 [...] 15:18:00 EDT, [id number], 152, cm, 07/15/20 14:57:00 EDT, Height, 78.4, kg, 07/13/20 9:29:00 EDT, Dry... Start Date: 07/15/20 Status: Ordered Insulin Lispro KwikPen 100 units/mL injectable solution See Instructions, Please follow sliding scale, three times a day with meals. Max daily dose: 42 units E11.9, # 15 mL, 6 Refills, Maintenance, 08/26/20 10:05:00 EDT, [facility], 152, cm, 08/26/20 9:48:00 EDT, Height, 78.4, kg, 07/13/20... Start Date: 08/26/20 Status: Ordered Lantus Solostar Pen 100 units/mL subcutaneous solution = 10 units, Subcutaneous Injection, Daily, Take 10 units today, increase 3 units daily until fasting blood sugar is 140 with evening meal, # 10 mL, 3 Refills, Maintenance, 07/12/21 13:36:00 EDT, Solution, [facility], 152, cm, 04/11/21 14:... [...] 0 Refills, Maintenance, 08/08/20 14:33:00 EDT, Film, [facility], 1 patch Topically Daily,PRN:Pain , Mild,Instr:remove after 12 hours, 152, cm, 08/06/20 9:15:00 ED... Start Date: 08/08/20 Status: Ordered lidocaine-prilocaine 2.5%-2.5% topical cream 1 application, Topically, 3 times a day, Apply to sensitive area, # 30 Gm, 0 Refills, Soft Stop, 07/30/20 17:50:00 EDT, Cream, [facility], 1 application Topically 3 times a day,Instr:Applyto sensitive area, 152, cm, 07/27/20 7:01:00 EDT, H... Start Date: 07/30/20 Status: Ordered Lipitor 40 mg oral tablet 1 tablet = 40 mg, By Mouth, Daily, # 90 tablet, 3 Refills, Maintenance, 07/13/21 16:34:00 EDT, Tablet, [facility], 152, cm, 07/13/21 15:34:00 EDT, Height, 78.4, kg, 07/13/20 9:29:00 EDT, Dry Weight Start Date: 07/13/21 Status: Ordered lisinopril 40 mg oral tablet 1 tablet = 40 mg, By Mouth, Daily, # 30 tablet, 0 Refills, Maintenance, 07/13/21 16:34:00 EDT, Tablet, [facility], 152, cm, 07/13/21 15:34:00 EDT, [...] Maintenance, 07/12/21 13:36:00 EDT, Tablet, [facility], 152, cm, 04/11/21 14:02:00 EDT, Height, 78.4, kg, 07/13/20 9:29:00 EDT, Dry Weight Start Date: 07/12/21 Stop Date: 01/08/22 Status: Ordered omeprazole 40 mg oral enteric coated capsule 1 capsule = 40 mg, By Mouth, Daily, # 90 capsule, 3 Refills, Maintenance, 07/26/20 7:42:00 EDT, EC Capsule, [facility], 152, cm, 07/26/20 7:17:00 EDT, Height, 78.4, kg, 07/13/20 9:29:00 EDT, Dry Weight Start Date: 07/26/20 Stop Date: 07/21/21 Status: Ordered ondansetron 4 mg oral tablet, disintegrating 1 tablet = 4 mg, By Mouth, 2 times a day, # 21 tablet, 0 Refills, Maintenance, 07/26/20 7:42:00 EDT, [facility], 152, cm, 07/26/20 7:17:00 EDT, Height, 78.4, kg, 07/13/20 9:29:00 EDT, Dry Weight Start Date: 07/26/20 Status: Ordered Pen [place], 29 G x 12.7 mm BD Ultra Fine See Instructions, # 100 each, Refills 5, Tot. Refills 5, Maintenance, use as directed for Type 1 Diabetes Mellitus, 11/13/19 17:27:00 EST, [facility], 152.5, cm, 11/13/19 13:49:00 EST, Height, 82.4, kg, 08/18/18 19:01:00 EDT, Dry Weight Start Date: 11/13/19 Stop Date: 05/11/20 Status: Ordered Pen [place], 31 G x 5 mm BD Ultra Fine III See Instructions, # 100 each, Refills 11, Tot. Refills 11, Maintenance, Use once daily as directed with Lantus pen., 07/26/20 7:41:00 EDT, T2DM; E11.9 ; please let pt know when ready to olive picker., Compound, 152, cm, 07/26/20 7:17:00 EDT, Height, 78.4,... Start Date: 07/26/20 Status: Ordered ProAir HFA 90 mcg/inh inhalation aerosol 2 puffs, Inhalation, Every 4 hours, PRN as needed for wheezing, # 18 Gm, 2 Refills, Maintenance, 07/13/21 16:35:00 EDT, Aerosol, [facility], 2 puffs Inhalation Every 4 hours,PRN:as needed for wheezing, 152, cm, 07/13/21 15:34:00 EDT, Height... Start Date: 07/13/21 Status: Ordered SUMAtriptan 50 mg oral tablet 1 tablet = 50 mg, By Mouth, Daily, PRN for migraine headache, # 9 tablet, 5 Refills, Soft Stop, 07/26/20 7:42:00 EDT, Tablet, [facility], 152, cm, 07/26/20 7:17:00 [...]
--- OUTSIDE RECORDS SUMMARY | 2024-05-01 07:48 | XMS_ITS | Continuity of Care Document ---
Author Organization [facility] Daquan Jose Luis lt Address [address] [place] [address]- Care Team Providers Care Personal Injury Legal Assistant Name Role Phone Jane Melgar NP Primary Care Physician [place] [facility] [place] [facility] Adult [address] [place] [address]- [facility] Attending Physician: Misael Rader MD Allergies, Adverse Reactions, [...] 18:02:08 EDT, Aerosol, Route to Pharmacy Electronically, [id number], [facility]/pharmacy #[id number], Compound Start Date: 01/29/18 Stop [...] mL, 3 Refills, Maintenance, 11/13/19 17:29:00 EST, [facility]/pharmacy #[id number], 152.5, cm, 11/13/19 13:49:00 EST, [...] 7 Refills, Maintenance, 11/13/19 14:35:00 EST, Tablet, [facility]/pharmacy #[id number], 152.5, cm, 11/13/19 13:49:00 EST, [...] 08/14/19 Stop Date: 08/08/20 Status: Ordered Pen [place], 29 G x 12.7 mm BD Ultra Fine See Instructions, # 100 each, Refills 5, Tot. Refills 5, Maintenance, use as directed for Type 1 Diabetes Mellitus, 11/13/19 17:27:00 EST, Compound, 152.5, cm, 11/13/19 13:49:00 EST, Height, 82.4, kg, 08/18/18 19:01:00 EDT, Dry Weight Start Date: 11/13/19 Stop Date: 05/11/20 Status: Ordered Pen [place], 31 G x 5 mm BD Ultra Fine III See Instructions, # 100 each, Refills 11, Tot. 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 Start Date: 11/28/19 Status: Ordered SUMAtriptan 50 mg oral tablet 1 tablet = 50 mg, By Mouth, Daily, PRN for migraine headache, # 9 tablet, 5 Refills, Soft Stop, 03/25/20 10:06:00 EDT, Tablet, [facility]/pharmacy #[id number], 152.5, cm, 12/29/19 14:49:00 EST, [...] oldest [Reference Range]: 1 Height 152.5 cm (06/25/20 8:09 AM) Weight 79.0 kg (06/25/20 8:09 AM) Oxygen Saturation [94-100 %] 98 % (06/25/20 8:09 AM) Pulse Rate [55-90 bpm] 81 bpm (06/25/20 8:09 AM) Body Mass Index [18.5-24.99] 33.97 *>HHI* (06/25/20 8:09 AM) Blood Pressure [90-138/55-84 mm Hg] 132/ 68mm Hg (06/25/20 8:09 AM) Respiratory Rate [16-30 br/min] 16 br/mi n (06/25/20 8:09 AM) Temperature [96.8-100.4 DegF] 99.2 DegF (06/25/20 8:09 AM) Mode of Delivery (Oxygen) Room air (06/25/20 8:09 AM) Blood pressure sites Arm, right (06/25/20 8:09 AM) Temperature Route Oral (06/25/20 8:09 AM) Weight Obtained Via Standing scale (06/25/20 8:09 AM) Social History Social History Type Response Smoking Status Smoker, current stat us unknown entered on: 10/30/19 Sex
--- OUTSIDE RECORDS SUMMARY | 2024-05-01 07:48 | XMS_ITS | Continuity of Care Document ---
Author Organization [facility] Jose Luis Address [address] [place] [address]- Care Team Providers Care Business Intelligence Administrator Name Role Phone Jane Melgar NP Primary Care Physician [phone] [place] [facility] [place]20 - 08/19/20 [facility] Adult [address] [place] [address]- [facility] Allergies, Adverse Reactions, Alerts Substance Reaction [...] 7:40:00 EDT, Aerosol, Route to Pharmacy Electronically, [id number], [facility], 152, cm,... Start Date: [...] mL, 3 Refills, Maintenance, 08/02/20 7:28:00 EDT, [facility], 152, cm, 07/27/20 7:01:00 [...] Gm, 0 Refills, Maintenance, 07/26/20 8:13:00 EDT, Aerosol,[facility], 152, cm, 07/26/20 7:17:00 [...] 07/15/20 15:18:00 EDT, Route to Pharmacy Electronically, [facility]/pharmacy #[id number], 152, cm, 07/15/20 14:57:00 EDT, Height, 78.4, kg, 07/13/20 9:29:00 EDT, Dry... Start Date: 07/15/20 Status: Ordered Lantus Solostar Pen 100 units/mL subcutaneous solution = 10 units, Subcutaneous Injection, Daily, Take 10 units today, increase 3 units daily until fasting blood sugar is 140 with evening meal, # 10 mL, 0 Refills, Maintenance, 07/26/20 7:41:00 EDT, Solution, [facility], 152, cm, 07/26/20 7:17... [...] 0 Refills, Maintenance, 08/08/20 14:33:00 EDT, Film, [facility], 1 patch Topically Daily,PRN:Pain , Mild,Instr:remove after 12 hours, 152, cm, 08/06/20 9:15:00 ED... Start Date: 08/08/20 Status: Ordered lidocaine-prilocaine 2.5%-2.5% topical cream 1 application, Topically, 3 times a day, Apply to sensitive area, # 30 Gm, 0 Refills, Soft Stop, 07/30/20 17:50:00 EDT, Cream, [facility], 1 application Topically 3 times a day,Instr:Applyto sensitive area, 152, cm, 07/27/20 7:01:00 EDT, H... Start Date: 07/30/20 Status: Ordered Lipitor 40 mg oral tablet 1 tablet = 40 mg, By Mouth, Daily, # 90 tablet, 3 Refills, Maintenance, 07/26/20 7:41:00 EDT, Tablet, [facility], 152, cm, 07/26/20 7:17:00 EDT, Height, 78.4, kg, 07/13/20 9:29:00 EDT, DryWeight Start Date: 07/26/20 Status: Ordered lisinopril 40 mg oral tablet 1 tablet = 40 mg, By Mouth, Daily, # 30 tablet, 7 Refills, Maintenance, 07/26/20 7:41:00 EDT, Tablet, [facility], 152, cm, 07/26/20 7:17:00 [...] 5 Refills, Maintenance, 07/26/20 7:42:00 EDT, Tablet, [facility], 152, cm, 07/26/20 7:17:00 EDT, Height, 78.4, kg, 07/13/20 9:29:00 EDT, Dry Weight Start Date: 07/26/20 Stop Date: 01/22/21 Status: Ordered omeprazole 40 mg oral enteric coated capsule 1 capsule = 40 mg, By Mouth, Daily, # 90 capsule, 3 Refills, Maintenance, 07/26/20 7:42:00 EDT, EC Capsule, [facility], 152, cm, 07/26/20 7:17:00 EDT, Height, 78.4, kg, 07/13/20 9:29:00 EDT, Dry Weight Start Date: 07/26/20 Stop Date: 07/21/21 Status: Ordered ondansetron 4 mg oral tablet, disintegrating 1 tablet = 4 mg, By Mouth, 2 times a day, # 21 tablet, 0 Refills, Maintenance, 07/26/20 7:42:00 EDT, [facility], 152, cm, 07/26/20 7:17:00 EDT, Height, 78.4, kg, 07/13/20 9:29:00 EDT, Dry Weight Start Date: 07/26/20 Status: Ordered Pen [place], 29 G x 12.7 mm BD Ultra Fine See Instructions, # 100 each, Refills 5, Tot. Refills 5, Maintenance, use as directed for Type 1 Diabetes Mellitus, 11/13/19 17:27:00 EST, Compound, 152.5, cm, 11/13/19 13:49:00 EST, Height, 82.4, kg, 08/18/18 19:01:00 EDT, Dry Weight Start Date: 11/13/19 Stop Date: 05/11/20 Status: Ordered Pen [place], 31 G x 5 mm BD Ultra Fine III See Instructions, # 100 each, Refills 11, Tot. 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 Start Date: 07/26/20 Status: Ordered ProAir HFA 90 mcg/inh inhalation aerosol 2 puffs, Inhalation, Every 4 hours, PRN as needed for wheezing, # 18 Gm, 2 Refills, Maintenance, 08/02/20 7:27:00 EDT, Aerosol, [facility], 2 puffs Inhalation Every 4 hours,PRN:as needed for wheezing, 152, cm, 07/27/20 7:01:00 EDT, Height,... Start Date: 08/02/20 Status: Ordered SUMAtriptan 50 mg oral tablet 1 tablet = 50 mg, By Mouth, Daily, PRN for migraine headache, # 9 tablet, 5 Refills, Soft Stop, 07/26/20 7:42:00 EDT, Tablet, [facility], 152, cm, 07/26/20 7:17:00 [...]
--- OUTSIDE RECORDS SUMMARY | 2024-05-01 07:48 | XMS_ITS | Continuity of Care Document ---
Author Organization [facility] Address [address] [place] [address]- Care Team Providers Care Ruby Developer Name Role Phone Ramón FLOREZ, Jane Primary Care Physician Encounter [facility] [place] ACCT R [id number] Date(s): 08/17/20 - 08/24/20 [facility] [address] [place] [address]- [facility] Attending Physician: Goldie Nagy NP Referring Physician: Jane Melgar NP Allergies, [...] 7:40:00 EDT, Aerosol, Route to Pharmacy Electronically, [id number], [facility], 152, [...] 07/15/20 15:18:00 EDT, Route to Pharmacy Electronically, [facility]/pharmacy #[id number], 152, cm, 07/15/20 14:57:00 EDT, Height, 78.4, kg, 07/13/20 9:29:00 EDT, Dry... Start Date: 07/15/20 Status: Ordered Lantus Solostar Pen 100 units/mL subcutaneous solution = 10 units, Subcutaneous Injection, Daily, Take 10 units today, increase 3 units daily until fasting blood sugar is 140 with evening meal, # 10 mL, 0 Refills, Maintenance, 07/26/20 7:41:00 EDT, Solution, [facility], 152, cm, 07/26/20 7:17... Start Date: 07/26/20 Status: Ordered Lantus Solostar Pen 100 units/mL subcutaneous solution See Instructions, 10 units daily with dinner: add 3 unis daily until fasting blood sugar is 140, # 15 mL, 3 Refills, Maintenance, 11/13/19 17:29:00 EST, [facility]/pharmacy #[id number], 152.5, cm, [...] 0 Refills, Maintenance, 08/08/20 14:33:00 EDT, Film, [facility], 1 patch Topically Daily,PRN:Pain , Mild,Instr:remove after 12 hours, 152, cm, 08/06/20 9:15:00 ED... Start Date: 08/08/20 Status: Ordered lidocaine-prilocaine 2.5%-2.5% topical cream 1 application, Topically, 3 times a day, Apply to sensitive area, # 30 Gm, 0 Refills, Soft Stop, 07/30/20 17:50:00 EDT, Cream, [facility], 1 application Topically 3 times a day,Instr:Applyto sensitive area, 152, cm, 07/27/20 7:01:00 EDT, H... Start Date: 07/30/20 Status: Ordered Lipitor 40 mg oral tablet 1 tablet = 40 mg, By Mouth, Daily, # 90 tablet, 3 Refills, Maintenance, 07/26/20 7:41:00 EDT, Tablet, [facility], 152, cm, 07/26/20 7:17:00 EDT, Height, 78.4, kg, 07/13/20 9:29:00 EDT, DryWeight Start Date: 07/26/20 Status: Ordered lisinopril 40 mg oral tablet 1 tablet = 40 mg, By Mouth, Daily, # 30 tablet, 7 Refills, Maintenance, 07/26/20 7:41:00 EDT, Tablet, [facility] [...] 5 Refills, Maintenance, 07/26/20 7:42:00 EDT, Tablet, [facility] [...] Weight Start Date: 07/26/20 Status: Ordered Pen [place], 29 G x 12.7 mm BD Ultra Fine See Instructions, # 100 each, Refills 5, Tot. Refills 5, Maintenance, use as directed for Type 1 Diabetes Mellitus, 11/13/19 17:27:00 EST, Compound, 152.5, cm, 11/13/19 13:49:00 EST, Height, 82.4, kg, 08/18/18 19:01:00 EDT, Dry Weight Start Date: 11/13/19 Stop Date: 05/11/20 Status: Ordered Pen [place], 31 G x 5 mm BD Ultra Fine III See Instructions, # 100 each, Refills 11, Tot. 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 Start Date: 07/26/20 Status: Ordered ProAir HFA 90 mcg/inh inhalation aerosol 2 puffs, Inhalation, Every 4 hours, PRN as needed for wheezing, # 18 Gm, 2 Refills, Maintenance, 08/02/20 7:27:00 EDT, Aerosol, [facility] [...] oldest [Reference Range]: 1 Height 152 cm (08/17/20 10:05 AM) Weight 77.0 kg (08/17/20 10:05 AM) Pulse Rate [55-90 bpm] 83 bpm (08/17/20 10:05 AM) Body Mass Index [18.5-24.99] 33.33 *>HHI* (08/17/20 10:05 AM) Blood Pressure [90-138/55-84 mm Hg] 137/ 89mm Hg (08/17/20 10:05 AM) Temperature [96.8-100.4 DegF] 98.6 DegF (08/17/20 10:05 AM) Blood pressure sites Arm, left (08/17/20 10:05 AM) Temperature Route Oral (08/17/20 10:05 AM) Social History Social History Type Response Smoking Status Smoker, current stat us unknown entered on: 10/30/19 Sex
--- OUTSIDE RECORDS SUMMARY | 2024-05-01 07:48 | XMS_ITS | Continuity of Care Document ---
Author Organization [facility] Eduardo Butt Jose Luis lt Address [address] [place] [address]- Care Team Providers Care Senior Controls Technician Name Role Phone Peri Magdaleno NP Primary Care Physician Encounter [facility] [place] Date(s): 09/02/21 - 10/02/21 [facility] Adult [address] [place] [address]- Allergies, Adverse Reactions, Alerts Substance Reaction Severity [...] mL, 6 Refills, Maintenance, 09/06/21 8:32:00 EDT, [facility], 152, cm, 09/06/21 8:17:00EDT, [...] 09/02/21 9:17:00 EDT, Route to Pharmacy Electronically, [facility], Partial fill upon patient request if the prescription is for a schedule I... Start Date: 09/02/21 Status: Ordered Flovent HFA 110 mcg/inh inhalation aerosol 2 puffs, Inhalation, 2 times a day, # 12 Gm, 0 Refills, Maintenance, 07/26/20 8:13:00 EDT, Aerosol,[facility], 152, cm, 07/26/20 7:17:00 EDT, [...] 09/06/21 8:39:00 EDT, Route to Pharmacy Electronically, [facility], 152,cm, 09/06/21 8:17:00 EDT, Height, 78.4, kg, ... Start Date: 09/06/21 Stop Date: 10/06/21 Status: Ordered Lantus Solostar Pen 100 units/mL subcutaneous solution = 24 units, Subcutaneous Injection, Daily, Take 10 units today, increase 3 units daily until fasting blood sugar is 140 with evening meal, # 10 mL, 3 Refills, Maintenance, 07/12/21 13:36:00 EDT, Solution, [facility], 152, cm, 04/11/21 14:... Start Date: 07/12/21 Status: Ordered Lipitor 40 mg oral tablet 1 tablet = 40 mg, By Mouth, Daily, # 90 tablet, 3 Refills, Maintenance, 07/13/21 16:34:00 EDT, Tablet, [facility], 152, cm, 07/13/21 15:34:00 EDT, Height, 78.4, kg, 07/13/20 9:29:00 EDT, Dry Weight Start Date: 07/13/21 Status: Ordered lisinopril 40 mg oral tablet 1 tablet = 40 mg, By Mouth, Daily, # 30 tablet, 0 Refills, Maintenance, 07/13/21 16:34:00 EDT, Tablet, [facility], 152, cm, 07/13/21 15:34:00 [...] 5 Refills, Maintenance, 07/12/21 13:36:00 EDT, Tablet, [facility], 152, cm, 04/11/21 14:02:00 EDT, Height, 78.4, kg, 07/13/20 9:29:00 EDT, Dry Weight Start Date: 07/12/21 Stop Date: 01/08/22 Status: Ordered omeprazole 40 mg oral enteric coated capsule 1 capsule = 40 mg, By Mouth, Daily, # 90 capsule, 3 Refills, Maintenance, 07/26/20 7:42:00 EDT, EC Capsule, [facility], 152, cm, 07/26/20 7:17:00 EDT, Height, 78.4, kg, 07/13/20 9:29:00 EDT, Dry Weight Start Date: 07/26/20 Stop Date: 07/21/21 Status: Ordered ondansetron 4 mg oral tablet, disintegrating 1 tablet = 4 mg, By Mouth, 2 times a day, # 21 tablet, 0 Refills, Maintenance, 07/26/20 7:42:00 EDT, [facility], 152, cm, 07/26/20 7:17:00 EDT, Height, 78.4, kg, 07/13/20 9:29:00 EDT, Dry Weight Start Date: 07/26/20 Status: Ordered Pen [place], 31 G x 5 mm BD Ultra Fine III See Instructions, # 100 each, Refills 11, Tot. 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 Start Date: 07/26/20 Status: Ordered ProAir HFA 90 mcg/inh inhalation aerosol 2 puffs, Inhalation, Every 4 hours, PRN as needed for wheezing, # 18 Gm, 2 Refills, Maintenance, 07/13/21 16:35:00 EDT, Aerosol, [facility], 2 puffs Inhalation Every 4 hours,PRN:as needed for wheezing, 152, cm, 07/13/21 15:34:00 EDT, Height... Start Date: 07/13/21 Status: Ordered SUMAtriptan 50 mg oral tablet 1 tablet = 50 mg, By Mouth, Daily, PRN for migraine headache, # 9 tablet, 5 Refills, Soft Stop, 07/26/20 7:42:00 EDT, Tablet, [facility], 152, cm, 07/26/20 7:17:00 [...]
--- OUTSIDE RECORDS SUMMARY | 2024-05-01 07:48 | XMS_ITS | Continuity of Care Document ---
Author Organization [facility] Eduardo Butt Jose Luis lt Address [address] [place] [address]- Care Team Providers Care Ripsaw Matcher Name Role Phone Jane Melgar NP Primary Care Physician En[place] [facility] [place] Date(s): 01/21/21 - 02/20/21 [facility] Adult [address] [place] [address]- Allergies, Adverse Reactions, Alerts Substance Reaction Severity [...] mL, 6 Refills, Maintenance, 08/27/20 13:37:00 EDT, [facility], 152, cm, 08/26/20 9:48:00 EDT, Height, 78.4, kg, 07/13/20 9:29:00 EDT, Dry W... Start Date: 08/27/20 Status: Ordered albuterol CFC free 90 mcg/inh inhalation aerosol 2, puffs, Inhalation, Every 4 hours, PRN, use with spacer chamber, # 1 each, Refills 3, Tot. Refills 3, Maintenance, 07/26/20 7:40:00 EDT, Aerosol, Route to Pharmacy Electronically, [id number], [facility], 152, cm,... Start [...] mL, 3 Refills, Maintenance, 08/02/20 7:28:00 EDT, [facility], 152, cm, 07/27/20 [...] Gm, 0 Refills, Maintenance, 07/26/20 8:13:00 EDT, Aerosol,[facility], 152, cm, 07/26/20 [...] 07/15/20 15:18:00 EDT, [id number] 152, cm, 07/15/20 14:57:00 EDT, Height, 78.4, kg, 07/13/20 9:29:00 EDT, Dry... Start Date: 07/15/20 Status: Ordered Insulin Lispro KwikPen 100 units/mL injectable solution See Instructions, Please follow sliding scale, three times a day with meals. Max daily dose: 42 units E11.9, # 15 mL, 6 Refills, Maintenance, 08/26/20 10:05:00 EDT, [facility], 152, cm, 08/26/20 9:48:00 EDT, Height, 78.4, kg, 07/13/20... Start Date: 08/26/20 Status: Ordered Lantus Solostar Pen 100 units/mL subcutaneous solution = 10 units, Subcutaneous Injection, Daily, Take 10 units today, increase 3 units daily until fasting blood sugar is 140 with evening meal, # 10 mL, 0 Refills, Maintenance, 07/26/20 7:41:00 EDT, Solution, [facility], 152, cm, 07/26/20 7:17... Start Date: 07/26/20 Status: Ordered Lantus Solostar Pen 100 units/mL subcutaneous solution See Instructions, 10 units daily with dinner: add 3 unis daily until fasting blood sugar is 140, # 15 mL, 3 Refills, Maintenance, 11/13/19 17:29:00 EST, [facility]/pharmacy #[id number], 152.5, cm, 11/13/19 13:49:00 [...] 0 Refills, Maintenance, 08/08/20 14:33:00 EDT, Film, [facility], 1 patch Topically [...] Refills, Maintenance, 07/26/20 7:42:00 EDT, EC Capsule, [facility], 152, cm, 07/26/20 7:17:00 EDT, Height, 78.4, kg, 07/13/20 9:29:00 EDT, Dry Weight Start Date: 07/26/20 Stop Date: 07/21/21 Status: Ordered ondansetron 4 mg oral tablet, disintegrating 1 tablet = 4 mg, By Mouth, 2 times a day, # 21 tablet, 0 Refills, Maintenance, 07/26/20 7:42:00 EDT, [facility], 152, cm, 07/26/20 7:17:00 EDT, Height, 78.4, kg, 07/13/20 9:29:00 EDT, Dry Weight Start Date: 07/26/20 Status: Ordered Pen [place], 29 G x 12.7 mm BD Ultra Fine See Instructions, # 100 each, Refills 5, Tot. Refills 5, Maintenance, use as directed for Type 1 Diabetes Mellitus, 11/13/19 17:27:00 EST, Compound, 152.5, cm, 11/13/19 13:49:00 EST, Height, 82.4, kg, 08/18/18 19:01:00 EDT, Dry Weight Start Date: 11/13/19 Stop Date: 05/11/20 Status: Ordered Pen [place], 31 G x 5 mm BD Ultra Fine III See Instructions, # 100 each, Refills 11, Tot. 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 Start Date: 07/26/20 Status: Ordered ProAir HFA 90 mcg/inh inhalation aerosol 2 puffs, Inhalation, Every 4 hours, PRN as needed for wheezing, # 18 Gm, 2 Refills, Maintenance, 08/02/20 7:27:00 EDT, Aerosol, [facility], 2 puffs Inhalation Every 4 hours,PRN:as needed for wheezing, 152, cm, 07/27/20 7:01:00 EDT, Height,... Start Date: 08/02/20 Status: Ordered SUMAtriptan 50 mg oral tablet 1 tablet = 50 mg, By Mouth, Daily, PRN for migraine headache, # 9 tablet, 5 Refills, Soft Stop, 07/26/20 7:42:00 EDT, Tablet, [facility], 152, cm, 07/26/20 [...]
--- OUTSIDE RECORDS SUMMARY | 2024-05-01 07:48 | XMS_ITS | Continuity of Care Document ---
Author Organization [facility] Address [address], [address], [address] [place] [address]- Care Team Providers Care Honey Extractor Name Role Phone Nuria AUTO REFINISHER, Jing Russo Primary Care Physician [place] [facility] [place]19 [facility] [address], [address], [address] [place] [address]- [facility] Attending Physician: Suly Stephenson Admitting Physician: Suly Stephenson Referring Physician: AdmtrSuly Allergies, Adverse Reactions, Alerts Substance Reaction Severity [...] 18:02:08 EDT, Aerosol, Route to Pharmacy Electronically, [id number], [facility]/pharmacy #[id number], Compound Start Date: 01/29/18 Stop [...] Maintenance, 11/13/19 14:35:00 EST, Tablet, [facility]/pharmacy #[id number], [...] 08/14/19 Stop Date: 08/08/20 Status: Ordered Pen [place], 29 G x 12.7 mm BD Ultra Fine See Instructions, # 100 each, Refills 5, Tot. Refills 5, Maintenance, use as directed for Type 1 Diabetes Mellitus, 11/13/19 17:27:00 EST, Compound, 152.5, cm, 11/13/19 13:49:00 EST, Height, 82.4, kg, 08/18/18 19:01:00 EDT, Dry Weight Start Date: 11/13/19 Stop Date: 05/11/20 Status: Ordered Pen [place], 31 G x 5 mm BD Ultra Fine III See Instructions, # 100 each, Refills 11, Tot. Refills 11, Maintenance, Use once daily as directed with Lantus pen., 11/28/19 10:15:00 EST, T2DM; E11.9 ; please let pt know when ready to pick up attendant., Compound, 152.5, cm, 11/13/19 13:49:00 EST, Height, [...]
--- OUTSIDE RECORDS SUMMARY | 2024-05-01 07:49 | XMS_ITS | Continuity of Care Document ---
Author Organization AMIR[facility] Butt Jose Luis lt Address [address] [place] [address]- Care Team Providers Care Button Sewer Hand Name Role Phone Jane eMlgar NP Primary Care Physician Encounter [facility] [place] Date(s): 09/14/20 - 10/14/20 [facility] Adult [address] [place] [address]- Allergies, Adverse Reactions, Alerts Substance Reaction Severity [...] mL, 6 Refills, Maintenance, 08/27/20 13:37:00 EDT, [facility], 152, cm, 08/26/20 9:48:00 EDT, Height, 78.4, kg, 07/13/20 9:29:00 EDT, Dry W... Start Date: 08/27/20 Status: Ordered albuterol CFC free 90 mcg/inh inhalation aerosol 2, puffs, Inhalation, Every 4 hours, PRN, use with spacer chamber, # 1 each, Refills 3, Tot. Refills 3, Maintenance, 07/26/20 7:40:00 EDT, Aerosol, Route to Pharmacy Electronically, [id number], [facility], 152, cm,... Start [...] mL, 3 Refills, Maintenance, 08/02/20 7:28:00 EDT, [facility], 152, cm, 07/27/20 [...] Gm, 0 Refills, Maintenance, 07/26/20 8:13:00 EDT, Aerosol,[facility], 152, cm, 07/26/20 [...] 15:18:00 EDT, Route to Pharmacy Electronically, [facility]/pharmacy #[id number], 152, cm, 07/15/20 14:57:00 EDT, Height, 78.4, kg, 07/13/20 9:29:00 EDT, Dry... Start Date: 07/15/20 Status: Ordered Insulin Lispro KwikPen 100 units/mL injectable solution See Instructions, Please follow sliding scale, three times a day with meals. Max daily dose: 42 units E11.9, # 15 mL, 6 Refills, Maintenance, 08/26/20 10:05:00 EDT, [facility], 152, cm, 08/26/20 9:48:00 EDT, Height, 78.4, kg, 07/13/20... Start Date: 08/26/20 Status: Ordered Lantus Solostar Pen 100 units/mL subcutaneous solution = 10 units, Subcutaneous Injection, Daily, Take 10 units today, increase 3 units daily until fasting blood sugar is 140 with evening meal, # 10 mL, 0 Refills, Maintenance, 07/26/20 7:41:00 EDT, Solution, [facility], 152, cm, 07/26/20 7:17... Start Date: 07/26/20 Status: Ordered Lantus Solostar Pen 100 units/mL subcutaneous solution See Instructions, 10 units daily with dinner: add 3 unis daily until fasting blood sugar is 140, # 15 mL, 3 Refills, Maintenance, 11/13/19 17:29:00 EST, [facility]/pharmacy #[id number], 152.5, cm, 11/13/19 13:49:00 EST, Height, [...] 0 Refills, Maintenance, 08/08/20 14:33:00 EDT, Film, [facility], 1 patch Topically Daily,PRN:Pain , Mild,Instr:remove after 12 hours, 152, cm, 08/06/20 9:15:00 ED... Start Date: 08/08/20 Status: Ordered lidocaine-prilocaine 2.5%-2.5% topical cream 1 application, Topically, 3 times a day, Apply to sensitive area, # 30 Gm, 0 Refills, Soft Stop, 07/30/20 17:50:00 EDT, Cream, [facility], 1 application Topically [...] Refills, Maintenance, 07/26/20 7:42:00 EDT, EC Capsule, [facility], 152, cm, 07/26/20 7:17:00 EDT, Height, 78.4, kg, 07/13/20 9:29:00 EDT, Dry Weight Start Date: 07/26/20 Stop Date: 07/21/21 Status: Ordered ondansetron 4 mg oral tablet, disintegrating 1 tablet = 4 mg, By Mouth, 2 times a day, # 21 tablet, 0 Refills, Maintenance, 07/26/20 7:42:00 EDT, [facility], 152, cm, 07/26/20 7:17:00 EDT, Height, 78.4, kg, 07/13/20 9:29:00 EDT, Dry Weight Start Date: 07/26/20 Status: Ordered Pen [place], 29 G x 12.7 mm BD Ultra Fine See Instructions, # 100 each, Refills 5, Tot. Refills 5, Maintenance, use as directed for Type 1 Diabetes Mellitus, 11/13/19 17:27:00 EST, Compound, 152.5, cm, 11/13/19 13:49:00 EST, Height, 82.4, kg, 08/18/18 19:01:00 EDT, Dry Weight Start Date: 11/13/19 Stop Date: 05/11/20 Status: Ordered Pen [place], 31 G x 5 mm BD Ultra Fine III See Instructions, # 100 each, Refills 11, Tot. Refills 11, Maintenance, Use once daily as directed with Lantus pen., 07/26/20 7:41:00 EDT, T2DM; E11.9 ; please let pt know when ready to cloth picker., Compound, 152, cm, 07/26/20 7:17:00 EDT, Height, 78.4,... Start Date: 07/26/20 Status: Ordered ProAir HFA 90 mcg/inh inhalation aerosol 2 puffs, Inhalation, Every 4 hours, PRN as needed for wheezing, # 18 Gm, 2 Refills, Maintenance, 08/02/20 7:27:00 EDT, Aerosol, [facility], 2 puffs Inhalation Every 4 hours,PRN:as needed for wheezing, 152, cm, 07/27/20 7:01:00 EDT, Height,... Start Date: 08/02/20 Status: Ordered SUMAtriptan 50 mg oral tablet 1 tablet = 50 mg, By Mouth, Daily, PRN for migraine headache, # 9 tablet, 5 Refills, Soft Stop, 07/26/20 7:42:00 EDT, Tablet, [facility], 152, cm, 07/26/20 [...]
--- OUTSIDE RECORDS SUMMARY | 2024-05-01 07:49 | XMS_ITS | Continuity of Care Document ---
Author Organization [facility] Daquan Jose Luis lt Address [address] [place] [address]- Care Team Providers Care Dough Cutter Name Role Phone Nuria [employer], Jing Russo Primary Care Physician Encounter [facility] [place] Date(s): 03/30/20 - 04/29/20 [facility] Adult [address] [place] [address]- [place] Attending Physician: Admtr, Ar8 Admitting Physician: Admtr, [...] 18:02:08 EDT, Aerosol, Route to Pharmacy Electronically, [id number], [facility]/pharmacy #[id number], Compound Start [...] mL, 3 Refills, Maintenance, 11/13/19 17:29:00 EST, [facility]acy #[id number], 152.5, cm, 11/13/19 13:49:00 EST, Height, [...] 08/14/19 Stop Date: 08/08/20 Status: Ordered Pen [place], 29 G x 12.7 mm BD Ultra Fine See Instructions, # 100 each, Refills 5, Tot. Refills 5, Maintenance, use as directed for Type 1 Diabetes Mellitus, 11/13/19 17:27:00 EST, Compound, 152.5, cm, 11/13/19 13:49:00 EST, Height, 82.4, kg, 08/18/18 19:01:00 EDT, Dry Weight Start Date: 11/13/19 Stop Date: 05/11/20 Status: Ordered Pen [place], 31 G x 5 mm BD Ultra Fine III See Instructions, # 100 each, Refills 11, Tot. Refills 11, Maintenance, Use once daily as directed with Lantus pen., 11/28/19 10:15:00 EST, T2DM; E11.9 ; please let pt know when ready to scrap picker., Compound, 152.5, cm, 11/13/19 13:49:00 EST, [...]
--- OUTSIDE RECORDS SUMMARY | 2024-05-01 07:49 | XMS_ITS | Continuity of Care Document ---
Author Organization [facility] Eduardo Butt Jose Luis lt Address [address] [place] [address]- Care Team Providers Care Oil Agent Name Role Phone Jane Melgar NP Primary Care Physician [phone] [place]counter [facility] [place](s): 03/30/21 - 04/29/21 [facility] Adult [address] [place] [address]- Allergies, Adverse Reactions, Alerts Substance Reaction Severity [...] 6 Refills, Maintenance, 08/27/20 13:37:00 EDT, [facility], 152, cm, 08/26/20 9:48:00 EDT, Height, 78.4, kg, 07/13/20 9:29:00 EDT, Dry W... Start Date: 08/27/20 Status: Ordered albuterol CFC free 90 mcg/inh inhalation aerosol 2, puffs, Inhalation, Every 4 hours, PRN, use with spacer chamber, # 1 each, Refills 3, Tot. Refills 3, Maintenance, 07/26/20 7:40:00 EDT, Aerosol, Route to Pharmacy Electronically, [id number], [facility], 152, cm,... Start Date: 07/26/20 [...] 3 Refills, Maintenance, 08/02/20 7:28:00 EDT, [facility], 152, cm, 07/27/20 7:01:00 EDT, [...] 0 Refills, Maintenance, 07/26/20 8:13:00 EDT, Aerosol,[facility], 152, cm, 07/26/20 7:17:00 EDT, [...] EDT, [id number], 152, cm, 07/15/20 14:57:00 EDT, Height, 78.4, kg, 07/13/20 9:29:00 EDT, Dry... Start Date: 07/15/20 Status: Ordered Insulin Lispro KwikPen 100 units/mL injectable solution See Instructions, Please follow sliding scale, three times a day with meals. Max daily dose: 42 units E11.9, # 15 mL, 6 Refills, Maintenance, 08/26/20 10:05:00 EDT, [facility], 152, cm, 08/26/20 9:48:00 EDT, Height, 78.4, kg, 07/13/20... Start Date: 08/26/20 Status: Ordered Lantus Solostar Pen 100 units/mL subcutaneous solution = 10 units, Subcutaneous Injection, Daily, Take 10 units today, increase 3 units daily until fasting blood sugar is 140 with evening meal, # 10 mL, 0 Refills, Maintenance, 07/26/20 7:41:00 EDT, Solution, [facility], 152, cm, 07/26/20 7:17... Start Date: 07/26/20 Status: Ordered Lantus Solostar Pen 100 units/mL subcutaneous solution See Instructions, 10 units daily with dinner: add 3 unis daily until fasting blood sugar is 140, # 15 mL, 3 Refills, Maintenance, 11/13/19 17:29:00 EST, [facility]/pharmacy #[id number], 152.5, cm, 11/13/19 13:49:00 [...] Refills, Maintenance, 08/08/20 14:33:00 EDT, Film, [facility], 1 patch Topically Daily,PRN:Pain , Mild,Instr:remove after 12 hours, 152, cm, 08/06/20 9:15:00 ED... Start Date: 08/08/20 Status: Ordered lidocaine-prilocaine 2.5%-2.5% topical cream 1 application, Topically, 3 times a day, Apply to sensitive area, # 30 Gm, 0 Refills, Soft Stop, 07/30/20 17:50:00 EDT, Cream, [facility], 1 application Topically 3 times a day,Instr:Applyto sensitive area, 152, cm, 07/27/20 7:01:00 EDT, H... Start Date: 07/30/20 Status: Ordered Lipitor 40 mg oral tablet 1 tablet = 40 mg, By Mouth, Daily, # 90 tablet, 3 Refills, Maintenance, 07/26/20 7:41:00 EDT, Tablet, [facility], 152, cm, 07/26/20 7:17:00 EDT, Height, 78.4, kg, 07/13/20 9:29:00 EDT, DryWeight Start Date: 07/26/20 Status: Ordered lisinopril 40 mg oral tablet 1 tablet = 40 mg, By Mouth, Daily, # 30 tablet, 7 Refills, Maintenance, 07/26/20 7:41:00 EDT, Tablet, [facility], 152, cm, 07/26/20 7:17:00 EDT, Height, [...] 5 Refills, Maintenance, 07/26/20 7:42:00 EDT, Tablet, [facility], 152, cm, 07/26/20 7:17:00 EDT, Height, 78.4, kg, 07/13/20 9:29:00 EDT, Dry Weight Start Date: 07/26/20 Stop Date: 01/22/21 Status: Ordered omeprazole 40 mg oral enteric coated capsule 1 capsule = 40 mg, By Mouth, Daily, # 90 capsule, 3 Refills, Maintenance, 07/26/20 7:42:00 EDT, EC Capsule, [facility], 152, cm, 07/26/20 7:17:00 EDT, Height, 78.4, kg, 07/13/20 9:29:00 EDT, Dry Weight Start Date: 07/26/20 Stop Date: 07/21/21 Status: Ordered ondansetron 4 mg oral tablet, disintegrating 1 tablet = 4 mg, By Mouth, 2 times a day, # 21 tablet, 0 Refills, Maintenance, 07/26/20 7:42:00 EDT, [facility], 152, cm, 07/26/20 7:17:00 EDT, Height, 78.4, kg, 07/13/20 9:29:00 EDT, Dry Weight Start Date: 07/26/20 Status: Ordered Pen [place], 29 G x 12.7 mm BD Ultra Fine See Instructions, # 100 each, Refills 5, Tot. Refills 5, Maintenance, use as directed for Type 1 Diabetes Mellitus, 11/13/19 17:27:00 EST, Compound, 152.5, cm, 11/13/19 13:49:00 EST, Height, 82.4, kg, 08/18/18 19:01:00 EDT, Dry Weight Start Date: 11/13/19 Stop Date: 05/11/20 Status: Ordered Pen [place], 31 G x 5 mm BD Ultra Fine III See Instructions, # 100 each, Refills 11, Tot. Refills 11, Maintenance, Use once daily as directed with Lantus pen., 07/26/20 7:41:00 EDT, T2DM; E11.9 ; please let pt know when ready to cook pickled meat., Compound, 152, cm, 07/26/20 7:17:00 EDT, Height, 78.4,... Start Date: 07/26/20 Status: Ordered ProAir HFA 90 mcg/inh inhalation aerosol 2 puffs, Inhalation, Every 4 hours, PRN as needed for wheezing, # 18 Gm, 2 Refills, Maintenance, 08/02/20 7:27:00 EDT, Aerosol, [facility], 2 puffs Inhalation Every 4 hours,PRN:as needed for wheezing, 152, cm, 07/27/20 7:01:00 EDT, Height,... Start Date: 08/02/20 Status: Ordered SUMAtriptan 50 mg oral tablet 1 tablet = 50 mg, By Mouth, Daily, PRN for migraine headache, # 9 tablet, 5 Refills, Soft Stop, 07/26/20 7:42:00 EDT, Tablet, [facility], 152, cm, 07/26/20 7:17:00 EDT, Height, 78.4, kg, 07/13/20 9:29:00 EDT, Dry Weight Start Date: 07/26/20 Stop Date: 01/22/21 Status: Ordered triamcinolone 0.1% topical cream 1 application, Topically, 2 times a day, for 14 days, APPLY TOPICALLY TO AFFECTED AREA(S) TWICE DAILY FOR 14 DAYS Avoid use on face, # 60 Gm, 1 Refills, Acute 05/09/21 20:07:00 EDT, 04/11/21 20:07:00EDT, Cream, [facility], Partial fill up... Start Date: [...]
--- OUTSIDE RECORDS SUMMARY | 2024-05-01 07:49 | XMS_ITS | Continuity of Care Document ---
Author Organization [facility] Eduardo Butt Jose Luis lt Address [address] [place] [address]- Care Team Providers Care Mechanical Maintenance Instructor Name Role Phone Jane Melgar NP Primary Care Physician En[place] [facility] [place](s): 02/28/21 - 03/30/21 [facility] Adult [address] [place] [address]- Allergies, Adverse Reactions, Alerts Substance Reaction Severity [...] mL, 6 Refills, Maintenance, 08/27/20 13:37:00 EDT, [facility], 152, cm, 08/26/20 9:48:00 EDT, Height, 78.4, kg, 07/13/20 9:29:00 EDT, Dry W... Start Date: 08/27/20 Status: Ordered albuterol CFC free 90 mcg/inh inhalation aerosol 2, puffs, Inhalation, Every 4 hours, PRN, use with spacer chamber, # 1 each, Refills 3, Tot. Refills 3, Maintenance, 07/26/20 7:40:00 EDT, Aerosol, Route to Pharmacy Electronically, [id number], [facility], 152, cm,... Start Date: 07/26/20 [...] mL, 3 Refills, Maintenance, 08/02/20 7:28:00 EDT, [facility], 152, cm, 07/27/20 7:01:00 EDT, [...] Gm, 0 Refills, Maintenance, 07/26/20 8:13:00 EDT, Aerosol,[facility], 152, cm, 07/26/20 7:17:00 EDT, [...] 07/15/20 15:18:00 EDT, Route to Pharmacy Electronically, [facility]/pharmacy #[id number], 152, cm, 07/15/20 14:57:00 EDT, Height, 78.4, kg, 07/13/20 9:29:00 EDT, Dry... Start Date: 07/15/20 Status: Ordered Insulin Lispro KwikPen 100 units/mL injectable solution See Instructions, Please follow sliding scale, three times a day with meals. Max daily dose: 42 units E11.9, # 15 mL, 6 Refills, Maintenance, 08/26/20 10:05:00 EDT, [facility], 152, cm, 08/26/20 9:48:00 EDT, Height, 78.4, kg, 07/13/20... Start Date: 08/26/20 Status: Ordered Lantus Solostar Pen 100 units/mL subcutaneous solution = 10 units, Subcutaneous Injection, Daily, Take 10 units today, increase 3 units daily until fasting blood sugar is 140 with evening meal, # 10 mL, 0 Refills, Maintenance, 07/26/20 7:41:00 EDT, Solution, [facility], 152, cm, 07/26/20 7:17... Start Date: 07/26/20 Status: Ordered Lantus Solostar Pen 100 units/mL subcutaneous solution See Instructions, 10 units daily with dinner: add 3 unis daily until fasting blood sugar is 140, # 15 mL, 3 Refills, Maintenance, 11/13/19 17:29:00 EST, [facility]/pharmacy #[id number], 152.5, cm, 11/13/19 [...] 0 Refills, Maintenance, 08/08/20 14:33:00 EDT, Film, [facility], 1 patch Topically Daily,PRN:Pain , Mild,Instr:remove after 12 hours, 152, cm, 08/06/20 9:15:00 ED... Start Date: 08/08/20 Status: Ordered lidocaine-prilocaine 2.5%-2.5% topical cream 1 application, Topically, 3 times a day, Apply to sensitive area, # 30 Gm, 0 Refills, Soft Stop, 07/30/20 17:50:00 EDT, Cream, [facility], 1 application Topically 3 times a day,Instr:Applyto sensitive area, 152, cm, 07/27/20 7:01:00 EDT, H... Start Date: 07/30/20 Status: Ordered Lipitor 40 mg oral tablet 1 tablet = 40 mg, By Mouth, Daily, # 90 tablet, 3 Refills, Maintenance, 07/26/20 7:41:00 EDT, Tablet, [facility] 5278, 152, cm, 07/26/20 7:17:00 EDT, Height, 78.4, kg, 07/13/20 9:29:00 EDT, DryWeight Start Date: 07/26/20 Status: Ordered lisinopril 40 mg oral tablet 1 tablet = 40 mg, By Mouth, Daily, # 30 tablet, 7 Refills, Maintenance, 07/26/20 7:41:00 EDT, Tablet, [facility], 152, cm, 07/26/20 7:17:00 EDT, [...] 5 Refills, Maintenance, 07/26/20 7:42:00 EDT, Tablet, [facility], 152, cm, 07/26/20 7:17:00 EDT, Height, 78.4, kg, 07/13/20 9:29:00 EDT, Dry Weight Start Date: 07/26/20 Stop Date: 01/22/21 Status: Ordered omeprazole 40 mg oral enteric coated capsule 1 capsule = 40 mg, By Mouth, Daily, # 90 capsule, 3 Refills, Maintenance, 07/26/20 7:42:00 EDT, EC Capsule, [facility], 152, cm, 07/26/20 7:17:00 EDT, Height, 78.4, kg, 07/13/20 9:29:00 EDT, Dry Weight Start Date: 07/26/20 Stop Date: 07/21/21 Status: Ordered ondansetron 4 mg oral tablet, disintegrating 1 tablet = 4 mg, By Mouth, 2 times a day, # 21 tablet, 0 Refills, Maintenance, 07/26/20 7:42:00 EDT, [facility], 152, cm, 07/26/20 7:17:00 EDT, Height, 78.4, kg, 07/13/20 9:29:00 EDT, Dry Weight Start Date: 07/26/20 Status: Ordered Pen [place], 29 G x 12.7 mm BD Ultra Fine See Instructions, # 100 each, Refills 5, Tot. Refills 5, Maintenance, use as directed for Type 1 Diabetes Mellitus, 11/13/19 17:27:00 EST, Compound, 152.5, cm, 11/13/19 13:49:00 EST, Height, 82.4, kg, 08/18/18 19:01:00 EDT, Dry Weight Start Date: 11/13/19 Stop Date: 05/11/20 Status: Ordered Pen [place], 31 G x 5 mm BD Ultra Fine III See Instructions, # 100 each, Refills 11, Tot. Refills 11, Maintenance, Use once daily as directed with Lantus pen., 07/26/20 7:41:00 EDT, T2DM; E11.9 ; please let pt know when ready to shredder picker., Compound, 152, cm, 07/26/20 7:17:00 EDT, Height, 78.4,... Start Date: 07/26/20 Status: Ordered ProAir HFA 90 mcg/inh inhalation aerosol 2 puffs, Inhalation, Every 4 hours, PRN as needed for wheezing, # 18 Gm, 2 Refills, Maintenance, 08/02/20 7:27:00 EDT, Aerosol, [facility], 2 puffs Inhalation Every 4 hours,PRN:as needed for wheezing, 152, cm, 07/27/20 7:01:00 EDT, Height,... Start Date: 08/02/20 Status: Ordered SUMAtriptan 50 mg oral tablet 1 tablet = 50 mg, By Mouth, Daily, PRN for migraine headache, # 9 tablet, 5 Refills, Soft Stop, 07/26/20 7:42:00 EDT, Tablet, [facility], 152, cm, 07/26/20 7:17:00 EDT, [...]
--- OUTSIDE RECORDS SUMMARY | 2024-05-01 07:49 | XMS_ITS | Continuity of Care Document ---
Author Organization [facility] Eduardo Butt Jose Luis lt Address [address] [place] [address]- Care Team Providers Care Golf Cart Attendant Name Role Phone aJne Melgar NP Primary Care Physician [place] [facility] [place] 04[place] [facility] Adult [address] [place] [address]- Allergies, Adverse Reactions, Alerts Substance Reaction Severity [...] mL, 6 Refills, Maintenance, 08/27/20 13:37:00 EDT, [facility], 152, cm, 08/26/20 9:48:00 EDT, Height, 78.4, kg, 07/13/20 9:29:00 EDT, Dry W... Start Date: 08/27/20 Status: Ordered albuterol CFC free 90 mcg/inh inhalation aerosol 2, puffs, Inhalation, Every 4 hours, PRN, use with spacer chamber, # 1 each, Refills 3, Tot. Refills 3, Maintenance, 07/26/20 7:40:00 EDT, Aerosol, Route to Pharmacy Electronically, [id number], [facility], 152, cm,... Start Date: [...] mL, 3 Refills, Maintenance, 08/02/20 7:28:00 EDT, [facility], 152, cm, 07/27/20 7:01:00 [...] Gm, 0 Refills, Maintenance, 07/26/20 8:13:00 EDT, Aerosol,[facility], 152, cm, 07/26/20 7:17:00 [...] [id number], 152, cm, 07/15/20 14:57:00 EDT, Height, 78.4, kg, 07/13/20 9:29:00 EDT, Dry... Start Date: 07/15/20 Status: Ordered Insulin Lispro KwikPen 100 units/mL injectable solution See Instructions, Please follow sliding scale, three times a day with meals. Max daily dose: 42 units E11.9, # 15 mL, 6 Refills, Maintenance, 08/26/20 10:05:00 EDT, [facility], 152, cm, 08/26/20 9:48:00 EDT, Height, 78.4, kg, 07/13/20... Start Date: 08/26/20 Status: Ordered Lantus Solostar Pen 100 units/mL subcutaneous solution = 10 units, Subcutaneous Injection, Daily, Take 10 units today, increase 3 units daily until fasting blood sugar is 140 with evening meal, # 10 mL, 0 Refills, Maintenance, 07/26/20 7:41:00 EDT, Solution, [facility], 152, cm, 07/26/20 7:17... [...] 0 Refills, Maintenance, 08/08/20 14:33:00 EDT, Film, [facility], 1 patch Topically Daily,PRN:Pain , Mild,Instr:remove after 12 hours, 152, cm, 08/06/20 9:15:00 ED... Start Date: 08/08/20 Status: Ordered lidocaine-prilocaine 2.5%-2.5% topical cream 1 application, Topically, 3 times a day, Apply to sensitive area, # 30 Gm, 0 Refills, Soft Stop, 07/30/20 17:50:00 EDT, Cream, [facility], 1 application Topically 3 times a day,Instr:Applyto sensitive area, 152, cm, 07/27/20 7:01:00 EDT, H... Start Date: 07/30/20 Status: Ordered Lipitor 40 mg oral tablet 1 tablet = 40 mg, By Mouth, Daily, # 90 tablet, 3 Refills, Maintenance, 07/26/20 7:41:00 EDT, Tablet, [facility], 152, cm, 07/26/20 7:17:00 EDT, Height, 78.4, kg, 07/13/20 9:29:00 EDT, DryWeight Start Date: 07/26/20 Status: Ordered lisinopril 40 mg oral tablet 1 tablet = 40 mg, By Mouth, Daily, # 30 tablet, 7 Refills, Maintenance, 07/26/20 7:41:00 EDT, Tablet, [facility], 152, cm, 07/26/20 7:17:00 EDT, Height, [...] Refills, Maintenance, 07/26/20 7:42:00 EDT, Tablet, [facility], 152, cm, 07/26/20 7:17:00 EDT, Height, 78.4, kg, 07/13/20 9:29:00 EDT, Dry Weight Start Date: 07/26/20 Stop Date: 01/22/21 Status: Ordered omeprazole 40 mg oral enteric coated capsule 1 capsule = 40 mg, By Mouth, Daily, # 90 capsule, 3 Refills, Maintenance, 07/26/20 7:42:00 EDT, EC Capsule, [facility], 152, cm, 07/26/20 7:17:00 EDT, Height, 78.4, kg, 07/13/20 9:29:00 EDT, Dry Weight Start Date: 07/26/20 Stop Date: 07/21/21 Status: Ordered ondansetron 4 mg oral tablet, disintegrating 1 tablet = 4 mg, By Mouth, 2 times a day, # 21 tablet, 0 Refills, Maintenance, 07/26/20 7:42:00 EDT, [facility], 152, cm, 07/26/20 7:17:00 EDT, Height, 78.4, kg, 07/13/20 9:29:00 EDT, Dry Weight Start Date: 07/26/20 Status: Ordered Pen [place], 29 G x 12.7 mm BD Ultra Fine See Instructions, # 100 each, Refills 5, Tot. Refills 5, Maintenance, use as directed for Type 1 Diabetes Mellitus, 11/13/19 17:27:00 EST, Compound, 152.5, cm, 11/13/19 13:49:00 EST, Height, 82.4, kg, 08/18/18 19:01:00 EDT, Dry Weight Start Date: 11/13/19 Stop Date: 05/11/20 Status: Ordered Pen [place], 31 G x 5 mm BD Ultra Fine III See Instructions, # 100 each, Refills 11, Tot. Refills 11, Maintenance, Use once daily as directed with Lantus pen., 07/26/20 7:41:00 EDT, T2DM; E11.9 ; please let pt know when ready to filler picker., Compound, 152, cm, 07/26/20 7:17:00 EDT, Height, 78.4,... Start Date: 07/26/20 Status: Ordered ProAir HFA 90 mcg/inh inhalation aerosol 2 puffs, Inhalation, Every 4 hours, PRN as needed for wheezing, # 18 Gm, 2 Refills, Maintenance, 08/02/20 7:27:00 EDT, Aerosol, [facility], 2 puffs Inhalation Every 4 hours,PRN:as needed for wheezing, 152, cm, 07/27/20 7:01:00 EDT, Height,... Start Date: 08/02/20 Status: Ordered SUMAtriptan 50 mg oral tablet 1 tablet = 50 mg, By Mouth, Daily, PRN for migraine headache, # 9 tablet, 5 Refills, Soft Stop, 07/26/20 7:42:00 EDT, Tablet, [facility], 152, cm, 07/26/20 7:17:00 [...]
--- OUTSIDE RECORDS SUMMARY | 2024-05-01 07:49 | XMS_ITS | Continuity of Care Document ---
Author Organization [facility] Daquan Jose Luis lt Address [address] [place] [address]- Care Team Providers Care Headwaitress Name Role Phone Jane Melgar NP Primary Care Physician Encounter [facility] Date(s): 06/04/20 - 07/04/20 [facility] Adult [address] [place] [address]- [facility] Allergies, Adverse Reactions, Alerts Substance Reaction [...] 18:02:08 EDT, Aerosol, Route to Pharmacy Electronically, [id number], [facility]/pharmacy #[id number], Compound Start Date: [...] mL, 3 Refills, Maintenance, 11/13/19 17:29:00 EST, [facility]/pharmacy #[id number], 152.5, cm, 11/13/19 [...] 7 Refills, Maintenance, 11/13/19 14:35:00 EST, Tablet, [facility]/pharmacy #[id number], 152.5, cm, 11/13/19 [...] 08/14/19 Stop Date: 08/08/20 Status: Ordered Pen [place], 29 G x 12.7 mm BD Ultra Fine See Instructions, # 100 each, Refills 5, Tot. Refills 5, Maintenance, use as directed for Type 1 Diabetes Mellitus, 11/13/19 17:27:00 EST, Compound, 152.5, cm, 11/13/19 13:49:00 EST, Height, 82.4, kg, 08/18/18 19:01:00 EDT, Dry Weight Start Date: 11/13/19 Stop Date: 05/11/20 Status: Ordered Pen [place], 31 G x 5 mm BD Ultra Fine III See Instructions, # 100 each, Refills 11, Tot. Refills 11, Maintenance, Use once daily as directed with Lantus pen., 11/28/19 10:15:00 EST, T2DM; E11.9 ; please let pt know when ready to parts picker., Compound, 152.5, cm, 11/13/19 13:49:00 EST, [...]
--- OUTSIDE RECORDS SUMMARY | 2024-05-01 07:49 | XMS_ITS | Continuity of Care Document ---
Author Organization [facility] Address [address] [place] [address]- Care Team Providers Care Manager Restaurant Name Role Phone Jane Melgar NP Primary Care Physician Encounter [facility] [place] Date(s): 07/13/20 - 07/13/[address] [address]- [facility] [phone] Discharge Disposition: A-D/C Home Attending Physician: Maxime Hernandez DO Admitting Physician: Maxime Hernandez DO Referring Physician: Maxime Hernandez DO Allergies, Adverse Reactions, Alerts Substance Reaction Severity [...] 18:02:08 EDT, Aerosol, Route to Pharmacy Electronically, [id number], [facility]/pharmacy #[id number], Compound Start Date: [...] 08/14/19 Stop Date: 08/08/20 Status: Ordered Pen [place], 29 G x 12.7 mm BD Ultra Fine See Instructions, # 100 each, Refills 5, Tot. Refills 5, Maintenance, use as directed for Type 1 Diabetes Mellitus, 11/13/19 17:27:00 EST, Compound, 152.5, cm, 11/13/19 13:49:00 EST, Height, 82.4, kg, 08/18/18 19:01:00 EDT, Dry Weight Start Date: 11/13/19 Stop Date: 05/11/20 Status: Ordered Pen [place], 31 G x 5 mm BD Ultra Fine III See Instructions, # 100 each, Refills 11, Tot. Refills 11, Maintenance, Use once daily as directed with Lantus pen., 11/28/19 10:15:00 EST, T2DM; E11.9 ; please let pt know when ready to quill picking machine operator., Compound, 152.5, cm, 11/13/19 [...] Range]: 1 2 3 Height 152 cm (07/13/20 9:29 AM) Weight 78.4 kg (07/13/20 9:29 AM) Oxygen Saturation [94-100 %] 98 % (07/13/20 1:30 PM) 98 % (07/13/20 1:00 PM) 98 % (07/13/20 12:30 PM) Pulse Rate [55-90 bpm] 76 bpm (07/13/20 9:29 AM) Body Mass Index [18.5-24.99] 33.93 *>HHI* (07/13/20 9:29 AM) Blood Pressure [90-138/55-84 mm Hg] 126/90mm Hg (07/13/20 1:30 PM) 135/85mm Hg (07/13/20 1:00 PM) 133/86mm Hg (07/13/20 12:30 PM) Respiratory Rate [16-30 br/min] 14 br/min *L* (07/13/20 1:36 PM) 14 br/min *L* (07/13/20 1:00 PM) 15 br/min *L* (07/13/20 12:30 PM) Temperature [96.8-100.4 DegF] 98.1 DegF (07/13/20 1:30 PM) 97.3 DegF (07/13/20 11:15 AM) 97.6 DegF (07/13/20 9:29 AM) Liters per Minute 6 L/min (07/13/20 12:15 PM) 6 L/min (07/13/20 12:00 PM) 6 L/min (07/13/20 11:45 AM) Mode of Delivery (Oxygen) Room air (07/13/20 1:30 PM) Room air (07/13/20 1:00 PM) Room air (07/13/20 12:30 PM) Blood pressure sites Arm, right (07/13/20 1:30 PM) Arm, right (07/13/20 1:00 PM) Arm, right (07/13/20 12:30 PM) Temperature Route Temporal (07/13/20 1:30 PM) Temporal (07/13/20 11:15 AM) Temporal (07/13/20 9:29 AM) Dry Weight 78.4 kg (07/13/20 9:29 AM) Weight Obtained Via Standing scale (07/13/20 9:29 AM) Dry Weight Obtained Via Standing scale (07/13/20 9:29 AM) Social History Social History Type Response Smoking Status Smoker, current stat us unknown entered on: 10/30/19 Sex
--- OUTSIDE RECORDS SUMMARY | 2024-05-01 07:49 | XMS_ITS | Continuity of Care Document ---
Author Organization [facility] Eduardo Butt Jose Luis lt Address [address] [place] [id number]- Care Team Providers Care Converter Operator Name Role Phone Nuria FLOREZ, Jing Russo Primary Care Physician Encounter [facility] [place] Date(s): 12/31/19 - 04/29/20 [facility] Eduardo Shaneley Adult [address] [place] [address]- [facility] Attending Physician: Jing Quiñones NP Allergies, Adverse [...] 18:02:08 EDT, Aerosol, Route to Pharmacy Electronically, [id number], [facility]/pharmacy #[id number], Compound Start Date: [...] mL, 3 Refills, Maintenance, 11/13/19 17:29:00 EST, [facility]/pharmacy #[id number], 152.5, cm, 11/13/19 [...] 7 Refills, Maintenance, 11/13/19 14:35:00 EST, Tablet, [facility]/pharmacy #[id number], 152.5, cm, 11/13/19 [...] 08/14/19 Stop Date: 08/08/20 Status: Ordered Pen [place], 29 G x 12.7 mm BD Ultra Fine See Instructions, # 100 each, Refills 5, Tot. Refills 5, Maintenance, use as directed for Type 1 Diabetes Mellitus, 11/13/19 17:27:00 EST, Compound, 152.5, cm, 11/13/19 13:49:00 EST, Height, 82.4, kg, 08/18/18 19:01:00 EDT, Dry Weight Start Date: 11/13/19 Stop Date: 05/11/20 Status: Ordered Pen [place], 31 G x 5 mm BD Ultra Fine III See Instructions, # 100 each, Refills 11, Tot. Refills 11, Maintenance, Use once daily as directed with Lantus pen., 11/28/19 10:15:00 EST, T2DM; E11.9 ; please let pt know when ready to picker box operator., Compound, 152.5, cm, 11/13/19 13:49:00 EST, [...]
[2024-05-11 04:08] LABS: Stone Source RIGHT URETERAL STONE
== END 2024-04-30 18:13 | disposition home or self-care (01) | DRG 661 ==
LOC: HO.ED 15:54 → HO.EDOVER 17:13 → HO.S3 18:06
PROVIDERS: Physician Assistant; Urology; Admitting Provider Internal Medicine; Emergency Provider Emergency Medicine; PCP Student in an Organized Health Care Education/Training Program; Visit Provider Internal Medicine
PROC: 0T768DZ Dilation of Right Ureter with Intraluminal Device, Via Natural or Artificial Opening Endoscopic (ICD-10-PCS; principal; 2024-04-30 11:50)
DX: N13.6 Pyonephrosis (principal); I10 Essential (primary) hypertension; E11.9 Type 2 diabetes mellitus without complications; E78.5 Hyperlipidemia, unspecified; J45.40 Moderate persistent asthma, uncomplicated; Z79.4 Long term (current) use of insulin; Z79.899 Other long term (current) drug therapy
CPT/HCPCS: 36415; 74177; 80053; 81001; 81003; 82365; 82947; 83605; 83690; 83735; 84702; 85025; 85652; 86140; 87040; 87086; 88300; 99221; 99285; C1726; C1758; C1769; C2617; J0696; J1100; J1170; J1885; J1956; J2250; J2270; J2405; J2704; J3010; Q9967

== ENCOUNTER → 2024-04-28 17:00 | Outpatient (BNV) | payer OTHER, MEDICAID, SELFPAY | PROVIDERS: Admitting Provider Internal Medicine; Emergency Provider Emergency Medicine; PCP Student in an Organized Health Care Education/Training Program; Visit Provider Internal Medicine | DX: N39.0 Urinary tract infection, site not specified (principal); N20.1 Calculus of ureter | CPT/HCPCS: 99222; 99232; 99239; 99499 ==

== ENCOUNTER → 2024-04-28 17:00 | Outpatient (BNV) | payer OTHER, MEDICAID, SELFPAY | PROVIDERS: Admitting Provider Internal Medicine; Emergency Provider Emergency Medicine; PCP Student in an Organized Health Care Education/Training Program; Visit Provider Urology | DX: N13.2 Hydronephrosis with renal and ureteral calculous obstruction (principal) | CPT/HCPCS: 52356; 74420; 99222; 99232 ==

== ENCOUNTER 2024-05-16 09:15 | Outpatient (AMB) | payer OTHER, MEDICAID, SELFPAY ==
--- NOTE | 2024-05-16 09:17 | MHC.OFFVIS ---
Intake Visit Reasons: cysto stent removal Intake Note: Patient is present for Cystoscopy stent removal Urology Medication:pyridium Antibiotic Allergy:none Blood Thinner:none Lot:[id number] Exp:12/20/2026 Chief Deputy Sheriff Required: No Allergies varicella virus vaccine live [VARICELLA VIRUS VACCINE LIVE] Allergy (Severe, Verified 05/16/24 09:18) difficulty breathing/swelling/redness/itching bee pollen [bee stings] Allergy (Verified 05/16/24 09:18) Anaphylaxis shellfish derived Allergy (Verified 05/16/24 09:18) Anaphylaxis tirzepatide [From Mounjaro] Allergy (Verified 05/16/24 09:18) Unknown HPI Comments Details: Rochelle has a history of nephrolithiasis. She was evaluated as an inpatient in consultation due to right hydronephrosis secondary to right ureteral stone. CT imaging also noted a 3 mm nonobstructing left kidney stone. The patient is status post ureteroscopy laser lithotripsy and ureteral stent. Stone fragments were stent for analysis and reviewed with patient primarily calcium oxalate. Cystoscopy stent removed without difficulty. 22 minutes spent in review of records pertaining to this visit and including [id number] discussion with the patient and documentation of this visit. I have discussed diet modification to decrease risk of forming more kidney stones. I have discussed low oxalate diet and specific foods to avoid including certain green leafy vegetables, chocalate, nuts, tea, beets, rubarb; low sodium, decreased use of animal protein and the importance of hydration drinking up to 2-2.5 liters of fluids and use of adding lemon to water to increase citrate in the diet. The patient indicates that she does 21 day fasting only eating plant based foods. Plan vitamin B6 100 mg, 24 hour urine collection [facility] Medical History (Updated 05/16/24 @ 10:16 by Richard Ballard MD) Kidney stones DJD (degenerative joint disease) Asthma Hyperlipidemia Hypertension Depression Insulin dependent diabetes mellitus Obesity Surgical History Hx of laparoscopy Hx of tubal ligation Hx of cholecystectomy Hx of breast surgery Family History Mother Hypertension Tumor Eczema Heart murmur Father Hypertension Hyperlipidemia Heart attack Brother Eczema Asthma Migraine Brother Lung tumor Diabetes Sister Asthma Son No problems noted. Daughter No problems noted. Social History Alcohol intake: never Patient Tobacco Use Status: Former Tobacco user service: No Review of Systems Const All systems reviewed & are unremarkable except as noted in HPI and below Reports no additional complaints Eyes Reports no additional complaints ENT Reports no additional complaints Card Reports no additional complaints Resp Reports no additional complaints GI Reports no additional complaints Reports as per HPI Musc Reports no additional complaints Skin/Breast Reports system reviewed and no additional complaints, except as documented Neuro Reports no additional complaints Psych Reports no additional complaints Endo Reports no additional complaints Leif/Lymph Reports no additional complaints Aller/Immun Reports no additional complaints Office Procedures Cystoscopy Consent Discussed risk and benefit or proposed procedure with the patient. Information consent for procedure given to the patient. Discussed technical aspects, risks, benefits and alternatives in full. Addressed all of the patient's questions and concerns regarding the procedure. The patient demonstrated knowledge and understanding. They wish to proceed with this procedure. Preparation The patient was prepped in the usual manner. A radio survey worker was present and in the room. Genitalia was prepped with betadine solution in a sterile manner. Lidocaine Jelly 2% was placed into the urethra and 16Fr flexible Olympus cystoscope was inserted into the meatus after adequate lubrication. Procedure Time out per protocol performed. Bladder Inspection Cystoscopy findings: mild edema ureteral orifice which is expected, distal end of ureteral stent visualized. The grasping forceps were used and the stent was removed without difficulty. 97097-[id number] with stent removal DISPOSABLE SCOPE URO-G FLEXIBLE SCOPE Procedure code (CPT) selection complete Office Meds lidocaine HCl 2 % mucosal jelly in applicator Performing Provider: Richard Ballard MD Performing Location: [facility] [place] [facility] Administered by: Silas Jerez LPN on 05/16/24 09:25 Dose Route Admin Location Dispensed Lot Number Expiration Date [facility] [place] Jig Bore Tool Maker 10 mL intra-urethral 10 mL naproxen 500 mg tablet Performing Provider: Richard Ballard MD Performing Location: [facility] [place] [facility] Administered by: Silas Jerez LPN on 05/16/24 09:25 Dose Route Admin Location Dispensed Lot Number Expiration Date [facility] [place] J[employer]ore Tool Maker 500 mg PO 1 tab ciprofloxacin HCl 500 mg tablet Performing Provider: Richard Ballard MD Performing [facility] [place] [facility] Administered by: Silas Jerez LPN on 05/16/24 09:25 Dose Route Admin Location Dispensed Lot Number Expiration Date [facility] J[employer] Maker 500 mg PO 1 tab Results AMB Urinalysis, Automated UA Leukoctes 0 Joseph/uL Last Edit by YAJAIRA Koo on 05/16/24 09:27 UA Nitrite Positive Last Edit by YAJAIRA Koo on 05/16/24 09:27 UA Urobilinogen 2 mg/dL Last Edit by YAJAIRA Koo on 05/16/24 09:27 UA Protein 100 mg/dL Last Edit by YAJAIRA Koo on 05/16/24 09:27 UA pH 6.0 Last Edit by YAJAIRA Koo on 05/16/24 09:27 UA Blood 200 Esteban/uL Last Edit by YAJAIRA Koo on 05/16/24 09:27 UA Specific Eugene 1.015 Last Edit by YAJAIRA Koo on 05/16/24 09:27 UA Ketone Negative Last Edit by YAJAIRA Koo on 05/16/24 09:27 UA Bilirubin 1 mg/dL Last Edit by YAJAIRA Koo on 05/16/24 09:27 UA Glucose 0 mg/dL Last Edit by YAJAIRA Koo on 05/16/24 09:27 Results Reviewed Results Reviewed: Laboratory Last Values Urine pH (Auto) 6.0 05/16/24 09:26 Specific Eugene (Auto) 1.015 05/16/24 09:26 Urine Protein (Auto) 100 mg/dL 05/16/24 09:26 Glucose (UA)(Auto) 0 mg/dL 05/16/24 09:26 Urine Ketones (Auto) Negative 05/16/24 09:26 Urine Blood (Auto) 200 Esteban/uL 05/16/24 09:26 Urine Nitrite (Auto) Positive 05/16/24 09:26 Urine Bilirubin (Auto) 1 mg/dL 05/16/24 09:26 Urine Urobilinogen (Auto) 2 mg/dL 05/16/24 09:26 Leukocyte Esterase (Auto) 0 Joseph/uL 05/16/24 09:26 TORIN: 04/29/24-1037 STATUS: COMP REQ : [id number] RECD: 04/30/24-[address]: Richard Ballard MD COMP: 05/11/24-8 ENTERED: 05/01/24-815 [facility] DR: Leonela Wilson MD ORDERED: Kidney Stone QUERIES: Kidney Stone Source: [id number] Test Result Flag Reference Component 1 SEE NOTE Calcium Oxalate Dihydrate (Weddellite) 20% Calcium Oxalate Monohydrate (Whewellite) 80% Stone Weight 0.003 g This test was developed and its analytical performance characteristics have been determined by [employer] ([employer]). It has not been cleared or approved by FDA. This assay has been validated pursuant to the CLIA regulations and is used for clinical purposes. THIS TEST WAS PERFORMED AT: [employer]/[facility] [address] [place] [address] KEON ADDISON MD,PHD,LANDY Stone Source RIGHT URETERAL STONE Date of Service: 04/28/24 EXAMINATION: CT ABDOMEN AND PELVIS WITH CONTRAST CLINICAL INFORMATION: Periumbilical pain and bilateral lower quadrant pain COMPARISON: Ultrasound abdomen 05/03/2021, CT abdomen pelvis 02/19/2016 TECHNIQUE: Multidetector volumetric images were obtained from the superior aspect of the liver through the pubic symphysis following administration 85 mL of Omnipaque 350 intravenous contrast. Sagittal and coronal reformatted images were obtained on the technologist's workstation. Oral contrast: No This CT examination was performed using dose optimization techniques as appropriate, variously including the following: *Automated exposure control *Adjustment of mA and/or kV according to patient size (this includes techniques or standardized protocols for targeted exams where dose is matched to indication/reason for exam; i.e. extremities or head) *Use of iterative reconstruction technique DLP: 405 mGy-cm FINDINGS: LUNG BASES: The visualized lung bases are unremarkable. LIVER, GALLBLADDER, AND BILIARY TREE: The liver is normal in size, shape, and attenuation. No focal hepatic lesion or biliary ductal dilatation is present. Status post cholecystectomy. PANCREAS: Unremarkable. SPLEEN: Unremarkable. ADRENAL GLANDS: Unremarkable. KIDNEYS AND URETERS: There is right-sided hydronephrosis with dilatation of the right ureter down to the level of the distal ureter where there is an obstructing 5 mm calculus. Despite its small size, it still measures 1023 Hounsfield units. A nonobstructing 3 mm calculus is present at the left lower pole. The kidneys otherwise appear normal without masses. BLADDER: Unremarkable. GASTROINTESTINAL TRACT: The small and large bowel are unremarkable. The appendix is unremarkable. ABDOMINAL WALL: No significant hernia is appreciated. LYMPH NODES: Normal. VASCULAR: Unremarkable PELVIC VISCERA: A retroflexed uterus is present.. There is a cyst present uterus near the cornu, unchanged from 2016. Small cysts, the largest 2 cm, and some calcifications are noted in the left ovary. OSSEOUS STRUCTURES: Unremarkable. IMPRESSION: 1. Obstructing 5 mm distal right ureteral calculus with right-sided hydronephrosis. 2. Nonobstructing 3 mm left lower pole renal calculus. 3. Left ovarian cyst not fully characterized with some calcifications in the left ovary. Transabdominal and endovaginal pelvic ultrasound is recommended. 4. Other incidental findings as described above. Assessment & Plan Assessment & Plan (1) Kidney stones: Code(s): N20.0 - Calculus of kidney Category: Medical (2) Ureteral stent present: Code(s): Z96.0 - Presence of urogenital implants Category: Medical (3) Right distal ureteral calculus: Code(s): N20.1 - Calculus of ureter Category: Medical (4) Hydronephrosis: Code(s): N13.30 - Unspecified hydronephrosis Category: Medical Plan Plan vitamin B6 100 mg, 24 hour urine collection Orders: Orders AMB Cystoscopy 05/16/24 N20.1 - Calculus of ureter AMB Urinalysis Automated 05/16/24 Z13.9 - Encounter for screening, unspecified Medications: New pyridoxine (vitamin B6) 100 mg PO DAILY 90 tabs 3RF Patient Instructions: The patient had an opportunity to ask questions regarding treatment plan. The patient expressed understanding and agreement with the above treatment plan. The patient is aware they should contact our office by phone for worsening of their current condition or the appearance of new symptoms. Compliance is encouraged with any medications and followup testing that is ordered. It is a privilege to be allowed the opportunity to participate in the urologic care of your patient. If you have any questions or concerns regarding treatment for the above conditions please do not hesitate to contact me. The office telephone contact is [phone]. This note is constructed in part using voice recognition software. While every effort has been made to ensure accuracy mechatronics technologist errors may have been included. Yours sincerely, Richard Ballard MD Coding Level of Care Code Est Pt Level 3 (89884) Diagnoses Kidney stones N20.0 Ureteral stent present Z96.0 Right distal ureteral calculus N20.1 Hydronephrosis N13.30 CPT Codes Cystoscopy - CPT: 70115-Epsxtmfrex with stent removal ([id number]) Time Spent (min) 22
== END 2024-05-16 10:20 | disposition home or self-care (01) ==
PROVIDERS: PCP Student in an Organized Health Care Education/Training Program; Visit Provider Urology
DX: N20.1 Calculus of ureter (principal); Z13.9 Encounter for screening, unspecified; Z96.0 Presence of urogenital implants
CPT/HCPCS: 52310; 99213

== ENCOUNTER → 2024-05-16 09:15 | Outpatient (BNVA) | payer OTHER, MEDICAID, SELFPAY | PROVIDERS: PCP Student in an Organized Health Care Education/Training Program; Visit Provider Urology | DX: Z48.816 Encounter for surgical aftercare following surgery on the genitourinary system (principal); Z87.442 Personal history of urinary calculi | CPT/HCPCS: 52310; 81003 ==

== ENCOUNTER 2024-07-10 10:10 | Outpatient (AMB) | payer OTHER, MEDICAID, SELFPAY ==
--- NOTE | 2024-07-10 14:50 | MHC.OFFVIS ---
Intake Visit Reasons: 2m/Litholink(Litholink 05/19) Intake Note: Patient is present for 2M/LITHOLINK Urology Medication:pyridium Antibiotic Allergy:none Blood Thinner:nonE Duplicator Punch Operator Required: No Allergies varicella virus vaccine live [VARICELLA VIRUS VACCINE LIVE] Allergy (Severe, Verified 07/10/24 14:52) difficulty breathing/swelling/redness/itching bee pollen [bee stings] Allergy (Verified 07/10/24 14:52) Anaphylaxis shellfish derived Allergy (Verified 07/10/24 14:52) Anaphylaxis tirzepatide [From Mounjaro] Allergy (Verified 07/10/24 14:52) Unknown HPI Comments Details: 07/10/24--Telehealth fu. Rochelle is doing well, she states she did not complete the 24 hr urine collection. She states that she has recently moved, currently in a hotel and in process of closing on new home and will call when she is settled to update her new address. Cont Vit b 6 100 mg daily. Review of chart: 05/16/24--Rochelle has a history of nephrolithiasis. She was evaluated as an inpatient in consultation due to right hydronephrosis secondary to right ureteral stone. CT imaging also noted a 3 mm nonobstructing left kidney stone. The patient is status post ureteroscopy laser lithotripsy and ureteral stent. Stone fragments were stent for analysis and reviewed with patient primarily calcium oxalate. Cystoscopy stent removed without difficulty. 22 minutes spent in review of records pertaining to this visit and including [id number] discussion with the patient and documentation of this visit. I have discussed diet modification to decrease risk of forming more kidney stones. I have discussed low oxalate diet and specific foods to avoid including certain green leafy vegetables, chocalate, nuts, tea, beets, rubarb; low sodium, decreased use of animal protein and the importance of hydration drinking up to 2-2.5 liters of fluids and use of adding lemon to water to increase citrate in the diet. The patient indicates that she does 21 day fasting only eating plant based foods. Plan vitamin B6 100 mg, 24 hour urine collection [facility] Medical History Kidney stones DJD (degenerative joint disease) Asthma Hyperlipidemia Hypertension Depression Insulin dependent diabetes mellitus Obesity Surgical History Hx of laparoscopy Hx of tubal ligation Hx of cholecystectomy Hx of breast surgery Family History Mother Hypertension Tumor Eczema Heart murmur Father Hypertension Hyperlipidemia Heart attack Brother Eczema Asthma Migraine Brother Lung tumor Diabetes Sister Asthma Son No problems noted. Daughter No problems noted. Social History Alcohol intake: never Patient Tobacco Use Status: Former Tobacco user service: No Review of Systems Const All systems reviewed & are unremarkable except as noted in HPI and below Reports no additional complaints Eyes Reports no additional complaints ENT Reports no additional complaints Card Reports no additional complaints Resp Reports no additional complaints GI Reports no additional complaints Reports as per HPI Musc Reports no additional complaints Skin/Breast Reports system reviewed and no additional complaints, except as documented Neuro Reports no additional complaints Psych Reports no additional complaints Endo Reports no additional complaints Leif/Lymph Reports no additional complaints Aller/Immun Reports no additional complaints Telehealth Telehealth Telehealth Platform: [facility] Location of provider rendering services: practice address Location of patient: other Patient Identification confirmed using: Name, : Yes Telehealth method: voice only Patient verbally consented to treatment: Yes Patient verbally consented to billing insurance company: Yes Patient informed of any privacy concerns related to visit: Yes Minutes spent on Phone/Video with Pt.: 13 Results Reviewed Results Reviewed: TORIN: 04/29/24 STATUS: COMP REQ : [id number] RECD: 04/30/[address]: Richard Ballard MD COMP: 05/11/248 ENTERED: 05/01/24-[address]: Leonela Wilson MD ORDERED: Kidney Stone QUERIES: Kidney Stone Source: [id number] Test Result Flag Reference Component 1 SEE NOTE Calcium Oxalate Dihydrate (Weddellite) 20% Calcium Oxalate Monohydrate (Whewellite) 80% Stone Weight 0.003 g This test was developed and its analytical performance characteristics have been determined by [employer]. It has not been cleared or approved by FDA. This assay has been validated pursuant to the CLIA regulations and is used for clinical purposes. THIS TEST WAS PERFORMED AT: [place]/[facility] [address] [place] [address] KEON ADDISON MD,PHD,LANDY Stone Source RIGHT URETERAL STONE Date of Service: 04/28/24 EXAMINATION: CT ABDOMEN AND PELVIS WITH CONTRAST CLINICAL INFORMATION: Periumbilical pain and bilateral lower quadrant pain COMPARISON: Ultrasound abdomen 05/03/2021, CT abdomen pelvis 02/19/2016 TECHNIQUE: Multidetector volumetric images were obtained from the superior aspect of the liver through the pubic symphysis following administration 85 mL of Omnipaque 350 intravenous contrast. Sagittal and coronal reformatted images were obtained on the technologist's workstation. Oral contrast: No This CT examination was performed using dose optimization techniques as appropriate, variously including the following: *Automated exposure control *Adjustment of mA and/or kV according to patient size (this includes techniques or standardized protocols for targeted exams where dose is matched to indication/reason for exam; i.e. extremities or head) *Use of iterative reconstruction technique DLP: 405 mGy-cm FINDINGS: LUNG BASES: The visualized lung bases are unremarkable. LIVER, GALLBLADDER, AND BILIARY TREE: The liver is normal in size, shape, and attenuation. No focal hepatic lesion or biliary ductal dilatation is present. Status post cholecystectomy. PANCREAS: Unremarkable. SPLEEN: Unremarkable. ADRENAL GLANDS: Unremarkable. KIDNEYS AND URETERS: There is right-sided hydronephrosis with dilatation of the right ureter down to the level of the distal ureter where there is an obstructing 5 mm calculus. Despite its small size, it still measures 1023 Hounsfield units. A nonobstructing 3 mm calculus is present at the left lower pole. The kidneys otherwise appear normal without masses. BLADDER: Unremarkable. GASTROINTESTINAL TRACT: The small and large bowel are unremarkable. The appendix is unremarkable. ABDOMINAL WALL: No significant hernia is appreciated. LYMPH NODES: Normal. VASCULAR: Unremarkable PELVIC VISCERA: A retroflexed uterus is present.. There is a cyst present uterus near the cornu, unchanged from 2016. Small cysts, the largest 2 cm, and some calcifications are noted in the left ovary. OSSEOUS STRUCTURES: Unremarkable. IMPRESSION: 1. Obstructing 5 mm distal right ureteral calculus with right-sided hydronephrosis. 2. Nonobstructing 3 mm left lower pole renal calculus. 3. Left ovarian cyst not fully characterized with some calcifications in the left ovary. Transabdominal and endovaginal pelvic ultrasound is recommended. 4. Other incidental findings as described above. Assessment & Plan Assessment & Plan (1) Kidney stones: Code(s): N20.0 - Calculus of kidney Category: Medical (2) Ureteral stent present: Code(s): Z96.0 - Presence of urogenital implants Category: Medical (3) Right distal ureteral calculus: Code(s): N20.1 - Calculus of ureter Category: Medical (4) Hydronephrosis: Code(s): N13.30 - Unspecified hydronephrosis Category: Medical Plan Plan vitamin B6 100 mg, 24 hour urine collection Patient Instructions: The patient had an opportunity to ask questions regarding treatment plan. The patient expressed understanding and agreement with the above treatment plan. The patient is aware they should contact our office by phone for worsening of their current condition or the appearance of new symptoms. Compliance is encouraged with any medications and followup testing that is ordered. It is a privilege to be allowed the opportunity to participate in the urologic care of your patient. If you have any questions or concerns regarding treatment for the above conditions please do not hesitate to contact me. The office telephone contact is [phone]. This note is constructed in part using voice recognition software. While every effort has been made to ensure accuracy mental health counselor errors may have been included. Yours sincerely, Richard Ballard MD Coding Level of Care Code Tele Est Pt Level 2 (33799) Diagnoses Kidney stones N20.0 Ureteral stent present Z96.0 Right distal ureteral calculus N20.1 Hydronephrosis N13.30
== END 2024-07-10 16:40 | disposition home or self-care (01) ==
PROVIDERS: PCP Student in an Organized Health Care Education/Training Program; Visit Provider Urology
DX: N20.0 Calculus of kidney (principal); Z96.0 Presence of urogenital implants; N20.1 Calculus of ureter; N13.30 Unspecified hydronephrosis
CPT/HCPCS: 99212

== ENCOUNTER → 2024-07-10 10:10 | Outpatient (BNVA) | payer OTHER, MEDICAID, SELFPAY | PROVIDERS: PCP Student in an Organized Health Care Education/Training Program; Visit Provider Urology ==

== ENCOUNTER 2025-11-04 15:18 | Emergency (ER) | payer OTHER, SELFPAY ==
--- OUTSIDE RECORDS SUMMARY | 2025-10-21 03:30 | XMS_ITS ---
Author Organization [facility] Address [address] [facility] [address] [place] [address] Care Team Providers Care Road Passenger Firer Name Role Phone no, PCP Primary Care Provider Unavailabl e Karma Ware Unavailable [phone] Self, Referred Unavailable Unavailable Allergies Allergen (clinical drug ingredient) Drug/Non Drug Allergy documented on EMR Reaction Allergy Type Onset Date Status bee pollen Bee Pollen Unknown Drug Allergy Activ e Shellfish (FN) Shellfish Protein-containing Drug Products Unknown Drug Allergy Active Varicella Virus Vaccine Live Unknown Drug Allergy Active varicella-zoster immune globulin Varicella Zoster Immune Globulin Unknown Drug Allergy Active tafasitamab Monjuvi Unknown Drug Allergy Activ e REASON FOR VISIT right shoulder arthroscopy with capsulorrhaphy / bankart repair, subacromial decompression, possible rotator cuff repair, distal clavicle excision, open biceps tenodesis Medications Medication SIG (Take, Route, Frequency, Duration) Notes Start Date End Date Status Ozempic (0.25 or 0.5 MG/DOSE) 2 MG/3ML as directed Subcutaneous 08/25/2025 Active oxyCODONE-Acetaminophen 5-325 MG 1-2 tablet as needed Orally every 4-6 hrs; Duration: 7 days Max 8 tablets/24 hours; acute pain exception 10/21/2025 10/28/2025 Active Nurtec 75 MG 1 tablet on the tong ue and allow to dissolve Orally 08/25/2025 Active Ativan 0.5 MG 1 tablet at bedtime as needed Orally Once a day 08/25/2025 Active Rosuvastatin Calcium 40 MG 1 tablet Orally Once a day; Duration: 30 day(s) 08/25/2025 Active Problems Problem Type SNOMED Code ICD Code Onset Dates Problem Status W/U Status Risk Notes Problem Anterior to posterior tear of superior glenoid labrum of right shoulder (disorder) ([id number]) Tear of right glenoid labrum, subsequent encounter (S43.431D) Active confirmed Encounters Encounter Location Date Provider Diagnosis [facility] [address] [place] [address] 10/21/2025 Karma Nailsomaira Traumatic incomplete tear of right rotator cuff, subsequent encounter S46.011D ; Recurrent dislocation, right shoulder M24.411 ; Impingement of right shoulder M25.811 ; Arthritis of right acromioclavicular joint M19.011 and Tear of right glenoid labrum, subsequent encounter S43.431D Assessments Encounter Date Diagnosis (ICD Code) Assessment Notes Treatment Notes Treatment Clinical Notes Section Notes 10/21/2025 Traumatic incomplete tear of right rotator cuff, subsequent encounter (ICD-10 - S46.011D) 10/21/2025 Recurrent dislocation, right shoulder (ICD-10 - M24.411) 10/21/2025 Impingement of right shoulder (ICD-10 - M25.811) 10/21/2025 Arthritis of right acromioclavicular joint (ICD-10 - M19.011) 10/21/2025 Tear of right glenoi d labrum, subsequent encounter (ICD-10 - S43.431D) Plan Of Treatment Medication Medication Name Sig Start Date Stop Date Notes oxyCODONE-Acetaminophen 5-32 5 MG 1-2 tablet as needed Orally every 4-6 hrs; Duration: 7 days 10/21/2025 10/28/2025 Next Appt Details Provider Name:Karma Pinkomaira, 11/10/2025 02:00:00 PM, [address], [place], [address], Provider Name:Price sullivan, 11/11/2025 01:00:00 PM, [address], [address], [place], [address], Progress Notes * Rochelle CHAPPELLDOB:1980 ( 45 yo F)Acc No.[id number]:10/21/2025 Patient: Rochelle KOCH Provider: Julia Ware MD :1980 A ge:45 Y S ex:Female Date:10/21/2025 Address:[address] [place] [address], [address], [facility] Pcp:PCP no Subjective: * Chief Complaints: * 1 . Right shoulder arthroscopy with capsulorrhaphy / bankart repair, subacromial decompression, possible rotator cuff repair, distal clavicle excision, open biceps tenodesis. * Medical History: T ype 2 diabetes, HBP, Asthma. * Medications: T aking Ozempic (0.25 or 0.5 MG/DOSE) 2 MG/3ML Solution Pen-injector as directed Subcutaneous , Taking Ativan 0.5 MG Tablet 1 tablet at bedtime as needed Orally Once a day , Taking Nurtec 75 MG Tablet Disintegrating 1 tablet on the tongue and allow to dissolve Orally , Taking Rosuvastatin Calcium 40 MG Tablet 1 tablet Orally Once a day * Allergies: V aricella Virus Vaccine Live, Bee Pollen, Monjuvi, Shellfish Protein-containing Drug Products, Varicella Zoster Immune Globulin. Objective: * Vitals: Assessment: * Assessment: 1. T raumatic incomplete tear of right rotator cuff, subsequent encounter - S46.011D (Primary)? 2. R ecurrent dislocation, right shoulder - M24.411 3 . I mpingement of right shoulder - M25.811 4 . A rthritis of right acromioclavicular joint - M19.011 5 . T ear of right glenoid labrum, subsequent encounter - S43.431D Plan: * Treatment: * * Electronic signature of Lenny Ware MD on 11/04/2025 at 05:52 PM EST Sign off status: Pending * Provider: Julia Ware MD Date: 12/22/2024 Generated for Barbarai ng/Lalithag/eTransmitting on: 05:52 PM EST
--- OUTSIDE RECORDS SUMMARY | 2025-10-23 04:30 | XMS_ITS ---
Author Organization [facility] Address [address] [facility] [address] [place] [address] Care Team Providers Care Hand I Cutter Name Role Phone no, PCP Primary Care Provider Unavailabl e Karma Ware Unavailable [phone] Self, Referred Unavailable Unavailable Allergies Allergen (clinical [...] Drug Allergy Activ e REASON FOR VISIT DP RIGHT SHOULDER Medications Medication SIG (Take, Route, Frequency, Duration) Notes Start Date End Date Status Rosuvastatin Calcium 40 MG 1 tablet Oral ly Once a day; Duration: 30 day(s) 08/25/2025 Active Nurtec 75 MG 1 tablet on the tong ue and allow to dissolve Orally 08/25/2025 Active Ativan 0.5 MG 1 tablet at bedtime as needed Orally Once a day 08/25/2025 Active Ozempic (0.25 or 0.5 MG/DOSE) 2 MG/3ML as directed Subcutaneous 08/25/2025 Active Social History Tobacco Use: Social History Observation Description Date Details (start date - stop date) Current Smoker NA - NA AUDIT-C (Standard) Question Answer Notes Did you have a drink containing alcohol in the p ast year? No Points 0 Interpretation Negative Tobacco Control (Standard) Question Answer Notes Tobacco use: Current smoker How often do you smoke cigarettes? Every day How many cigarettes a day do you smoke? 5 or les s Encounters Encounter Location Date Provider Diagnosis [facility] [address] [place] [address] 10/23/2025 Karma Ware Plan Of Treatment Pending Test Test Name Order Date BRANDI GRIGGS RT 10/23/2025 Next Appt Details Provider Name:Karma Jeanie, 11/10/2025 02:00:00 PM, [address], [place], [address], Provider Name:Price Montgomery nate, 11/11/2025 01:00:00 PM, [address], [address], [place], [address], Progress Notes * Rochelle BOYERDOB:1980 ( 45 yo F)Acc No.[id number]:10/23/2025 Patient: Rochelle KOCH Provider: Julia Ware MD :1980 A ge:45 Y S ex:Female Date:10/23/2025 Address:[address] [place] [address], [address] [place], [place] [id number] Pcp:PCP no Subjective: * Chief Complaints: * 1 . DP RIGHT SHOULDER. * ROS: G eneral/Constitutional: General a ble to do usual activities, n o fatigue, no fever, no weakness. n o A nxiety. n o B leeding problems. n o N ight sweats.?no S kin rash. O phthalmologic: no B lurring of vision. R espiratory: no C hest pain. n o H emoptysis. n o S hortness of breath. C ardiovascular: no C hest pain. n o D izziness. n o S hortness of breath. G astrointestinal: no A bdominal pain. G enitourinary: no D ifficulty urinating. n o D ysuria. ? M usculoskeletal: General j oint pain, muscle pain. S ee HPI f or details, f or details. S kin: General no rashes. P sychiatric: Psychiatry g ood mood, no current suicidal ideations. ? * Medical History: T ype 2 diabetes, HBP, Asthma. * Surgical History: a drenalectomy 12/2023, gallbladder removal 12/2007, kidney stone removal/stent 04/2024, excisional biopsy of breasts LT-12/2023, RT-08/2019, RT-2019 . * Hospitalization/Major Diagno stic Procedure: s ee above . * Family History: F ather: alive. M other: alive. * Social History: T obacco Use: S moking: yes . T obacco Control (Standard) T obacco use: C urrent smoker,?How often do you smoke cigarettes? E very day, H ow many cigarettes a day do you smoke??5 or less. D rug/Alcohol: D rugs: no. AUDIT-C (Standard) D id you have a drink containing alcohol in the past year??No, P oints 0 , I nterpretation N egative. * Medications: T aking Ozempic (0.25 or 0.5 MG/DOSE) 2 MG/3ML Solution Pen-injector as directed Subcutaneous , Taking Ativan 0.5 MG Tablet 1 tablet at bedtime as needed Orally Once a day , Taking Nurtec 75 MG Tablet Disintegrating 1 tablet on the tongue and allow to dissolve Orally , Taking Rosuvastatin Calcium 40 MG Tablet 1 tablet Orally Once a day , Medication List reviewed and reconciled with the patient * Allergies: V aricella Virus Vaccine Live, Bee Pollen, Monjuvi, Shellfish Protein-containing Drug Products, Varicella Zoster Immune Globulin. Objective: * Vitals: Assessment: Plan: * Treatment: * Imaging: * I maging: XRAY UE SHLDER RT * Preventive Medicine: Counseling: F all Risk S creening: N o falls in the past year. S moking?Patient counselled on the dangers of tobacco use and urged to quit. 12/24/2024. * * Electronic signature of Lenny Ware MD on 11/04/2025 at 05:52 PM EST Sign off status: Pending * Provider: Julia Ware MD Date: 12/24/2024 Generated for Claribel ledesma/Roderick/Chantel on: 1 05:52 PM EST
--- OUTSIDE RECORDS SUMMARY | 2025-10-23 06:43 | XMS_ITS ---
Author Organization [facility] Address [address] [place] [address] Care Team Providers Care Financial Assistance Advisor Name Role Phone no, PCP Primary Care Provider UnavailKarma Sanchez Unavailable [phone] Self, Referred Unavailable Unavailable Allergies Allergen (clinical [...] Drug Allergy Activ e REASON FOR VISIT PO nausea Encounters Encounter Location Date Provider Diagnosis [facility] [address] [place] [address] 10/23/2025 Karma Ware Plan Of Treatment Next Appt Details Provider Name:Karma Ware, 11/10/2025 02:00:00 PM, [address], [place], [address], Provider Name:Price sullivan, 11/11/2025 01:00:00 PM, [address], [place], [address], Progress Notes * Rochelle CHAPPELLDOB:1980 ( 45 yo F)Acc No.[id number]:10/23/2025 Patient: Rochelle KOCH :1980 A ge:45 Y S ex:Female Address:[address] [place] [address], [address], [place], [address] Subjective: * Chief Complaints: * P O nausea * Medical History: * Surgical History: * Hospitalization/Major Diagno stic Procedure: * Medications: * Allergies: V aricella Virus Vaccine LiveBee PollenMonjuviShellfish Protein-containing Drug ProductsVaricella Zoster Immune Globulinno[Allergies Verified] Objective: * Vitals: * Physical Examination: Assessment: Plan: * Treatment: * Procedure Codes: * * Date:
--- OUTSIDE RECORDS SUMMARY | 2025-10-23 08:09 | XMS_ITS ---
Author Organization [facility] Address [address] [place] [address] Care Team Providers Care Helicopter Pilot Name Role Phone no, PCP Primary Care Provider UnavailKarma Sanchez Unavailable [phone] Self, Referred Unavailable Unavailable Allergies Allergen (clinical [...] Drug Allergy Activ e REASON FOR VISIT nausea Medications Medication SIG (Take, Route, Fr equency, Duration) Notes Start Date End Date Status Ondansetron HCl 4 MG 1 tablet Orally Onc e a day; Duration: 30 days 10/23/2025 Active Encounters Encounter Location Date Provider Diagnosis [facility] [address] [place] [address] 10/23/2025 Karma Ware Plan Of Treatment Medication Medication Name Sig Start Date Stop Date Notes Ondansetron HCl 4 MG 1 tablet Orally Onc e a day; Duration: 30 days 10/23/2025 Next Appt Details Provider Name:Karma Ware, 11/10/2025 02:00:00 PM, [address], [address], [place], [address], Provider Name:Price sullivan, 11/11/2025 01:00:00 PM, [address], [facility] [address], [place], [address], Progress Notes * Rochelle CHAPPELLDOB:1980 ( 45 yo F)Acc No.[id number]:10/23/2025 Patient: Rochelle KOCH :1980 A ge:45 Y S ex:Female Address:[address] [place] [address] [address], [address], [place], [address] * Refills Start Ondansetron HCl Tablet, 4 MG, Orally, 30 Tablet, 1 tablet, Once a day, 30 days, Refills=0 Subjective: * Chief Complaints: * N ausea * Medical History: * Surgical History: * Hospitalization/Major Diagno stic Procedure: * Medications: * Allergies: V aricella Virus Vaccine LiveBee PollenMonjuviShellfish Protein-containing Drug ProductsVaricella Zoster Immune Globulinno[Allergies Verified] Objective: * Vitals: * Physical Examination: Assessment: Plan: * Treatment: * Procedure Codes: * * Date:
[2025-11-04 15:41] VITALS: BP 151/78; PULSE 96; RESP 16; TEMP 36.6; O2SAT 99; BMI 32.2
--- NOTE | 2025-11-04 15:42 | ED_ITS ---
HPI - Extremity Injury (Upper) General Chief Complaint: General Medical Stated Complaint: Had surgery and suture area stitches check Time Seen by Provider: 11/04/25 17:29 Source: patient, RN notes reviewed and old records reviewed Mode of arrival: ambulatory History of Present Illness ED Provider: Keturah Pandey PA-C HPI narrative: 45-year-old female with a past medical history asthma, HLD, HTN, rotator cuff surgery on 10/21/2025 in [place], presenting to the ED c/o increasing pain/swelling & drainage noted to surgical site x this AM. States she is visiting from [place], has follow-up with her surgeon on 11/09/2025. Denies known injury, fall, fever Related Data Home Medications ?Medication ?Instructions ?Recorded ?Confirmed atorvastatin 40 mg tablet 40 mg PO DAILY 03/24/2104/06 blood sugar diagnostic #10 ea 03/24/21 04/01/21 lancets 28 gauge #100 ea 03/24/21 04/01/21 pen needle, diabetic 31 gauge x #50 ea 03/24/2101/18 sumatriptan succinate 50 mg tablet 50 mg PO NEEDED PRN Headache 03/24/21 04/28/24 albuterol sulfate 90 mcg/actuation 2 puff inhalation T ID PRN 04/01/21 04/28/24 aerosol inhaler (ProAir HFA) Shortness Of Breath insulin degludec 100 unit/mL (3 12 unit subcut DAILY 0 04/28/24 04/28/24 mL) subcutaneous pen (Tresiba FlexTouch U-100 insulin) insulin lispro 100 unit/mL 2 - 5 sliding scale dose sheldon bcut 04/28/24 04/28/24 subcutaneous pen (Humalog KwikPen DAILY (U-100) Insulin) lorazepam 0.5 mg tablet 0.5 mg PO BEDTIME PRN Sleep 04/28/24 04/28/24 rimegepant 75 mg disintegrating 75 mg PO Q OTHER DAY 0 04/28/24 04/28/24 tablet (Nurtec ODT) semaglutide 2 mg/dose (8 mg/3 mL) 2 mg subcut SA 04/2804/28/24 subcutaneous pen injector (Ozempic) Previous Rx's ?Medication ?Instructions ?Recorded cefuroxime axetil 250 mg tablet 250 mg PO BID #6 tabs 04/30/24 oxycodone 5 mg tablet 5 mg PO Q6H PRN Pain, Moderate(Pain Scale 4-6) #10 tabs phenazopyridine 200 mg tablet 200 mg PO BID 5 days #10 tabs 05/05/24 (Pyridium) pyridoxine (vitamin B6) 100 mg 100 mg PO DAILY #90 tab s 05/16/24 tablet cephalexin 500 mg capsule 500 mg PO QID 7 days #28 cap s 11/04/25 Allergies Allergy/AdvReac Type Severity Reaction Status Date / Time varicella virus vaccine live Allergy Severe difficulty Verified 11/04/25 15:42 (VARICELLA VIRUS VACCINE breathing/swelling/redness/itching LIVE) bee pollen (bee stings) Allergy Anaphylaxis Verified 11/04/25 15:42 shellfish derived Allergy Anaphylaxis Verified 11/04/25 15:42 tirzepatide (From Mounjaro) Allergy Unknown Verified 11/04/25 15:42 Review of Systems 2 Review of Systems: Yes all other systems are reviewed and are negative Constitutional: Constitutional: Reports as per [facility] Past Medical History Attestation statement: The following information was validated with the patient. Source: old records reviewed Medical History Kidney stones DJD (degenerative joint disease) Asthma Hyperlipidemia Hypertension Depression Insulin dependent diabetes mellitus Obesity Surgical History Hx of laparoscopy Hx of tubal ligation Hx of cholecystectomy Hx of breast surgery Family History Family History Mother Hypertension Tumor Eczema Heart murmur Father Hypertension Hyperlipidemia Heart attack Brother Eczema Asthma Migraine Brother Lung tumor Diabetes Sister Asthma Son No problems noted. Daughter No problems noted. Social History Social History Alcohol intake: never Patient Tobacco Use Status: Former Tobacco user service: No Physical Exam 2 Vital Signs: Vital Signs: Last Vital Signs Temp 97.8 F 11/04/25 15:41 Pulse 96 11/04/25 15:41 Resp 16 11/04/25 15:41 BP 151/78 H 11/04/25 15:41 Pulse Ox 99 11/04/25 15:41 O2 Del Method Room Air 11/04/25 15:41 BMI result Body Mass Index 32.2 Const: General: cooperative, healthy appearing and no acute distress O rientation/consciousness: patient oriented x3 Limitations: no limitations HEENT: Head: Yes normal to inspection and Yes atraumatic Ears: hearing grossly normal bilaterally General nose exam: Normal external nose present Face and sinus: Yes normal facial exam Eyes: General: appearance normal, both eyes and all related structures EOM: EOMs intact bilaterally Neck: Neck: Yes normal visual inspection and Yes no meningeal signs Resp: Effort & Inspection: normal respiratory effort and no respiratory distress Cardio: Rate: regular rate Skin: Other: RUE in sling. Surgical site noted to RUE with Steri-Strips intact. Scant drainage on Steri-Strips. No erythema or warmth. Mildly tender to palpation. No wound dehiscence, fluctuance or induration. + small suture protruding the skin to ar ea Rashes: no rashes Neuro: General: patient oriented x3, tone normal and no meningeal signs C ranial nerves: Yes CN's II-XII intact bilaterally Gait exam (Neuro): Normal gait present Extrem: General: Yes normal to inspection Course Course Course Narrative: This is a Rapid Medical Exam performed in triage by Keturah Pandey PA-C. Full HPI, ROS and PE to be performed by primary ED provider. 45-year-old female with a past medical history asthma, HLD, HTN, rotator cuff surgery on 10/21/2025 in [place] presenting to the ED c/o increasing pain/swelling & drainage noted to surgical site x this AM PE: Steri-Strips intact to RUE. Some drainage noted on Steri-Strips. Small suture sticking out of skin. + tender. No fluctuance/induration. No surrounding erythema Plan: Labs - Labs reassuring > with shared decision-making patient would like prescription for antibiotics as she is driving back to [place] - discussed with patient delaying initiation of antibiotics at this time unless area becomes acutely infected with erythema, pus drainage, fever, warmth. Results discussed with patient including worrisome signs and symptoms and strict return precautions, and when to return to the emergency department. They verbalized understanding and feel safe for discharge at this time. Medical Decision Making Medical Decision Making MDM Narrative: 45-year-old female with a past medical history asthma, HLD, HTN, rotator cuff surgery on 10/21/2025 in [place], presenting to the ED c/o increasing pain/swelling & drainage noted to surgical site x this AM. States she is visiting from [place], has follow-up with her surgeon on 11/09/2025. On exam vital signs stable, NAD, nontoxic appearing, physical exam as noted above. Concern for early surgical site infection. No evidence of abscess/drainable collection at this time. Low concern for septic joint/arthritis or bacteremia. Plan: Labs, cut suture Please refer to course for remaining clinical decision making, interpretation of labs/imaging results, and discussions with consultants and/or family members. Differential Diagnosis Differential Diagnoses: The differential diagnosis associated with the presentation includes As above Lab Data [facility] Lab Attestation statement: I reviewed the patient's lab results. 11/04/25 15:51 11/04/25 15:51 Labs: Lab Results 11/04/25 Range/Units 15:51 WBC 9.2 (4.8-10.8) X10*3/uL RBC 4.20 (4.20-5.50) X10*6/uL Hgb 12.5 (12.0-16.0) g/dl Hct 38.5 (37.0-47.0) % MCV 91.7 (80.0-98.0) fL MCH 29.8 (27.0-33.0) pg MCHC 32.5 (31.0-35.0) g/dl RDW 12.2 (11.0-16.0) % Plt Count 218 (160-400) X10*3/uL MPV 11.4 (9.4-12.3) fL Immature Gran % (Auto) 0.2 (0.0-0.4) % Neut % (Auto) 62.9 (45-73) % Lymph % (Auto) 25.2 (20-40) % [place] % (Auto) 4.9 (2-11) % Eos % (Auto) 5.9 H (0-4) % Baso % (Auto) 0.9 (0-2) % Lymph # (Auto) 2.3 (1.2-4.9) X10*3/uL [place] # (Auto) 0.5 (0.1-1.2) X10*3/uL Eos # (Auto) 0.5 H (0.0-0.4) X10*3/uL Baso # (Auto) 0.1 (0.0-0.2) X10*3/uL Abs Immat Gran (auto) 0.02 (0.00-0.03) X10*3/uL Absolute Neuts (auto) 5.8 (2.0-8.3) x10*3/uL Absolute Nucleated RBC 0.000 (0.0-0.012) X10*3/uL Nucleated RBC % (auto) 0.0 (0.0-0.2) /100WBC Sodium 140 (135-145) mmol/L Potassium 4.0 (3.3-5.1) mmol/L Chloride 106 (96-108) mmol/L Carbon Dioxide 26 (22-29) mmol/L Anion Gap 12 (12-20) BUN 11 (9-16) mg/dL Creatinine 0.69 (0.5-1.4) mg/dL Estim Creat Clear Calc 92.0 Estimated GFR > 60 Random Glucose 143 H (60-115) mg/dL Calcium 9.7 (8.4-10.2) mg/dL Total Bilirubin 0.2 (0.0-1.0) mg/dL Direct Bilirubin < 0.2 (0.0-0.5) mg/dL AST 14 (5-31) U/L ALT 19 (0-31) U/L Alkaline Phosphatase 84 (39-117) U/L Total Protein 7.3 (6.5-8.0) g/dL Albumin 4.3 (3.5-5.0) g/dL External Record Review External record reviewed: Inpatient record, Office record, Outpatient record, Prior outpatient labs, Prior outpatient radiology, Primary care record and Outside ED record Tests considered The following testing was considered but not selected: As above Prescription Management I considered prescription management with: Pain Medication and Antibiotic Chronic Conditions Patient?s care impacted by: Other Social Determinants Patient?s care significantly limited by Social Determinants of Health including: Other Social Determinant of Health Discharge Plan Discharge Clinical Impression: Pain at surgical site Patient Disposition: Home, Self-Care Instructions: Surgical Site Infections (ED) Additional Instructions: Your blood work is reassuring Keflex as an antibiotic please take as prescribed until completion Please follow up with your surgeon on the as scheduled If area becomes increasingly red, swollen, there is pus drainage or you have fever return to the emergency department Prescriptions: New cephalexin 500 mg capsule 500 mg PO QID 7 Days Qty: 28 0RF No Action phenazopyridine [Pyridium] 200 mg tablet 200 mg PO BID 5 Days Qty: 10 0RF insulin lispro [Humalog KwikPen Insulin] 100 unit/mL insulin pen 2 - 5 sliding scale dose subcut DAILY insulin degludec [Tresiba FlexTouch U-100] 100 unit/mL (3 mL) insulin pen 12 unit subcut DAILY lorazepam 0.5 mg Tablet 0.5 mg PO BEDTIME PRN (Reason: Sleep) Nurtec ODT 75 mg Tablet,Disintegrating 75 mg PO Q OTHER DAY Ozempic 2 mg/dose (8 mg/3 mL) pen injector 2 mg subcut SA cefuroxime axetil 250 mg tablet 250 mg PO BID Qty: 6 0RF oxycodone 5 mg Tablet 5 mg PO Q6H PRN (Reason: Pain, Moderate(Pain Scale 4-6)) Qty: 10 0RF Rx Instructions: Partial Fill upon patient request. albuterol sulfate [ProAir HFA] 90 mcg/actuation HFA aerosol inhaler 2 puff inhalation TID PRN (Reason: Shortness Of Breath) sumatriptan succinate 50 mg tablet 50 mg PO NEEDED PRN (Reason: Headache) (DME) lancets 28 gauge misc See Rx Instructions topical BID Qty: 100 Rx Instructions: As directed (DME) pen needle, diabetic 31 gauge x 3/16 needle See Rx Instructions subcut BEDTIME Qty: 50 Rx Instructions: As directed (DME) blood sugar diagnostic Strip See Rx Instructions .ROUTE BID Qty: 10 Rx Instructions: As directed atorvastatin 40 mg tablet 40 mg PO DAILY pyridoxine (vitamin B6) 100 mg tablet 100 mg PO DAILY Qty: 90 3RF Referrals: Your Orthopedic [Other, Orthopedics] Referral Note: on the as scheduled Physician,Unknown J [Primary Care Provider, Medical] Print Language: Kinyarwanda
[2025-11-04 15:56] LABS: MANUAL DIFF FLAG NO
[2025-11-04 15:59] LABS: Hematocrit 38.5 % (37.0-47.0); Hemoglobin 12.5 g/dl (12.0-16.0); Imm Gran Abs Auto 0.02 X10*3/uL (0.00-0.03); Imm Gran Pct Auto 0.2 % (0.0-0.4); Lymphocytes Absolute Auto 2.3 X10*3/uL (1.2-4.9); Mean Corpuscular HGB Conc 32.5 g/dl (31.0-35.0); Mean Corpuscular Hemoglobin 29.8 pg (27.0-33.0); Mean Corpuscular Volume 91.7 fL (80.0-98.0); NRBC Abs Auto 0.000 X10*3/uL (0.0-0.012); NRBC Pct Auto 0.0 /100WBC (0.0-0.2); Platelet Count 218 X10*3/uL (160-400); Red Blood Count 4.20 X10*6/uL (4.20-5.50); White Blood Count 9.2 X10*3/uL (4.8-10.8)
[2025-11-04 16:19] LABS: Alanine Aminotransferase 19 U/L (0-31); Albumin Level 4.3 g/dL (3.5-5.0); Alkaline Phosphatase 84 U/L (39-117); Anion Gap 12 (12-20); Aspartate Amino Transferase 14 U/L (5-31); Blood Urea Nitrogen 11 mg/dL (9-16); Calcium 9.7 mg/dL (8.4-10.2); Carbon Dioxide 26 mmol/L (22-29); Chloride 106 mmol/L (96-108); Creatinine Clr Calc Pharmacy 92.0; Estimated Glomerular Filt Rate > 60; Potassium 4.0 mmol/L (3.3-5.1); Sodium 140 mmol/L (135-145); Total Protein 7.3 g/dL (6.5-8.0)
[2025-11-04 17:46] VITALS: BP 151/78; PULSE 96; RESP 16; TEMP 36.6; O2SAT 99
--- OUTSIDE RECORDS SUMMARY | 2025-11-04 17:51 | XMS_ITS | Patient Health Record ---
Author Organization [facility] Address [address] [facility] [address] [place] [address] Care Team Providers Care Application Designer Name Role Phone JOHNNIE PENA CNP Primary Care Provider Un available CORINA FRAIRE Unavailable [phone] Allergies Allergen (clinical drug ingredient) Drug/Non Drug Allergy documented on EMR Reaction Allergy Type Onset Date Status varicella-zoster immune globulin Varicella Zoster Immune Globulin Hives/Swelling Drug Allergy Active Reason For Referral No Information Medications Medication SIG (Take, Route, Frequency, Duration) Notes Start Date End Date Status amLODIPine Besylate 10 MG 1 tablet Orally Once a day; Duration: 30 day(s) 09/20/2021 Not-Jayme ing Clotrimazole-Betamethaso ne 1-0.05 % 1 application Externally Twice a day; Duration: 10 days 09/20/2021 Not-Taking Basaglar KwikPen 100 UNIT/ML as directed Subcutaneous Not -Taking Albuterol Sulfate 108 (90 Base) MCG/ACT as directed Inhalation PRN Not-Taking Lipitor 40 MG 1 tablet Orally Once a day Not-Taking Admelog SoloStar 100 UNIT/ML as directed Subcutaneous TID Not-Taking SUMAtriptan Succinate 50 MG as directed Orally PRN Not-T aking ProAir HFA 108 (90 Base) MCG/ACT 2 puff Inhalation bid Not-Ta metFORMIN HCl 1000 MG 1 tablet with a me al Orally Twice a day Not-Taking Lisinopril 40 MG 1 tablet Orally Once a day Not-Taking Social History Tobacco Use: Social History Observation Description Date Details (start date - stop date) Current Smoker NA - NA Tobacco Use/Smoking Question Answer Notes Are you a current smoker How often do you smoke cigarettes? every day How many cigarettes a day do you smoke? 6-10 Alcohol Screen (Audit-C) Question Answer Notes Did you have a drink containing alcohol in the p ast year? No Points 0 Interpretation Negative Tobacco use other than smoking: Question Answer Notes Are you an other tobacco user? No Problems Problem Type SNOMED Code ICD Code Onset Dates Problem Status W/U Status Risk Notes Problem Tobacco user (953490310) Nicotine dependence, cigarettes, uncomplicated (F17.210) Active confirmed Problem Dyspareunia (08667550) Other specified dyspareunia (N94.19) Active confirmed Plan Of Treatment Pending Test Test Name Order Date ULTRASOUND: PELVIC W/TRANSVAGINAL 2020 Screening Bilateral Mammogra m, Right Diagnostic Mammogram, Right Breast Ultrasound 10/10/2021 MM Digital Screening Mammogram 3D 2019 MM Digital Screening Mammogram 3D 2020 Medical (General) History Medical History History ICD Code Essential (primary) hypertension I10 Pure hypercholesterolemia, unspecified E 78.00 Type 2 diabetes mellitus without complic ations E11.9 Migraine without aura, not intractable, without status migrainosus G43.009 Bipolar disorder, unspecified F31.9 Surgical History Surgery Date(Month/Year) Tubal ligation 2002 Endometrial ablation 2002 Colonoscopy 2018 Cholecystectomy 2007 Right breast lumpectomy - benign 07/2020 DELONTE 1998 Cryo surgery of Cervix 1998 Laparoscopic adhesiolysis/ovarian cystec lenard1999 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
--- OUTSIDE RECORDS SUMMARY | 2025-11-04 17:52 | XMS_ITS | Encounter Summary ---
Author Organization [facility] Address [address] [facility] [address] [place] [address] Phone Care Team Providers Care Operations Controller Name Role Phone Leonela Wilson MD Primary Care Provider [phone] Acosta Parker MD Unavailable [phone] Leonela Wilson MD Unavailable Madelyn Wing RN Unavailable [phone] Jessa Delacruz Unavailable Gianni Thomas MD, PhD Unavailable Gianni Thomas MD, PhD Unavailable Jey Love MD Unavailable Cindy Boggs CNP Unavailable [phone] Mona Claudio MD Unavailable [phone] Encounter Details Date Type Department Care Team (Late st Contact Info) Description 10/18/2022 Procedure Pass [facility], Ct Scan - [address] [id number] Social History Tobacco Use Types Packs/Day Years Used Date Smoking Tobacco: Every Day Cigarettes Last attempted to quit: 05/05/2022 Smokeless Tobacco: Never Alcohol Use Standard Drinks/Week Comments Never 0 (1 standard drink = 0.6 oz pur e alcohol) sober 2018 Child or Family Care Answer Date Record ed Do you have problems with on e of the following making it difficult for you to work, study, or receive health care? No 06/04/2022 Education Answer Date Recorded Are you interested in help w ith more adult education (for example, completing high school, GED, job training, learning the Uzbek language, technical skills, or developing parenting skills)? No 06/04/2022 Food Answer Date Recorded Within the past 6 months we worried whether our food would run out before we got money to buy more. Often True 06/04/2022 Within the past 6 months the food we bought just didn't last and we didn't have enough money to get more. Often True Residential Stability Answer Date Recor ded What is your housing situation today? I have megan sing 06/04/2022 How many times have you move d in the past 12 months? Zero (I did not move) 06/04/2022 Paying for Meds Answer Date Recorded Do you have trouble paying for medicines? Yes 06/04/2022 Paying Utility Bills Answer Date Record ed Do you have trouble paying your heating or elect ricity bill? Yes 06/04/2022 Unemployment Answer Date Recorded Are you currently unemployed or working on a part-time or temporary basis, and looking for work? No 06/04/2022 Comments Unknown Sex and Gender Information Value Date Recorded Sex Assigned at Female 03/12/2022 7:51 AM EDT Legal Sex Female 1:19 PM EST Gender Identity Female 03/12/2022 7:51 AM EDT Sexual Orientation Straight 10/12/2022 4: 06 PM EST documented as of this encounter Plan of Treatment Not on file documented as of this encounter Visit Diagnoses Not on filedocumented in this encounter Additional Health Concerns Assessment Noted Time PHQ-2 Depression Total Score: 2 06/04/20 22 9:15 AM EDT documented as of this encounter Care Teams Operations Controller Relationship Specialty Start Date End Date Leonela Wilson MD [address] [place] [address] 7 [place] [address] [email or web address] PCP - General Family Medicine 06/06/22 Acosta Parker MD [address] [place] [address], [facility] 7 [place] [address] [email or web address] Insurance Assigned Provider 12/09/22 01/13/23 Leonela Wilson MD [address] [place] [address] 7 [place] [address] [email or web address] Insurance Assigned Provider 01/13/23 07/14/23 Madelyn Wing, RN [address] [place] [address] [email or web address] PHCM Vegetable Farmworker 10/09/23 01/15/25 Jessa Delacruz [address] [place] [address] [email or web address] PHCM Community Health Worker 11/12/23 01/30/24 Gianni Thomas MD, PhD [address] [place] [address] [email or web address] Cardiology 12/20/23 12/20/23 Gianni Thomas MD, PhD [address] [place] [address] [address] [place] [address] Cardiology 12/20/23 Jey Love MD [address] [place] [address] [email or web address] [email or web address] Care 12/20/23 Cindy Boggs, CURRICULUM ASSISTANT PRINCIPAL [facility], 1st [place] [address] [email or web address] Nurse Practitioner 12/20/23 Mona Claudio MD [address] [place] [address] [email or web address] Cardiology 10/21/24 documented as of this encounter Additional Source Comments The information contained in this document represents components of the legal health record. It is not the complete legal health record.[facility]
--- OUTSIDE RECORDS SUMMARY | 2025-11-04 17:52 | XMS_ITS | Encounter Summary ---
Author Organization [facility] Address [address] [facility] [address] [place] [address] Phone Care Team Providers Care Direct Support Staff Name Role Phone Leonela Wilson MD Primary Care Provider [phone] Leonela Wilson MD Unavailable Madelyn Wing RN Unavailable Jessa Delacruz Unavailable [phone] Gianni Thomas MD, PhD Unavailable Gianni Thomas MD, PhD Unavailable Jey Love MD Unavailable [phone] Cindy Boggs CNP Unavailable Mona Claudio MD Unavailable [phone] Encounter Details Date Type Department Care Team (Late st Contact Info) Description 03/28/2023 Procedure Pass [facility], [address] [address] Social History Tobacco Use Types Packs/Day Years Used Date Smoking Tobacco: Former Cigarettes 0.5 29.2 0 02/17/1994 - 05/05/2023 Passive Smoke Exposure: Past Smokeless Tobacco: Never Alcohol Use Standard Drinks/Week Comments Not Currently 0 (1 standard drink = 0.6 oz pure alcohol) Four years alcohol free (08/2019) Child or Family Care Answer Date Record ed Do you have problems with on e of the following making it difficult for you to work, study, or receive health care? No 06/04/2022 Education Answer Date Recorded Are you interested in help w ith more adult education (for example, completing high school, GED, job training, learning the Montenegrin language, technical skills, or developing parenting skills)? [...] basis, and looking for work? No 06/04/2022 Digital Access Answer Date Recorded No 03/27/2023 No 03/27/2023 Reliable internet access at home? Not on file 03/27/2023 Device with a working camera? Not on file Comments No Sex and Gender Information Value Date Recorded Sex Assigned at Female 03/12/2022 7:51 AM EDT Legal Sex Female 1:19 PM EST Gender Identity Female 03/12/2022 7:51 AM EDT Sexual Orientation Straight 10/12/2022 4: 06 PM EST Occupation Industry Job Start Date Job End Date enrollments for [employer] Not on file Not on file Not on file documented as of this encounter Plan of Treatment Not on file documented as of this encounter Visit Diagnoses Not on filedocumented in this encounter Additional Health Concerns Assessment Noted Time PHQ-2 Depression Total Score: 2 06/04/20 22 9:15 AM EDT documented as of this encounter Care Teams Direct Support Staff Relationship Specialty Start Date End Date Leonela Wilson MD [address] [place] [address] 7 [place] [address] [email or web address] PCP - General Family Medicine 06/06/22 Leonela Wilson MD [address] [place] [address] [email or web address] Insurance Assigned Provider 01/13/23 07/14/23 Madelyn Wing, RN [address] [place] [address] [email or web address] PHCM Fruit Harvester Machine Operator 10/09/23 01/15/25 Jessa Delacruz [address] [place] [address] [email or web address] PHCM Community Health Worker 11/12/23 01/30/24 Gianni Thomas MD, PhD [address] [place] [address] [email or web address] Cardiology 12/20/23 12/20/23 Gianni Thomas MD, PhD [address] [place] [address] Dr. [address] [place] [address] [email or web address] Cardiology 12/20/23 Jey Love MD [address] [place] [address] [email or web address] Intensive Care 12/20/23 Cindy Boggs, ENGINEERING PROJECT MANAGER [facility], 1st [place] [address] [email or web address] Nurse Practitioner 12/20/23 Mona Claudio MD [address] [place] [address] [email or web address] Cardiology 10/21/24 documented as of this encounter Additional Source Comments The information contained in this document represents components of the legal health record. It is not the complete legal health record.[facility]
--- OUTSIDE RECORDS SUMMARY | 2025-11-04 17:52 | XMS_ITS | Encounter Summary ---
Author Organization [facility] Address [address] [facility] [address] [place] [address] Phone Care Team Providers Care Landing Scaler Name Role Phone Leonela Wilson MD Primary Care Provider [phone] Madelyn Wing RN Unavailable Gianni Thomas MD, PhD Unavailable [phone] Jey Love MD Unavailable Cindy Boggs CYANIDE POT HARDENER Unavailable [phone] Mona Claudio MD Unavailable [phone] Encounter Details Date Type Department Care Team (Late st Contact Info) Description 08/20/2024 Procedure Pass [facility] Endoscopy Admitting Dept Virtual Department [address] [place] [address] Social History Tobacco Use Types Packs/Day Years Used Date Smoking Tobacco: Former Cigarettes 0 02/17/1994 - 05/05/2023 Passive Smoke Exposure: Past Smokeless Tobacco: Never Comments:Quit 05/05/23; occass ional/social since 2023 Alcohol Use Standard Drinks/Week Comments Not Currently 0 (1 standard drink = 0.6 oz pure alcohol) Four years alcohol free (08/2019) Child or Family Care Answer Date Record ed Do you have problems with on e of the following making it difficult for you to work, study, or receive health care? No 06/04/2022 Education Answer Date Recorded Are you interested in more education? Not on sunshine e 06/06/2024 Are you concerned about learning? Not on file 06/06/2024 No 06/06/2024 No 06/06/2024 Food Answer Date Recorded Within the past [...] your housing situation today? I have megan lyons 06/04/2022 How many times have you move [...] with a working camera? Not on file Intimate Partner Violence Answer Date R ecorded Are you denied basic needs s uch as food, clothing, or medical care? No 04/08/2024 In the past 12 months have y ou been in a relationship with a person who hurts, threatens, or tries to control you? No 04/08/2024 Are you denied basic needs s uch as food, clothing, or medical care? No 04/08/2024 In the past 12 months have y ou been in a relationship with a person who hurts, threatens, or tries to control you? No 04/08/2024 Comments No Sex and Gender Information Value Date Recorded Sex Assigned at Female 03/12/2022 7:51 AM EDT Legal Sex Female 1:19 PM EST Gender Identity Female 03/12/2022 7:51 AM EDT Sexual Orientation Straight 10/12/2022 4: 06 PM EST Occupation Industry Job Start Date Job End Date enrollments for [employer] Not on file Not on file Not on file documented as of this encounter Plan of Treatment Not on file documented as of this encounter Visit Diagnoses Not on filedocumented in this encounter Additional Health Concerns Assessment Noted Time PHQ-2 Depression Total Score: 2 11/08/19 10:40 AM EST documented as of this encounter Care Teams Landing Scaler Relationship Specialty Start Date End Date Leonela Wilson MD [address] [place] [address], [address] [place] [address] PCP - General Family Medicine 06/06/22 Madelyn Wing RN [address] [place] [address] [email or web address] PHCM Accreditation Manager 10/09/23 01/15/25 Gianni Thomas MD, PhD [address] [address] Cardiology 12/20/23 Jey Love MD [address] [place] [address] Intensive Care 12/20/23 Cindy Boggs CNP [address] [facility], [address] [place] [address] Nurse Practitioner 12/20/23 Mona Claudio MD [address] [place] [address] Cardiology 10/21/24 documented as of this encounter Additional Source Comments The information contained in this document represents components of the legal health record. It is not the complete legal health record.[facility]
--- OUTSIDE RECORDS SUMMARY | 2025-11-04 17:52 | XMS_ITS | Encounter Summary ---
Author Organization [facility] Address [address] [facility] [address] [place] [address] Phone Care Team Providers Care Carrot Tier Name Role Phone Leonela Wilson MD Primary Care Provider [phone] Acosta Parker MD Unavailable Leonela Wilson MD Unavailable Madelyn Wing RN Unavailable Jessa Delacruz Unavailable [phone] Gianni Thomas MD, PhD Unavailable Gianni Thomas MD, PhD Unavailable Jey Love MD Unavailable [phone] Cindy Boggs CNP Unavailable [phone] Mona Claudio MD Unavailable [phone] Encounter Details Date Type Department Care Team (Late st Contact Info) Description 10/18/2022 Procedure Pass [facility], Ct Scan - [address] [id number] Social History Tobacco Use Types Packs/Day Years [...] high school, GED, job training, learning the Canadian language, technical skills, or developing parenting skills)? [...] documented as of this encounter Care Teams Carrot Tier Relationship Specialty Start Date End Date Leonela Wilson MD [address] [place] [address] 7 [place] [address] [email or web address] PCP - General Family Medicine 06/06/22 Acosta Parker MD [address] [place] [address], [facility] [address] [place] [address] [email or web address] Insurance Assigned Provider 12/09/22 01/13/23 Leonela Wilson MD [address] [place] [address] 7 [place] [address] [email or web address] Insurance Assigned Provider 01/13/23 07/14/23 Madelyn Wing, RN [address] [place] [address] [email or web address] PHCM Dentist Private Practice 10/09/23 01/15/25 Jessa Delacruz [address] [place] [address] [email or web address] PHCM Community Health Worker 11/12/23 01/30/24 Gianni Thomas MD, PhD [address] [place] [address] [email or web address] Cardiology 12/20/23 12/20/23 Gianni Thomas MD, PhD [address] [place] [address] Dr. Campos [address] [place] [address] Cardiology 12/20/23 Jey Love MD [address] [place] [address] [email or web address] Intensive Care 12/20/23 Cindy Boggs, LENS ASSORTER [facility], 1st [place] [address] [email or web address] Nurse Practitioner 12/20/23 Mona Claudio MD [address] [place] [address] [email or web address] Cardiology 10/21/24 documented as of this encounter Additional Source Comments The information contained in this document represents components of the legal health record. It is not the complete legal health record.[facility]
--- OUTSIDE RECORDS SUMMARY | 2025-11-04 17:52 | XMS_ITS | Encounter Summary ---
Author Organization [facility] Address [address] [facility] [address] [place] [address] Phone Care Team Providers Care Senior Field Service Engineer Name Role Phone Leonela Wilson MD Primary Care Provider [phone] Madelyn Wing RN Unavailable Jessa Delacruz Unavailable Gianni Thomas MD, PhD Unavailable [phone] Jey Love MD Unavailable Cindy Boggs CNP Unavailable Mona Claudio MD Unavailable [phone] Encounter Details Date Type Department Care Team (Late st Contact Info) Description 01/07/2024 Telephone [facility] [address] [facility], 7th [address], [address] [place] [address] Miesha Reagan MD [address] [facility] [address] [place] [address] [email or web address] Social History Tobacco Use Types Packs/Day Years Used Date Smoking Tobacco: Some Days Cigarettes Started: 02/17/1994; Last attempted to quit: 05/05/2023 Passive Smoke Exposure: Past Smokeless Tobacco: [...] high school, GED, job training, learning the Tuvaluan language, technical skills, or developing parenting skills)? [...] Start Date Job End Date enrollments for [employer] Not on file Not on file Not on file documented as of this encounter Plan of Treatment Not on file documented as of this encounter Visit Diagnoses Not on filedocumented in this encounter Additional Health Concerns Assessment Noted Time PHQ-2 Depression Total Score: 2 11/08/19 10:40 AM EST documented as of this encounter Care Teams Senior Field Service Engineer Relationship Specialty Start Date End Date Leonela Wilson MD [address] [place] [address], [address] [place] [address] [email or web address] PCP - General Family Medicine 06/06/22 Madelyn Wing, RN [address] [place] [address] [email or web address] PHCM Entry Writer 10/09/23 01/15/25 Jessa Delacruz [address] [place] [address] [email or web address] PHCM Community Health Worker 11/12/23 01/30/24 Gianni Thomas MD, PhD [address] [place] [address] [address] Cardiology 12/20/23 Jey Love MD [address] [place] [address] Intensive Care 12/20/23 Cindy Boggs CNP [address] [address] Nurse Practitioner 12/20/23 Mona Claudio MD [address] [place] [address] Cardiology 10/21/24 documented as of this encounter Additional Source Comments The information contained in this document represents components of the legal health record. It is not the complete legal health record.[facility]
--- OUTSIDE RECORDS SUMMARY | 2025-11-04 17:52 | XMS_ITS | Clinical Summary ---
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 Family History Medical History Relation Name Comments Breast cancer Father's Sister Ovarian cancer Paternal Grandmother Relation Name Status Comments Father's Sister Paternal Grandmother Social History Tobacco Use Types Packs/Day Years Used Date Smoking Tobacco: Never Assessed Comments No Sex and Gender Information Value Date Recorded Sex Assigned at Female 02/14/2019 9:53 AM EDT Legal Sex Female 9:36 AM EDT Gender Identity Female 02/14/2019 9:53 AM EDT Sexual Orientation Straight 02/14/2019 9: 53 AM EDT Last Filed Vital Signs Vital Sign Reading Time Taken Comments Blood Pressure 110/74 12/31/2013 12:03 PM EST Pulse 67 12/31/2013 12:03 PM EST Temperature 36.8 C (98.3 F) 12/31/2013 12:03 PM EST Respiratory Rate - - Oxygen Saturation 98% 12/31/2013 12:03 PM EST Inhaled Oxygen Concentration - - Weight - - Height - - Body Mass Index - - Plan of Treatment Health Maintenance Due Date Last Done Comments Cervical Cancer Screening 1979 Cologuard 1979 Colon Cancer Screening 1979 Colonoscopy 1979 FOBT / Fit Test 1979 HIV Screening 1979 HPV and Pap Smear 1979 Pap Smear 1979 Sigmoidoscopy 1979 Hepatitis B Vaccines (1 of 3 - 19+ 3-dose series) 1998 DTaP,Tdap,and Td Vaccines (2 - Td or Tdap) 11/17/2023 11/17/2013 Mammogram 06/13/2024 06/13/2022, 06/05, 09/01/2019, Additional history exists Alcohol/Substance Use Screening 11/05/2024 Influenza Vaccine (#1) 2025 COVID-19 Vaccine ( season) 2025 Pneumococcal Vaccine: Pediatric (0-5 Years) and At-Risk Patients (6-50 Years) Aged Out No longer eligible based on patient's age to complete this topic Procedures * Due to [place] Al[employer] law, this organization might not be sharing negative HIV tests. Procedure Name Priority Date/Time Associated Diagnosis Comments BALAJI BILATERAL SCREENING DIGITAL MAMMOGRAM WITH YON Routine 06/13/2022 3:17 PM EDT Encounter for screening mammogram for malignant neoplasm of breast from Last 3 Months or Most Recently Relevant to Health Maintenance Results * Due to [place] [employer] law, this organization might not be sharing negative HIV tests. * BALAJI Bilateral Screening Digital Mammogram With Yon (06/13/2022 3:17 PM EDT) Anatomical Region Laterality Modality Breast Bilateral Mammography Narrative 06/14/2022 2:06 PM EDT EXAMINATION BALAJI Bilateral Screening Digital Mammogram With Yon. INDICATION Rochelle Chappell is a 42 y.o. female and is seen for: BALAJI Bilateral Screening Digital Mammogram With Yon. R2 CAD was used in the interpretation of this study. COMPARISON Compared to: 06/24/2020 BALAJI Transfer of Outside Films, 06/17/2020 BALAJI Bilateral Screening Digital Mammogram With Yon, 06/10/2020 BALAJI Transfer of Outside Films, 09/01/2019 BALAJI Right Diagnostic Digital Mammogram With Yon, 02/27/2019 US Guided Core Breast Biopsy Right, 02/27/2019 BALAJI Right Diagnostic Digital Mammo Post US/MRI/Stereo, and 05/13/2015 BALAJI Bilateral Diagnostic Digital Mammogram With Yon Bilateral Breast Findings: The breasts are heterogeneously dense, which may obscure small masses. Left excisional biopsy. Right micromarker. No significant masses, calcifications or other abnormalities are seen. IMPRESSION BI-RADS ATLAS category (overall): 1 - Negative MANAGEMENT Routine Screening Mammogram in 1 Year is recommended for bilateral. The patient was entered into a reminder system with a subsequent mammography target date. DENSE BREAST RECOMMENDATIONS: The patient has dense breast tissue shown on mammography. Per [place] [employer] Appropriateness Criteria for Breast Cancer Screening (https://acsearch.acr.org/docs/64138/Narrative/) patient may benefit from tomosynthesis on future mammography and supplemental imaging with automated breast ultrasound (ABUS) or breast MRI depending on risk factors. Automated Breast Ultrasound (ABUS) is now available at both [facility] and in the Department of Mammography at [facility]. To schedule a patient, you can either enter an ABUS order into [facility] [employer] EMR (type in ABUS), call [employer] Central Scheduling at [phone], or call [facility] Central Scheduling at [phone]. To fax an external order: [employer] [phone] and [facility] [phone]. I have personally reviewed the images and agree with the above report. If this radiology report contains a blank impression section, it is an incomplete radiology report. Please contact the interpreting radiologist or applicable radiology division as soon as possible to obtain the completed interpretation. Misael Rader IMRony BI PROCEDURES Final Result from Last 3 Months or Most Recently Relevant to Health Maintenance [facility] [id number] [employer] [facility] Care Teams Eligibility Examiner Relationship Specialty Start Date End Date Leonela Walker PCP - General 06/13/22
--- OUTSIDE RECORDS SUMMARY | 2025-11-04 17:52 | XMS_ITS | Encounter Summary ---
Author Organization [facility] Address [address] [facility] [address] [place] [address] Phone Care Team Providers Care Ranch Helper Name Role Phone Leonela Wilson MD Primary Care Provider [phone] Leonela Wilson MD Unavailable Madelyn Wing RN Unavailable [phone] Jessa Delacruz Unavailable [phone] Gianni Thomas MD, PhD Unavailable Gianni Thomas MD, PhD Unavailable [phone] Jey Love MD Unavailable [phone] Cindy Boggs CNP Unavailable Mona Claudio MD Unavailable [phone] Encounter Details Date Type Department Care Team (Latest Contact Info) Description 02/26/2023 Transcribe Orders [facility] Phleb Main [address] [place] [address] Orin Barber MD [address] [address] 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) Social History Tobacco Use Types Packs/Day Years Used Date Smoking Tobacco: Former Cigarettes 1.5 30 S tarted: 12/04/2022 Passive Smoke Exposure: Past Smokeless Tobacco: Never [...] Start Date Job End Date enrollments for [employer] Not on file Not on file Not on file documented as of this encounter Plan of Treatment Not on file documented as of this encounter Visit Diagnoses Diagnosis Hypertension due to endocrine disorder- Primary documented in this encounter Additional Health Concerns Assessment Noted Time PHQ-2 Depression Total Score: 2 06/04/20 22 9:15 AM EDT documented as of this encounter Care Teams Ranch Helper Relationship Specialty Start Date End Date Leonela Wilson MD [address] [place] [address] 7 [place] [address] [email or web address] PCP - General Family Medicine 06/06/22 Leonela Wilson MD [address] [place] [address] [email or web address] Insurance Assigned Provider 01/13/23 07/14/23 Madelyn Wing, RN [address] [place] [address] [email or web address] PHCM Shift Commander 10/09/23 01/15/25 Jessa Delacruz [address] [place] [address] [email or web address] PHCM Community Health Worker 11/12/23 01/30/24 Gianni Thomas MD, PhD [address] Campos [address] [place] [address] [email or web address] Cardiology 12/20/23 12/20/23 Gianni Thomas MD, PhD [address] [place] [address] Dr. Campos [address] [place] [address] Cardiology 12/20/23 Jey Love MD [address] [place] [address] [email or web address] Care 12/20/23 Cindy Boggs, SUPERVISOR [employer]PL[employer] [facility], 1st [place] [address] [email or web address] Nurse Practitioner 12/20/23 Mona Claudio MD [address] [place] [address] [email or web address] Cardiology 10/21/24 documented as of this encounter Additional Source Comments The information contained in this document represents components of the legal health record. It is not the complete legal health record.[facility]
--- OUTSIDE RECORDS SUMMARY | 2025-11-04 17:52 | XMS_ITS | Encounter Summary ---
Author Organization [facility] Address [address] [facility] [address] [place] [address] Phone Care Team Providers Care Private Inquiry Agent Name Role Phone Danilo Sun MD Primary Care Provider Leonela Wilson MD Primary Care Provider [phone] Acosta Parker MD Unavailable Leonela Wilson MD Unavailable [phone] Madelyn Wing RN Unavailable Jessa Delacruz Unavailable [phone] Gianni Thomas MD, PhD Unavailable Gianni Thomas MD, PhD Unavailable Jey Love MD Unavailable Cindy Boggs CNP Unavailable [phone] Mona Claudio MD Unavailable [phone] Encounter Details Date Type Department Care Team (Late st Contact Info) Description 11/16/2021 Procedure Pass [facility], [address] [id number] Social History Tobacco Use Types Packs/Day Years Used Date Smoking Tobacco: Never Assessed Comments Unknown Sex and Gender Information Value Date Recorded Sex Assigned at Female 03/12/2022 7:51 AM EDT Legal Sex Female 1:19 PM EST Gender Identity Female 03/12/2022 7:51 AM EDT Sexual Orientation Straight 10/12/2022 4: 06 PM EST documented as of this encounter Last Filed Vital Signs Vital Sign Reading Time Taken Comments Blood Pressure - - Pulse - - Temperature - - Respiratory Rate - - Oxygen Saturation - - Inhaled Oxygen Concentration - - Weight 75.8 kg (167 lb) 11/17/2021 1:04 PM EST Height 152.4 cm (5') 11/17/2021 1:04 PM EST Body Mass Index 32.61 11/17/2021 1:04 PM EST documented in this encounter Plan of Treatment Not on file documented as of this encounter Visit Diagnoses Not on filedocumented in this encounter Additional Health Concerns Infection Onset Date Last Indicated Resolved Time CoV-Risk 03/12/2022 03/12/2022 03/12/2022 8:47 AM EDT COVID-19 03/12/2022 03/12/2022 04/02/2022 1:21 AM EDT documented as of this encounter Care Teams Private Inquiry Agent Relationship Specialty Start Date End Date Danilo Sun MD [address] [place] [address] [email or web address] PCP - General 05/05/14 06/05/22 Leonela Wilson MD [address] [place] [address] 7 [place] [address] [email or web address] PCP - General Family Medicine 06/06/22 Acosta Parker MD [address] [place] [address] [email or web address] Insurance Assigned Provider 12/09/22 01/13/23 Leonela Wilson MD [address] [place] [address], [address] [place] [address] [email or web address] Insurance Assigned Provider 01/13/23 07/14/23 Madelyn Wing, RN [address] [place] [address] [email or web address] PHCM Bakery Machine Mechanic 10/09/23 01/15/25 Jessa Delacruz [address] [place] [address] [email or web address] PHCM Community Health Worker 11/12/23 01/30/24 Gianni Thomas MD, PhD [address] [place] [address] Dr. Campos [address] [place] [address] [email or web address] Cardiology 12/20/23 12/20/23 Gianni Thomas MD, PhD [address] [place] [address] Dr. Campos [address] [place] [address] [email or web address] Cardiology 12/20/23 Jey Love MD [address] [place] [address] [email or web address] Intensive Care 12/20/23 Cindy Boggs, PAULA [address] [place] [address], [address] [place] [email or web address] Nurse Practitioner 12/20/23 Mona Claudio MD [address] [place] [address] Cardiology 10/21/24 documented as of this encounter Additional Source Comments The information contained in this document represents components of the legal health record. It is not the complete legal health record.[facility]
--- OUTSIDE RECORDS SUMMARY | 2025-11-04 17:52 | XMS_ITS | Encounter Summary ---
Author Organization [facility] Address [address] [facility] [address] [place] [address] Phone Care Team Providers Care Allergist/Immunologist Name Role Phone Leonela Wilson MD Primary Care Provider [phone] Leonela Wilson MD Unavailable Madelyn Wing RN Unavailable Jessa Delacruz Unavailable [phone] Gianni Thomas MD, PhD Unavailable Gianni Thomas MD, PhD Unavailable [phone] Jey Love MD Unavailable [phone] Cindy Boggs CNP Unavailable [phone] Mona Claudio MD Unavailable [phone] Encounter Details Date Type Department Care Team (Late st Contact Info) Description 06/11/2023 Procedure Pass [facility], [address] [place] [address] Social History Tobacco Use Types Packs/Day Years Used Date Smoking Tobacco: Some Days Cigarettes 0.3 30 Started: 12/04/2022 Passive Smoke Exposure: Past Smokeless Tobacco: Never Alcohol Use Standard Drinks/Week Comments Never 0 (1 standard drink = 0.6 oz pur e alcohol) sober 2019 Child or Family Care Answer Date Record ed Do you have problems with on e of the following making it difficult for you to work, study, or receive health care? No 06/04/2022 Education Answer Date Recorded Are you interested in help w ith more adult education (for example, completing high school, GED, job training, learning the [place] language, technical skills, or developing parenting skills)? [...] Start Date Job End Date enrollments for [employer] Not on file Not on file Not on file documented as of this encounter Plan of Treatment Not on file documented as of this encounter Visit Diagnoses Not on filedocumented in this encounter Additional Health Concerns Assessment Noted Time PHQ-2 Depression Total Score: 2 06/04/20 22 9:15 AM EDT documented as of this encounter Care Teams Allergist/Immunologist Relationship Specialty Start Date End Date Leonela Wilson MD [address] [place] [address] 7 [place] [address] [email or web address] PCP - General Family Medicine 06/06/22 Leonela Wilson MD [address] [place] [address] 7 [place] [address] [email or web address] Insurance Assigned Provider 01/13/23 07/14/23 Madelyn Wing, RN [address] [place] [address] [email or web address] PHCM Ticket Sales Supervisor 10/09/23 01/15/25 Jessa Delacruz [address] [place] [address] [email or web address] PHCM Community Health Worker 11/12/23 01/30/24 Gianni Thomas MD, PhD [address] [place] [address] Dr. Campos [address] [place] [address] [email or web address] Cardiology 12/20/23 12/20/23 Gianni Thomas MD, PhD [address] [place] [address] Dr. Campos [address] [place] [address] Cardiology 12/20/23 Jey Love MD [address] [place] [address] Intensive Care 12/20/23 Cindy Boggs CNP [address] [place] [address] [place] [address] Nurse Practitioner 12/20/23 Mona Claudio MD [address] [place] [address] Cardiology 10/21/24 documented as of this encounter Additional Source Comments The information contained in this document represents components of the legal health record. It is not the complete legal health record.[facility]
--- OUTSIDE RECORDS SUMMARY | 2025-11-04 17:52 | XMS_ITS | Encounter Summary ---
Author Organization [facility] Address [address] [facility] [address] [place] [address] Phone Care Team Providers Care Measurement And Sensing Technician Name Role Phone Leonela Wilson MD Primary Care Provider [phone] Madelyn Wing RN Unavailable Jessa Delacruz Unavailable [phone] Gianni Thomas MD, PhD Unavailable [phone] Jey Love MD Unavailable Cindy Boggs CNP Unavailable [phone] Mona Claudio MD Unavailable [phone] Encounter Details Date Type Department Care Team (Late st Contact Info) Description 12/28/2023 Procedure Pass [facility] [address] [place] [address] Social History Tobacco Use Types Packs/Day Years [...] high school, GED, job training, learning the [place] language, technical skills, or developing parenting skills)? [...] Start Date Job End Date enrollments for [employer] Not on file Not on file Not on file documented as of this encounter Plan of Treatment Not on file documented as of this encounter Visit Diagnoses Not on filedocumented in this encounter Additional Health Concerns Assessment Noted Time PHQ-2 Depression Total Score: 2 11/08/19 24 10:40 AM EST documented as of this encounter Care Teams Measurement And Sensing Technician Relationship Specialty Start Date End Date Leonela Wilson MD [address] [place] [address] 7 [place] [address] PCP - General Family Medicine 06/06/22 Madelyn Wing, RN [address] [place] [address] [email or web address] PHCM Electrotype Caster 10/09/23 01/15/25 Jessa Delacruz [address] [place] [address] [email or web address] PHCM Community Health Worker 11/12/23 01/30/24 Gianni Thomas MD, PhD [address] [place] [address] [address] Cardiology 12/20/23 Jey Love MD [address] [place] [address] Intensive Care 12/20/23 Cindy Boggs CNP [address] [place] [address], [address] [place] [address] Nurse Practitioner 12/20/23 Mona Claudio MD [address] [place] [address] Cardiology 10/21/24 documented as of this encounter Additional Source Comments The information contained in this document represents components of the legal health record. It is not the complete legal health record.[facility]
--- OUTSIDE RECORDS SUMMARY | 2025-11-04 17:52 | XMS_ITS | Encounter Summary ---
Author Organization [facility] Address [address] [facility] [address] [place] [address] Phone Care Team Providers Care Proofreader Name Role Phone Leonela Wilson MD Primary Care Provider [phone] Acosta Parker MD Unavailable Leonela Wilson MD Unavailable Madelyn Wing RN Unavailable Jessa Delacruz Unavailable [phone] Gianni Thomas MD, PhD Unavailable Gianni Thomas MD, PhD Unavailable Jey Love MD Unavailable [phone] Cindy Boggs CNP Unavailable [phone] Mona Claudio MD Unavailable [phone] Encounter Details Date Type Department Care Team (Late st Contact Info) Description 10/18/2022 Procedure Pass [facility], [facility] Scan - [address] [id number] Social History Tobacco Use Types Packs/Day Years [...] high school, GED, job training, learning the [place] language, technical skills, or developing parenting skills)? [...] documented as of this encounter Care Teams Proofreader Relationship Specialty Start Date End Date Leonela Wilson MD [address] [place] [address] 7 [place] [address] [email or web address] PCP - General Family Medicine 06/06/22 Acosta Parker MD [address] [place] [address], [facility] 7 [place] [address] [email or web address] Insurance Assigned Provider 12/09/22 01/13/23 Leonela Wilson MD [address] [place] [address] 7 [place] [address] [email or web address] Insurance Assigned Provider 01/13/23 07/14/23 Madelyn Wing, RN [address] [place] [address] [email or web address] PHCM Infectious Diseases Physician 10/09/23 01/15/25 Jessa Delacruz [address] [place] [address] [email or web address] PHCM Community Health Worker 11/12/23 01/30/24 Gianni Thomas MD, PhD [address] Campos [address] [place] [address] [email or web address] Cardiology 12/20/23 12/20/23 Gianni Thomas MD, PhD [address] [place] [address] Dr. Campos [address] [place] [address] Cardiology 12/20/23 Jey Love MD [address] [place] [address] [email or web address] Intensive Care 12/20/23 Cindy Boggs, HAND SAMPLE MAKER [facility], 1st [place] [address] [email or web address] Nurse Practitioner 12/20/23 Mona Claudio MD [address] [place] [address] [email or web address] Cardiology 10/21/24 documented as of this encounter Additional Source Comments The information contained in this document represents components of the legal health record. It is not the complete legal health record.[facility]
--- OUTSIDE RECORDS SUMMARY | 2025-11-04 17:52 | XMS_ITS | Encounter Summary ---
Author Organization [facility] Address [address] [facility] [address] [place] [address] Phone Care Team Providers Care [employer] Name Role Phone Leonela Wilson MD Primary Care Provider [phone] Madelyn Wing RN Unavailable Jessa Delacruz Unavailable [phone] Gianni Thomas MD, PhD Unavailable Gianni Thomas MD, PhD Unavailable Jey Love MD Unavailable [phone] Cindy Boggs CNP Unavailable [phone] Mona Claudio MD Unavailable [phone] Encounter Details Date Type Department Care Team (Late st Contact Info) Description 09/10/2023 Procedure Pass [facility] - RF/IR [address] [facility], 2nd [place] [address] Social History Tobacco Use Types Packs/Day Years [...] high school, GED, job training, learning the Romanian language, technical skills, or developing parenting skills)? [...] Start Date Job End Date enrollments for [employer] Not on file Not on file Not on file documented as of this encounter Plan of Treatment Not on file documented as of this encounter Visit Diagnoses Not on filedocumented in this encounter Additional Health Concerns Assessment Noted Time PHQ-2 Depression Total Score: 2 06/04/20 22 9:15 AM EDT documented as of this encounter Care Teams [employer] Relationship Specialty Start Date End Date Leonela Wilson MD [address] [place] [address] [address] [place] [address] [email or web address] PCP - General Family Medicine 06/06/22 Madelyn Wing, RN [address] [place] [address] [email or web address] PHCM Procurement Clerk 10/09/23 01/15/25 Jessa Delacruz [address] [place] [address] [email or web address] PHCM Community Health Worker 11/12/23 01/30/24 Gianni Thomas MD, PhD [address] [place] [address] Dr. Campos [address] [place] [id number] [email or web address] Cardiology 12/20/23 12/20/23 Gianni Thomas MD, PhD [address] [place] [address] Dr. Campos [address] [place] [id number] [email or web address] Cardiology 12/20/23 Jey Love MD [address] [place] [address] [email or web address] Intensive Care 12/20/23 Cindy Boggs CNP [address] [place] [address] [email or web address] Nurse Practitioner 12/20/23 Mona Claudio MD [address] [place] [address] Cardiology 10/21/24 documented as of this encounter Additional Source Comments The information contained in this document represents components of the legal health record. It is not the complete legal health record.[facility]
--- OUTSIDE RECORDS SUMMARY | 2025-11-04 17:52 | XMS_ITS | Encounter Summary ---
Author Organization [facility] Address [address] [employer] [facility] [address] [place] [address] Phone Care Team Providers Care Break Out Worker Name Role Phone Danilo Sun MD Primary Care Provider Leonela Wilson MD Primary Care Provider [phone] Acosta Parker MD Unavailable [phone] Leonela Wilson MD Unavailable [phone] Madelyn Wing RN Unavailable [phone] Jessa Delacruz Unavailable [phone] Gianni Thomas MD, PhD Unavailable Gianni Thomas MD, PhD Unavailable Jey Love MD Unavailable Cindy Boggs CNP Unavailable Mona Claudio MD Unavailable [phone] Encounter Details Date Type Department Care Team (Late st Contact Info) Description 11/23/2021 Procedure Pass [facility], [address] [id number] Social History Tobacco Use Types Packs/Day Years Used Date Smoking Tobacco: Every Day Cigarettes Smokeless Tobacco: Never Alcohol Use Standard Drinks/Week Comments Not Currently 0 (1 standard drink = 0.6 oz pur e alcohol) Comments Unknown Sex and Gender Information Value [...] documented as of this encounter Care Teams Break Out Worker Relationship Specialty Start Date End Date Danilo Sun MD [address] [place] [phone] [email or web address] PCP - General 05/05/14 06/05/22 Leonela Wilson MD [address] [place] [address] [email or web address] PCP - General Family Medicine 06/06/22 Acosta Parker MD [address] [place] [phone] [email or web address] Insurance Assigned Provider 12/09/22 01/13/23 Leonela Wilson MD [address] [place] [address] [email or web address] Insurance Assigned Provider 01/13/23 07/14/23 Madelyn Wing, RN [address] [place] [address] PHCM Construction Assistant 10/09/23 01/15/25 Jessa Delacruz [address] [place] [address] PHCM Community Health Worker 11/12/23 01/30/24 Gianni Thomas MD, PhD [address] Campos [address] [place] [address] Cardiology 12/20/23 12/20/23 Gianni Thomas MD, PhD [address] [place] [address] Dr. Campos [address] [place] [address] Cardiology 12/20/23 Jey Love MD [address] [place] [address] Intensive Care 12/20/23 Cindy Boggs CNP [address] [place] [phone] Nurse Practitioner 12/20/23 Mona Claudio MD [address] [place] [address] Cardiology 10/21/24 documented as of this encounter Additional Source Comments The information contained in this document represents components of the legal health record. It is not the complete legal health record.[facility]
--- OUTSIDE RECORDS SUMMARY | 2025-11-04 17:52 | XMS_ITS | Encounter Summary ---
Author Organization [facility] Address [address] [facility] [address] [place] [address] Phone Care Team Providers Care Face Burler Name Role Phone Leonela Wilson MD Primary Care Provider [phone] Leonela Wilson MD Unavailable Madelyn Wing RN Unavailable [phone] Jessa Delacruz Unavailable [phone] Gianni Thomas MD, PhD Unavailable Gianni Thomas MD, PhD Unavailable [phone] Jey Love MD Unavailable [phone] Cindy Boggs CNP Unavailable [phone] Mona Claudio MD Unavailable [phone] Encounter Details Date Type Department Care Team (Late st Contact Info) Description 02/02/2023 Procedure Pass [facility], Ct Scan - [address] [address] Social History Tobacco Use Types Packs/Day Years [...] high school, GED, job training, learning the Pakistani language, technical skills, or developing parenting skills)? [...] Start Date Job End Date enrollments for [employer] Not on file Not on file Not on file documented as of this encounter Plan of Treatment Not on file documented as of this encounter Visit Diagnoses Not on filedocumented in this encounter Additional Health Concerns Assessment Noted Time PHQ-2 Depression Total Score: 2 06/04/20 22 9:15 AM EDT documented as of this encounter Care Teams Face Burler Relationship Specialty Start Date End Date Leonela Wilson MD [address] [place] [address] [facility] [address] [place] [address] [email or web address] PCP - General Family Medicine 06/06/22 Leonela Wilson MD [address] [place] [address] [address] [place] [address] [email or web address] Insurance Assigned Provider 01/13/23 07/14/23 Madelyn Wing, RN [address] [place] [address] [email or web address] PHCM Floor Layer 10/09/23 01/15/25 Jessa Delacruz [address] [place] [address] [email or web address] PHCM Community Health Worker 11/12/23 01/30/24 Gianni Thomas MD, PhD [address] [place] [address] Dr. Campos [address] [place] [phone] [email or web address] Cardiology 12/20/23 12/20/23 Gianni Thomas MD, PhD [address] [place] [address] Dr. Campos [address] [place] [address] Cardiology 12/20/23 Jey Love MD [address] [place] [address] [email or web address] Intensive Care 12/20/23 Cindy Boggs CNP [address] [place] [address] [email or web address] Nurse Practitioner 12/20/23 Mona Claudio MD [address] [place] [address] [email or web address] Cardiology 10/21/24 documented as of this encounter Additional Source Comments The information contained in this document represents components of the legal health record. It is not the complete legal health record.[facility]
--- OUTSIDE RECORDS SUMMARY | 2025-11-04 17:52 | XMS_ITS | Clinical Summary ---
Author Organization [facility] Address [address] [place] [address] Care Team Providers Care Human Resource Consultant Name Role Phone Eboni Metcalf Eduardo SHAPER OPERATOR Primary Care Provider Judy Marquez SHAPER OPERATOR Unavailable Carlos Eduardo Grijalva MD Unavailable Allergies Active Allergy Reactions Criticality Noted Date Comments Bee Pollen Anaphylaxis High 05/07/2018 Bee Venom Protein (Honey Bee) Anaphylaxis High 05/07/2018 Shellfish Containing Products Anaphylaxis,Palpitations,S hortness Of Breath,Tongue and Throat Swelling High 06/20/2016 Tirzepatide Constipation,Diarrhe a,Naus ea And Vomiting,Other (See Comments) 03/20/2023 Varicella Vaccines Hives,Itching,Other (See Comments),Rash,Tongue and Throat Swelling Low 11/05/2010 Medications ALBUTEROL INHL Take 2 puffs by mouth as needed (Rescue inhl). 016 Active rosuvastatin (CRESTOR) 40 mg tabletIndications :Type 2 diabetes mellitus with hyperlipidemia (HC CODE) Take 40 mg total (1 tablet) by mouth daily. 90 tablet 3 025 Active pen (TRESIBA) 100 unit/ml insulin degludecIndicatio ns:Type 2 diabetes mellitus with hyperlipidemia (HC CODE) Inject 12 Units into the skin every evening. 9 mL 1 025 Active lactulose (ENULOSE) 10 gram/15 mL solutionIndicatio ns:Other constipation Take 20 g total (30 mLs) by mouth as needed (Constipation) . 237 mL 1 025 2025 Active insulin lispro (HumaLOG Emerson Loraine U-100) 100 unit/mL inphIndications:T ype 2 diabetes mellitus with hyperlipidemia (HC CODE) Inject 1-5 Units into the skin 3 (three) times daily. Sliding Scale 120-149 1u 150- 179 2u 180- 209 3u 210- 239 4u 240- 279 5u 6 mL 2 Active albuterol (ProAir HFA) 90 mcg/actuation inhaler Inhale 1 puff into the lungs every 4 (four) hours as needed for Wheezing or Shortness of Breath. 1 each 1 Active LORazepam (ATIVAN) 0.5 mg tabletIndications :KATHE (generalized anxiety disorder) Take 0.5 mg total (1 tablet) by mouth daily as needed for Anxiety. 30 tablet 1 025 2025 Active empagliflozin (Jardiance) 25 mg tabletIndications :Type 2 diabetes mellitus with hyperlipidemia (HC CODE) Take 25 mg total (1 tablet) by mouth daily. 90 tablet 1 Active Additional Information Patient not taking.Reported on 10/09/2025 Ozempic 2 mg/dose (8 mg/3 mL) PnIjIndications:T ype 2 diabetes mellitus with hyperlipidemia (HC CODE) Inject 2 mg into the skin once a week. 3 mL 2 2025 Active metFORMIN (GLUCOPHAGE-XR) 500 mg 24 hr tabletIndications :Type 2 diabetes mellitus with hyperlipidemia (HC CODE) Take 1,000 mg total (2 tablets) by mouth 2 (two) times daily. 360 tablet 1 Active blood-glucose sensor (FreeStyle Francisco 3 Plus Sensor) DeviIndications:T ype 2 diabetes mellitus with hyperlipidemia (HC CODE) 1 each by Misc.(Non-Drug ; Combo Route) route every 14 (fourteen) days. 2 each Active glucose test strip (FreeStyle Lite Strips) test stripIndications: Type 2 diabetes mellitus with hyperlipidemia (HC CODE) by Other route 3 (three) times daily. 100 each 5 025 Active lancets (FreeStyle Lancets) 28 gauge MiscIndications:T ype 2 diabetes mellitus with hyperlipidemia (HC CODE) 1 each by [facility] [place]Non-Drug ; Combo Route) route THREE TIMES DAILY AFTER MEALS. 100 each 5 025 Active blood-glucose sensor (DEXCOM G7 SENSOR [facility]) 023 2024 Discontinued Dexcom G7 Sensor DeviIndications:T ype 2 diabetes mellitus with hyperlipidemia (HC CODE) As directed; USE CONTINUOSLY TO MONITOR SUGARS, WEAR ON THE BACK OF THE UPPER ARM, CHANGE EVERY 10 DAYS 9 each 1 025 2024 Discontinued blood-glucose sensor (FreeStyle Francisco 3 Sensor) DeviIndications:T ype 2 diabetes mellitus with hyperlipidemia (HC CODE) As directed; USE CONTINUOSLY TO MONITOR SUGARS, WEAR ON THE BACK OF THE UPPER ARM, CHANGE EVERY 14 DAYS 6 each 3 025 2024 Discontinued blood-glucose sensor (FreeStyle Francisco 3 Sensor) DeviIndications:T ype 2 diabetes mellitus with hyperlipidemia (HC CODE) TO MONITOR SUGARS, WEAR ON THE BACK OF THE UPPER ARM, CHANGE EVERY 14 DAYS 6 each 3 025 2024 Discontinued Active Problems Problem Noted Date Diagnosed Date Hyperlipidemia, unspecified 09/22/2025 Assessment & Plan (09/22/2025 8:56 AM EST): She has restarted rosuvastatin. No change in medication. Continue to monitor liver and lipids on routine basis. Advised weight loss with low-fat diet and regular exercise as tolerated, 30 minutes moderate -intensity aerobic exercise 3 to 5 days per week. Advised patient to continue with therapeutic lifestyle and to consume foods with greater omega-3 levels and green leafy vegetables. Will continue to monitor. Elevated blood pressure reading 02/24/2025 Assessment & Plan (02/24/2025 5:23 PM EDT): Patient is asymptomatic and attributes it to work stressor. She will follow up in office tomorrow should her symptoms worsen or fail to improve or should she develop symptoms. Patient agreeable. Otherwise, follow up in office in 2 weeks Adrenal mass 02/18/2025 Assessment & Plan (08/11/2025 9:53 AM EDT): - Total adrenalectomy performed on 12/28/2023. - This information will be included in the referral to endocrinology. Assessment & Plan (02/18/2025 10:14 AM EDT): - Total adrenalectomy performed on 12/28/2023. - This information will be included in the referral to endocrinology. - Significant weight loss post-adrenalectomy due to reduced cortisol release. H/O total adrenalectomy 02/18/2025 Assessment & Plan (08/11/2025 9:53 AM EDT): - Total adrenalectomy performed on 12/28/2023. - This information will be included in the referral to endocrinology. Assessment & Plan (02/18/2025 10:14 AM EDT): - Total adrenalectomy performed on 12/28/2023. - This information will be included in the referral to endocrinology. - Significant weight loss post-adrenalectomy due to reduced cortisol release. Type 2 diabetes mellitus with hyperlipidemia Assessment & Plan (09/22/2025 8:56 AM EST): - Her A1c level is within the normal range at 5.9, despite her reported high blood glucose levels. - She has been off Ozempic since June due to insurance issues. - She is advised to monitor her blood glucose levels at least before breakfast, even in the absence of symptoms, to provide a more accurate assessment of her condition. - Prescriptions for Ozempic, Jardiance, metformin, and Freestyle Francisco 3 sensors have been sent to the pharmacy. She is scheduled to see an strategy consultant on , who may adjust her treatment plan based on these readings. Assessment & Plan (08/11/2025 9:56 AM EDT): Due for follow up. Previously scheduled with endocrinology but cancelled due to loss of insurance. Restart medications 08/11/2025. Continue current treatment plan. Continue to monitor A1C, microalbumin and kidney function. Patient will monitor glucose level at a minimum of once a day and keep a log of results. Patient was counseled on risk associated with uncontrolled diabetes including cardiovascular disease, retinopathy, kidney disease and stroke. Patient will call glucose readings consistently above 200. Patient was recommended to see the eye doctor at least once a year. Patient was recommended to exercise at least 30 min per day at least 3 times a week of moderate intensity exercise. Patient was counseled on the Diabetes Plate Method, plant-based diet. Assessment & Plan (02/24/2025 5:21 PM EDT): A1 5.9 - refill all medications, patient is scheduled to establish with endocrinology 05/2025. Continue current treatment plan. Continue to monitor A1C, microalbumin and kidney function. Patient will monitor glucose level at a minimum of once a day and keep a log of results. Patient was counseled on risk associated with uncontrolled diabetes including cardiovascular disease, retinopathy, kidney disease and stroke. Patient will call glucose readings consistently above 200. Patient was recommended to see the eye doctor at least once a year. Patient was recommended to exercise at least 30 min per day at least 3 times a week of moderate intensity exercise. Patient was counseled on the Diabetes Plate Method, plant-based diet. Assessment & Plan (02/18/2025 10:15 AM EDT): Due for follow up. Labs ordered. Referral to endocrinology provided. Continue current treatment plan. Continue to monitor A1C, microalbumin and kidney function. Patient will monitor glucose level at a minimum of once a day and keep a log of results. Patient was counseled on risk associated with uncontrolled diabetes including cardiovascular disease, retinopathy, kidney disease and stroke. Patient will call glucose readings consistently above 200. Patient was recommended to see the eye doctor at least once a year. Patient was recommended to exercise at least 30 min per day at least 3 times a week of moderate intensity exercise. Patient was counseled on the Diabetes Plate Method, plant-based diet. Asthma, unspecified asthma s everity, unspecified whether complicated, unspecified whether persistent 02/18/2025 Assessment & Plan (08/11/2025 9:56 AM EDT): Controlled on current treatment regimen. Denies recent exacerbation. Denies increase in use of rescue inhaler. Denies change in baseline chronic shortness of breath, fevers, chills, or increased mucus production. Continue current regimen. Continue to monitor. Referral to pulmonology Assessment & Plan (02/18/2025 10:16 AM EDT): Controlled on current treatment regimen. Denies recent exacerbation. Denies increase in use of rescue inhaler. Denies change in baseline chronic shortness of breath, fevers, chills, or increased mucus production. Continue current regimen. Continue to monitor. Referral to pulmonology Abnormal mammogram 02/18/2025 Assessment & Plan (08/11/2025 9:57 AM EDT): Under care of Tracy Marquez, breast surgery, next appt 11/2025 Assessment & Plan (02/18/2025 10:16 AM EDT): - History of multiple fibroadenomas - Diagnostic mammogram and ultrasound will be ordered. - Provided with necessary information to schedule these appointments at [facility]. KATHE (generalized anxiety disorder) 02/18/2025 Assessment & Plan (09/22/2025 8:57 AM EST): Symptoms stable current treatment plan. Using medication appropriately. Discussed possible side effects and risks associated, pt understands. Educated on non- pharm management techniques. Controlled with medication. Patient was cautioned that this medication is considered to be a high-risk medication and as such the patient is to limit the use of this medication. Patient declines to stop treatment at this time due to significant risk of feelings of losing control without use. Refill given today. The patient's controlled substance dispensing history in the [employer] database was reviewed. The patient is aware of potential for dependence associated with regular use of this medication. There is no evidence of abuse or diversion. Patient was counseled that subsequent refills require follow up visit. Will continue to monitor. 30 day with 1 refill sent due to pending appt with psychiatry 10/2025. Further refills per psychiatry. Pt verbalized understanding. Assessment & Plan (08/11/2025 9:57 AM EDT): Symptoms stable current treatment plan. Using medication appropriately. Discussed possible side effects and risks associated, pt understands. Educated on non- pharm management techniques. Controlled with medication. Patient was cautioned that this medication is considered to be a high-risk medication and as such the patient is to limit the use of this medication. Patient declines to stop treatment at this time due to significant risk of feelings of losing control without use. Refill given today. The patient's controlled substance dispensing history in the [employer] database was reviewed. The patient is aware of potential for dependence associated with regular use of this medication. There is no evidence of abuse or diversion. Patient was counseled that subsequent refills require follow up visit. Will continue to monitor. Assessment & Plan (02/18/2025 10:16 AM EDT): Feeling nervous, anxious or on edge: (Patient-Rptd) 3 (02/11/2025 2:15 PM) Not being able to stop or control worrying: (Patient-Rptd) 3 (02/11/2025 2:15 PM) Worrying too much about different things: (Patient-Rptd) 3 (02/11/2025 2:15 PM) Trouble Relaxing: (Patient-Rptd) 3 (02/11/2025 2:15 PM) Being so restless that it is hard to sit still: (Patient-Rptd) 2 (02/11/2025 2:15 PM) Becoming easily annoyed or irritable: (Patient-Rptd) 2 (02/11/2025 2:15 PM) Feeling afraid as if something awful might happen: (Patient-Rptd) 2 (02/11/2025 2:15 PM) If you checked off any problems, how difficult have these problems made it for you to do your work, take care of things at home, or get along with other people: (Patient-Rptd) Very difficult (02/11/2025 2:15 PM) KATHE 7 Total Score: (Patient-Rptd) 18 (02/11/2025 2:15 PM) Symptoms stable current treatment plan. Using medication appropriately. Discussed possible side effects and risks associated, pt understands. Educated on non- pharm management techniques. Encounters Date Type Department Care Team Description 10/09/2025 8:30 AM EST Office Visit [facility] [id number] [facility] [place] [address] Marla Herrmann PA Type 2 diabetes mellitus with hyperlipidemia (HC CODE) (Primary Dx); Adrenal mass; H/O total adrenalectomy 09/22/2025 8:00 AM EST Telemedicine [facility] [place] [address] [place] [address] Beth Olsen DO Hering, Ericka N, NI KATHE (generalized anxiety disorder); Type 2 diabetes mellitus with hyperlipidemia (HC CODE) Discharge Disposition: Home or Self Care 08/20/2025 Results Follow-Up [facility] [place] [address] [place] [address] Eboni Metcalf, NI HEMOGLOBIN A1C (HBA1C), COMPREHENSIVE METABOLIC PANEL (CMP), SERUM, LIPID PANEL WITH REFLEX TO DIRECT LDL, SERUM/PLASMA 08/11/2025 8:00 AM EDT Telemedicine [facility] [place] [address] [place] [address] Sue Caballero MD Hering, Ericka N, SHAPER OPERATOR Asthma, unspecified asthma severity, unspecified whether complicated, unspecified whether persistent (Primary Dx); Type 2 diabetes mellitus with hyperlipidemia (HC CODE); KATHE (generalized anxiety disorder); Other constipation; Right shoulder pain, unspecified chronicity; Decreased range of motion of right shoulder; Adrenal mass; H/O total adrenalectomy; Abnormal mammogram from Last 3 Months Family History Medical History Relation Name Comments Alcohol abuse Brother 1 CHATO Asthma Brother 1 CHATO Diabetes Brother 1 CHATO Drug abuse Brother 1 CHATO COCIANE & HEROI N Hearing loss Brother 1 CHATO Asthma Brother 2 SERENA Alcohol abuse Father CHATO Heart disease Father CHATO (48) FIRST [place] High cholesterol Father CHATO Hypertension - Blood Pressure Father CHATO Arthritis Maternal Aunt ZAC Diabetes Maternal Aunt ZAC Miscarriages / Stillbirths Maternal Aunt ZAC Alcohol abuse Maternal Grandfather BRADY Depression Maternal Grandfather BRADY MAJOR D EPRESSIVE DISORDER HOSPITALIZED Diabetes Maternal Grandfather BRADY Heart disease Maternal Grandfather BRADY (51) F IRST [place] High cholesterol Maternal Grandfather BRADY Arthritis Maternal Grandmother BENNIE Early Maternal Grandmother BENNIE (58) UT ERINE & OVARIAN CANCER Ovarian cancer Maternal Grandmother BENNIE Uterine cancer Maternal Grandmother BENNIE Alcohol abuse Maternal Uncle 1 VERO Drug abuse Maternal Uncle 1 VERO COCIANE & H EROIN Early Maternal Uncle 1 VERO (56) OVERDO SE/HEART ATTACK Heart disease Maternal Uncle 1 VERO (56) Depression Maternal Uncle 2 BRADY Drug abuse Maternal Uncle 2 BRADY COCIANE & H EROIN Heart disease Mother CAROLINE Hypertension - Blood Pressure Mother CAROLINE Depression Paternal Aunt 1 ASIF SEASONAL AFF LICTION DISORDER Early Paternal Aunt 2 ALHAJI (36) SUICIDE Alcohol abuse Paternal Grandfather BLAKE Diabetes Paternal Grandmother INOCENICA Early Paternal Grandmother INOCENICA (68) HE ART ATTACK Heart disease Paternal Grandmother INOCENICA (68) D IED High cholesterol Paternal Grandmother INOCENICA Alcohol abuse Paternal Uncle 1 MARCK Drug abuse Paternal Uncle 1 MARCK COCIANE & H EROIN Diabetes Paternal Uncle 2 RAMONE Early Paternal Uncle 3 ANUJ (55) HEART DISEASE Heart disease Paternal Uncle 3 ANUJ (55) Early Paternal Uncle 4 MARCO A (33) SUICID E Asthma Sister TETO Relation Name Status Comments Brother 1 CHATO Alive Brother 2 SERENA Alive Father CHATO Alive Maternal Aunt ZAC Alive Maternal Grandfather BRADY Alive Maternal Grandmother BENNIE Alive Maternal Uncle 1 VERO Alive Maternal Uncle 2 BRADY Alive Mother CAROLINE Alive Paternal Aunt 1 ASIF Alive Paternal Aunt 2 ALHAJI Alive Paternal Grandfather BLAKE Alive Paternal Grandmother INOCENICA Alive Paternal Uncle 1 MARCK Alive Paternal Uncle 2 RAMONE Alive Paternal Uncle 3 ANUJ Alive Paternal Uncle 4 MARCO A Alive Sister TETO Alive Social History Tobacco Use Types Packs/Day Years Used Date Smoking Tobacco: Former Cigarettes 1 31 Smokeless Tobacco: Never Tobacco Cessation:Counseling Given: Not Answered Alcohol Use Standard Drinks/Week Comments Not Currently 0 (1 standard drink = 0.6 oz pure alcohol) WAS A BINGE DRINKER - STOPPED COLD TURKEY 07/21/2019 [facility] Utilities Answer Date Recorded In the past 12 months has th e electric, gas, oil, or water company threatened to shut off services in your home? Yes 02/11/2025 PHQ-2 Answer Date Recorded PHQ-9 Total Score 4 09/21/2025 Housing Stability Vital Sign Answer Maynor e Recorded In the last 12 months, was t here a time when you were not able to pay the mortgage or rent on time? Yes 02/11/2025 In the past 12 months, how m any times have you moved where you were living? 1 02/11/2025 At any time in the past 12 m [facility], were you homeless or living in a [place] facility (including now)? Yes 02/11/2025 Comments No Sex and Gender Information Value Date Recorded Sex Assigned at Not on file Legal Sex Female 1:21 PM EDT Gender Identity Not on file Sexual Orientation Not on file Last Filed Vital Signs Vital Sign Reading Time Taken Comments Blood Pressure 115/76 10/09/2025 8:17 AM EST Pulse 79 10/09/2025 8:17 AM EST Temperature 36.9 C (98.4 F) 05/11/2025 10:08 AM EDT Respiratory Rate 16 02/18/2025 9:23 AM EDT Oxygen Saturation 97% 10/09/2025 8:17 AM EST Inhaled Oxygen Concentration - - Weight 72.1 kg (159 lb) 10/09/2025 8:17 AM EST Height 152.4 cm (5') 09/22/2025 8:07 AM EST Body Mass Index 31.05 09/22/2025 8:07 AM EST Plan of Treatment Health Maintenance Due Date Last Done Comments Cologuard 1979 Colonoscopy 1979 Colorectal Cancer Screening 1979 FIT 1979 FOBT 1979 Flex Sigmoidoscopy 1979 IMM SERIES: MMR Vaccines (1 of 1 - Standard series) 01/09/1980 Diabetes: Foot Exam 1989 Diabetes: Ophthalmology 2 Year Exam 1989 IMM SERIES: Hepatitis B Vaccine (1 of 3 - 19+ 3-dose series) 1998 Pneumococcal (0-5 years) and At-Risk Patients (6 to 64 Years) (1 of 2 - PCV) 1998 Cervical Cancer Screening 01/09/2000 IMM SERIES: Varicella Vaccines (2 of 2 - 13+ 2-dose series) 12/15/2013 11/17/2013 Annual Exam for 40yo+ 2019 IMM SERIES: DTAP/TDAP/TD/DTP (2 - Td or Tdap) 11/17/2023 11/17/2013 Influenza Vaccine (#1) 2025 IMM SERIES: SARS-COV2 and COVID-19 vaccines ( season) 2025 Diabetes: Urine Microalbumin/Creatinine Ratio 02/19/2026 02/19/2025 Breast Cancer Screening 03/27/2026 03/27/20 25, 08/10/2023, 08/10/2023, Additional history exists Diabetes: Hemoglobin A1C 04/09/2026 025, 08/13/2025, 02/19/2025 Social Drivers of Health Assessment 09/17/2026 09/17/2025, 02/18/2025 Depression Screening & Follow Up 09/22/2026 09/22/2025, 09/21/2025, 02/18/2025 Weight Management (Adult) 09/22/2026 09/22/2025, IMM SERIES: Zoster (1 of 2) 2029 11/17/2013 HEPATITIS C SCREENING Completed 02/19/2025 IMM SERIES: HIB Vaccines Aged Out No longer eligible based on patient's age to complete this topic IMM SERIES: HPV Vaccines Aged Out No longer eligible based on patient's age to complete this topic IMM SERIES: Hepatitis A Vaccine Aged Out No longer eligible based on patient's age to complete this topic IMM SERIES: Meningococcal ACWY Aged Out No longer eligible based on patient's age to complete this topic IMM SERIES: Meningococcal B Vaccines Aged Out No longer eligible based on patient's age to complete this topic IMM SERIES: Polio Vaccines Aged Out N o longer eligible based on patient's age to complete this topic IMM SERIES: Rotavirus Vaccines Aged Out No longer eligible based on patient's age to complete this topic Procedures Procedure Name Priority Date/Time Associated Diagnosis Comments POCT A1C (GLYCOSYLATED) Routine 10/09/2025 8:23 AM EST Type 2 diabetes mellitus with hyperlipidemia (HC CODE) POCT GLUCOSE (BLOOD) Routine 10/09/2025 8:16 AM EST Type 2 diabetes mellitus with hyperlipidemia (HC CODE) OUTSIDE DOCUMENT IMAGING 08/21/2025 9:58 AM EDT LIPID PANEL WITH REFLEX TO DIRECT LDL, SERUM/PLASMA Routine 08/13/2025 9:12 AM EDT Type 2 diabetes mellitus with hyperlipidemia (HC CODE) COMPREHENSIVE METABOLIC PANEL (CMP), SERUM Routine 08/13/2025 9:12 AM EDT Type 2 diabetes mellitus with hyperlipidemia (HC CODE) HEMOGLOBIN A1C (HBA1C) Routine 08/13/2025 9:12 AM EDT Type 2 diabetes mellitus with hyperlipidemia (HC CODE) DIAGNOSTIC DIGITAL BREAST TOMOSYNTHESIS (BILATERAL) Routine 03/27/2025 2:10 PM EDT Abnormal mammogram HEPATITIS C VIRUS (HCV) ANTIBODY, SERUM/PLASMA Routine 02/19/2025 7:24 AM EDT Need for hepatitis C screening test MICROALBUMIN/CREATINI NE, RATIO, URINE, RANDOM Routine 02/19/2025 7:24 AM EDT Type 2 diabetes mellitus with hyperlipidemia (HC CODE) from Last 3 Months or Most Recently Relevant to Health Maintenance Results * POCT A1C (Glycosylated) [[id number]] (10/09/2025 8:23 AM EST) [id number] 6.5 4.2 - 6.5 10/09/2025 8:23 AM EST Marla BUCHANAN POINT OF CARE TEST ORDERABLES Fi nal Result * (ABNORMAL) POCT GLUCOSE (Blood) [[id number]] (10/09/2025 8:16 AM EST) Glucose 157(A) 74 - 100 mg/dL 10/09/2025 8:16 AM EST us Marla BUCHANAN POINT OF CARE TEST ORDERABLES Fi nal Result * Scanned Doc - Imaging (08/21/2025 9:58 AM EDT) Anatomical Region Laterality Modality Other 08/21/2025 9:58 AM EDT Provider Not In System MD DOLAN OUTSIDE SCANNED DO CUMENTS Final Result * (ABNORMAL) LIPID PANEL WITH REFLEX TO DIRECT LDL, SERUM/PLASMA (08/13/2025 9:12 AM EDT) CHOLESTEROL 225(H) <200 mg/dL [facility] HDL CHOLESTEROL 55 > OR = 50 mg/dL [facility] TRIGLYCERIDES 185(H) <150 mg/dL [facility] LDL-C 138(H) mg/dL (calc) [facility] Comment: Reference range: <100 Desirable range <100 mg/dL for primary prevention; <70 mg/dL for patients with CHD or diabetic patients with > or = 2 CHD risk factors. LDL-C is now calculated using the Kenneth-Diehl calculation, which is a validated novel method providing better accuracy than the Friedewald equation in the estimation of LDL-C. Kenneth SS et al. VI. 2013;310(19): 3166-8318 (http://education.Baike.com/faq/UXN914) CHOLEST/HDL RATIO 4.1 <5.0 (calc) [facility] NON-HDL CHOLESTEROL 170(H) <130 mg/dL (calc) [facility] Comment: For patients with diabetes plus 1 major ASCVD risk factor, treating to a non-HDL-C goal of <100 mg/dL (LDL-C of <70 mg/dL) is considered a therapeutic option. Blood 08/13/2025 9:12 AM EDT 08/13/2025 9:32 PM EDT Eboni Metcalf APRN LAB BLOOD ORDERABLES Final Result [facility] [address] [place] [address], [facility] [address] [place] [address] * (ABNORMAL) HEMOGLOBIN A1C (HBA1C) (08/13/2025 9:12 AM EDT) HGB A1C 5.8(H) <5.7 % [facility] Comment: For someone without known diabetes, a hemoglobin A1c value between 5.7% and 6.4% is consistent with prediabetes and should be confirmed with a follow-up test. For someone with known diabetes, a value <7% indicates that their diabetes is well controlled. A1c targets should be individualized based on duration of diabetes, age, comorbid conditions, and other considerations. This assay result is consistent with an increased risk of diabetes. Currently, no consensus exists regarding use of hemoglobin A1c for diagnosis of diabetes for children. Blood 08/13/2025 9:12 AM EDT 08/13/2025 9:32 PM EDT Eboni Metcalf APRN LAB BLOOD ORDERABLES Final Result [facility] [address] [place] [address], [facility] [address] [place], [place] * (ABNORMAL) COMPREHENSIVE METABOLIC PANEL (CMP), SERUM (08/13/2025 9:12 AM EDT) Glucose 149(H) 65 - 99 mg/dL [facility] Comment: Fasting reference interval For someone without known diabetes, a glucose value >125 mg/dL indicates that they may have diabetes and this should be confirmed with a follow-up test. BUN 15 7 - 25 mg/dL [facility] CREATININE,BLOOD 0.72 0.50 - 0.99 mg/dL [facility] eGFR 104 > OR = 60 mL/min/1. 73m2 [facility] BUN / CREAT RATIO SEE NOTE: 6 - 22 (calc) [facility] Comment: Not Reported: BUN and Creatinine are within reference range. Sodium 137 135 - 146 mmol/L [facility] Potassium 5.0 3.5 - 5.3 mmol/L [facility] Chloride 104 98 - 110 mmol/L [facility] CO2 28 20 - 32 mmol/L [facility] CALCIUM 9.6 8.6 - 10.2 mg/dL [facility] TOTAL PROTEIN 6.6 6.1 - 8.1 g/dL [facility] ALBUMIN 4.0 3.6 - 5.1 g/dL [facility] GLOBULIN 2.6 1.9 - 3.7 g/dL (calc) [facility] A/G RATIO 1.5 1.0 - 2.5 (calc) [facility] TOTAL BILIRUBIN 0.3 0.2 - 1.2 mg/dL [facility] ALKALINE PHOSPHATASE 53 31 - 125 U/L [facility] AST (SGOT) 15 10 - 35 U/L [facility] ALT (SGPT) 12 6 - 29 U/L [facility] Blood 08/13/2025 9:12 AM EDT 08/13/2025 9:32 PM EDT Eboni Metcalf SHAPER OPERATOR LAB BLOOD ORDERABLES Final Result Performing Organization Address City/State/[facility] Co de Phone Number [place] [id number] [address] [place] [id number] * DIAGNOSTIC DIGITAL BREAST TOMOSYNTHESIS (BILATERAL) (03/27/2025 2:10 PM EDT) Anatomical Region Laterality Modality Breast Bilateral Mammography 03/27/2025 1:50 PM EDT Narrative 03/27/2025 2:22 PM EDT EXAMINATION: DIAGNOSTIC DIGITAL BREAST TOMOSYNTHESIS (BILATERAL) CLINICAL INDICATION: Female, 45 years old. Abnormal mammogram TECHNIQUE: CC and MLO projections of both breasts were obtained using 3-D technique with 2-D reconstruction. COMPARISON: August 2023 DENSITY: Category C. The breasts are heterogeneously dense, which may obscure small masses. FINDINGS: No suspicious masses, microcalcifications or areas of architectural distortion. Stable parenchymal pattern. Post surgical/biopsy changes in bilateral breast IMPRESSION: No suspicious mammographic finding in bilateral breasts. Patient it also overdue for breast MRI follow-up from 2021 Bilateral ultrasound to follow. LIFETIME RISK ASSESSMENT: According to the Tyrer-Cuzick v8 breast cancer risk assessment tool, the patient's lifetime risk of developing breast cancer is 6.3%. A lifetime risk of 20% or greater is considered high risk for breast cancer. BI-RADS: 0 - Incomplete: Need additional imaging evaluation A second reading of the examination was performed using computer-aided detection (CAD). us Eboni N Dixon SHAPER OPERATOR IMG MAMMOGRAPHY ORDERABLES Final Result * HEPATITIS C VIRUS (HCV) ANTIBODY, SERUM/PLASMA [JRQ205] ([facility]) (02/19/2025 7:24 AM EDT) HEPATITIS C ANTIBODY NON-REACTI VE NON-REACT PADMINI [facility] Comment: HCV antibody was non-reactive. There is no laboratory evidence of HCV infection. In most cases, no further action is required. However, if recent HCV exposure is suspected, a test for HCV RNA (test code 12670) is suggested. For additional information please refer to http://education.[employer]/faq/DYH11s7 (This link is being provided for informational/ educational purposes only.) Blood 02/19/2025 7:24 AM EDT 02/19/2025 9:45 PM EDT Eboni Eduardo Metcalf SHAPER OPERATOR LAB BLOOD ORDERABLES Final Result [facility] [address] [place] [address], [facility] [address] [place] [address] * MICROALBUMIN/CREATININE, RATIO, URINE, RANDOM (02/19/2025 7:24 AM EDT) URINE CREATININE 251 20 - 275 mg/dL [facility] MICROALBUMIN, URINE 0.4 See Note: mg/dL [facility] Comment: Reference Range: Reference Range Not established MICROALB/CREAT RATIO 2 <30 mg/g creat [facility] Comment: The ADA defines abnormalities in albumin excretion as follows: Albuminuria Category Result (mg/g creatinine) Normal to Mildly increased <30 Moderately increased 30-299 Severely increased > OR = 300 The ADA recommends that at least two of three specimens collected within a 3-6 month period be abnormal before considering a patient to be within a diagnostic category. Urine URINE SPECIMEN OBTAINED BY CLEAN CATCH PROCEDURE / Unknown 02/19/2025 7:24 AM EDT 02/19/2025 10:16 PM EDT Eboni Metcalf SHAPER OPERATOR URINE ORDERABLES Final Resu lt [facility] [address] [place] [address], [facility] [address] [place] [address] from Last 3 Months or Most Recently Relevant to Health Maintenance Insurance [facility] FROM [facility] [employer] FROM [facility] Care Teams Human Resource Consultant Relationship Specialty Start Date End Date Eboni Metcalf APRN [address] [place] [address] PCP - General Family Medicine 02/23/25 Carlos Eduardo Grijalva MD [address] [facility] [place] [address] PCP - Payer-assigned PCP 08/31/25 Judy Marquez APRN [id number] [place] [address] Advanced Practice Registered Nurse Breast Surgery 05/11/25
--- OUTSIDE RECORDS SUMMARY | 2025-11-04 17:52 | XMS_ITS | Clinical Summary ---
Author Organization [facility] Address [address] [place] [id number] Phone Care Team Providers Care Server Manager Name Role Phone Leonela Wilson MD Primary Care Provider [phone] Gianni Thomas MD, PhD Unavailable [phone] Jey Love MD Unavailable [phone] Cindy Boggs FACILITIES MAINTENANCE ASSISTANT Unavailable Mona Claudio MD Unavailable [phone] Allergies Active Allergy Reactions Criticality Noted Date Comments Bee Pollen Anaphylaxis High 07/24/2022 Tirzepatide Nausea and/or Vomiting 03/20/2023 Shellfish Containing Products Anaphylaxis High 11/20 Varicella Vaccines Swelling 11/16/2021 Medications HUMALOG KWIKPEN INSULIN 100 unit/mL kwikpenIndicatio ns:Type 2 diabetes mellitus with hyperglycemia, with long-term current use of insulin Inject 2-5 units per sliding scale as needed with meals, up to 3 times/day, max daily dose 15 units 15 mL 2 01/11/20 23 Active TRESIBA FLEXTOUCH U-100 injection penIndications:T ype 2 diabetes mellitus with hyperglycemia, with long-term current use of insulin Inject 12 Units under the skin nightly at bedtime. 15 mL 3 01/30/20 23 Active SUMAtriptan (IMITREX) 50 MG tabletIndication s:Migraine without aura and without status migrainosus, not intractable Take 1 tablet (50 mg total) by mouth every 2 (two) hours as needed for migraine. Not to exceed 200 mg/day 17 tablet 11 03/05/20 23 Active insulin pen needles, disposable, 32 gauge x NdleIndications: Type 2 diabetes mellitus with hyperglycemia, with long-term current use of insulin Use to inject insulin and victoza up to 5 times/day 450 each 3 08/14/20 23 Active NURTEC ODT 75 mg tabletIndication s:Intractable hemiplegic migraine with status migrainosus,Intr actable migraine with aura with status migrainosus DISSOLVE 1 TABLET BY MOUTH EVERY OTHER DAY 16 tablet 11 10/17/20 23 Active fluticasone propion-salmeter oL (ADVAIR DISKUS) 250-50 mcg/dose DISKUS Inhale 1 puff into the lungs 2 (two) times a day. 60 each 3 10/23/20 23 Active urine glucose-ketones test StrpIndications: Type 2 diabetes mellitus with hyperglycemia, with long-term current use of insulin 1 each by Miscellaneous route daily as needed. 100 strip 3 12/03/19 24 Active Additional Information Patient not taking.Reported on 07/21/2024 albuterol 90 mcg/actuation inhaler Inhale 2 puffs into the lungs every 6 (six) hours as needed for wheezing. 8.5 g 11 01/09/20 24 Active polyethylene glycol (MIRALAX) 17 gram/dose powder Take 17 g by mouth daily. 238 g 02/01/20 24 Active lactulose bulk (CONSTULOSE) 10 gram/15 mL solutionIndicati ons:Chronic idiopathic constipation Take 30 mL (20 g total) by mouth 3 (three) times a day. 237 mL 1 04/18/20 24 Active blood-glucose sensor (DEXCOM G7 SENSOR) DeviIndications: Type 2 diabetes mellitus with hyperglycemia, with long-term current use of insulin USE CONTINUOSLY TO MONITOR SUGARS, WEAR ON THE BACK OF THE UPPER ARM, CHANGE EVERY 10 DAYS 3 each 07/14/20 24 Active LORazepam (ATIVAN) 0.5 MG tabletIndication s:Anxiety Take 1 tablet (0.5 mg total) by mouth every 6 (six) hours as needed for anxiety. 30 tablet 07/16/20 24 Active rosuvastatin (CRESTOR) 40 MG tablet Take 1 tablet (40 mg total) by mouth daily. 90 tablet 3 07/22/20 24 Active SYNJARDY XR 12.5-1,000 mg TBphIndications: Type 2 diabetes mellitus with hyperglycemia, with long-term current use of insulin take two tablets by mouth daily 180 tablet 3 08/26/20 24 Active semaglutide (OZEMPIC) 2 mg/dose (8 mg/3 mL) subcutaneous injection pen Inject under the skin every 7 days. Active Hospital, Clinic, or Other Facility Administered Medication Ordered Dose Route Frequency Start Date End Date Status senna (SENOKOT) tablet 1 tablet 1 tablet Oral 2 times daily 2024 Active Active Problems Problem Noted Date Diagnosed Date Nephrolithiasis 05/05/2024 S/P ureteral stent placement 05/05/2024 Daytime sleepiness 10/23/2023 History of abnormal cervical Pap smear 3 Overview (03/28/2023): LEEP 2001 Since then, some abnormal PAPs Pt reports last PAP 2020 ([facility]) showed dysplasia (colpo not done) Adrenal adenoma, right 02/23/2023 Overview (07/12/2023): Benign features per endocrinology (Dr Teran) 06/29/23. Assessment & Plan (07/12/2023 6:10 PM EDT): Follow up imaging in 1-2 years. Assessment & Plan (06/06/2023 5:07 PM EDT): CT abdomen with and without IV contrast on 02/15/2022 found diffusely thickened adrenal glands bilaterally and a right 1.1 cm nodule with features consistent with an adenoma. 24-hour urine dopamine was slightly elevated with normal metanephrine and normal normetanephrine level in 01/2023 without creatinine measurement. Patient was skipping 2 urine specimen collection in a 24-hour period. Plasma metanephrines and normetanephrine's were normal what makes pheochromocytoma very unlikely. 1 mg dexamethasone suppression test was normal with cortisol 1.7 and adequate dexamethasone level. DHEA-sulfate was normal. Aldosterone and renin as well as ratio normal. Waiting for the repeated 24-hour urine catecholamines and metanephrines/normetanephrine's. Will contact patient through [employer]. Consider repeating the CT adrenal without contrast in 01/2024 or earlier if the 24-hour studies came back positive. Assessment & Plan (03/15/2023 10:47 AM EDT): 43-year-old woman with history of hypertension since age 37. She was initially treated with lisinopril, historically well controlled. She lost intentionally close to 30 pounds since diagnosis. The last few months her blood pressure is quite challenging to control and has episodes of headaches, shortness of breath, chest tightness, blurry vision and overwhelming fatigue with high blood pressure up to 215/140 what she experienced this morning. Few months ago amlodipine added then in January HCTZ and metoprolol added without improving her blood pressure spikes. At the end of January she had 24-hour urine collection for metanephrines and catecholamines, had a slightly elevated dopamine and normal metanephrine and normetanephrine level. Creatinine was not measured in the urine specimen. Patient admits skipping collection of 2 urine specimen through the 24-hour period. Her potassium levels have been slightly low since last spring without a thiazide. Last potassium on 01/30/2023 was low normal at 3.8 while she was on HCTZ. Her CT abdomen with and without IV contrast on 02/15/2022 found diffusely thickened adrenal glands bilaterally and a right 1.1 cm nodule with features consistent with an adenoma. We discussed the basic physiology of the adrenal glands and possible endocrine causes of hypertension. Considering her lowish potassium level even without HCTZ use I am suspicious about hyperaldosteronism as a possible cause of her hypertension. I am less suspicious about a pheochromocytoma considering the only minimally elevated 24 hr urine dopamine level although she had an under collected urine. Plan to check plasma metanephrines and catecholamines as well as aldosterone and plasma renin activity with electrolytes. She will hold the metoprolol for 1 day before this blood test. We will also screen her for Freeburg's syndrome with a 1 mg dexamethasone suppression test on a separate blood draw. Will discuss these lab results through the patient portal. If we find primary aldosteronism, she may choose surgery or her HCTZ could be switched to spironolactone to see if blood pressures could be controlled better. If she has elevated metanephrines/catecholamines we will add an alpha-moris with special attention to hydration and refer for surgery. 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 Repeat imaging may be indicated in 1-2 years to assess the interval size change Exclusion of a functioning adrenal lesion typically involves screening for adrenocortical and adrenomedullary hormonal excess. Ms. Chappell has no clinical signs or symptoms of progressive Freeburg's and mild autonomous cortisol excess (MACE) has been effectively ruled out based on 1 mg overnight DST result. Given the history of resistant hypertension the possibility of primary hyperaldosteronism should be considered. 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 I would recommend repeating the levels of Aldosterone and Renin without changing the current antihypertensive medications and if the renin level remains suppressed, we will proceed with aldosterone suppression testing after optimization of blood pressure. - Functional catecholamine-secreting tumors (pheochromocytoma) had been ruled out by normal plasma and urine metanephrine and normetanephrine measurements. There is no clinical or biochemical evidence of androgen excess in this patient. - Adrenal venous sampling confirmed right adrenal gland hyperactivity Right adrenalectomy 12/28/23 at [facility] Blood pressures have improved considerably following this procedure Assessment & Plan (06/06/2023 5:19 PM EDT): Studies so far have not proved an endocrine cause of her hypertension. See above. Patient will discuss her sleep apnea management with PCP next week. Assessment & Plan (02/23/2023 12:34 PM EDT): See plan work-up as above Secondary amenorrhea 02/23/2023 Overview (03/28/2023): Due to endometrial ablation at age 23 Assessment & Plan (02/23/2023 12:39 PM EDT): Menarche at age 13. Patient reports irregular periods, 6 pregnancies, 2 deliveries and 4 miscarriages. Because of severe bleeding she had uterine ablation at the age of 23 and had no period since then. Considering the irregular menses and hirsutism I suspect that she has underlying PCOS. She denies any hot flashes. I added estradiol, FSH and LH to her next labs Tachycardia 12/11/2022 Assessment & Plan (12/11/2022 9:07 AM EST): Cardiology workup ongoing. Spiking to 180 while walking at an easy pace. Advised she take it easy re walking until we have results of her stress test before increasing intensity. Advised she also engage in slow, diaphragmatic breathing when she is engaging in her spiritual practice (in this case, prayer). Expect a beta moris would be helpful but would defer to cardiology about when to try that. Has had reassuring EKG 11/30/22 in similar context. Compression fracture of L3 lumbar vertebra, sequ ana 12/11/2022 Assessment & Plan (12/11/2022 9:07 AM EST): 80% improved. No need to follow with imaging given her pain is much improved. Advised clinical response is sufficient. Anxiety 12/11/2022 Dyspareunia 12/11/2022 Severe major depression 12/11/2022 Tobacco user 12/11/2022 Assessment & Plan (03/28/2023 2:00 PM EDT): 2 cigarettes daily Assessment & Plan (12/11/2022 9:08 AM EST): She is very motivated to quit smoking, not quite there yet but is cutting down. History of chest pain 11/30/2022 Overview (12/29/2022): 12/26/22 -- echo = Normal study. There is no evidence of myocardial infarction or ischemia. Normal LV size and function with no regional wall motion abnormalities. Very low likelihood of hemodynamically significant coronary artery disease. Low risk study for myocardial events or cardiac in the next two years. Assessment & Plan (12/11/2022 9:08 AM EST): lexiscan stress pending next week, followed by echo, all via cardiology. Assessment & Plan (11/30/2022 4:51 PM EST): Her chest pain are very typical of angina pectoris and she will have an echocardiogram and a stress test done she is already on statin and a calcium moris she should start a baby aspirin Her risk factors for coronary artery disease are multiple including diabetes mellitus hypertension hyperlipidemia to have an echocardiogram for LV wall motion abnormality Mixed hyperlipidemia 11/30/2022 Assessment & Plan (06/24/2024 5:14 PM EDT): Reviewed most recent lipid panel LDL above goal Goal LDL <70 with DM Continues on high intensity statin Assessment & Plan (12/11/2022 9:07 AM EST): LDL still elevated on atorvastatin 40mg. Expect we may need to increase this. Assessment & Plan (11/30/2022 4:52 PM EST): Of hyperlipidemia and she is already on statin atorvastatin 40 mg daily she will should continue that and get lipids and LFTs checked through PCP office Type 2 diabetes mellitus wit h hyperglycemia, with long-term current use of insulin 06/10/2022 Assessment & Plan (06/24/2024 5:13 PM EDT): CGM reveals great control with excellent TIR, low variability, limited hypoglycemia and limited TAR Continues on SGLT2i, GLP-1ra, and basal/bolus insulin, metformin. Tolerating all of these well, we discussed reducing insulins while monitoring blood sugars to see if similar level of control can be managed with less insulin Encouraged efforts at balanced, mindful eating Encouraged efforts at increasing physical activity as tolerated when cleared for activity, Rupert is hoping this will happen next month We will follow up in 6 months. Advised to contact office with any questions or concerns in the interim. Assessment & Plan (08/14/2023 11:59 AM EDT): CGM reveals great control with excellent TIR, low variability, no hypoglycemia and limited TAR Continues on SGLT2i, GLP-1ra, and basal/bolus insulin, metformin. Tolerating all of these well, Rupert would like to reduce medication so we discussed switching to Synjardy, the metformin-jardiance combination medication. This would reduce these pill amounts from 5 pills daily to 2, Rupert would like to try this Rupert is also interested in optimizing GLP1ra dose, we discussed holding off for a couple more weeks given side effects in the past from optimization, 8 weeks+ on current dose will likely provide better toleration when optimizing dose Encouraged efforts at balamced, mindful eating Encouraged efforts at increasing physical activity as tolerated when cleared for activity We will follow up in 3 months. Advised to contact office with any questions or concerns in the interim. Assessment & Plan (12/11/2022 10:07 AM EST): CGM reveals improving control since starting Mounjaro while continuing to recover from back injury Continues on SGLT2i and basal/bolus insulin, metformin. Tolerating GIP/GLP-1 therapy well and would like to optimize dose We discussed the dose-dependent benefits and that there is room to optimize but advised Rupert that she may need to reduce insulin doses with optimization of Mounjaro. She expresses understanding Script sent to pharmacy for Mounjaro 5 mg Encouraged efforts at balamced, mindful eating Encouraged efforts at increasing physical activity as tolerated when cleared for activity We will follow up in 3 months. Advised to contact office with any questions or concerns in the interim. Assessment & Plan (12/11/2022 9:05 AM EST): Reviewed endocrinology notes and pt narration: much improved sugars since she is in less pain, 's health is getting under better control. She is very motivated, has been stymied by back pain from L spine fracture and is working on regaining her health. Assessment & Plan (11/16/2022 12:48 PM EST): CGM reveals worsening control and less monitoring since injury Weight gain, pain, stress, and significant alterations to lifestyle likely contributing to hyperglycemia Continues on SGLT2i and basal/bolus insulin, metformin, and GLP-1ra. Would like to see if new insurance will cover new GLP-1/GIP, Mounjaro. Sample provided and we will see if Rupert tolerates this Discussed risks/benefits, side effects, special considerations, when to contact the office Encouraged increasing basal insulin dose to help with hyperglycemia related to pain and stress Given reports of increasing area of redness and no reported improvement of symptoms since starting antibiotics > 48 hours ago, encouraged Rupert to seek urgent medical attention either going to urgent care or the ER for suspected cellulitis on backside. Recommended at the very least to contact PCP for further advisement. Rupert wants to have examine the area to see if he feels there has been improvement/worsening before deciding going to the hospital. We discussed that she may need stronger antibiotics in the form of IV or an alternative and the sooner this can be started, the better. We will follow up in 1 month for medication followup since starting Mounjaro. I will check in with Rupert next week. Advised to contact office with any questions or concerns in the interim. Assessment & Plan (08/16/2022 9:13 AM EDT): CGM reveals excellent time in range Significant lifestyle adjustments and weight loss has aided in improving glycemic control and reducing insulin resistance/requirements Continues on SGLT2i and basal/bolus insulin, recently self increased SGLT2i to 2-10 mg tablets about 3 weeks ago, was tolerating this well until started on Augmentin. Currently is symptomatic of a yeast infection Encouraged Rupert to hold Jardiance until symptoms subside and to try an OTC topical antifungal to help with symptom relief. Once symptoms resolve, encouraged Rupert to restart Jardiance at 10 mg daily for 3-4 days and then to increase to 25 mg. Dose increase sent to the pharmacy. Encouraged continuation of tight glucose control to aid in healing and reduce risk of infection Encouraged continued efforts at balanced, mindful eating Encouraged continued efforts of physical activity as tolerated We will follow up in 3 months. Advised to contact office with any questions or concerns in the interim. Assessment & Plan (06/20/2022 1:10 PM EDT): Limited glucose data, only a little over 48 hours of data on recent placed CGM Overall glycemic control is better than expected given no DM medications for the past 2 months Anticipate that significant lifestyle adjustments and weight loss has aided in improving glycemic control and reducing insulin resistance Would not recommend restarting insulin at previous doses We discussed other alternatives for medications, focusing on SGLT2 inhibitors, no frequent history of UTIs/yeast infections Discussed special considerations, side effects, and administration. 2 week sample provided to Rupert which she will trial, if tolerating okay will send prescription to pharmacy when check in with her on the gateway Encouraged picking up freestyle juve sensors and restarting this to have more glycemic monitoring We discussed holding off on restarting insulin for now Recommend Rupert to restart metformin, but to do it with a slow titration, restarting at full dose after being off medication for an extended period of time will likely lead to increase in the severity of GI side effects Encouraged efforts at balanced, mindful eating Encouraged continued efforts of physical activity as tolerated We will check in on glucoses and medication restart via the gateway in 2 weeks. We will follow up for an office visit in 2 months. Advised to contact office with any questions or concerns in the interim. 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 She is clinically euthyroid, no palpable thyroid abnormality. No family history of thyroid disease. Because of the hypertension I did add another TSH and check free T4 to next labs Asthma 12/11/2022 12/11/2022 Cyst of ovary 12/11/2022 03/28/2023 Depressive disorder 12/11/2022 12/11/19 23 Herpes labialis 12/11/2022 04/14/2024 Inflammatory disorder of breast 12/11/2022 12/11/2022 Migraine 12/11/2022 12/11/2022 Obstructive sleep apnea syndrome 12/11/2022 10/23/2023 Pre-operative cardiovascular examination 11/30/2022 12/11/2022 Assessment & Plan (11/30/2022 4:50 PM EST): Patient was referred for preoperative cardiovascular evaluation for clearance for bariatric surgery. Patient has complaints of chest pain and she will go through a work-up for angina pectoris and a stress test and an echocardiogram Class 1 obesity due to exces s calories with serious comorbidity and body mass index (BMI) of 34.0 to 34.9 in adult 11/20/2022 04/14/2024 Assessment & Plan (02/02/2023 4:47 PM EDT): This is a 43-year-old woman who is interested in laparoscopic sleeve gastrectomy although she has not completely committed to the program yet. The patient does want to continue in the program although I offered her to take a break from the program until she was more committed. She she will contact the behavioral health specialist to have another appointment to hopefully obtain clearance. The patient is still drinking sugared beverages and must quit drinking sugary beverages and follow the eating plan that was prescribed. She reports quitting smoking but we still need to have the patient perform the nicotine studies with metabolites. She will follow- up with the dietitian in a couple weeks and follow-up with me again in 4 weeks timeframe. Patient has completed all required blood work and has clearance from her primary care physician and her pin chaser to undergo weight loss surgery. She is still undergoing some testing regarding her hypertension. She has completed 0 out of 5 nutrition classes, 3 behavioral health appointments. She still needs to lose 14.4 pounds before she can be a surgical weight loss candidate. She will continue current medications and is not stable and is considered obese. Assessment & Plan (11/20/2022 2:29 PM EST): This is a 42 YO patient who is interested in weight loss surgery, specifically the laparoscopic sleeve gastrectomy for weight loss. We have discussed gastric bypass and sleeve gastrectomy surgery in detail including risks, benefits, and alternatives. We have also discussed requirements preop and post op. They understands that they are required to lose about 10 percent of their current weight which is 17 lbs. The goal weight at the time of submission to the insurance company will be 155.2 pounds. In an effort to help the patient to lose weight I have prescribed an eating plan which will consist of a protein shake or a protein bar or Thai yogurt or cottage cheese to be consumed at 9 AM and 3 PM daily. The patient will consume 4 ounces of protein with 6 ounces of vegetable or small salad with a noncreamy salad dressing of not more than 2 tablespoons at 12 PM and 6 PM daily. At the 6 PM meal the patient may have 1/2 cup of carbohydrate. We have ordered required labs and testing. The patient will attend 5 nutrition classes, 2 appointments, and dietitian consultation. The patient will need to obtain a medical clearance letter from the primary care doctor prior to submission to the insurance company. The patient will see the dietitian in 2 weeks and I will follow up with them again in 4 weeks to ensure compliance with the meal plan. Given that the patient has been having some intermittent chest pain she will need cardiac clearance and she will need a primary care doctor clearance letter prior to undergoing weight loss surgery. Patient is weaning off cigarettes and is down to 2 cigarettes/day. She will need a nicotine and metabolites urine study to confirm that she has quit smoking prior to being a surgical weight loss candidate. The patient will continue current medications as reviewed. They are not stable and are considered obese. I spent 62 minutes with this patient which also included documentation. Preoperative examination 11/20/202204/2023 Cellulitis of labia 08/04/2022 03/28/20 Assessment & Plan (12/11/2022 9:07 AM EST): Now resolved. Resistant hypertension 06/10/202203/06 Assessment & Plan (08/14/2023 12:00 PM EDT): On multi-antihypertensive regimen, being ruled out for primary aldosterone Awaiting aldosterone suppression test in August BP goal with DM <130/80 Assessment & Plan (07/12/2023 6:09 PM EDT): For now: continue HCTZ at higher dose (50mg daily) and monitor blood pressures. Awaiting aldosterone suppression test in August. We need to hold off starting aldosterone until then per endo recs. She will notify me of her bp's in the meantime. Assessment & Plan (12/11/2022 10:07 AM EST): BP in excellent range today Goal BP with DM < 130/80 On ACEi and CCB SGLT2-inhibitor likely offering some modest reduction in BP Assessment & Plan (11/30/2022 4:52 PM EST): History of hypertension her blood pressure is 128/9 0 today she will continue her present regimen of amlodipine 10 mg daily with lisinopril 40 mg daily Assessment & Plan (11/16/2022 12:49 PM EST): BP elevated today, likely related to pain Goal BP with DM < 130/80 On ACEi and CCB SGLT2-inhibitor likely offering some modest reduction in BP Assessment & Plan (08/16/2022 9:15 AM EDT): BP essentially normal today Goal BP with DM < 130/80 On ACEi and CCB SGLT2-inhibitor likely offering some modest reduction in BP Assessment & Plan (06/20/2022 1:13 PM EDT): History of hypertension, currently off medications (CCB and ACEi) x 2 months BP in excellent range today SGLT2-inhibitor likely will lead to some reduction in blood pressures given the mild diuretic effect it has Recommended Rupert to start on Jardiance and monitor home blood pressures, if persistently > 130/80, recommended restarting blood pressure medication one at a time Given increased physical activity and weight loss, likely does not require the doses she was previously on Goal BP with DM < 130/80 Thrombocytopenia 06/07/2022 12/11/2022 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 12/11/2013 12/11/2022 Immunizations Immunization Administration Dates Next Due Tdap 11/17/2013 Varicella 11/17/2013 Family History Medical History Relation Comments Asthma Brother 1 Diabetes type II Brother 1 Asthma Brother 2 Heart attack Father Heart disease Father Ovarian cancer Maternal Grandmother Heart disease Mother Hypertension Mother Early CAD Paternal Grandfather Coronary artery disease Paternal Grandmother Asthma Sister Relation Status Comments Brother 1 Alive Brother 2 Alive Father Alive Maternal Grandmother Mother Alive Paternal Grandfather Alive Paternal Grandmother Sister Alive Social History Tobacco Use Types Packs/Day Years Used Date Smoking Tobacco: Former Cigarettes 0 02/17/1994 - 05/05/2023 Passive Smoke Exposure: Past Smokeless Tobacco: Never Tobacco Cessation:Counseling Given: Not Answered Comments:Quit 05/05/23; occassional/social since 2023 Alcohol Use Standard Drinks/Week Comments [...] Start Date Job End Date enrollments for [employer] Not on file Not on file Not on file Last Filed Vital Signs Vital Sign Reading Time Taken Comments Blood Pressure 113/78 07/21/2024 8:04 AM EDT Pulse 80 07/21/2024 8:04 AM EDT Temperature 37 C (98.6 F) 05/05/2024 11:12 AM EDT Respiratory Rate 18 04/08/2024 11:45 AM EDT Oxygen Saturation 99% 06/24/2024 4:16 PM EDT Inhaled Oxygen Concentration - - Weight 59.6 kg (131 lb 8 oz) 07/21/2024 8:04 AM EDT Height 152.4 cm (5') 07/21/2024 8:04 AM EDT Body Mass Index 25.68 07/21/2024 8:04 AM EDT Plan of Treatment Health Maintenance Due Date Last Done Comments SMOKING Hx and SMOKELESS TOBACCO SCREENING 01/09/1992 PNEUMOCOCCAL VACCINES (0-49 years) (1 of 2 - PCV) 1998 URINE MICROALBUMIN/CREATININE RATIO 10/18/2023 10/18/2022 Adult Td,Tdap Booster 11/17/2023 11/17/2013 COLOGUARD 01/09/2024 COLONOSCOPY 01/09/2024 COLORECTAL CANCER SCREENING 01/09/2024 FIT TEST 01/09/2024 FOBT 01/09/2024 SIGMOIDOSCOPY 01/09/2024 VIRTUAL COLONOSCOPY 01/09/2024 DEPRESSION SCREENING 11/08/2024 11/08/2023 HEMOGLOBIN A1C 12/25/2024 06/24/2024, 03/05, 12/01/2023, Additional history exists BLOOD PRESSURE 01/18/2025 07/21/2024 CREATININE LEVEL 04/08/2025 04/08/2024, 01/2024, 03/18/2024, Additional history exists DIABETIC EYE EXAM 04/17/2025 04/17/2024 INFLUENZA VACCINE (#1) 2025 COVID-19 VACCINE ( season) 2025 MAMMOGRAM 08/10/2025 08/10/2023, 06/06, 06/13/2022, Additional history exists PAP SMEAR 03/28/2026 03/28/2023 HEPATITIS C SCREENING Completed 03/18/2024 , 03/18/2024, 03/18/2024, Additional history exists HIV ONE-TIME SCREENING (18-65 YEARS) Completed 03/18/2024 HEPATITIS A VACCINES Aged Out No long er eligible based on patient's age to complete this topic HIB VACCINES Aged Out No longer eligi ble based on patient's age to complete this topic MENINGOCOCCAL VACCINES (ACWY) Aged Out No longer eligible based on patient's age to complete this topic MENINGOCOCCAL VACCINES (B) Aged Out N o longer eligible based on patient's age to complete this topic Medical Devices Not on file Procedures Procedure Name Priority Date/Time Associated Diagnosis Comments POCT HEMOGLOBIN A1C Routine 06/24/2024 4 :30 PM EDT Type 2 diabetes mellitus with hyperglycemia, with long-term current use of insulin HM DIABETES EYE EXAM FOR RESULT ENTRY ONLY Routine 04/17/2024 12:34 PM EDT BASIC METABOLIC PANEL (BMP) STAT 04/08/2024 9:20 AM EDT HEPATITIS C ANTIBODY, QUALITATIVE Routine 03/18/2024 7:33 AM EDT Screening examination for STI BI MAMMOGRAM SCREENING WITH TOMOSYNTHESIS WITH CAD (BILATERAL) Routine 08/10/2023 2:51 PM EDT Breast cancer screening by mammogram PAP TEST Routine 03/28/2023 12:00 AM EDT from Last 3 Months or Most Recently Relevant to Health Maintenance Results * POCT Hemoglobin A1c (06/24/2024 4:30 PM EDT) Hemoglobin A1c 5.3 4.2 - 5.8 % [facility] Other 06/24/2024 4:30 PM EDT Cindy Boggs FACILITIES MAINTENANCE ASSISTANT LAB POCT ENTER/EDIT ORDERABLE S Final Result Performing Organization Address City/State/[facility] Co de Phone Number [facility] [employer] [facility] [address] [place] [address], [facility] * DIABETES EYE EXAM FOR RESULT ENTRY ONLY (04/17/2024 12:34 PM EDT) Historical Provider HEALTH MAINTENANCE Edited Result - Final * (ABNORMAL) Basic metabolic panel (04/08/2024 9:20 AM EDT) SODIUM 137 133 - 146 mmol/L [facility] CHLORIDE 104 96 - 108 mmol/L [facility] POTASSIUM 4.3 3.3 - 5.1 mmol/L [facility] CO2 22 21 - 35 mmol/L [facility] BUN 11 6 - 19 mg/dL [facility] CREATININE 0.70 0.5 - 1.5 mg/dL [facility] GLUCOSE 199(H) 70 - 99 mg/dL [facility] CALCIUM 9.4 8.4 - 10.3 mg/dL [facility] EGFR 109 >59 mL/min/1.7 3m2 [facility] Comment:Estimated glomerular filtration rate calculated using the CKD-EPI refit equation. ANION GAP 15 10 - 20 mmol/L [facility] Blood 04/08/2024 9:20 AM EDT 04/08/2024 9:23 AM EDT us Yolanda Barraza PA-C LAB BLOOD BKR ORDERAB LES Final Result Performing Organization Address City/[facility]/ZIP Co de Phone Number [address] [address] * Hepatitis C antibody, qualitative (03/18/2024 7:33 AM EDT) HCV NON-REACTIV E NON-REACTI VE [facility] Blood 03/18/2024 7:33 AM EDT 03/18/2024 7:42 AM EDT us Leonela Wilson MD LAB BLOOD BKR ORDERABLES Final Result Performing Organization Address [facility] Co de Phone Number [address] [address] * BI MAMMOGRAM SCREENING WITH TOMOSYNTHESIS WITH CAD (BILATERAL) (08/10/2023 2:51 PM EDT) Anatomical Region Laterality Modality Breast Left, Breast Right, Breast Bilateral Bila teral Mammography 08/14/2023 3:11 PM EDT Impressions 08/14/2023 3:13 PM EDT No mammographic evidence of malignancy in either breast. Annual screening mammography is recommended. BI-RADS CATEGORY: 2 - Benign finding. The patient will be notified of the results and recommendations. Narrative 08/14/2023 3:13 PM EDT BI MAMMOGRAM SCREENING WITH TOMOSYNTHESIS WITH CAD (BILATERAL) Additional patient information: Screening. COMPARISON: Comparison is made with relevant prior imaging. Breast composition: The breast tissue is heterogeneously dense, which could obscure a lesion on mammography. FINDINGS: Previous surgical biopsy in the right breast. Previous needle biopsy in the right breast. No abnormal masses, suspicious calcifications, or other significant findings are identified mammographically in either breast. Procedure Note Ayleen Denis MD - 08/14/2023 BI MAMMOGRAM SCREENING WITH TOMOSYNTHESIS WITH CAD (BILATERAL) Additional patient information: Screening. COMPARISON: Comparison is made with relevant prior imaging. Breast composition: The breast tissue is heterogeneously dense, whichcould obscure a lesion on mammography. FINDINGS: Previous surgical biopsy in the right breast. Previous needle biopsy inthe right breast. No abnormal masses, suspicious calcifications, or other significantfindings are identified mammographically in either breast. IMPRESSION: No mammographic evidence of malignancy in either breast. Annual screening mammography is recommended. BI-RADS CATEGORY: 2 - Benign finding. The patient will be notified of the results and recommendations. us Bisi Meza MD IMG MG EXAMS Final Resu lt * Pap Test (03/28/2023 12:00 AM EDT) 03/28/2023 03/29/2023 8:5 1 AM EDT Narrative SEE NARRATIVE - 04/03/2023 4:40 PM EDT [address] [address] Breastfeeding Educator: Scareltt Rosenthal MD MOTOR VEHICLE LICENSE CLERK Cytology Report FINAL DIAGNOSIS A. PAP SMEAR (SUREPATH) CE: SPECIMEN ADEQUACY: Satisfactory for evaluation; transformation zone present. INTERPRETATION: NEGATIVE FOR INTRAEPITHELIAL LESION OR MALIGNANCY. Electronically Signed Out By: Scarlett Rosenthal MD By his/her signature above, the pathologist listed as making the Final Diagnosis certifies that he/she has personally reviewed this case and confirmed or corrected the diagnosis. The Pap test is a screening test primarily for squamous cancers and precursors and has associated false-negative and false-positive results. New technologies such as liquid-based preparations may decrease but will not eliminate all false-negative results. Regular sampling and follow-up of unexplained clinical signs and symptoms are recommended to minimize false negative results. PROCEDURES/ADDENDA HPV Testing (Requested) Ordered Date: 03/29/2023 A. PAP SMEAR (SUREPATH) CE: Human Papilloma Virus Test NEGATIVE for high-risk Human Papilloma Virus types 16, 18, 45 and the Other high risk probe set (Includes 31, 33, 35, 39, 51, 52, 56, 58, 59, 66, 68) Note: Testing performed by [facility] HR-HPV analysis. Clinical correlation is advised. This HPV test was performed at [facility], [address] [place] [address]. This test has been FDA approved for SurePath cervical cytology specimens. The accuracy and precision of this test for all other specimen sources has been verified in the Cytopathology Laboratory of the [facility] and has not been cleared or approved by the U.S. Food and Drug Administration. Clinical correlation is advised. CLINICAL HISTORY Date of Last Menstrual Period: Not Provided Menstrual History: Unknown Other Clinical Conditions: Screening Pap Abnormal PAP at Other Lab SPECIMEN SOURCE A: PAP SMEAR (SUREPATH) CE Patient Name: CHAPPELL RUPERT : 1980 (Age: 43) Sex: F Institution: [facility] Location: [facility] Date of Collection: 03/28/2023 Date of Reported: 04/03/2023 16:40 Results to: Bisi Meza MD Bisi Meza MD CYTOLOGY ORDERABLES Final Result SEE NARRATIVE from Last 3 Months or Most Recently Relevant to Health Maintenance Insurance [phone] [id number] (Work) [address] [place] [address] HEALTH SAFETY NET PARTIAL [facility] [phone] [id number] (Work) [address] [place] [address] HEALTH SAFETY NET PARTIAL [facility] [phone] [id number] (Work) [address] [place] [address] NET PARTIAL Member Subscriber Plan / Payer (Ef fective 2024-) Name:Rupert Chappell Relation to Subscriber:Self Name:Rupert Chappell Payer ID:Not on file Group ID:Not on file Type:Medicaid Address: [address] [phone] [id number] (Work) [address] [place] [address] HEALTH SAFETY NET PARTIAL Member Subscriber Plan / Payer (Ef fective 2024-) Name:Rupert Chappell Relation to Subscriber:Self Name:Chappell, Rupert Payer ID:Not on file Group ID:Not on file Type:Medicaid Address: [address] [phone] [id number] (Work) [address] [place] [address] HEALTH SAFETY NET PARTIAL [facility] [phone] (Work) [address] [place] [address] [facility] PARTIAL [facility] CIGNA DENTAL [facility] Address: [facility] [id number] [place] [address] Advance Directives For more information, please contact: [phone] (9AM - 5PM [facility], Sunday-Sunday) * Full Code (Latest Code Status on File) Date Activated Date Inactivated Comments 12/28/2023 5:11 PM Question Answer Comments Code Status Confirmed With: Patient * Full Code Date Activated Date Inactivated Comments 08/04/2022 6:38 AM 12/28/2023 5:11 PM Question Answer Comments Code Status Confirmed With: Patient * Full Code Date Activated Date Inactivated Comments 06/26/2022 7:55 AM 08/04/2022 6:38 AM Question Answer Comments Code Status Confirmed With: Patient Care Teams Server Manager Relationship Specialty Start Date End Date Leonela Wilson MD [address] [place] [address] 7 [place] [address] PCP - General Family Medicine 06/06/22 Gianni Thomas MD, PhD [address] [place] [address] [address] Cardiology 12/20/23 Jey Love MD [address] [place] [address] [email or web address] Intensive Care 12/20/23 Cindy Boggs CNP [address] [place] [address] [email or web address] Nurse Practitioner 12/20/23 Mona Claudio MD [address] [place] [address] Cardiology 10/21/24 Additional Source Comments The information contained in this document represents components of the legal health record. It is not the complete legal health record.[facility]
--- OUTSIDE RECORDS SUMMARY | 2025-11-04 17:52 | XMS_ITS | Encounter Summary ---
Author Organization [facility] Address [address] [employer] [facility] [address] [place] [address] Phone Care Team Providers Care Fisher Trawl Net Name Role Phone Danilo Sun MD Primary Care Provider [phone] Dario Gil MD Unavailable + Leonela Wilson MD Primary Care Provider [phone] Acosta Parker MD Unavailable Leonela Wilson MD Unavailable [phone] Madelyn Wing RN Unavailable Jessa Delacruz Unavailable [phone] Gianni Thomas MD, PhD Unavailable [phone] Gianni Thomas MD, PhD Unavailable [phone] Jey Love MD Unavailable Cindy Boggs CNP Unavailable [phone] Mona Claudio MD Unavailable [phone] Encounter Details Date Type Department Care Team (Late st Contact Info) Description 11/02/2021 Ancillary Orders [facility],Outside Imaging [address] [place] [address] System, Provider Not In, PhD [address] [address] Social History Tobacco Use Types Packs/Day Years [...] on file documented as of this encounter Results * Mammogram Outside (No Interpretation) (10/18/2021 12:05 AM EST) Narrative SYSTEMGENERATED, DOCUMENTATION - 11/02/2021 3:41 PM EST This study is for PACS storage only and not for interpretation. us Provider Not In System PhD IMG OUTSIDE IMAGING W /OUT INTERPRETATION Final Result * US Breast Outside (No Interpretation) (10/18/2021 12:00 AM EST) Narrative SYSTEMGENERATED, DOCUMENTATION - 11/02/2021 3:40 PM EST This study is for PACS storage only and not for interpretation. us Provider Not In System PhD IMG OUTSIDE IMAGING W /OUT INTERPRETATION Final Result * Mammogram Outside (No Interpretation) (07/13/2020 12:05 AM EDT) Narrative SYSTEMGENERATED, DOCUMENTATION - 11/02/2021 3:43 PM EST This study is for PACS storage only and not for interpretation. us Provider Not In System PhD IMG OUTSIDE IMAGING W /OUT INTERPRETATION Final Result * Mammogram Outside (No Interpretation) (07/13/2020 12:00 AM EDT) Narrative SYSTEMGENERATED, DOCUMENTATION - 11/02/2021 3:42 PM EST This study is for PACS storage only and not for interpretation. us Provider Not In System PhD IMG OUTSIDE IMAGING W /OUT INTERPRETATION Final Result * US Breast Outside (No Interpretation) (06/24/2020 12:05 AM EDT) Narrative SYSTEMGENERATED, DOCUMENTATION - 11/02/2021 3:45 PM EST This study is for PACS storage only and not for interpretation. us Provider Not In System PhD IMG OUTSIDE IMAGING W /OUT INTERPRETATION Final Result * Mammogram Outside (No Interpretation) (06/24/2020 12:00 AM EDT) Narrative SYSTEMGENERATED, DOCUMENTATION - 11/02/2021 3:44 PM EST This study is for PACS storage only and not for interpretation. us Provider Not In System PhD IMG OUTSIDE IMAGING W /OUT INTERPRETATION Final Result * US Breast Outside (No Interpretation) (06/10/2020 12:05 AM EDT) Narrative SYSTEMGENERATED, DOCUMENTATION - 11/02/2021 3:46 PM EST This study is for PACS storage only and not for interpretation. us Provider Not In System PhD IMG OUTSIDE IMAGING W /OUT INTERPRETATION Final Result * Mammogram Outside (No Interpretation) (06/10/2020 12:00 AM EDT) Narrative SYSTEMGENERATED, DOCUMENTATION - 11/02/2021 3:45 PM EST This study is for PACS storage only and not for interpretation. us Provider Not In System PhD IMG OUTSIDE IMAGING W /OUT INTERPRETATION Final Result documented in this encounter Visit Diagnoses Not on filedocumented in this encounter Additional Health Concerns Infection Onset Date Last Indicated Resolved Time CoV-Risk 03/12/2022 03/12/2022 03/12/2022 8:47 AM EDT COVID-19 03/12/2022 03/12/2022 04/02/2022 1:21 AM EDT documented as of this encounter Care Teams Fisher Trawl Net Relationship Specialty Start Date End Date Danilo Sun MD [address] [place] [phone] PCP - General 05/05/14 06/05/22 Leonela Wilson MD [address] [place] [address] 7 [place] [address] PCP - General Family Medicine 06/06/22 Dario Gil MD [address] [place] [address] [email or web address] LMR Provider 08/22/17 11/12/21 Acosta Parker MD [address] [place] [address] 7 [place] [address] Insurance Assigned Provider 12/09/22 01/13/23 Leonela Wilson MD [address] [place] [address] Insurance Assigned Provider 01/13/23 07/14/23 Madelyn Wing, RN [address] [place] [address] PHCM Retail Service Specialist 10/09/23 01/15/25 Jessa Delacruz [address] [place] [address] PHCM Community Health Worker 11/12/23 01/30/24 Gianni Thomas MD, PhD [address] [place] [address] Dr. Campos [address] [place] [address] Cardiology 12/20/23 12/20/23 Gianni Thomas MD, PhD [address] [place] [address] [address] [email or web address] Cardiology 12/20/23 Jey Love MD [address] [place] [phone] [email or web address] Intensive Care 12/20/23 Cindy Boggs CNP [address] [place] [address], [address] [place] [address] [email or web address] Nurse Practitioner 12/20/23 Mona Claudio MD [address] [place] [address] Cardiology 10/21/24 documented as of this encounter Additional Source Comments The information contained in this document represents components of the legal health record. It is not the complete legal health record.[facility]
--- OUTSIDE RECORDS SUMMARY | 2025-11-04 17:52 | XMS_ITS | Encounter Summary ---
Author Organization [facility] Address [address] [facility] [address] [place] [address] Phone Care Team Providers Care Casing Grader Name Role Phone Leonela Wilson MD Primary Care Provider [phone] Acosta Parker MD Unavailable [phone] Leonela Wilson MD Unavailable Madelyn Wing RN Unavailable Jessa Delacruz Unavailable [phone] Gianni Thomas MD, PhD Unavailable Gianni Thomas MD, PhD Unavailable Jey Love MD Unavailable [phone] Cindy Boggs DATAWAREHOUSE DEVELOPER Unavailable [phone] Mona Claudio MD Unavailable [phone] Encounter Details Date Type Department Care Team (Late st Contact Info) Description 06/26/2022 Procedure Pass [place] Admitting Dept - Virtual Department [address] [place], [place] [id number] Social History Tobacco Use Types Packs/Day Years Used Date Smoking Tobacco: Former Cigarettes Q uit: 05/05/2022 Smokeless Tobacco: Never Alcohol Use Standard [...] high school, GED, job training, learning the [place] language, technical skills, or developing parenting skills)? [...] documented as of this encounter Care Teams Casing Grader Relationship Specialty Start Date End Date Leonela Wilson MD [address] [place] [address], [facility] [address] [place] [address] [email or web address] PCP - General Family Medicine 06/06/22 Acosta Parker MD [address] [place] [address] 7 [place] [address] [email or web address] Insurance Assigned Provider 12/09/22 01/13/23 Leonela Wilson MD [address] [place] [address] 7 [place] [address] [email or web address] Insurance Assigned Provider 01/13/23 07/14/23 Madelyn Wing, ARIADNA [address] [place] [address] [email or web address] PHCM Carport Erector 10/09/23 01/15/25 Jessa Delacruz [address] [place] [address] [email or web address] Community Health Worker 11/12/23 01/30/24 Gianni Thomas MD, PhD [address] Campos [address] [place] [phone] [email or web address] Cardiology 12/20/23 12/20/23 Gianni Thomas MD, PhD [address] Campos [address] [place] [address] Cardiology 12/20/23 Jey Love MD [address] [place] [address] [email or web address] Care 12/20/23 Cindy Boggs, DATAWAREHOUSE DEVELOPER [facility], 1[address] [place] [address] [email or web address] Nurse Practitioner 12/20/23 Mona Claudio MD [address] [place] [address] Cardiology 10/21/24 documented as of this encounter Additional Source Comments The information contained in this document represents components of the legal health record. It is not the complete legal health record.[facility]
--- OUTSIDE RECORDS SUMMARY | 2025-11-04 17:52 | XMS_ITS | Encounter Summary ---
Author Organization [facility] Address [address] [facility] [address] [place] [address] Phone Care Team Providers Care Technical Sales Consultant Name Role Phone Leonela Wilson MD Primary Care Provider [phone] Leonela Wilson MD Unavailable Madelyn Wing RN Unavailable Jessa Delacruz Unavailable [phone] Gianni Thomas MD, PhD Unavailable Gianni Thomas MD, PhD Unavailable [phone] Jey Love MD Unavailable [phone] Cindy Boggs CNP Unavailable [phone] Mona Claudio MD Unavailable [phone] Encounter Details Date Type Department Care Team (Late st Contact Info) Description 06/26/2023 Procedure Pass [facility], [address] [address] Social History Tobacco Use Types Packs/Day Years [...] high school, GED, job training, learning the Maltese language, technical skills, or developing parenting skills)? [...] Start Date Job End Date enrollments for [employer] Not on file Not on file Not on file documented as of this encounter Plan of Treatment Not on file documented as of this encounter Visit Diagnoses Not on filedocumented in this encounter Additional Health Concerns Assessment Noted Time PHQ-2 Depression Total Score: 2 06/04/20 22 9:15 AM EDT documented as of this encounter Care Teams Technical Sales Consultant Relationship Specialty Start Date End Date Leonela Wilson MD [address] [place] [address] 7 [place] [address] [email or web address] PCP - General Family Medicine 06/06/22 Leonela Wilson MD [address] [place] [address] 7 [place] [address] [email or web address] Insurance Assigned Provider 01/13/23 07/14/23 Madelyn Wing, RN [address] [place] [address] [email or web address] PHCM Chocolate Molder 10/09/23 01/15/25 Jessa Delacruz [address] [place] [address] [email or web address] PHCM Community Health Worker 11/12/23 01/30/24 Gianni Thomas MD, PhD [address] [place] [address] Dr. Campos [address] [place] [address] Cardiology 12/20/23 12/20/23 Gianni Thomas MD, PhD [address] [place] [address] Dr. Campos [address] [place] [address] Cardiology 12/20/23 Jey Love MD [address] [place] [address] Intensive Care 12/20/23 Cindy Boggs CNP [address] [place] [address], [place] [address] Nurse Practitioner 12/20/23 Mona Claudio MD [address] [place] [address] Cardiology 10/21/24 documented as of this encounter Additional Source Comments The information contained in this document represents components of the legal health record. It is not the complete legal health record.[facility]
--- OUTSIDE RECORDS SUMMARY | 2025-11-04 17:52 | XMS_ITS | Encounter Summary ---
Author Organization [facility] Address [address] [facility] [address] [place] [address] Phone Care Team Providers Care Search Engine Optimizer Name Role Phone Leonela Wilson MD Primary Care Provider [phone] Madelyn Wing RN Unavailable [phone] Gianni Thomas MD, PhD Unavailable [phone] Jey Love MD Unavailable Cindy Boggs SEPTIC TANK SERVICE TECHNICIAN Unavailable [phone] Mona Claudio MD Unavailable [phone] Encounter Details Date Type Department Care Team (Late st Contact Info) Description 04/07/2024 Procedure Pass [facility], Ct Scan - [facility] [address] [place] [address] Social History Tobacco Use Types Packs/Day Years [...] high school, GED, job training, learning the Hebrew language, technical skills, or developing parenting skills)? [...] Start Date Job End Date enrollments for [employer] Not on file Not on file Not on file documented as of this encounter Plan of Treatment Not on file documented as of this encounter Visit Diagnoses Not on filedocumented in this encounter Additional Health Concerns Assessment Noted Time PHQ-2 Depression Total Score: 2 11/08/19 10:40 AM EST documented as of this encounter Care Teams Search Engine Optimizer Relationship Specialty Start Date End Date Leonela Wilson MD [address] [place] [address], [facility] 7 [place] [address] PCP - General Family Medicine 06/06/22 Madelyn Wing RN [address] [place] [address] [email or web address] PHCM Technical Staff Engineer 10/09/23 01/15/25 Gianni Thomas MD, PhD [address] [place] [address] [address] Cardiology 12/20/23 Jey Love MD [address] [place] [address] Intensive Care 12/20/23 Cindy Boggs CNP [address] [address] Nurse Practitioner 12/20/23 Mona Claudio MD [address] [place] [address] Cardiology 10/21/24 documented as of this encounter Additional Source Comments The information contained in this document represents components of the legal health record. It is not the complete legal health record.[facility]
--- OUTSIDE RECORDS SUMMARY | 2025-11-04 17:52 | XMS_ITS | Encounter Summary ---
Author Organization [facility] Address [address] [place] [address] Phone Care Team Providers Care Freelance Writer Name Role Phone Leonela Wilson MD Primary Care Provider [phone] Madelyn Wing RN Unavailable [phone] Gianni Thomas MD, PhD Unavailable [phone] Jey Love MD Unavailable Cindy Boggs CNP Unavailable Mona Claudio MD Unavailable [phone] Encounter Details Date Type Department Care Team (Late st Contact Info) Description 04/07/2024 Ancillary Orders [facility] [address] [place] [address] Madisyn Klein FNP [address] [facility], [address] [place], [place] [id number] [email or web address] Nausea and vomiting, unspecified vomiting type (Primary Dx); Flank pain Social History Tobacco Use Types Packs/Day Years [...] high school, GED, job training, learning the Sudanese language, technical skills, or developing parenting skills)? [...] Start Date Job End Date enrollments for [employer] Not on file Not on file Not on file documented as of this encounter Plan of Treatment Not on file documented as of this encounter Results * XR Abdomen Series Supine with Decubitus/Erect and Single View Chest (04/07/2024 2:56 PM EDT) Anatomical Region Laterality Modality Abdomen, Chest Computed Radiogr aphy 04/08/2024 7:55 AM EDT Narrative 04/08/2024 7:57 AM EDT XR ABDOMEN SERIES SUPINE WITH DECUBITIS/ERECT AND SINGLE VIEW CHEST Referring clinician's provided indication for this examination in Epic: Nausea/vomiting; Pain COMPARISON: 2024 FINDINGS: CHEST: Lungs are clear. Heart size is normal. ABDOMEN: Nonobstructed bowel gas pattern. Single dilated loop of small bowel in the left upper quadrant could suggest enteritis. No pneumoperitoneum. Right upper quadrant surgical clips are present. A clinically significant result was communicated on 04/08/2024 7:57 AM, Message ID [id number]. Procedure Note Sourav Shore MD, LANDY - 04/08/2024 XR ABDOMEN SERIES SUPINE WITH DECUBITIS/ERECT AND SINGLE VIEW CHEST Referring clinician's provided indication for this examination in [facility]:Nausea/vomiting; Pain COMPARISON: 2024 FINDINGS: CHEST: Lungs are clear. Heart size is normal. ABDOMEN: Nonobstructed bowel gas pattern. Single dilated loop of small bowel in theleft upper quadrant could suggest enteritis. No pneumoperitoneum. Right upper quadrant surgical clips are present. A clinically significant result was communicated on 04/08/2024 7:57 AM,Message ID [id number]. Madisyn Klein GANG INVESTIGATOR IMG XR ABDOMEN Final Result documented in this encounter Visit Diagnoses Diagnosis Nausea and vomiting, unspecified vomiting type Nausea and vomiting, unspecified vomiting type- Primary Flank pain Abdominal pain, unspecified site documented in this encounter Additional Health Concerns Assessment Noted Time PHQ-2 Depression Total Score: 2 11/08/19 24 10:40 AM EST documented as of this encounter Care Teams Freelance Writer Relationship Specialty Start Date End Date Leonela Wilson MD [address] [place] [address], [facility] 7 [place] [address] [email or web address] PCP - General Family Medicine 06/06/22 Madelyn Wing, ARIADNA [address] [place] [address] [email or web address] PHCM Exhibition Specialist 10/09/23 01/15/25 Gianni Thomas MD, PhD [address] [address] [email or web address] Cardiology 12/20/23 Jey Love MD [address] [place] [address] [email or web address] Intensive Care 12/20/23 Cindy Boggs CNP [address] [place] [address] [email or web address] Nurse Practitioner 12/20/23 Mona Claudio MD [address] [place] [address] Cardiology 10/21/24 documented as of this encounter Additional Source Comments The information contained in this document represents components of the legal health record. It is not the complete legal health record.[facility]
--- OUTSIDE RECORDS SUMMARY | 2025-11-04 17:53 | XMS_ITS | Patient Health Record ---
Author Organization [facility] Address [address] [facility] [address] [place] [address] Care Team Providers Care Operations Management Trainee Name Role Phone no, PCP Primary Care Provider Unavailabl e Karma Ware Unavailable [phone] Self, Referred Unavailable Unavailable Allergies Allergen (clinical [...] tafasitamab Monjuvi Unknown Drug Allergy Activ e Reason For Referral No Information Medications Medication SIG (Take, Route, Frequency, Duration) Notes Start Date End Date Status Ondansetron HCl 4 MG 1 tablet Orally Onc e a day; Duration: 30 days 10/23/2025 Active Rosuvastatin Calcium 40 MG 1 tablet Oral [...] do you smoke? 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) Active confirmed Problem Traumatic incomplete tear of right rotator cuff, subsequent encounter (S46.011D) Active confirmed Problem Anterior to posterior tear of superior glenoid labrum of right shoulder (disorder) (41791619476838218) Superior labrum emiohcyb-pj-xfthzzc or (SLAP) tear of right shoulder (S43.431A) Active confirmed Problem Internal impingement of right shoulder (disorder) (5696634198604763) Impingement of right shoulder (M25.811) Active confirmed Vital Signs Height 60 in 09/17/2025 Weight 150 lbs 09/17/2025 BMI 29.29 kg/m2 09/17/2025 Encounters Encounter Location Date Provider Diagnosis [facility] [address] [address] 10/21/2025 Karma Ware Traumatic incomplete tear of right rotator cuff, subsequent encounter S46.011D ; Recurrent dislocation, right shoulder M24.411 ; Impingement of right shoulder M25.811 ; Arthritis of right acromioclavicular joint M19.011 and Tear of right glenoid labrum, subsequent encounter S43.431D [facility] [address] [place] [address] 08/25/2025 Karma Ware Recurrent dislocatio n, right shoulder M24.411 and Pain, joint, shoulder, right M25.511 [facility] [address] [place] [address] 09/17/2025 Karma Ware Traumatic incomplete tear of right rotator cuff, subsequent encounter S46.011D ; Superior labrum sggwkytm-yx-yhmwrwnit (SLAP) tear of right shoulder S43.431A ; Recurrent dislocation, right shoulder M24.411 ; Impingement of right shoulder M25.811 and Arthritis of right acromioclavicular joint M19.011 [facility] [address] [place] [address] 10/23/2025 Karma Ware [facility] [address] [place] [address] 10/23/2025 Karma Ware [facility] [address] [place] [address] 11/04/2025 Karma Ware Assessments Encounter Date Diagnosis (ICD Code) Assessment Notes Treatment Notes Treatment Clinical Notes Section Notes 10/21/2025 Recurrent dislocation, right shoulder (ICD-10 - M24.411) 10/21/2025 Traumatic incomplete tear of right rotator cuff, subsequent encounter (ICD-10 - S46.011D) 08/25/2025 Recurrent dislocation, right shoulder (ICD-10 - M24.411) 08/25/2025 Pain, joint, shoulder, right (ICD-10 - M25.511) 09/17/2025 Traumatic incomplete tear of right rotator cuff, subsequent encounter (ICD-10 - S46.011D) 09/17/2025 Superior labrum suagyrwu-xv-dvfldnkaw (SLAP) tear of right shoulder (ICD-10 - S43.431A) 09/17/2025 Recurrent dislocation, right shoulder (ICD-10 - M24.411) 10/21/2025 Impingement of right shoulder (ICD-10 - M25.811) 09/17/2025 Impingement of right shoulder (ICD-10 - M25.811) 10/21/2025 Arthritis of right acromioclavicular joint (ICD-10 - M19.011) 10/21/2025 Tear of right glenoi d labrum, subsequent encounter (ICD-10 - S43.431D) 09/17/2025 Arthritis of right acromioclavicular joint (ICD-10 - M19.011) Plan Of Treatment Pending Test Test Name Order Date MRI SHOULDER RT WO CONTRAST 08/25/2025 XRAY UE SHLDER RT 08/25/2025 Next Appt Details Provider Name:Karmacameron Ware, 11/10/2025 02:00:00 PM, [address], [place], [address], Provider Name:Price abdallamichelle, 11/11/2025 01:00:00 PM, [address], [place], [address], Insurance Providers Payer Name Payer Address Payer Phone Subscriber Number Group Number Insured Name Patient Relationship to Insured Coverage Start Date Coverage End Date [employer] [address] [facility] [employer] [employer] [phone] [id number] Rochelle Chappell Self - patient is the insured 5 Medical (General) History Medical History History ICD Code type 2 diabetes HBP asthma Surgical History Surgery Date(Month/Year) 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
--- OUTSIDE RECORDS SUMMARY | 2025-11-04 17:53 | XMS_ITS | Encounter Summary ---
Author Organization [facility] Address [address] [facility] [address] [place] [address] Phone Care Team Providers Care Bowling Alley Floors Installer Name Role Phone Leonela Wilson MD Primary Care Provider [phone] Madelyn Wing RN Unavailable [phone] Jessa Delacruz Unavailable [phone] Gianni Thomas MD, PhD Unavailable [phone] Jey Love MD Unavailable Cindy Boggs CNP Unavailable [phone] Mona Caludio MD Unavailable [phone] Encounter Details Date Type Department Care Team (Late st Contact Info) Description 01/07/2024 Procedure Pass [facility], [place] [address] [facility], [address]nd [address], [address] [place] [address] Social History Tobacco Use Types Packs/Day Years [...] high school, GED, job training, learning the Tunisian language, technical skills, or developing parenting skills)? [...] Start Date Job End Date enrollments for [employer] Not on file Not on file Not on file documented as of this encounter Plan of Treatment Not on file documented as of this encounter Visit Diagnoses Not on filedocumented in this encounter Additional Health Concerns Assessment Noted Time PHQ-2 Depression Total Score: 2 11/08/19 10:40 AM EST documented as of this encounter Care Teams Bowling Alley Floors Installer Relationship Specialty Start Date End Date Leonela Wilson MD [address] [place] [address] 7 [place] [address] PCP - General Family Medicine 06/06/22 Madelyn Wing, RN [address] [place] [address] [email or web address] PHCM Farm Operator 10/09/23 01/15/25 Jessa Delacruz [address] [place] [address] PHCM Community Health Worker 11/12/23 01/30/24 Gianni Thomas MD, PhD [address] [place] [address] [address] Cardiology 12/20/23 Jey Love MD [address] [place] [address] Intensive Care 12/20/23 Cindy Boggs CNP [address] [place] [address] Nurse Practitioner 12/20/23 Mona Claudio MD [address] [place] [address] Cardiology 10/21/24 documented as of this encounter Additional Source Comments The information contained in this document represents components of the legal health record. It is not the complete legal health record.[facility]
--- OUTSIDE RECORDS SUMMARY | 2025-11-04 17:53 | XMS_ITS | Encounter Summary ---
Author Organization [facility] Address [address] [facility] [address] [place] [address] Phone Care Team Providers Care Department Clinician Name Role Phone Leonela Wilson MD Primary Care Provider [phone] Madelyn Wing RN Unavailable [phone] Gianni Thomas MD, PhD Unavailable [phone] Jey Love MD Unavailable Cindy Boggs RAT BREEDER Unavailable Mona Claudio MD Unavailable [phone] Encounter Details Date Type Department Care Team (Late st Contact Info) Description 04/08/2024 Procedure Pass [facility], Ct Scan - [facility] [address] [place] [address] Social History Tobacco Use Types Packs/Day Years [...] high school, GED, job training, learning the Sami language, technical skills, or developing parenting skills)? [...] Start Date Job End Date enrollments for [employer] Not on file Not on file Not on file documented as of this encounter Plan of Treatment Not on file documented as of this encounter Visit Diagnoses Not on filedocumented in this encounter Additional Health Concerns Assessment Noted Time PHQ-2 Depression Total Score: 2 11/08/19 10:40 AM EST documented as of this encounter Care Teams Department Clinician Relationship Specialty Start Date End Date Leonela Wilson MD [address] [place] [address], [facility] 7 [place] [address] PCP - General Family Medicine 06/06/22 Madelyn Wing RN [address] [place] [address] [email or web address] PHCM Special Needs Caregiver 10/09/23 01/15/25 Gianni Thomas MD, PhD [address] [place] [address] [address] Cardiology 12/20/23 Jey Love MD [address] [place] [address] Intensive Care 12/20/23 Cindy Boggs CNP [address] [address] Nurse Practitioner 12/20/23 Mona Claudio MD [address] [place] [address] Cardiology 10/21/24 documented as of this encounter Additional Source Comments The information contained in this document represents components of the legal health record. It is not the complete legal health record.[facility]
== END 2025-11-04 18:35 | disposition home or self-care (01) ==
PROVIDERS: Physician Assistant; Emergency Provider Student in an Organized Health Care Education/Training Program
DX: G89.18 Other acute postprocedural pain (principal); I10 Essential (primary) hypertension; Z98.890 Other specified postprocedural states; Z79.899 Other long term (current) drug therapy
CPT/HCPCS: 36415; 80048; 80076; 85025; 99282; 99283